=== PATIENT | male | born 1950 | race Caucasian/White ===

== ENCOUNTER → 2018-01-29 20:00 | Outpatient (CLI) | payer MEDICARE, SELFPAY ==
--- OUTSIDE RECORDS SUMMARY | 2018-03-18 03:27 | XMS RPT_ITS | Summary of Care ---
:1950 Author Organization [facility] Address [address] [place] [address] Care Team Providers Name Role Phone Adia Clint Ayon DO Primary Care Provider Clint Cheek DO Unavailable Clint Hinojosa MD Unavailable Encounter Details Date Type Department Care Team Description 12/04/2017 Hospital Encounter [facility] Samantha Stauffer, [address] [employer] [place], [place] [address] [address] [place] [address] [phone] Allergies Active Allergy Reactions Severity Noted Date Comments Morphine Other (See Comments) High 06/08/2016 States it slows his breathing down as of this encounter Medications Prescription Sig. Disp. Refills Start Date End Date Status gabapentin Take 400 mg by Active (NEURONTIN) 400 MG mouth 3 (three) capsule times a day . potassium chloride SA Take 20 mEq by Active (K-DUR,KLOR-CON) 20 mouth daily. MEQ tablet SYMBICORT (SAMPLE) 2 puffs by Oral Active 160-4.5 mcg/actuation Inhalation route HFAA 2 (two) times a day. tiotropium (SPIRIVA Place 18 mcg into Active WITH HANDIHALER) 18 inhaler and mcg inhalation inhale daily. capsule furosemide (LASIX) 20 Take 20 mg by 09/06/2017 Active MG tablet mouth daily. pramipexole (MIRAPEX) Take 1.5 mg by 09/06/2017 Active 0.5 MG tablet mouth nightly. docusate sodium Take 100 mg by Active (COLACE) 100 MG mouth 2 (two) capsule times a day hold for diarrhea. metoprolol succinate Take 25 mg by Active (TOPROL-XL) 25 MG 24 mouth daily. hr tablet HumuLIN N (SAMPLE) Inject 12 Units Active 100 unit/mL injection under the skin at bedtime . acetaminophen Take 650 mg by Active (TYLENOL) 325 MG mouth every 6 tablet (six) hours as needed for pain. fluticasone (FLONASE) Instill 2 sprays Active 50 mcg/actuation into each nostril nasal spray daily. insulin regular Inject 13 Units under the skin 3 (three) times a day before meals. In untis = 14 breakfast/8 lunch/ 13 dinner 09/14/2017 Active (HumuLIN R, NovoLIN low sliding scale R) 100 unit/mL 70-150 give o unit, 151-200 give 1 unit, 201-250 give 2 units, 251- 300 give 3 untis, 301-350 give 4 units, 350-400 give units, notify physician fo injection clopidogrel (PLAVIX) Take 1 (one) 90 tablet 4 09/20/2017 09/20/2018 Active 75 mg tablet tablet (75 mg total) by mouth daily. atorvastatin Take 40 mg by Active (LIPITOR) 40 MG mouth daily. tablet aspirin 325 MG tablet Take 325 mg by Active mouth daily. nitroGLYCERIN Place 0.4 mg Active (NITROSTAT) 0.4 MG SL under the tongue tablet every 5 (five) minutes as needed for chest pain. pantoprazole Take 40 mg by Active (PROTONIX) 40 MG mouth daily. tablet as of this encounter Active Problems Problem Noted Date CAD (coronary artery disease) 12/04/2017 Overview: 2017 coronary artery bypass grafting by Dr. Hinojosa. The GARCIA to the LAD with reverse saphenous vein graft [id number] to the ramus intermedius and end-to-side to the first obtuse marginal. Th ey were unable to address blockages on the right system because of poor targets. LV function is known to be normal Last Assessment & Plan: Attending rehab without provocation of symptoms. Encouraged the continuation of diet and exercise for risk factor reduction. Would recommend hemoglobin A1c at least 7. Would continue same medications . He will follow-up with Dr. Mcqueen in 3 months. Type 2 diabetes mellitus with stage 3 chronic kidney disease, without 10/23/2017 long-term current use of insulin (HCC) Hypertension 09/08/2017 Last Assessment & Plan: Blood pressure controlled in the office today. Continue to monitor and adjust as needed Hyperlipidemia 09/08/2017 Last Assessment & Plan: Currently on atorvastatin 40 mg daily. He does have some lower extremity cramps. Will check a magnesium and calcium and refer to primary care. Recommend ongoing diet and exercise with weight loss T2DM (type 2 diabetes mellitus) ([facility]) 09/08/2017 Last Assessment & Plan: We recommend a targeted hemoglobin A1c of 7.0. CKD (chronic kidney disease) stage 3, GFR 30-59 ml/min ([facility]) 09/08/2017 Last Assessment & Plan: Patient's last serum creatinine was 1.43. Patient will need IV hydration prior to percutaneous coronary intervention. Risk factor modification was reviewed. DEBORAH on CPAP 09/08/2017 Last Assessment & Plan: He is compliant with CPAP and his settings have been changed and he is now off oxygen. Recommend continuation of CPAP Social History Tobacco Use Types Packs/Day Years Used Date Never Smoker Smokeless Tobacco: Never Used Alcohol Use Drinks/Week oz/Week Comments No Sex Assigned at Date Recorded Not on file as of this encounter Plan of Treatment Upcoming Encounters Date Type Specialty Care Team Description 12/05/2017 Office Visit Endocrinology Jg Calvillo, [employer] [address] [place] [address] [phone] Health Maintenance Due Date Last Done Comments COLONOSCOPY 1950 HEPATITIS C SCREENING 1950 OPHTHALMOLOGY EXAM 1960 ZOSTER VACCINES (1 of 2) 2000 PNEUMOCOCCAL VACCINE AGE 65+ (1 of 2 - 09/02/2015 PCV13) SEQUENTIAL INFLUENZA VACCINE (#1) 2017 HEMOGLOBIN A1C 05/31/2018 11/30/2017, 08/30/2017 FOOT EXAM 10/04/2018 10/04/2017 URINE MICROALBUMIN 11/30/2018 11/30/2017 TETANUS EVERY 10 YR 01/14/2025 01/14/2015 as of this encounter Procedures Procedure Name Priority Date/Time Associated Diagnosis Comments MAGNESIUM LEVEL Routine 12/04/2017 9:11 AM Results for this EDT procedure are in the results section. CALCIUM Routine 12/04/2017 9:11 AM Results for this EDT procedure are in the results section. in this encounter Results Magnesium Level (12/04/2017 9:11 AM) Magnesium 1.9 1.6 - 2.4 mg/dL [facility] Specimen Blood Performing Organization Address City/[facility] Phone Number [facility] [address] [place] [address] Calcium Level (12/04/2017 9:11 AM) Calcium 8.8 8.4 - 10.2 mg/dL [facility] Specimen Blood Performing Organization Address City/[facility] Phone Number [facility] [address] [place] [address] in this encounter
--- OUTSIDE RECORDS SUMMARY | 2018-03-18 03:27 | XMS RPT_ITS | Summary of Care ---
:1950 Author Organization [facility] Address [address] [place] [address] Care Team Providers Name Role Phone Clint Cheek DO Primary Care Provider Clint Cheek DO Unavailable Clint Hinojosa MD Unavailable Encounter Details Date Type Department Care Team Description 11/03/2017 Hospital Encounter [facility] Charlotte Rojo, [address] [place], [place] [address] [address] [address] Allergies Active Allergy Reactions Severity Noted Date [...] this encounter Active Problems Problem Noted Date Type 2 diabetes mellitus with stage 3 chronic kidney disease, without 10/23/2017 long-term current use of insulin ([facility]) Hypertension 09/08/2017 Last Assessment & Plan: Appears well-controlled on his current medical regimen and we have made no changes. Hyperlipidemia 09/08/2017 Last Assessment & Plan: Patient's plaque stabilization therapy was discontinued yesterday by the surgical service due to development of a maculopapular rash and itching. T2DM (type 2 diabetes mellitus) (HCC) 09/08/2017 Last Assessment & Plan: We recommend a targeted hemoglobin A1c of 7.0. CKD (chronic kidney disease) stage 3, GFR 30-59 ml/min 09/08/2017 Last Assessment & Plan: Patient's last serum creatinine was 1.43. Patient will need IV hydration prior to percutaneous coronary intervention. Risk factor modification was reviewed. DEBORAH on CPAP 09/08/2017 Last Assessment & Plan: Patient has been compliant with CPAP therapy. Social History Tobacco Use Types Packs/Day Years Used Date Never Smoker Smokeless Tobacco: Never Used Alcohol Use Drinks/Week oz/Week Comments No Sex Assigned at Date Recorded Not on file as of this encounter Plan of Treatment Upcoming Encounters Date Type Specialty Care Team Description 11/08/2017 Office Visit Cardiology Samantha Stauffer, [employer] [address] [facility] [place] [address] [phone] 12/05/2017 Office Visit Endocrinology Jg Calvillo, [employer] SCI[employer]IST [address] [facility] Sara [address] [address] [phone] Health Maintenance Due Date Last Done Comments COLONOSCOPY 1950 HEPATITIS C SCREENING 1950 OPHTHALMOLOGY EXAM 1960 URINE MICROALBUMIN 1960 ZOSTER VACCINES (1 of 2) 2000 PNEUMOCOCCAL VACCINE AGE 65+ (1 of 2 - PCV13) 09/02/2015 SEQUENTIAL INFLUENZA VACCINE (#1) 2017 HEMOGLOBIN A1C 03/02/2018 08/30/2017 FOOT EXAM 10/04/2018 10/04/2017 TETANUS EVERY 10 YR 01/14/2025 01/14/2015 as of this encounter
--- OUTSIDE RECORDS SUMMARY | 2018-03-18 03:27 | XMS RPT_ITS | Summary of Care ---
:1950 Author Organization [facility] Address [address] [place] [address] Care Team Providers Name Role Phone Clint Cheek DO Primary Care Provider Clint Cheek DO Unavailable Clint Hinojosa MD Unavailable Reason for Visit Reason Comments Diabetes Mellitus Encounter Details Date Type Department Care Team Description 10/04/2017 Office Visit [facility] Blossom Meyer Type 2 diabetes mellitus with other circulatory complication, with long-term current use of insulin ([facility]) (Primary Dx); Endocrinology [place] Essential hypertension; Physicians [address] Hyperlipidemia, unspecified hyperlipidemia type; [address] Type 2 diabetes mellitus with stage 3 chronic kidney disease, without long-term current use of insulin ([facility]) Medical [place], [place] [address] [address] [place], [place] [phone] Allergies Active Allergy Reactions Severity Noted Date Comments Morphine Other (See Comments) High 06/08/2016 States it slows his breathing down as of this encounter Medications Prescription Sig. Disp. Refills Start Date End Date Status gabapentin Take 400 mg by Active (NEURONTIN) 400 MG mouth 3 (three) capsule times a day . potassium chloride Take 20 mEq by Active SA (K-DUR,KLOR-CON) mouth daily. 20 MEQ tablet SYMBICORT (SAMPLE) 2 puffs by Oral Active 160-4.5 Inhalation route mcg/actuation HFAA 2 (two) times a day. tiotropium (SPIRIVA Place 18 mcg Active WITH HANDIHALER) 18 into inhaler and mcg inhalation inhale daily. capsule furosemide (LASIX) Take 20 mg by 09/06/2017 Active 20 MG tablet mouth daily. pramipexole Take 1.5 mg by 09/06/2017 Active (MIRAPEX) 0.5 MG mouth nightly. tablet docusate sodium Take 100 mg by Active (COLACE) 100 MG mouth 2 (two) capsule times a day hold for diarrhea. metoprolol Take 25 mg by Active succinate mouth daily. (TOPROL-XL) 25 MG 24 hr tablet HumuLIN N (SAMPLE) Inject 12 Units Active 100 unit/mL under the skin injection at bedtime . acetaminophen Take 650 mg by Active (TYLENOL) 325 MG mouth every 6 tablet (six) hours as needed for pain. fluticasone Instill 2 sprays Active (FLONASE) 50 into each mcg/actuation nasal nostril daily. spray insulin regular Inject 13 Units under the skin 3 (three) times a day before meals. In untis = 14 breakfast/8 lunch/ 13 dinner 09/14/2017 Active (HumuLIN R, NovoLIN low sliding scale R) 100 unit/mL 70-150 give o unit, 151-200 give 1 unit, 201-250 give 2 units, 251- 300 give 3 untis, 301-350 give 4 units, 350-400 give units, notify physician fo injection clopidogrel Take 1 (one) 90 tablet 4 09/20/2017 Active (PLAVIX) 75 mg tablet (75 mg 9 tablet total) by mouth daily. aspirin (ASPIR-81) Take 81 mg by Discontinued 81 MG EC tablet mouth daily. 8 oxyCODONE-acetamino Take 1 tablet by Discontinued phen (PERCOCET) mouth every 4 8 5-325 mg per tablet (four) hours as needed for pain. esomeprazole Take 40 mg by Discontinued (NEXIUM) 40 MG mouth daily. 8 capsule as of this encounter Active Problems Problem Noted Date Type 2 diabetes mellitus with stage 3 chronic kidney disease, without 10/23/2017 long-term current use of insulin (HCC) Hypertension 09/08/2017 Last Assessment & Plan: Appears [...] Not on file as of this encounter Last Filed Vital Signs Vital Sign Reading Time Taken Blood Pressure 132/74 10/04/2017 8:40 AM EDT Pulse 84 10/04/2017 8:40 AM EDT Temperature - - Respiratory Rate - - Oxygen Saturation - - Inhaled Oxygen Concentration - - Weight 114.3 kg (252 lb) 10/04/2017 8:40 AM EDT Height - - Body Mass Index 39.47 10/04/2017 8:40 AM EDT in this encounter Instructions Patient Instructions - Blossom Meyer CNP - 10/04/2017 9:09 AM EDT Consider yearly eye exam Will consider metformin after next appointment. Continue Regular insulin 14 units at breakfast, 8 units at lunch, 12 units at dinner Continue NPH 12 units at bedtime Continue sliding scale Regular with meals and bedtime snack If Blood sugar 150-200: take 2 extra units 201-250 take 4 extra units 251-300 take 6 extra units 301-350 take 8 extra units 351-400 take 10 extra units 401- greater take 10 extra units and call Dr Rojo's office Consult the casing splitter Take 6 units of NPH at bedtime tonight 10/04/17 since not having breakfast and do not take Regular insulin tomorrow morning 10/05/17 since you are not eating breakfast. Call if BG consistently <70 or >250. [phone] this encounter Progress Notes Blossom Meyer CNP - 10/04/2017 8:58 AM EDTFormatting of this note may be different from the original. Patient ID: Deepa Fletcher is a 67 y.o. male 1950 Subjective: HPI: Deepa Fletcher presents for follow-up of Type 2 diabetes The initial diagnosis of diabetes was made 15-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 He had been taking metformin 1,000 mg BID, Actos 30 mg daily and Glimepiride 4 mg BID , although his metformin was recently decreased to 500 mg BID. His Hgb A1C was 10.4% on 08/31/17.Since his surgery, his disease course has been improving. Pertinent negatives for diabetes include: no chest pain no shortness of breath no polyuria, polydipsia, polyphagia no nausea or vomiting no blurred vision no weight loss no recent hypoglycemia Pertinent positives for diabetes include: none Hypoglycemia symptoms include hunger and sweats . There are no hypoglycemic complications, no nocturnal hypoglycemia. Diabetic complications include diabetic neuropathy, diabetic nephropathy and CAD Pertinent negatives for diabetic complications include no: diabetic retinopathy and autonomic neuropathy Current diabetic treatment includes insulin injections and oral agent/s Self Monitored blood glucose levels Patient has been checking BG QID AC/HS. Breakfast: 110-234 Lunch: 126-227 Supper: 80-243 Bedtime: 98-229 Patient's weight is stable Currently taking: No oral hypoglycemic medications Regular Insulin: 14 units at breakfast; 8 units at lunch; 12 units at dinner NPH insulin: 12 units at bedtime Patient's Medications New Prescriptions No medications on file Previous Medications ACETAMINOPHEN (TYLENOL) 325 MG TABLET Take 650 mg by mouth every 6 (six) hours as needed for pain. ASPIRIN 325 MG TABLET Take 325 mg by mouth daily. ATORVASTATIN (LIPITOR) 40 MG TABLET Take 40 mg by mouth daily. CLOPIDOGREL (PLAVIX) 75 MG TABLET Take 1 (one) tablet (75 mg total) by mouth daily. DOCUSATE SODIUM (COLACE) 100 MG CAPSULE Take 100 mg by mouth 2 (two) times a day hold for diarrhea. FLUTICASONE (FLONASE) 50 MCG/ACTUATION NASAL SPRAY Instill 2 sprays into each nostril daily. FUROSEMIDE (LASIX) 20 MG TABLET Take 20 mg by mouth daily. GABAPENTIN (NEURONTIN) 400 MG CAPSULE Take 400 mg by mouth 3 (three) times a day . HUMULIN N (SAMPLE) 100 UNIT/ML INJECTION Inject 12 Units under the skin at bedtime . INSULIN REGULAR (HUMULIN R, NOVOLIN R) 100 UNIT/ML INJECTION Inject 13 Units under the skin 3 (three) times a day before meals. In untis = 14 breakfast/8 lunch/ 13 dinner low sliding scale 70-150 give o unit, 151-200 give 1 unit, 201-250 give 2 units, 251-300 give 3 untis, 301-350 give 4 units, 350-400 give units, notify physician fo METOPROLOL SUCCINATE (TOPROL-XL) 25 MG 24 HR TABLET Take 25 mg by mouth daily. NITROGLYCERIN (NITROSTAT) 0.[address] 0.4 mg under the tongue every 5 (five) minutes as needed for chest pain. PANTOPRAZOLE (PROTONIX) 40 MG TABLET Take 40 mg by mouth daily. POTASSIUM CHLORIDE SA (K-DUR,KLOR-CON) 20 MEQ TABLET Take 20 mEq by mouth daily. PRAMIPEXOLE (MIRAPEX) 0.5 MG TABLET Take 1.5 mg by mouth nightly. SYMBICORT (SAMPLE) 160-4.5 MCG/ACTUATION HFAA 2 puffs by Oral Inhalation route 2 (two) times a day. TIOTROPIUM (SPIRIVA WITH HANDIHALER) [address] 18 mcg into inhaler and inhale daily. Modified Medications No medications on file Discontinued Medications ASPIRIN (ASPIR-81) 81 MG EC TABLET Take 81 mg by mouth daily. ESOMEPRAZOLE (NEXIUM) 40 MG CAPSULE Take 40 mg by mouth daily. OXYCODONE-ACETAMINOPHEN (PERCOCET) 5-325 MG PER TABLET Take 1 tablet by mouth every 4 (four) hours as needed for pain. Review of Systems: Review of Systems Constitutional: Negative for appetite change and fatigue. Eyes: Negative for visual disturbance. Respiratory: Negative for cough, chest tightness, shortness of breath and wheezing. Cardiovascular: Negative for chest pain, palpitations and leg swelling. Gastrointestinal: Positive for constipation (relieved with stool softener). Negative for abdominal pain, diarrhea, nausea and vomiting. Endocrine: Negative for polydipsia, polyphagia and polyuria. Genitourinary: Negative for dysuria and frequency. Musculoskeletal: Negative for arthralgias, gait problem and myalgias. Neurological: Negative for weakness, numbness and headaches. The following portions of the patient's history were reviewed and updated as appropriate: allergies,current medications, past family history, past medical history, past social history, past surgical history and problem list. Objective: BP 132/74 Pulse 84 Ht (P) 5' 7 Wt 114.3 kg (252 lb) BMI (P) 39.47 kg/m?? Wt Readings from Last 3 Encounters: 10/13/17 114.3 kg (252 lb) 10/04/17 114.3 kg (252 lb) 09/20/17 112.5 kg (248 lb) Physical Exam: General: alert, appears stated age and cooperative Eyes: conjunctivae/corneas clear. PERRL, EOM's intact. Neck: no adenopathy, supple, symmetrical, trachea midline. Thyroid: No thyromegaly appreciated Lung: clear to auscultation bilaterally Heart: regular rate and rhythm, S1, S2 normal, no murmur, click, rub or gallop Extremities: extremities normal, atraumatic, no cyanosis. Left vein lower extremity vein removed forCABG 2017, healed.Mild LLE edema Feet: Dry skin, Bilateral Feet: normal DP. Monofilament exam Normal , bilateral lower extremities. Neuro: normal without focal findings, mental status, speech normal, alert and oriented x3 and BELEN Lab Review Lab Results Component Value Date WBC 5.5 10/06/2017 HGB 12.7 (L) 10/06/2017 HCT 37.5 (L) 10/06/2017 PLT 196 10/06/2017 09/27/17 Creat: 1.51, EGFR 46, K 4.1 Lab Results Component Value Date HGBA1C 10.4 (H) 08/30/2017 Component Value Date/Time AST 17 08/30/2017 1258 ALT 27 08/30/2017 1258 Assessment: Dx: SNOMED CT(R) 1. Type 2 diabetes mellitus with other circulatory complication, with long-term current use of insulin (HCC) TYPE 2 DIABETES MELLITUS TSH T4, Free Comprehensive Metabolic Panel Hemoglobin A1c External Lab Microalbumin/Creatinine Lipid Panel 2. Essential hypertension ESSENTIAL HYPERTENSION TSH T4, Free Comprehensive Metabolic Panel Hemoglobin A1c External Lab Microalbumin/Creatinine Lipid Panel 3. Hyperlipidemia, unspecified hyperlipidemia type HYPERLIPIDEMIA TSH T4, Free Comprehensive Metabolic Panel Hemoglobin A1c External Lab Microalbumin/Creatinine Lipid Panel Type 2 diabetes, under improving control Deepa Fletcher presents for follow-up of Type 2 diabetes Patient is currently managed with: Humulin Regular before meals and HPN insulin at beditme. Most recent Hgb A1c was 10.4% on 08/31/17. Retinopathy: Negative Exam within last 12 months: unknown Date:. Follows with the [facility] for management of Routine eye care. Floaters became detached Retina. Recommend a yearly exam Nephropathy: Positive Creat: 1.51, eGFR 46 on 09/27/17; Mialb/creat ratio: To be checked prior to next appt, patient takes Patient on No PEDRO-I or ARB Peripheral Neuropathy: Negative Reports bilateral numbness and tingling in feet. Takes gabapentin Autonomic Neuropathy: Negative Patient aware of lows. Hyperlipidemia: Positive Currently taking: atorvastatin (Lipitor). LFT's WNL 09/27/17. Will be checking lipid panel prior to next appt Hypertension: Positive. Currently taking: furosemide (Lasix) and metoprolol (Lopressor, Toprol).Goal <130/80. stable BP: 132/74 Cardiac: Positive Denies Chest pain or SOB at this time. CABG x 3 on 09/01/17. Does have chest soreness. Having cardiac stent 10/05/17, then will follow up with Dr Hinojosa 10/13/17 prior to starting cardiac rehab Vascular: Positive edema. Has hx of right leg injury Then had vein removed from leg for CABG Feet: Negative sores or lesions at this time. Last foot exam: 10/04/17 Thyroid: Negative Check prior to next appt Other: CPAP ordered 10/03/17. Following with a [facility] it support manager Plan: Type 2 diabetes mellitus with other circulatory complication, with long-term current use of insulin (HCC) [E11.59, Z79.4] 1. Rx changes: Continue current regimen Regular Insulin: 14 units at breakfast; 8 units at lunch; 12 units at dinner NPH insulin: 12 units at bedtime No oral hypoglycemic medications Will consider metformin after next appointment since will be having a heart cath 10/05/17 Continue sliding scale Regular with meals and bedtime snack If Blood sugar 150-200: take 2 extra units 201-250 take 4 extra units 251-300 take 6 extra units 301-350 take 8 extra units 351-400 take 10 extra units 401- greater take 10 extra units and call Dr Rojo's office Consult the casing splitter 2. Education: Reviewed ???ABCs??? of diabetes management (respective goals in parentheses): A1C (7.0-8.0), blood pressure (<130/80), and cholesterol (LDL <100). 3. Compliance at present is estimated to be good. Efforts to improve compliance (if necessary) willbe directed at dietary modifications: Limit portion sizes and Limit starches, carbohydrates and concentrated sugar sources and increased exercise. (when ready for cardiac rehab per cardiology) 4. Follow up: 2 months 5. Record blood sugar readings as instructed. Call if BG consistently <70 or >250. [phone] Check blood sugar 3-4 times daily. 6. Bring blood sugar meter to follow up appointment. Orders Placed This Encounter Procedures ??? TSH ??? T4, Free ??? Comprehensive Metabolic Panel ??? Hemoglobin A1c ??? External Lab Microalbumin/Creatinine ??? Lipid Panel in this encounter Plan of Treatment Upcoming Encounters Date Type Specialty Care Team Description 10/24/2017 Hospital Encounter Clint Hinojosa MD [address] [place] [address] [phone] 11/08/2017 Office Visit Cardiology Samantha Stauffer CNP [address] [place] [address] [phone] 12/05/2017 Office Visit Endocrinology [place], [place] [address] [address] [phone] Scheduled Tests Name Priority Associated Diagnoses Order Schedule TSH Routine Type 2 diabetes mellitus 1 Occurrences starting with other circulatory 10/04/2017 until complication, with 10/04/2018 long-term current use of insulin (HCC) Essential hypertension Hyperlipidemia, unspecified hyperlipidemia type T4, Free Routine Type 2 diabetes mellitus 1 Occurrences starting with other circulatory 10/04/2017 until complication, with 10/04/2018 long-term current use of insulin (HCC) Essential hypertension Hyperlipidemia, unspecified hyperlipidemia type Comprehensive Metabolic Routine Type 2 diabetes mellitus 1 Occurrences starting Panel with other circulatory 10/04/2017 until complication, with 10/04/2018 long-term current use of insulin (HCC) Essential hypertension Hyperlipidemia, unspecified hyperlipidemia type Hemoglobin A1c Routine Type 2 diabetes mellitus 1 Occurrences starting with other circulatory 10/04/2017 until complication, with 10/04/2018 long-term current use of insulin (HCC) Essential hypertension Hyperlipidemia, unspecified hyperlipidemia type External Lab Routine Type 2 diabetes mellitus 1 Occurrences starting Microalbumin/Creatinine with other circulatory 10/04/2017 until complication, with 10/04/2018 long-term current use of insulin (HCC) Essential hypertension Hyperlipidemia, unspecified hyperlipidemia type Lipid Panel Routine Type 2 diabetes mellitus 1 Occurrences starting with other circulatory 10/04/2017 until complication, with 10/04/2018 long-term current use of insulin (HCC) Essential hypertension Hyperlipidemia, unspecified hyperlipidemia type Health Maintenance Due Date Last Done Comments COLONOSCOPY 1950 HEPATITIS C SCREENING 1950 FOOT EXAM 1960 OPHTHALMOLOGY EXAM 1960 URINE MICROALBUMIN 1960 ZOSTER VACCINES (1 of 2) 2000 PNEUMOCOCCAL VACCINE AGE 65+ (1 of 2 - PCV13) 09/02/2015 SEQUENTIAL INFLUENZA VACCINE (#1) 2017 HEMOGLOBIN A1C 03/02/2018 08/30/2017 TETANUS EVERY 10 YR 01/14/2025 01/14/2015 as of this encounter Visit Diagnoses Diagnosis Type 2 diabetes mellitus with other circulatory complication, with long-term current use of insulin (HCC) - Primary Essential hypertension Unspecified essential hypertension Hyperlipidemia, unspecified hyperlipidemia type
--- OUTSIDE RECORDS SUMMARY | 2018-03-18 03:27 | XMS RPT_ITS | Summary of Care ---
:1950 Author Organization [facility] Address [address] [place] [address] Care Team Providers Name Role Phone Clint Cheek DO Primary Care Provider Clint Cheek DO Unavailable Clint Hinojosa MD Unavailable Reason for Visit Reason Comments Follow-up s/p pci Encounter Details Date Type Department Care Team Description 12/04/2017 Office Visit [facility] Heart & [place], Samantha Cramps of left lower extremity (Primary Dx); Vascular Physicians [place] Narayanan Coronary artery disease without angina pectoris, unspecified vessel or lesion type, unspecified whether [place] or transplanted heart; [address] Essential hypertension; Medical Office [place], [place] Mixed hyperlipidemia; Building [facility] DEBORAH on CPAP [place], [place] [phone] Allergies Active Allergy Reactions Severity Noted Date [...] the LAD with reverse saphenous vein graft [id number] to the ramus intermedius and end-to-side to [...] without 10/23/2017 long-term current use of insulin ([facility]) Hypertension 09/08/2017 Last Assessment & Plan: Blood pressure controlled in the office today. Continue to monitor and adjust as needed Hyperlipidemia 09/08/2017 Last Assessment & Plan: Currently on atorvastatin 40 mg daily. He does have some lower extremity cramps. Will check a magnesium and calcium and refer to primary care. Recommend ongoing diet and exercise with weight loss T2DM (type 2 diabetes mellitus) ([facility]) 09/08/2017 Last Assessment & Plan: We recommend a targeted hemoglobin A1c of 7.0. CKD (chronic kidney disease) stage 3, GFR 30-59 ml/min ([facility]) 09/08/2017 Last Assessment & Plan: [...] Vital Sign Reading Time Taken Blood Pressure 101/62 12/04/2017 7:41 AM EDT Pulse 77 12/04/2017 7:41 AM EDT Temperature - - Respiratory Rate - - Oxygen Saturation 95% 12/04/2017 7:41 AM EDT Inhaled Oxygen Concentration - - Weight 117.3 kg (258 lb 8 oz) 12/04/2017 7:41 AM EDT Height 170.2 cm (5' 7) 12/04/2017 7:41 AM EDT Body Mass Index 40.49 12/04/2017 7:41 AM EDT in this encounter Instructions Patient Instructions - Samantha Stauffer CNP - 12/04/2017 8:00 AM EDTBlood workin this encounter Progress Notes Samantha Stauffer CNP - 12/04/2017 7:43 AM EDTFormatting of this note may be different from the original. Subjective: Clint Cheek, DO Deepa Fletcher is a 67 y.o. male seen in the office today for Follow-up (s/p pci) . HPI: He was seen at [facility] vascular physicians [place] office on December 04, 2017. He is a 67-year-old gentleman who presented to the hospital with atypical chest discomfort with some featuressuggestive of ischemic syndrome in August 2017. Cardiac markers were nondetectable and previous treadmill exercise study was nondiagnostic secondary to failure to achieve target heart rate in June 2016.He underwent heart catheterization which revealed triple-vessel coronary disease and he was seen by Dr. Hinojosa who recommended coronary artery bypass grafting which she had on 2017. At that time he had a GARCIA to the LAD with reverse saphenous vein graft [id number] to the ramus intermedius and end-to-side to the first obtuse marginal. They were unable to address blockages on the right system because of poor targets. He also has history diabetes mellitus, diverticulitis, deep vein thrombosis, status post crush injury to the right leg with open reduction and victoria placement, gastroesophageal reflux disease, chronic kidney disease, hyperlipidemia, hyperlipidemia, obstructive sleep apnea with CPAP, status post right shoulder replacement, osteoarthritis, and hypertension. He was discharged on oxygen but that has been weaned off after having his CPAP settings adjusted. In the office today he is currently going through cardiac rehab without issue. Leg wound chest withand are healing well. He offers no complaints of chest pain, shortness of breath, lightheadedness or palpitations. And vital signs are stable Histories: Past Medical History: Diagnosis Date ??? Adenomatous colon polyp 2001 ??? Cellulitis ??? Diabetes mellitus (HCC) ??? Diverticulosis ??? DVT (deep venous thrombosis) (HCC) ??? Esophagitis Grade 1 ??? Gastric polyp Fundal gland type ??? Gastritis ??? GERD (gastroesophageal reflux disease) ??? Hiatal hernia ??? Hyperlipidemia ??? Hypertension ??? Malaise and fatigue ??? Neutropenia (HCC) ??? Obesity ??? Renal failure Past Surgical History: Procedure Laterality Date ??? BONE MARROW BIOPSY W/ ASPIRATION 05/23/2006 Dr. Remy ??? COLONOSCOPY 07/20/2001 internal hemorrhoids, diverticula, polyp-Tubulovillous...Dr. Stanley ??? COLONOSCOPY 03/03/2017 mild diverticulosis, polyp-mild hyperplastic changes....Dr. Olguin ??? CORONARY ARTERY BYPASS GRAFT 2017 x 3 grafts ??? ESOPHAGOGASTRODUODENOSCOPY 08/06/1999 Grade 1 esophagitis, hiatal hernia, chronic gastritis....Dr. Mckeon ??? ESOPHAGOGASTRODUODENOSCOPY 05/28/1997 Gastroesophageal reflux disease, hiatal hernia...Dr. Mckeon ??? ESOPHAGOGASTRODUODENOSCOPY 03/03/2017 Fundal polyp-Fundic gland, Linear gastritis with non-bleeding early ulcers bx- Reactive gastropathy....Dr. Olguin ??? EXCHANGE INTERMEDULLARY NAILING Right 12/20/2000 Tibia...Dr. Castellano ??? EXCHANGE INTRAMEDULLARY NAILING Right 01/11/2002 Nonunion, right tibia...Dr. Castellano ??? Excision of lower lip lesion 2016 ??? FIBULECTOMY Right 04/09/2001 Screw removed, intermedullary victoria, tibia, partial....Dr. Castellano ??? NASAL SEPTUM SURGERY 03/13/2008 Turbinate hypertrophy...Dr. Boss ??? SHOULDER SURGERY Left 2013 replacement Family History Problem Relation Age of Onset ??? Heart disease Mother ??? Heart disease Father ??? Heart attack Father ??? Cancer Maternal Grandmother ??? Cancer Maternal Grandfather ??? Cancer Paternal Grandmother ??? Prostate cancer Other Social History Substance Use Topics ??? Smoking status: Never Smoker ??? Smokeless tobacco: Never Used ??? Alcohol use No Patient's Medications New Prescriptions No medications on [...] Medications No medications on file Discontinued Medications No medications on file Allergies Allergen Reactions ??? Morphine Other (See Comments) States it slows his breathing down Review of Systems Constitution: Negative for decreased appetite, weakness, malaise/fatigue and weight gain. HENT: Negative for hearing loss. Eyes: Negative for blurred vision and visual disturbance. Cardiovascular: Negative for chest pain, claudication, dyspnea on exertion, irregular heartbeat, legswelling, near-syncope, orthopnea, palpitations, paroxysmal nocturnal dyspnea and syncope. Respiratory: Negative for cough, shortness of breath, sleep disturbances due to breathing, snoring and wheezing. Endocrine: Negative for cold intolerance and heat intolerance. Hematologic/Lymphatic: Negative for bleeding problem. Does not bruise/bleed easily. Skin: Negative for flushing and rash. Musculoskeletal: Positive for back pain and joint pain. Negative for falls and myalgias. Knee issue Gastrointestinal: Negative for abdominal pain, change in bowel habit and heartburn. Genitourinary: Negative for frequency and hematuria. Neurological: Negative for disturbances in coordination, dizziness, headaches, light-headedness and paresthesias. Psychiatric/Behavioral: Negative for altered mental status and depression. Allergic/Immunologic: Negative for environmental allergies and persistent infections. Objective: Physical Exam Constitutional: He is oriented to person, place, and time. He appears well- developed and well-nourished. No distress. HENT: Head: Normocephalic and atraumatic. Eyes: Pupils are equal, round, and reactive to light. Conjunctivae are normal. Right eye exhibits nodischarge. Left eye exhibits no discharge. Neck: Normal range of motion. Neck supple. No hepatojugular reflux and no JVD present. Carotid bruitis not present. No thyromegaly present. Cardiovascular: Normal rate, regular rhythm, S1 normal, S2 normal, normal heart sounds, intact distal pulses and normal pulses. PMI is not displaced. Exam reveals no gallop. No murmur heard. Pulmonary/Chest: Effort normal and breath sounds normal. No respiratory distress. He has no wheezes.He has no rales. Abdominal: Soft. Bowel sounds are normal. Musculoskeletal: Normal range of motion. He exhibits no edema. Neurological: He is alert and oriented to person, place, and time. Skin: Skin is warm and dry. He is not diaphoretic. Psychiatric: He has a normal mood and affect. His behavior is normal. Vitals: Vitals: 12/04/17 0741 BP: 101/62 Pulse: 77 SpO2: 95% Weight: 117.3 kg (258 lb 8 oz) Height: 5' 7 Lab Review: Hospital Outpatient Visit on 11/30/2017 Component Date Value ??? Creatinine, Urine Random 11/30/2017 141.00 ??? Microalb, Urine Random 11/30/2017 <0.5 ??? Microalbumin/Creatinine * 11/30/2017 4 ??? T4, Free 11/30/2017 0.8 ??? TSH 11/30/2017 2.34 ??? Glucose 11/30/2017 148* ??? BUN 11/30/2017 15 ??? Creatinine 11/30/2017 1.35* ??? eGFR 11/30/2017 53* ??? eGFR 11/30/2017 >=60 ??? Calcium 11/30/2017 8.8 ??? Sodium 11/30/2017 138 ??? Potassium 11/30/2017 4.0 ??? Chloride 11/30/2017 105 ??? CO2 11/30/2017 24 ??? AST 11/30/2017 13 ??? ALT 11/30/2017 22 ??? Alkaline Phosphatase 11/30/2017 109 ??? Bilirubin, Total 11/30/2017 0.7 ??? Total Protein 11/30/2017 7.2 ??? Albumin 11/30/2017 3.3 ??? Cholesterol 11/30/2017 104 ??? Triglycerides 11/30/2017 75 ??? HDL 11/30/2017 34* ??? LDL 11/30/2017 55 ??? VLDL 11/30/2017 15 ??? CHOL/HDL Ratio 11/30/2017 3.1* ??? Hemoglobin A1C 11/30/2017 7.4* Hospital Outpatient Visit on 10/13/2017 Component Date Value ??? Protime (PT) 10/13/2017 13.2 ??? INR 10/13/2017 1.03 ??? Glucose 10/13/2017 217* ??? BUN 10/13/2017 15 ??? Creatinine 10/13/2017 1.41* ??? eGFR 10/13/2017 50* ??? eGFR 10/13/2017 >=60 ??? Calcium 10/13/2017 8.4 ??? Sodium 10/13/2017 140 ??? Potassium 10/13/2017 3.8 ??? Chloride 10/13/2017 106 ??? CO2 10/13/2017 26 Admission on 10/05/2017, Discharged on 10/06/2017 Component Date Value ??? Glucose, POC strip 10/05/2017 247* ??? Glucose, POC strip 10/05/2017 126* ??? Glucose, POC strip 10/05/2017 128* ??? Glucose, POC strip 10/05/2017 207* ??? WBC 10/06/2017 5.5 ??? RBC 10/06/2017 4.30 ??? Hemoglobin 10/06/2017 12.7* ??? Hematocrit 10/06/2017 37.5* ??? MCV 10/06/2017 87.2 ??? MCH 10/06/2017 29.6 ??? MCHC 10/06/2017 34.0 ??? RDW 10/06/2017 15.0* ??? Platelets 10/06/2017 196 ??? MPV 10/06/2017 8.7 ??? Absolute Neutrophils 10/06/2017 3.3 ??? Absolute Lymphocytes 10/06/2017 1.0 ??? Absolute Monocytes 10/06/2017 0.4 ??? Absolute Eosinophils 10/06/2017 0.7* ??? Absolute Basophils 10/06/2017 0.0 ??? Segmented Neut 10/06/2017 59.8 ??? Lymphocytes 10/06/2017 18.6 ??? Monocytes 10/06/2017 7.6 ??? Eosinophils 10/06/2017 13.5 ??? Basophils 10/06/2017 0.5 ??? RBC Morphology 10/06/2017 Normal ??? Glucose 10/06/2017 110* ??? BUN 10/06/2017 14 ??? Creatinine 10/06/2017 1.21 ??? eGFR 10/06/2017 >=60 ??? eGFR 10/06/2017 >=60 ??? Calcium 10/06/2017 9.2 ??? Sodium 10/06/2017 140 ??? Potassium 10/06/2017 3.6 ??? Chloride 10/06/2017 108 ??? CO2 10/06/2017 24 ??? Glucose, POC strip 10/06/2017 149* ??? Blood Smear Review 10/06/2017 See Pathology Report. ??? Glucose, POC strip 10/06/2017 301* Hospital Outpatient Visit on 09/27/2017 Component Date Value ??? Partial Thromboplastin T* 09/27/2017 31 ??? Protime (PT) 09/27/2017 12.6 ??? INR 09/27/2017 0.97 ??? WBC 09/27/2017 6.2 ??? RBC 09/27/2017 4.62 ??? Hemoglobin 09/27/2017 13.5 ??? Hematocrit 09/27/2017 40.3 ??? MCV 09/27/2017 87.1 ??? MCH 09/27/2017 29.2 ??? MCHC 09/27/2017 33.5 ??? RDW 09/27/2017 15.1* ??? Platelets 09/27/2017 227 ??? MPV 09/27/2017 8.4 ??? ED Cardiac Troponin-I 09/27/2017 < 15 ??? Glucose 09/27/2017 163* ??? BUN 09/27/2017 17 ??? Creatinine 09/27/2017 1.51* ??? eGFR 09/27/2017 46* ??? eGFR 09/27/2017 56* ??? Calcium 09/27/2017 9.2 ??? Sodium 09/27/2017 139 ??? Potassium 09/27/2017 4.1 ??? Chloride 09/27/2017 105 ??? CO2 09/27/2017 26 ??? NT-Pro BNP, Serum 09/27/2017 584* Hospital Outpatient Visit on 09/19/2017 Component Date Value ??? Protime (PT) 09/19/2017 25.2* ??? INR 09/19/2017 2.32 Hospital Outpatient Visit on 09/15/2017 Component Date Value ??? Glucose 09/15/2017 309* ??? BUN 09/15/2017 20 ??? Creatinine 09/15/2017 1.43* ??? eGFR 09/15/2017 49* ??? eGFR 09/15/2017 >=60 ??? Calcium 09/15/2017 8.9 ??? Sodium 09/15/2017 135 ??? Potassium 09/15/2017 4.3 ??? Chloride 09/15/2017 102 ??? CO2 09/15/2017 24 ??? Protime (PT) 09/15/2017 24.4* ??? INR 09/15/2017 2.23 Hospital Outpatient Visit on 09/11/2017 Component Date Value ??? Glucose 09/11/2017 295* ??? BUN 09/11/2017 18 ??? Creatinine 09/11/2017 1.59* ??? eGFR 09/11/2017 44* ??? eGFR 09/11/2017 53* ??? Calcium 09/11/2017 9.0 ??? Sodium 09/11/2017 135 ??? Potassium 09/11/2017 4.1 ??? Chloride 09/11/2017 102 ??? CO2 09/11/2017 24 ??? Protime (PT) 09/11/2017 23.7* ??? INR 09/11/2017 2.15 Hospital Outpatient Visit on 09/09/2017 Component Date Value ??? Protime (PT) 09/09/2017 21.6* ??? INR 09/09/2017 1.92 Hospital Outpatient Visit on 09/08/2017 Component Date Value ??? Glucose 09/08/2017 321* ??? BUN 09/08/2017 20 ??? Creatinine 09/08/2017 1.56* ??? eGFR 09/08/2017 45* ??? eGFR 09/08/2017 54* ??? Calcium 09/08/2017 8.6 ??? Sodium 09/08/2017 135 ??? Potassium 09/08/2017 4.4 ??? Chloride 09/08/2017 102 ??? CO2 09/08/2017 24 ??? Protime (PT) 09/08/2017 22.4* ??? INR 09/08/2017 2.00 Hospital Outpatient Visit on 09/07/2017 Component Date Value ??? Protime (PT) 09/07/2017 19.9* ??? INR 09/07/2017 1.73 There may be more visits with results that are not included. Assessment & Plan: CAD (coronary artery disease) Attending rehab without provocation of symptoms. Encouraged the continuation of diet and exercise for risk factor reduction. Would recommend hemoglobin A1c at least 7. Would continue same medications. He will follow-up with Dr. Mcqueen in 3 months. Hypertension Blood pressure controlled in the office today. Continue to monitor and adjust as needed Hyperlipidemia Currently on atorvastatin 40 mg daily. He does have some lower extremity cramps. Will check a magnesium and calcium and refer to primary care. Recommend ongoing diet and exercise with weight loss DEBORAH on CPAP He is compliant with CPAP and his settings have been changed and he is now off oxygen. Recommend continuation of CPAP Orders Placed This Encounter ??? Calcium Standing Status: Future Standing Expiration Date: 12/04/2018 ??? Magnesium Level Standing Status: Future Standing Expiration Date: 12/04/2018 Other Tests Ordered: No orders of the defined types were placed in this encounter. Follow Up Ordered: Return in about 3 months (around 03/06/2018) for Richar. Referring No ref. provider found Samantha Stauffer CNPin this encounter Miscellaneous Notes Assessment & Plan [place] - Samantha Stauffer CNP - 12/04/2017 8:08 AM EDT Associated Problem(s): DEBORAH on CPAPHe is compliant with CPAP and his settings have been changed and he is now off oxygen. Recommend continuation of CPAP Assessment & Plan Note - Samantha Stauffer CNP - 12/04/2017 8:07 AM EDT Associated Problem(s): HyperlipidemiaCurrently on atorvastatin 40 mg daily. He does have some lower extremity cramps. Will check a magnesium and calcium and refer to primary care. Recommend ongoing diet and exercise with weight loss Assessment & Plan Note - Samantha Stauffer CNP - 12/04/2017 8:06 AM EDT Associated Problem(s): HypertensionBlood pressure controlled in the office today. Continue to monitor and adjust as neededAssessment & Plan Note - Samantha Stauffer CNP - 12/04/2017 8:06 AM EDTAssociated Problem(s): CAD (coronary artery disease)Attending rehab without provocation of symptoms. Encouraged the continuation of diet and exercise for risk factor reduction. Would recommend hemoglobin A1c at least 7. Would continue same medications. He will follow-up with Dr. Mcqueen in 3 months.in this encounter Plan of Treatment Upcoming Encounters Date Type Specialty Care Team Description 12/05/2017 Office Visit Endocrinology [facility] [place], [place] [address]iz [address] [address] [phone] Scheduled Tests Name Priority Associated Diagnoses Order Schedule Calcium Routine Cramps of left lower extremity 1 Occurrences starting 12/04/2017 until 12/04/2018 Magnesium Level Routine Cramps of left lower extremity 1 Occurrences starting 12/04/2017 until 12/04/2018 Health Maintenance Due Date Last Done Comments COLONOSCOPY 1950 HEPATITIS C SCREENING 1950 OPHTHALMOLOGY EXAM 1960 ZOSTER VACCINES (1 of 2) 2000 PNEUMOCOCCAL VACCINE AGE 65+ (1 of 2 - 09/02/2015 PCV13) SEQUENTIAL INFLUENZA VACCINE (#1) 2017 HEMOGLOBIN A1C 05/31/2018 11/30/2017, 08/30/2017 FOOT EXAM 10/04/2018 10/04/2017 URINE MICROALBUMIN 11/30/2018 11/30/2017 TETANUS EVERY 10 YR 01/14/2025 01/14/2015 as of this encounter Visit Diagnoses Diagnosis Cramps of left lower extremity - Primary Coronary artery disease without angina pectoris, unspecified vessel or lesion type, unspecified whether [place] or transplanted heart Essential hypertension Unspecified essential hypertension Mixed hyperlipidemia DEBORAH on CPAP
--- OUTSIDE RECORDS SUMMARY | 2018-03-18 03:28 | XMS RPT_ITS | Summary of Care ---
:1950 Author Organization [facility] Address [address] [place] [address] Care Team Providers Name Role Phone Clint Cheek DO Primary Care Provider Clint Cheek DO Unavailable Clint Hinojosa MD Unavailable Reason for Visit Auth/Cert Status Reason Specialty Diagnoses / Procedures Referred By Contact Referred To Contact Encounter Details Date Type Department Care Team Description 09/11/2017 Home Care Visit [facility] Letty Roman, TELEPHONE ENCOUNTER [address] [place] [address] Allergies Active Allergy Reactions Severity Noted Date [...] Active (MIRAPEX) 0.5 MG mouth nightly. tablet aspirin (ASPIR-81) Take 81 mg by Active 81 MG EC tablet mouth daily. docusate sodium Take 100 mg by Active (COLACE) 100 MG mouth once daily. capsule hold for diarrhea oxyCODONE-acetaminop Take 1 tablet by Active hen (PERCOCET) 5-325 mouth every 4 mg per tablet (four) hours as needed for pain. atorvastatin Take 10 mg by Active (LIPITOR) 10 MG mouth nightly. tablet esomeprazole Take 40 mg by Active (NEXIUM) 40 MG mouth daily. capsule metoprolol succinate Take 25 mg by Active (TOPROL-XL) 25 MG 24 mouth daily. hr tablet insulin regular Inject 13 Units under the skin 3 (three) times a day before meals In untis = 14 breakfast/8 lunch/ 12 dinner Active (HumuLIN R Regular low sliding scale U-100 Insuln) 100 70-150 give o unit, 151-200 give 1 unit, 201-250 give 2 units, 251-300 give 3 untis, 301-350 give 4 units, 350-400 give units, notify physician fo. unit/mL injection HumuLIN N (SAMPLE) Inject 12 Units Active 100 unit/mL under the skin at injection bedtime . acetaminophen Take 650 mg by Active (TYLENOL) 325 MG mouth every 6 tablet (six) hours as needed for pain. fluticasone Instill 2 sprays Active (FLONASE) 50 into each nostril mcg/actuation nasal daily. spray warfarin (COUMADIN) Take 6-7 mg by 09/09/2017 Active 2 MG tablet mouth at bedtime. 09/11/17 Continue to alternate 7mg with 6mg every other evening. INR will be drawn on 09/15/17 @ patient's appointment with Dr. Hinojosa. warfarin (COUMADIN) Take 5 mg by mouth daily. Patient to take Coumadin 5 mg today with further orders to follow after PT/INR on 09/08/[address] Hniojosa's office. 09/07/2017 09/11/2017 Discontinued 2 MG tablet Order received from Danna Servin MA at 1:05 p.m. warfarin (COUMADIN) Take 2 mg by 09/09/2017 09/11/2017 Discontinued 2 MG tablet mouth daily. VO obtained from HERMINIO Scales with [facility] to have pt take Coumadin 6 mg po tonight (09/08/17). SN to obtain PT/INR on Monday (09/09/17). Order read back and verified. Pt notified per HERMINIO Solis. Bushra Cannon RN-case reviewer updated via Epic/Email. rjv as of this encounter Active Problems Problem Noted Date Hypertension 09/08/2017 Hyperlipidemia 09/08/2017 T2DM (type 2 diabetes mellitus) (HCC) 09/08/2017 CKD (chronic kidney disease) stage 3, GFR 30-59 ml/min 09/08/2017 DEBORAH on CPAP 09/08/2017 Social History Tobacco Use Types Packs/Day Years Used Date Never Smoker Smokeless Tobacco: Never Used Alcohol Use Drinks/Week oz/Week Comments No Sex Assigned at Date Recorded Not on file as of this encounter Plan of Treatment Upcoming Encounters Date Type Specialty Care Team Description 09/12/2017 Office Visit Home Health Services Jese Cannon RN 09/13/2017 Office Visit Home Health Services Jese Cannon RN 09/14/2017 Office Visit Home Health Services Jese Cannon RN 09/15/2017 Follow-Up Cardiology 09/19/2017 Office Visit Home Health Services Jese Cannon RN 09/20/2017 Office Visit Cardiology Alireza Quiñones MD [address] [place] [address] [phone] 09/21/2017 Office Visit Home Health Services Jese Cannon RN 09/26/2017 Office Visit Home Health Services Jese Cannon RN 09/28/2017 Office Visit Home Health Services Jese Cannon RN 10/03/2017 Office Visit Home Health Services Jese Cannon, RONY 10/04/2017 [facility] [address] [facility] [address] [address] [phone] 10/05/2017 Office Visit Home Health Services Jese Cannon RN 10/10/2017 Office Visit Home Health Services Jese Cannon RN 10/12/2017 Office Visit Home Health Services Jese Cannon RN 10/13/2017 Follow-Up Cardiology 10/17/2017 Office Visit Home Health Services Jese Cannon RN 10/24/2017 Hospital Encounter Clint Hinojosa MD [address] [place] [address] [phone] Health Maintenance Due Date Last Done Comments COLONOSCOPY 1950 HEPATITIS C SCREENING 1950 FOOT EXAM 1960 OPHTHALMOLOGY EXAM 1960 URINE MICROALBUMIN 1960 ZOSTER VACCINE 2010 PNEUMOCOCCAL VACCINE AGE 65+ (1 of 2 - PCV13) 09/02/2015 SEQUENTIAL INFLUENZA VACCINE (#1) 2017 HEMOGLOBIN A1C 03/02/2018 08/30/2017 TETANUS EVERY 10 YR 01/14/2025 01/14/2015 as of this encounter
--- OUTSIDE RECORDS SUMMARY | 2018-03-18 03:28 | XMS RPT_ITS | Summary of Care ---
:1950 Author Organization [facility] Address [address] [place] [address] Care Team Providers Name Role Phone Clint Cheek DO Primary Care Provider Clint Cheek DO Unavailable Clint Hinojosa MD Unavailable Encounter Details Date Type Department Care Team Description 09/09/[address] [facility] Clint Hinojosa, [address] Leanna Ruiz MD [place], [place] [address] Leanna Ruiz [id number] [place], [place] [id number] Allergies Active Allergy Reactions Severity Noted Date Comments Morphine Other (See Comments) High 06/08/2016 States it slows his breathing down as of this encounter Medications Prescription Sig. Disp. Refills Start Date End Date Status gabapentin (NEURONTIN) Take 400 mg by mouth Active 400 MG capsule 2 (two) times a day. potassium chloride SA Take 20 mEq by mouth Active (K-DUR,KLOR-CON) 20 MEQ daily. tablet SYMBICORT (SAMPLE) 2 puffs by Oral Active 160-4.5 mcg/actuation Inhalation route 2 HFAA (two) times a day. tiotropium (SPIRIVA WITH Place 18 mcg into Active HANDIHALER) 18 mcg inhaler and inhale inhalation capsule daily. furosemide (LASIX) 20 MG Take 20 mg by mouth 09/06/2017 Active tablet daily. pramipexole (MIRAPEX) Take 1.5 mg by mouth 09/06/2017 Active 0.5 MG tablet nightly. aspirin (ASPIR-81) 81 MG Take 81 mg by mouth Active EC tablet daily. docusate sodium (COLACE) Take 100 mg by mouth Active 100 MG capsule once daily. hold for diarrhea oxyCODONE-acetaminophen Take 1 tablet by Active (PERCOCET) 5-325 mg per mouth every 4 (four) tablet hours as needed for pain. atorvastatin (LIPITOR) Take 10 mg by mouth Active 10 MG tablet nightly. esomeprazole (NEXIUM) 40 Take 40 mg by mouth Active MG capsule daily. metoprolol succinate Take 25 mg by mouth Active (TOPROL-XL) 25 MG 24 hr daily. tablet insulin regular (HumuLIN Inject 13 Units under the skin 3 (three) times a day before meals In untis = 14 breakfast/8 lunch/ 12 dinner Active R Regular U-100 Insuln) low sliding scale 100 unit/mL injection 70-150 give o unit, 151-200 give 1 unit, 201-250 give 2 units, 251-300 give 3 untis, 301-350 give 4 units, 350-400 give units, notify physician fo. HumuLIN N (SAMPLE) 100 Inject 12 Units Active unit/mL injection under the skin at bedtime . acetaminophen (TYLENOL) Take 650 mg by mouth Active 325 MG tablet every 6 (six) hours as needed for pain. fluticasone (FLONASE) 50 Instill 2 sprays Active mcg/actuation nasal into each nostril spray daily. warfarin (COUMADIN) 2 MG Take 2 mg by mouth 09/09/2017 Active tablet daily. VO obtained from HERMINIO Scales with [facility] to have pt take Coumadin 6 mg po tonight (09/08/17). SN to obtain PT/INR on Monday (09/09/17). Order read back and verified. Pt notified per HERMINIO Solis. Bushra Cannon RN-renal case manager updated via GLSS/Email. rjv as of this encounter Active Problems [...] Encounters Date Type Specialty Care Team Description 09/11/2017 Follow-Up Cardiology 09/12/2017 Office Visit Home Health Services Jese Cannon, RN 09/13/2017 Office Visit Home Health Services Jese Cannon, RN 09/14/2017 Office Visit Home Health Services Jese Cannon, RN 09/15/2017 Follow-Up Cardiology 09/19/2017 Office Visit Home Health Services Jese Cannon, RN 09/20/2017 Office Visit Cardiology Alireza Quiñones MD 335 [facility] [place] [address] [phone] 09/21/2017 Office Visit Home Health Services Jese Cannon, RN 09/26/2017 Office Visit Home Health Services Jese Cannon, RN 09/28/2017 Office Visit Home Health Services Jese Cannon, RN 10/03/2017 Office Visit Home Health Services Jese Cannon, RN 10/04/2017 Office Visit Endocrinology [facility], Blossom Santiago, SCRAP BALER [address] [address] [phone] 10/05/2017 Office Visit Home Health Services Jese Cannon RN 10/10/2017 Office Visit Home Health Services Jese Cannon, RN 10/12/2017 Office Visit Home Health Services Jese Cannon, RN 10/13/2017 Follow-Up Cardiology 10/17/2017 Office Visit Home Health Services Jese Cannon, RN 10/24/2017 Hospital Encounter Clint Hinojosa MD [address] [place] [address] [phone] Health Maintenance Due Date Last Done Comments COLONOSCOPY 1950 HEPATITIS C SCREENING 1950 FOOT EXAM 1960 OPHTHALMOLOGY EXAM 1960 URINE MICROALBUMIN 1960 ZOSTER VACCINE 2010 PNEUMOCOCCAL VACCINE AGE 65+ (1 of 2 - PCV13) 09/02/2015 SEQUENTIAL INFLUENZA VACCINE (#1) 2017 HEMOGLOBIN A1C 03/02/2018 08/30/2017 TETANUS EVERY 10 YR 01/14/2025 01/14/2015 as of this encounter Results PT/INR (09/09/2017 11:57 AM) Component Value Ref Range Protime (PT) 21.6 (H) 11.8 - 14.3 Seconds INR 1.92 Comment: The [employer] recommended therapeutic range for Warfarin (Coumadin) therapy goals: PROPHYLAXIS/TREATMENT of: INR Venous Thrombosis, Pulmonary Embolism 2.0-3.0 Prevention of VTE (Orthopedic Surgery) 2.0-3.0 Atrial Fibrillation 2.0-3.0 Myocardial Infarction 2.0-3.0 Mechanical Prosthetic Heart Valves (Aortic position) 2.0-3.0 Mechanical Prosthetic Heart Valves (Mitral Position) 2.5-3.5 [employer] evidence-based clinical practice guidelines.?CHEST. 2012 (9th ed) Specimen Performing Laboratory Blood [address] [address] in this encounter
--- OUTSIDE RECORDS SUMMARY | 2018-03-18 03:28 | XMS RPT_ITS | Summary of Care ---
:1950 Author Organization [facility] Address [address] [place] [address] Phone Care Team Providers Name Role Phone Clint Cheek DO Primary Care Provider Clint Cheek DO Unavailable Reason for Referral MRI/CAT/PET Scan (Routine) Status Reason Specialty Diagnoses / Referred By Referred To Procedures Contact Contact Pending Review Radiology Diagnoses Abdominal pain, lower Singh Olguin, Procedures CT Abdomen Pelvis [place] [address] Consultation (Routine) Status Reason Specialty Diagnoses / Referred By Referred To Procedures Contact Contact Pending Specialty General Surgery Diagnoses Abdominal pain, lower Clint Cheek Piyush Review Services DO Annie Ayon MD Required/Patien [address] [facility] [place], [place] [address] [address] [place], [place] Phone: [phone] Phone: Reason for Visit Reason Comments Consult c/p chat Consultation (Routine) Status Reason Specialty Diagnoses / Referred By Referred To Procedures Contact Contact Pending Specialty General Surgery Diagnoses Abdominal pain, lower Clint Cheek Piyush Review Services DO Annie Ayon MD Required/Patien [address] Leanna [address] [place] [address] [address] [place], [place] Phone: [phone] Phone: Encounter Details Date Type Department Care Team Description 01/26/2017 Office Visit [facility] Surgical Clint Cheek, DO [address] [place] [address] [phone] Abdominal pain, lower Specialists Singh Olguin MD [address] [place] [address] [phone] (Primary Dx) [address] [facility] Medical Office Building, 5th [place] [address] Allergies Active Allergy Reactions Severity Noted Date Comments Morphine Unknown 06/08/2016 as of this encounter Medications Prescription Sig. Disp. Refills Start Date End Date Status gabapentin (NEURONTIN) 400 Take 400 mg by Active MG capsule mouth 2 (two) times a day. pramipexole (MIRAPEX) 0.5 Take 0.5 mg by Active MG tablet mouth nightly. metFORMIN (GLUCOPHAGE) Take 1,000 mg by Active 1000 MG tablet mouth 2 (two) times a day with meals. glimepiride (AMARYL) 4 MG Take 4 mg by mouth Active tablet 2 (two) times a day. pioglitazone (ACTOS) 15 MG Take 30 mg by Active tablet mouth daily . omeprazole (PRILOSEC) 20 Take 20 mg by Active MG capsule mouth daily. CINNAMON BARK (CINNAMON Take 1,000 mg by Active ORAL) mouth 2 (two) times a day. b complex vitamins tablet Take 1 tablet by Active mouth daily. cyanocobalamin (vitamin Take 1,000 mcg by Active B-12) 1000 MCG tablet mouth daily. vitamin E 400 UNIT capsule Take 400 Units by Active mouth daily. cholecalciferol, vitamin Take 1,000 Units Active D3, 1,000 unit tablet by mouth daily. CALCIUM CARBONATE (CALCIUM Take 1,000 mg by Active 500 ORAL) mouth. magnesium gluconate Take 500 mg by Active (MAGONATE) 27.5 mg (500 mouth 2 (two) mg) tablet times a day. ascorbic acid, vitamin C, Take 1,000 mg by Active (vitamin C) 1000 MG tablet mouth daily. lisinopril Take 40 mg by Active (PRINIVIL,ZESTRIL) 10 MG mouth daily . tablet lisinopril 08/29/2016 Active (PRINIVIL,ZESTRIL) 40 MG tablet furosemide (LASIX) 20 MG 09/14/2016 Active tablet naproxen (NAPROSYN) 500 MG 10/06/2016 Active tablet gabapentin (NEURONTIN) 400 Take by mouth. 11/01/2016 Active MG capsule cephALEXin (KEFLEX) 500 MG 11/25/2016 Active capsule pioglitazone (ACTOS) 30 MG 11/01/2016 Active tablet sulfamethoxazole-trimethop 11/24/2016 Active rim (BACTRIM DS,SEPTRA DS) 800-160 mg per tablet zinc 50 mg Tab Take 25 mg by Active mouth. as of this encounter Social History Tobacco Use Types Packs/Day Years Used Date Never Smoker Smokeless Tobacco: Never Used Alcohol Use Drinks/Week oz/Week Comments Yes rarely once a year Sex Assigned at Date Recorded Not on file as of this encounter Last Filed Vital Signs Vital Sign Reading Time Taken Blood Pressure 117/67 01/26/2017 9:08 AM EST Pulse 69 01/26/2017 9:08 AM EST Temperature 36.8 ??C (98.2 ??F) 01/26/2017 9:08 AM EST Respiratory Rate 16 01/26/2017 9:08 AM EST Oxygen Saturation - - Inhaled Oxygen Concentration - - Weight 117.5 kg (259 lb) 01/26/2017 9:08 AM EST Height 168.9 cm (5' 6.5) 01/26/2017 9:08 AM EST Body Mass Index 41.18 01/26/2017 9:08 AM EST in this encounter Progress Notes Singh Olguin MD - 01/26/2017 5:44 PM ESTFormatting of this note may be different from the original. DEMOGRAPHICS PATIENT: Deepa Tong : 1950 AGE: 66 y.o. SEX: male RACE: [1] PCP: Clint Cheek DO REFERRAL: Clint Cheek DO REVIEWED y Chart (ie. [facility], ER documents, Referring documents, etc.) y Colonoscopy Questionaire Y ROS Questionnaire Reviewed HISTORIAN Patient QUALITY Good ACCOMPANIED BY CC I have some abdominal pain and my bowels are messed up HPI COLONOSCOPY INDICATIONS ANALYSIS: Last C-scope (findings if known) 2001 - tubulovillous adenoma, diverticulosis, hemorrhoidal disease Personal history of polyps / CA Yes Previous colon surgery No Family history of polyps / CA No Signs and Sx's (for diagnostic C-scope) Patient states he has lower abdominal pain for the past 2 weeks associated with a change in his bowel habits, diarrhea, and decreased caliber of his BM's. His abdominal pain does not radiate, is graded a 5 / 10 at times, intermittent, R > L, stabbing type, wo rse with movement, some associated nausea. ROS Questionaire Reviewed Yes Systems Reviewed Constitutional, Eyes, ENT/Mouth, CV, Resp, GI, , MS, Skin, Neuro, Psych, Endo, Heme/Lymph, Breasts Symptoms Reviewed Fevers, chills, fatigue, recent weight loss, double vision, cataracts, difficulty swallowing, bloody noses, high blood pressure, chest pain or angina, heart rhythm problems, difficulty breathing with exertion, blood clots, leg swelling, shortness of breath, asthma, cough, sleep apnea, nausea, vomiting, constipation, diarrhea, blood in stools, abdominal pain, appetite changes, blood in urine, painful urination, frequent urination, urine infections, incontinence, arthritis, gout, rashes, skin cancer, seizures, syncope, stroke, weakness, depression, anxiety, high or low blood sugar, thyroid problems, anemia, lymph node enlargement, bleeding problems, breast pain, nipple discharge, breast mass ROS Questionaire Pertinent Positives SHEPHERD, Leg swelling, SOB, Sleep apnea, Diarrhea, abdominal pain, arthritis, high blood sugar ROS Questionaire Pertinent Negatives PMH/PSH Past Medical History: Diagnosis Date ??? Adenomatous colon polyp 2001 ??? Cellulitis ??? Diabetes mellitus (HCC) ??? DVT (deep venous thrombosis) (HCC) ??? Esophagitis Grade 1 ??? Gastritis ??? GERD (gastroesophageal reflux disease) ??? Hiatal hernia ??? Hyperlipidemia ??? Hypertension ??? Malaise and fatigue ??? Neutropenia (HCC) ??? Obesity ??? Renal failure Past Surgical History: Procedure Laterality Date ??? BONE MARROW BIOPSY W/ ASPIRATION 05/23/2006 Dr. Remy ??? COLONOSCOPY 07/20/2001 internal hemorrhoids, diverticula, polyp-Tubulovillous...Dr. Stanley ??? ESOPHAGOGASTRODUODENOSCOPY 08/06/1999 Grade 1 esophagitis, hiatal hernia, chronic gastritis....Dr. Mckeon ??? ESOPHAGOGASTRODUODENOSCOPY 05/28/1997 Gastroesophageal reflux disease, hiatal hernia...Dr. Mckeon ??? EXCHANGE INTERMEDULLARY NAILING Right 12/20/2000 Tibia...Dr. Castellano ??? EXCHANGE INTRAMEDULLARY NAILING Right 01/11/2002 Nonunion, right tibia...Dr. Castellano ??? Excision of lower lip lesion 2016 ??? FIBULECTOMY Right 04/09/2001 Screw removed, intermedullary victoria, tibia, partial....Dr. Castellano ??? NASAL SEPTUM SURGERY 03/13/2008 Turbinate hypertrophy...Dr. Boss ??? SHOULDER SURGERY Left 2013 replacement FH - Unknown (ie, due to adoption), non-contributory due to patient age, etc. Family History Problem Relation Age of Onset ??? Heart disease Mother ??? Heart disease Father ??? Heart attack Father ??? Cancer Maternal Grandmother ??? Cancer Maternal Grandfather ??? Cancer Paternal Grandmother ??? Prostate cancer Other SH Social History Social History ??? Marital status: Spouse name: N/A ??? Number of children: N/A ??? 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 Smoking status: Never Smoker ??? Smokeless tobacco: Never Used ??? Alcohol use Yes Comment: rarely once a year ??? Drug use: No ??? Sexual activity: Not Asked Other Topics Concern ??? None Social History [facility] has a current medication list which includes the following prescription(s): ascorbic acid (vitamin c), b complex vitamins, calcium carbonate, cephalexin, cinnamon bark, cyanocobalamin, furosemide,gabapentin, glimepiride, lisinopril, magnesium gluconate, metformin, omeprazole, pioglitazone, pramipexole, sulfamethoxazole-trimethoprim, zinc, cholecalciferol (vitamin d3), gabapentin, lisinopril, naproxen, pioglitazone, and vitamin e. ALLERGIES Allergies Allergen Reactions ??? Morphine Unknown EXAM BP 117/67 Pulse 69 Temp 98.2 ??F (36.8 ??C) Resp 16 Ht 5' 6.5 Wt 117.5 kg (259 lb) BMI 41.18 kg/m2 Examined y Obese Const Y A+OX3, cooperative, pleasant, NAD HEENT Y AT/NC, PERRL, OC/OP no gross lesions Neck Y No thyromegaly, no masses, no bruits Cor Y RRR, no murmurs Lungs Y Clear to auscultation, no wheezes, no rales GI / Abd Y Soft, very minimal lower abdominal discomfort, non-distended, no masses, no hepatosplenomegaly, no peritoneal signs Hernia Y No abdominal wall hernias Musc / Back Y No CVA tenderness Ext Y No edema bilateral LE's, no deformities any extremities, normal pulses all extremities Neuro Y no gross deficits Gait Y Normal Psych Y Normal affect Lymph Y No neck LA Chest / Breast - Rectal - - Skin / Other y No obvious rashes LABS / XRAYS Other Reviewed - X-ray images personally ASSESSMENT / PLAN Lower abdominal pain and altered bowel habits for 2 weeks duration. H/o diverticulosis. Recommend CTAP to determine if he has diverticulitis vs. Colitis, etc. Will need colonoscopy eventually. DDx As above. Chronic conditions DM, HTN - both clinically stable per the patient. Co-morbidities y PMH / PSH - SH y Age - Anticoagulation Other: Discussed - TOB Cessation - EtOH Cessation - Rec Drugs Cessation Risks Explained - Risks, Rationale, Benefits, and Alternatives discussed - Informed consent obtained. Patient / POA / Guardian concur and wish to proceed y Questions answered - [facility] Anticip Anesthesia Morbidity Risk (see comorbidities above) ORDERS / F/U Cbc, CMP, CTAP. F/u after that. Thank you for the privilege of allowing me to participate in the care of this patient. ICD Abdominal pain, lower [R10.30] in this encounter Plan of Treatment Scheduled Tests Name Priority Associated Diagnoses Order Schedule CBC and Differential Routine Abdominal pain, lower 1 Occurrences starting 01/26/2017 until 01/26/2018 CT Abdomen Pelvis With Routine Abdominal pain, lower 1 Occurrences starting Contrast 01/26/2017 until 01/26/2018 Comprehensive Metabolic Routine Abdominal pain, lower 1 Occurrences starting Panel 01/26/2017 until 01/26/2018 Health Maintenance Due Date Last Done Comments COLONOSCOPY 1950 HEPATITIS C SCREENING 1950 TETANUS EVERY 10 YR 1950 ZOSTER VACCINE 2010 PNEUMOCOCCAL VACCINE AGE 65+ (1 of 2 - PCV13) 09/02/2015 SEQUENTIAL INFLUENZA VACCINE (#1) 2016 as of this encounter Visit Diagnoses Diagnosis Abdominal pain, lower - Primary Abdominal pain, other specified site in this encounter Insurance Payer Benefit Plan / Group Subscriber ID Type Phone Address A[employer] MANAGED MEDICARE AETNA MEDICARE PLAN (PPO) [id number] Home: [address] [facility] [phone] [place], [place] [phone] as of this encounter
--- OUTSIDE RECORDS SUMMARY | 2018-03-18 03:28 | XMS RPT_ITS | Summary of Care ---
:1950 Author Organization [facility] Address [address] [place] [address] Phone Care Team Providers Name Role Phone Unavailable Primary Care Provider Unavailable Encounter Details Date Type Department Care Team Description 04/13/2015 Hospital Encounter [facility] Hussain Rivas, 335 Yolisshadi Mongee DO [place], [place] [facility] [address] [place] [address] [phone] Medications No known medicationsas of this encounter Social History Tobacco Use Types Packs/Day Years Used Date Never Assessed Sex Assigned at Date Recorded Not on file as of this encounter Plan of Treatment Health Maintenance Due Date Last Done Comments COLONOSCOPY 1950 HEPATITIS C SCREENING 1950 TETANUS EVERY 10 YR 1950 ZOSTER VACCINE 2010 PNEUMOCOCCAL VACCINE AGE 65+ (1 of 2 - PCV13) 09/02/2015 SEQUENTIAL INFLUENZA VACCINE (#1) 2016 as of this encounter Insurance Payer Benefit Plan / Group Subscriber ID Type Phone Address [employer] MANAGED MEDICARE AETNA MEDICARE PLAN (PPO) [id number] as of this encounter
--- OUTSIDE RECORDS SUMMARY | 2018-03-18 03:28 | XMS RPT_ITS | Summary of Care ---
:1950 Author Organization [facility] Address [address] [place] [address] Care Team Providers Name Role Phone Clint Cheek DO Primary Care Provider Clint Cheek DO Unavailable Encounter Details Date Type Department Care Team Description 2017 Documentation [facility] Allergies Active Allergy Reactions Severity Noted Date Comments Morphine Unknown 06/08/2016 Patient is not sure of the reaction it causes as of this encounter Medications Prescription Sig. [...] Encounters Date Type Specialty Care Team Description 09/15/2017 Follow-Up Cardiology 10/04/2017 Office Visit Endocrinology Blossom Meyer CNP [address] [address] [phone] 10/13/2017 Follow-Up Cardiology 10/18/2017 Office Visit Cardiology Zeke Mcqueen MD [address] [address] [phone] 10/24/2017 Hospital Encounter Clint Hinojosa MD [address] [place] [address] [phone] Health Maintenance Due Date Last Done Comments COLONOSCOPY 1950 HEPATITIS C SCREENING 1950 TETANUS EVERY 10 YR 1950 FOOT EXAM 1960 OPHTHALMOLOGY EXAM 1960 URINE MICROALBUMIN 1960 ZOSTER VACCINE 2010 PNEUMOCOCCAL VACCINE AGE 65+ (1 of 2 - PCV13) 09/02/2015 SEQUENTIAL INFLUENZA VACCINE (#1) 2017 HEMOGLOBIN A1C 03/02/2018 08/30/2017 as of this encounter
--- OUTSIDE RECORDS SUMMARY | 2018-03-18 03:28 | XMS RPT_ITS | Summary of Care ---
:1950 Author Organization [facility] Address [address] [place] [address] Care Team Providers Name Role Phone Clint Cheek DO Primary Care Provider Clint Cheek DO Unavailable Clint Hinojosa MD Unavailable Reason for Visit Reason Comments Report form [facility] of newly developed rash on hands Patient seen in CVICU Encounter Details Date Type Department Care Team Description 09/19/2017 Documentation [facility] & Jordin Reynosoelope Report form [facility] of Vascular Physicians CHANO Wiggins newly developed rash [address] on hands (Patient Medical Office [place], [place] seen in CVICU) [address] [phone] [place] [address] [phone] Allergies Active Allergy Reactions Severity Noted Date [...] capsule times a day hold for diarrhea. oxyCODONE-acetaminop Take 1 tablet by Active hen (PERCOCET) 5-325 mouth every 4 mg per tablet (four) hours as needed for pain. esomeprazole Take 40 mg by Active (NEXIUM) [...] into each nostril mcg/actuation nasal daily. spray insulin regular Inject 13 Units [...] 350-400 give units, notify physician fo injection atorvastatin Take 10 mg by 09/19/2017 Discontinued (LIPITOR) 10 MG mouth nightly. tablet warfarin (COUMADIN) Take 6-7 mg by 09/09/2017 09/19/2017 Discontinued 2 MG tablet mouth at bedtime. 09/19/17 Continue to alternate 7mg with 6mg every other evening. SN to draw PT/INR on Mon., 09/25/17. as of this encounter Active Problems Problem [...] Not on file as of this encounter Progress Notes Yvonne Reynoso, CHANO - 09/19/2017 2:28 PM [facility] health care nurse called reporting new onset of itching with rash of both hands on the dorsum between thumb and index finger. Patient was asked to come to the CVICU for evaluation. Upon arrival patient's blood pressure was 121/74 with a heart rate of 62 regular pulse oximetry of 94% on room airin current weight of 114.45 kg patient reports that rash started within the last couple of days at the base of thumb and index finger bilateral hands which itches along with rash within klein region below jawline. There is no visual rash on back or chest region. Patient is concerned that it might be a side effect of the Atorvastatin. Above information was reviewed with Dr. Clint Hinojosa at which time it was determined to stop the Atorvastatin and Coumadin which Mr. Fletcher is on prophylactically due to DVT risk. Of note Mr. Fletcher is scheduled to see Dr. Quiñones tomorrow for evaluation of possible PCI. After reviewing with Dr. Hinojosa Mr. Fletcher was absent from exam room. He will be contacted via telephone at home of the above medication changes. He will also be advised to contact us if rash/itching persists or spreads. . in this encounter Plan of Treatment Upcoming Encounters Date Type Specialty Care Team Description 09/20/2017 Office Visit Cardiology Alireza Quiñones MD [address] [place] [address] [phone] 09/21/2017 Office Visit Home Health Services Jese Schroeder RN 09/25/2017 Office Visit Home Health Services Jese Schroeder RN 09/28/2017 Office Visit Home Health Services Jese Schroeder RN 10/03/2017 Office Visit Home Health Services Jese Schroeder, RN 10/04/2017 Office Visit Endocrinology Blossom Meyer CNP [address] [address] [phone] 10/05/2017 Office Visit Home Health Services Jese Schroeder RN 10/10/2017 Office Visit Home Health Services Jese Schroeder RN 10/12/2017 Office Visit Home Health Services Jese Schroeder RN 10/13/2017 Follow-Up Cardiology 10/17/2017 Office Visit Home Health Services Jese Schroeder RN 10/24/2017 Hospital Encounter Clint Hinojosa MD [address] [place] [address] [phone] Health Maintenance Due Date Last Done Comments COLONOSCOPY 1950 HEPATITIS C SCREENING 1950 FOOT EXAM 1960 OPHTHALMOLOGY EXAM 1960 URINE MICROALBUMIN 1960 ZOSTER VACCINE 2010 PNEUMOCOCCAL VACCINE AGE 65+ (1 of 2 - PCV13) 09/02/2015 SEQUENTIAL INFLUENZA VACCINE (#1) 2017 HEMOGLOBIN A1C 03/02/2018 08/30/2017 TETANUS EVERY 10 YR 01/14/2025 01/14/2015 as of this encounter
--- OUTSIDE RECORDS SUMMARY | 2018-03-18 03:28 | XMS RPT_ITS | Summary of Care ---
:1950 Author Organization [facility] Address [address] [place] [address] Care Team Providers Name Role Phone Clint Cheek DO Primary Care Provider Clint Cheek DO Unavailable Clint Hinojosa MD Unavailable Reason for Visit Reason Comments Follow-up Dr. Hinojosa, CABG x2 on 09-01-17, has been wearing 2L O2 since the surgery, overall has been feeling okay, has not been sleeping well, CPAP needs re-evaluated Encounter Details Date Type Department Care Team Description 09/11/2017 Follow-Up [facility] Heart & Yvonne Reynoso S/P CABG x 3 (Primary Vascular Physicians Rosalie, CAHNO Dx) [address] [facility] [address] [phone] [place] [address] Allergies Active Allergy Reactions Severity [...] follow after PT/INR on 09/08/[address] Hinojosa's office. 09/07/2017 09/11/2017 Discontinued 2 MG tablet Order received from Danna Servin MA at 1:05 p.m. as of this encounter Active Problems Problem [...] Vital Sign Reading Time Taken Blood Pressure 113/76 09/11/2017 10:21 AM EDT Pulse 65 09/11/2017 10:21 AM EDT Temperature 36.7 ??C (98.1 ??F) 09/11/2017 10:21 AM EDT Respiratory Rate 18 09/11/2017 10:21 AM EDT Oxygen Saturation 96% 09/11/2017 10:21 AM EDT Inhaled Oxygen Concentration - - Weight 115.2 kg (254 lb) 09/11/2017 10:21 AM EDT Height 170.2 cm (5' 7) 09/11/2017 10:21 AM EDT Body Mass Index 39.78 09/11/2017 10:21 AM EDT in this encounter Instructions Patient Instructions - Yvonne Reynoso CNS - 09/11/2017 11:26 AM EDT Continue current care: Leg elevation, Incentive spirometry,activity progression, and use of heart hugger. Incision care shower daily with soap and water. Report any drainage especially if from sternum. Return for scheduled appointment. Call for any questions or concerns. in this encounter Progress Notes Yvonne Reynoso CNS - 09/11/2017 10:37 AM EDTFormatting of this note may be different from the original. CHANO Gonzalez 09/11/17 Deepa Simmons Chance 66-year-old male status post coronary artery bypass grafting ??3 with left lower extremity venectomy on [address] Clint Hinojosa. Patient is being seen today for his second post discharge follow-up appointment with anticipation of removal of sternal dillon. Patient has obtained chest x- ray and lab work. Patient presents wearing 2 L nasal cannula. Patient also reports having a sore bottom. Patient also reports difficulty with CPAP machine he has been in contact withhis provider regarding this issue. Allergies Allergen Reactions ??? Morphine Other (See Comments) States it slows his breathing down BP 113/76 (BP Location: Left arm, Patient Position: Sitting, BP Cuff Size: X- large Adult) Pulse 65 Temp 98.1 ??F (36.7 ??C) (Oral) Resp 18 Ht 5' 7 Wt 115.2 kg (254 lb) SpO2 96% Comment: 2L oxygen BMI 39.78 kg/m?? Chief Complaint Patient presents with ??? Follow-up Dr. Hinojosa, CABG x2 on 09-01-17, has been wearing 2L O2 since the surgery, overall has been feeling okay, has not been sleeping well, CPAP needs re-evaluated Physical Exam Constitutional: He is oriented to person, place, and time. He appears well- developed and well-nourished. Neck: Normal range of motion. Cardiovascular: Normal rate, regular rhythm and normal heart sounds. Pulmonary/Chest: Effort normal and breath sounds normal. Patient reports using INS and flutter valve frequency reaching volumes of 2000 mL on IS. Pulse oximetry after 5 minutes of room air at rest drifted to 88%. Abdominal: Soft. Bowel sounds are normal. Neurological: He is alert and oriented to person, place, and time. Skin: Skin is warm. Capillary refill takes 2 to 3 seconds. Psychiatric: He has a normal mood and affect. Nursing note and vitals reviewed. Sternal incision clean with dillon. No drainage Chest tube sites bruised with scant blood tinged drainage. Moist wound bed on left most trocar site Left leg incision clean with dillon mild minimal erythema along incision edge. 2+ edema of both lower legsResolving bruising Upon examination there is no visible injury, redness or bruising to buttocks or anal area. Patient denies issues with constipation or diarrhea. However patient did receive a Fleet and a milk of molasses enema prior to discharge from hospital. CXR: Sternal Wires intact. Small pleural effusions persists. Labs: Na+ K+ Cl- HCo3- BUN Cr Glu INR 135 4.1 102 24 18 1.59 29 2.15 Procedures: Sternal and chest tube sites cleansed with soap and water. Sternal dillon removed with application of benzoin and steri strips Upon examination there was no areas of irritation or injury to buttocks or anal region. Time: I spent 20 minutes containers minutes with the patient, over half of which was directed at the review ofxray and lab results and reinforcing post- operative recovery activities including incisional care, left leg elevation, respiratory exercises (incentive spirometry/flutter valve), activity rest rictions/progression and medications. Plan: Review results of exam, x-ray & lab with Dr. Hinojosa. Patient will be notified of any changes. in this encounter Plan of Treatment Upcoming Encounters Date Type Specialty Care Team Description 09/12/2017 Office Visit Home Health Services Jese Schroeder RN 09/13/2017 Office Visit Home Health Services Jese Schroeder RN 09/14/2017 Office Visit Home Health Services Jese Schroeder RN 09/15/2017 Follow-Up Cardiology 09/19/2017 Office Visit Home Health Services Jese Schroeder, RN 09/20/2017 Office Visit Cardiology Alireza Quiñones MD [address] [place] [address] [phone] 09/21/2017 Office Visit Home Health Services Jese Schroeder RN 09/26/2017 Office Visit Home Health Services Jese Schroeder RN 09/28/2017 Office Visit Home Health Services Jese Schroeder, RONY 10/03/2017 Office Visit Home Health Services Jese Schroeder, RN 10/04/2017 Office Visit Endocrinology Blossom Meyer, ANCHORMAN [address] [address] [phone] 10/05/2017 Office Visit Home Health Services Jese Schroeder RN 10/10/2017 Office Visit Home Health Services Jese Schroeder, RN 10/12/2017 Office Visit Home Health Services Jese Schroeder, RN 10/13/2017 Follow-Up Cardiology 10/17/2017 Office Visit Home Health Services Jese Schroeder, RN 10/24/2017 Hospital Encounter Clint Hinojosa MD [address] [place] [address] [phone] Health Maintenance Due Date Last Done Comments COLONOSCOPY 1950 HEPATITIS C SCREENING 1950 FOOT EXAM 1960 OPHTHALMOLOGY EXAM 1960 URINE MICROALBUMIN 1960 ZOSTER VACCINE 2010 PNEUMOCOCCAL VACCINE AGE 65+ (1 of 2 - PCV13) 09/02/2015 SEQUENTIAL INFLUENZA VACCINE (#1) 2017 HEMOGLOBIN A1C 03/02/2018 08/30/2017 TETANUS EVERY 10 YR 01/14/2025 01/14/2015 as of this encounter Visit Diagnoses Diagnosis S/P CABG x 3 - Primary Postsurgical aortocoronary bypass status
--- OUTSIDE RECORDS SUMMARY | 2018-03-18 03:28 | XMS RPT_ITS | Summary of Care ---
:1950 Author Organization [facility] Address [address] [phone] Phone Care Team Providers Name Role Phone Clint Cheek DO Primary Care Provider Clint Cheek DO Unavailable Encounter Details Date Type Department Care Team Description 01/26/2017 Hospital Encounter [facility] Singh Olguin MD 335 [facility] Sara [address] [facility] [place] [phone] Allergies Active Allergy Reactions Severity Noted [...] VACCINE (#1) 2016 as of this encounter Results Comprehensive Metabolic Panel (01/26/2017 2:10 PM) Component Value Ref Range Glucose 133 (H) 70 - 99 mg/dL Comment: This test result might be falsely depressed or falsely elevated on samples drawn from patients taking Sulfasalazine and Sulfapyridine. Venipuncture should occur prior to taking either of these drugs. BUN 21 8 - 25 mg/dL Creatinine 1.81 (H) 0.80 - 1.30 mg/dL eGFR 38 (L) >60 ml/min/1.73sq.m Comment: Non- GFR Calc eGFR is an estimated Glomerular Filtration Rate based on the value of the patient's serum creatinine. In outpatients, eGFR should be used as a helpful tool in screening for CKD. In inpatients or patients with acute renal failure, eGFR represents the GFR at the moment of the draw and should be used with caution. eGFR 46 (L)Comment: GFR Calc >60 ml/min/1.73sq.m Calcium 9.7 8.4 - 10.2 mg/dL Sodium 139 135 - 145 mmol/L Potassium 4.8 3.5 - 5.1 mmol/L Chloride 107 98 - 108 mmol/L CO2 26 21 - 32 mmol/L AST 19 0 - 45 U/L Comment: This test result might be falsely depressed or falsely elevated on samples drawn from patients taking Sulfasalazine and Sulfapyridine. Venipuncture should occur prior to taking either of these drugs. ALT 30 14 - 65 U/L Comment: This test result might be falsely depressed or falsely elevated on samples drawn from patients taking Sulfasalazine and Sulfapyridine. Venipuncture should occur prior to taking either of these drugs. Alkaline Phosphatase 75 40 - 150 U/L Bilirubin, Total 0.4 0.3 - 1.2 mg/dL Total Protein 7.6 6.0 - 8.0 g/dL Albumin 4.1 3.2 - 5.2 g/dL Specimen [place]forming [place] [address] CBC and Differential (01/26/2017 2:10 PM) Component Value Ref Range WBC 5.4 3.6 - 10.4 K/mcL RBC 4.30 4.0 - 5.5 M/mcL Hemoglobin 13.3 12.9 - 16.9 g/dL Hematocrit 39.4 37.9 - 49.2 % MCV 91.5 82.8 - 99.3 FL MCH 31.0 27.7 - 34.6 pg MCHC 33.9 32.9 - 35.5 g/dL RDW 14.2 10 - 14.3 % Platelets 201 139 - 354 K/mcL MPV 9.4 6.6 - 10.8 FL Absolute Neutrophils 3.8 1.4 - 6.8 K/mcL Absolute Lymphocytes 1.1 0.9 - 3.6 K/mcL Absolute Monocytes 0.4 0.2 - 0.6 K/mcL Absolute Eosinophils 0.1 0 - 0.5 K/mcL Absolute Basophils 0.0 0 - 0.2 K/mcL Segmented Neut 70.1 % Lymphocytes 21.0 % Monocytes 6.6 % Eosinophils 1.8 % Basophils 0.5 % Specimen Performing Laboratory Blood [address] [address] in this encounter Insurance Payer Benefit Plan / Group Subscriber ID Type Phone Address [employer] MANAGED MEDICARE AETNA MEDICARE PLAN (PPO) [id number] as of this encounter
--- OUTSIDE RECORDS SUMMARY | 2018-03-18 03:28 | XMS RPT_ITS | Summary of Care ---
:1950 Author Organization [facility] Address [address] [place] [address] Phone Care Team Providers Name Role Phone Clint Cheek DO Primary Care Provider Clint Cheek DO Unavailable Reason for Visit Reason Comments Follow-up egd and colonoscopy Encounter Details Date Type Department Care Team Description 03/29/2017 Office Visit [facility] Surgical Singh Olguin, Gastropathy (Primary Specialists Dx) 335 [facility] 335 [facility] [place] [address] Building, 5th Floor [phone] [place] [address] Allergies Active Allergy Reactions Severity [...] Vital Sign Reading Time Taken Blood Pressure 124/67 03/29/2017 11:15 AM EST Pulse 56 03/29/2017 11:15 AM EST Temperature 36.5 ??C (97.7 ??F) 03/29/2017 11:15 AM EST Respiratory Rate - - Oxygen Saturation 95% 03/29/2017 11:15 AM EST Inhaled Oxygen Concentration - - Weight 118.7 kg (261 lb 11.2 oz) 03/29/2017 11:15 AM EST Height - - Body Mass Index 41.61 03/29/2017 11:15 AM EST in this encounter Progress Notes Singh Olguin MD - 03/29/2017 11:23 AM ESTFormatting of this note may be different from the original. PROGRESS NOTE DEMOGRAPHICS PATIENT: Deepa Fletcher : 1950 AGE: 66 y.o. SEX: male RACE: [1] PCP: Clint Cheek DO REFERRAL: No ref. provider found Reason for Visit F/u after colonoscopy and EGD Subjective No complaints. The following PMH, PSH, MEDS, and ALLERGIES were reviewed and updated as needed during today???s encounter. PMH / PSH Past Medical History: Diagnosis Date ??? Adenomatous [...] mild diverticulosis, polyp-mild hyperplastic changes....Dr. Olguin ??? ESOPHAGOGASTRODUODENOSCOPY 08/06/1999 Grade 1 esophagitis, hiatal [...] Boss ??? SHOULDER SURGERY Left 2013 replacement [facility] has a current medication list which includes the following prescription(s): ascorbic acid (vitamin c), b complex vitamins, calcium carbonate, cephalexin, cholecalciferol (vitamin d3), cinnamon bark, cyanocobalamin, furosemide, gabapentin, gabapentin, glimepiride, lisinopril, lisinopril, magnesiumgluconate, metformin, naproxen, omeprazole, pioglitazone, pioglitazone, pramipexole, sulfamethoxazole-trimethoprim, vitamin e, and zinc. ALLERGIES Allergies Allergen Reactions ??? Morphine Unknown Patient is not sure of the reaction it causes Vitals BP 124/67 Pulse (!) 56 Temp 97.7 ??F (36.5 ??C) (Oral) Wt 118.7 kg (261 lb 11.2 oz) SpO2 95% BMI 41.61 kg/m?? Exam Alert, NAD, cooperative, gait normal Diagnostic tests (if any) Assessment Discussed pathology: 1) Reactive gastropathy - continue Omeprazole 2) Diverticulosis - Metamucil, avoid seeds / nuts 3) hyperplastic polyp - next colonoscopy in 10 years. Plan Follow-up 10 years PRIMARY ICD: Gastropathy [K31.9] Thank you for allowing me to participate in the care of Deepa Iris Fletcher. Singh Olguin MD, FACS, CGSC Layout Copyright ??? all rights reserved. in this encounter Plan of Treatment Health Maintenance Due Date Last Done Comments COLONOSCOPY 1950 HEPATITIS C SCREENING 1950 TETANUS EVERY 10 YR 1950 ZOSTER VACCINE 2010 PNEUMOCOCCAL VACCINE AGE 65+ (1 of 2 - PCV13) 09/02/2015 SEQUENTIAL INFLUENZA VACCINE (#1) 2016 as of this encounter Visit Diagnoses Diagnosis Gastropathy - Primary Unspecified disorder of stomach and duodenum Insurance Payer Benefit Plan / Group Subscriber ID Type Phone Address A[employer] MANAGED MEDICARE AETNA MEDICARE PLAN (PPO) [id number] [phone] [place], [place] [phone] as of this encounter
--- OUTSIDE RECORDS SUMMARY | 2018-03-18 03:28 | XMS RPT_ITS | Summary of Care ---
:1950 Author Organization [facility] Address [address] [place] [address] Phone Care Team Providers Name Role Phone CheekClint ardon DO Primary Care Provider Clint Cheek DO Unavailable Reason for Visit Reason Comments Follow-up CT scan Encounter Details Date Type Department Care Team Description 02/02/2017 Office Visit [facility] Surgical Singh Olguin, Altered bowel habits Specialists (Primary Dx) [facility] [place] [address] Building, 5th Floor [phone] [place] [address] Allergies Active Allergy Reactions Severity [...] Vital Sign Reading Time Taken Blood Pressure 119/67 02/02/2017 1:38 PM EST Pulse 62 02/02/2017 1:38 PM EST Temperature 37.1 ??C (98.8 ??F) 02/02/2017 1:38 PM EST Respiratory Rate 16 02/02/2017 1:38 PM EST Oxygen Saturation - - Inhaled Oxygen Concentration - - Weight 115.2 kg (254 lb) 02/02/2017 1:38 PM EST Height - - Body Mass Index 40.38 02/02/2017 1:38 PM EST in this encounter Progress Notes Singh Olguin MD - 02/02/2017 1:53 PM ESTFormatting of this note may be different from the original. DEMOGRAPHICS PATIENT: Deepa Tong : 1950 AGE: 66 y.o. SEX: male RACE: [1] PCP: Clint Cheek DO REFERRAL: No ref. provider found REVIEWED y Chart (ie. [facility], ER documents, Referring documents, etc.) y Colonoscopy Questionaire Y ROS Questionnaire Reviewed HISTORIAN Patient QUALITY Good ACCOMPANIED BY No one CC I'm here to talk about my test results. HPI COLONOSCOPY INDICATIONS ANALYSIS: Last C-scope (findings if known) 2001 - tubulovillous adenoma, diverticulosis, hemorrhoidal disease Personal history of polyps / CA Yes Previous colon surgery No Family history of polyps / CA No Signs and Sx's (for diagnostic C-scope) Patient was seen on 01/26/2017 initially: Patient states hehas lower abdominal pain for the past 2 weeks associated with a change in his bowel habits, diarrhea, and decreased caliber of his BM's. His abdominal pain does not radiate, is graded a 5 / 10 at times, intermittent, R > L, stabbing type, worse with movement, some associated nausea. TODAY: He denies any changes to the above history. He states his pain is still present and unchanged from the above. ROS Questionaire Reviewed Yes Systems Reviewed Constitutional, [...] discharge, breast mass ROS Questionaire Pertinent Positives High blood pressure, leg swelling, sleep apnea, abdominal pain,arthritis, high blood sugar ROS Questionaire Pertinent Negatives [...] education: N/A Occupational History ??? [employer] Social History Main Topics ??? Smoking status: Never Smoker ??? Smokeless tobacco: Never Used ??? Alcohol use Yes Comment: rarely once a year ??? Drug use: No ??? Sexual activity: Not Asked Other Topics Concern ??? None Social History Narrative ??? None MEDS has a current medication list which includes the following prescription(s): ascorbic acid (vitamin c), b complex vitamins, calcium carbonate, cephalexin, cholecalciferol (vitamin d3), cinnamon bark, cyanocobalamin, furosemide, gabapentin, gabapentin, glimepiride, lisinopril, lisinopril, magnesiumgluconate, metformin, naproxen, omeprazole, pioglitazone, pioglitazone, pramipexole, sulfamethoxazole-trimethoprim, vitamin e, and zinc. ALLERGIES Allergies Allergen Reactions ??? Morphine Unknown EXAM BP 119/67 Pulse 62 Temp 98.8 ??F (37.1 ??C) Resp 16 Wt 115.2 kg (254 lb) BMI 40.38 kg/m?? Examined y Obese Const Y A+OX3, cooperative, [...] y No obvious rashes LABS / XRAYS CTAP: No acute findings, fat containing umbilical hernia Other Reviewed - X-ray images personally ASSESSMENT / PLAN Lower abdominal pain and altered bowel habits. H/o GERD and esophagitis. H/o diverticulosis. Recommend EGD and diagnostic colonoscopy. DDx Polyps, malignancy, diverticulosis, colitis, hemorrhoidal disease, AVM's, IBS, IBD, PUD, gastritis, esophagitis, etc. Chronic conditions DM, HTN - both clinically stable per the patient. Co-morbidities y PMH / PSH - SH y Age - Anticoagulation Other: Discussed - TOB Cessation - EtOH Cessation - Rec Drugs Cessation Risks Explained y Risks, Rationale, Benefits, and Alternatives discussed y Informed consent obtained. Patient / POA / Guardian concur and wish to proceed y Questions answered y [facility] Anticip Anesthesia MAC Morbidity Risk (see comorbidities above) Moderate ORDERS / F/U EGD and diagnostic colonoscopy. Bowel prep. Thank you for the privilege of allowing me to participate in the care of this patient. ICD Altered bowel habits [R19.4] in this encounter Plan of Treatment Upcoming Encounters Date Type Specialty Care Team Description 03/03/2017 Scanned Document General Surgery Singh Olguin MD [address] [place] [address] [phone] Health Maintenance Due Date Last Done Comments COLONOSCOPY 1950 HEPATITIS C SCREENING 1950 TETANUS EVERY 10 YR 1950 ZOSTER VACCINE 2010 PNEUMOCOCCAL VACCINE AGE 65+ (1 of 2 - PCV13) 09/02/2015 SEQUENTIAL INFLUENZA VACCINE (#1) 2016 as of this encounter Visit Diagnoses Diagnosis Altered bowel habits - Primary Insurance Payer Benefit Plan / Group Subscriber ID Type Phone Address AETNA MANAGED MEDICARE AETNA MEDICARE PLAN (PPO) [id number] Home: [address] [phone] [place], [place] [phone] as of this encounter
--- OUTSIDE RECORDS SUMMARY | 2018-03-18 03:28 | XMS RPT_ITS | Summary of Care ---
:1950 Author Organization [facility] Address [address] [phone] Phone Care Team Providers Name Role Phone Clint Cheek DO Primary Care Provider Clint Cheek DO Unavailable Encounter Details Date Type Department Care Team Description 02/01/2017 Hospital Encounter [facility] Singh Olguin MD 335 [facility] [address] [facility] [place] [phone] Allergies Active Allergy Reactions Severity Noted [...] Encounters Date Type Specialty Care Team Description 02/02/2017 Office Visit General Surgery Singh Olguin MD [address] [place] [address] [phone] Health Maintenance Due Date Last Done Comments COLONOSCOPY 1950 HEPATITIS C SCREENING 1950 TETANUS EVERY 10 YR 1950 ZOSTER VACCINE 2010 PNEUMOCOCCAL VACCINE AGE 65+ (1 of 2 - PCV13) 09/02/2015 SEQUENTIAL INFLUENZA VACCINE (#1) 2016 as of this encounter Insurance Payer Benefit Plan / Group Subscriber ID Type Phone Address AETNA MANAGED MEDICARE AETNA MEDICARE PLAN (PPO) [id number] as of this encounter
--- OUTSIDE RECORDS SUMMARY | 2018-03-18 03:28 | XMS RPT_ITS | Summary of Care ---
:1950 Author Organization [facility] Address [address] [place] [address] Care Team Providers Name Role Phone Adia Clint Gabo Primary Care Provider Clint Cheek DO Unavailable Clint Hinojosa MD Unavailable Encounter Details Date Type Department Care Team Description 09/28/2017 Documentation [facility] Heart & [place], Sarah Bailey, Vascular Physicians PAMichael [address] [place] [address] [place] [address] Allergies Active Allergy Reactions Severity Noted Date Comments Morphine Other (See Comments) High 06/08/2016 States it slows his breathing down as of this encounter Medications Prescription Sig. Disp. Refills Start Date End Date Status gabapentin Take 400 mg by Active (NEURONTIN) 400 MG mouth 2 (two) capsule times a day . potassium chloride [...] capsule times a day hold for diarrhea. oxyCODONE-acetaminoph Take 1 tablet by Active en (PERCOCET) 5-325 mouth every 4 mg per tablet (four) hours as needed for pain. esomeprazole (NEXIUM) Take 40 mg by Active 40 MG capsule mouth daily. metoprolol succinate Take 25 mg by Active [...] tablet (75 mg total) by mouth daily. as of this encounter Active Problems Problem Noted Date Hypertension 09/08/2017 Last Assessment & Plan: Appears [...] file as of this encounter Progress Notes Sarah Londono PA-C - 09/28/2017 10:27 AM EDTFollow-up phone call placed to patient this morning to ascertain the status after complaints of chest discomfort in the evening of 09/27/2017. Patient was evaluated in emergency department and it was felt he was appropriate for discharge to home by Dr. Del Rio?? Zhou as well as emergency room attendingphysician, Dr. Garcia. Patient states he is doing well this morning and he has no complaints. Patient advised to not hesitate to contact the office of cardiothoracic surgery should she have any questions or concerns regarding his ongoing recovery from heart surgery. in this encounter Plan of Treatment Upcoming Encounters Date Type Specialty Care Team Description 10/13/2017 Follow-Up Cardiology 10/17/2017 Office Visit Home Health Services Jese Schroeder RN 10/24/2017 Hospital Encounter Clint Hinojosa MD [address] [place] [address] [phone] 11/08/2017 Office Visit Cardiology Samantha Stauffer CNP [address] [place] [address] [phone] 12/05/2017 Office Visit Endocrinology Jg [place], [place] 335 [facility] [address] [address] [phone] Health Maintenance Due Date Last Done Comments [...]
--- OUTSIDE RECORDS SUMMARY | 2018-03-18 03:29 | XMS RPT_ITS | Summary of Care ---
:1950 Author Organization [facility] Address [address] [place] [address] Phone Care Team Providers Name Role Phone Unavailable Primary Care Provider Unavailable Reason for Visit Reason Comments Follow-up lower lip lesion path review Encounter Details Date Type Department Care Team Description 10/21/2016 Office Visit [facility] Ear, Nose Prykhodko, Haile Lip lesion, benign and Throat Physicians MD Nena (Primary Dx) 335 Leanna Ruiz 335 [facility] [address] [address] [place], [place] [phone] [address] [phone] Allergies Active Allergy Reactions Severity Noted Date [...] naproxen (NAPROSYN) 500 MG 10/06/2016 Active tablet as of this encounter Social History Tobacco Use Types Packs/Day Years Used Date Never Smoker Smokeless Tobacco: Never Used Alcohol Use Drinks/Week oz/Week Comments No Sex Assigned at Date Recorded Not on file as of this encounter Last Filed Vital Signs Vital Sign Reading Time Taken Blood Pressure 110/69 10/21/2016 7:57 AM EDT Pulse 60 10/21/2016 7:57 AM EDT Temperature - - Respiratory Rate - - Oxygen Saturation 95% 10/21/2016 7:57 AM EDT Inhaled Oxygen Concentration - - Weight 121.1 kg (267 lb) 10/21/2016 7:57 AM EDT Height - - Body Mass Index 40.47 10/21/2016 7:57 AM EDT in this encounter Progress Notes Haile Wilkins MD - 10/21/2016 10:14 AM EDTPatient follows after vermilion border of the lower lip midline lesion excisional biopsy. Healing well, stitches dissolved some fresh granulations still present. Final pathology report described actinic keratosis and no malignancy in the removed specimen. Copy of the report, wound care instructionsto continue bacitracin ointment twice a day until complete healing provided. Follow-up in 4 weeks.in this encounter Plan of Treatment Upcoming Encounters Date Type Specialty Care Team Description 11/21/2016 Office Visit Otolaryngology Haile Wilkins MD [address] [place], [place] [id number] [phone] Health Maintenance Due Date Last Done Comments COLONOSCOPY 1950 HEPATITIS C SCREENING 1950 TETANUS EVERY 10 YR 1950 ZOSTER VACCINE 2010 PNEUMOCOCCAL VACCINE AGE 65+ (1 of 2 - PCV13) 09/02/2015 SEQUENTIAL INFLUENZA VACCINE (#1) 2016 as of this encounter Visit Diagnoses Diagnosis Lip lesion, benign - Primary Diseases of lips in this encounter Insurance Payer Benefit Plan / Group Subscriber ID Type Phone Address A[employer] MANAGED MEDICARE AETNA MEDICARE PLAN (PPO) [id number] Home: [id number] [phone] [place], [place] [address] as of this encounter
--- OUTSIDE RECORDS SUMMARY | 2018-03-18 03:29 | XMS RPT_ITS | Summary of Care ---
:1950 Author Organization [facility] Address [address] [place] [address] Care Team Providers Name Role Phone Adia Clint Ayon DO Primary Care Provider Clint Cheek DO Unavailable Clint Hinojosa MD Unavailable Encounter Details Date Type Department Care Team Description 11/02/2017 Documentation [facility] Heart & Reynoso, Yvonne Hamiltone, Vascular Physicians GEAR SHAPER SET UP OPERATOR 335 [facility] 335 [facility] [place] [address] [place] [phone] Allergies Active Allergy Reactions Severity Noted Date [...] 10/23/2017 long-term current use of insulin ([facility]) Hypertension 09/08/2017 Last Assessment & Plan: Appears [...] as of this encounter Progress Notes Yvonne Reynoso Rosalie, CHANO - 11/02/2017 9:39 AM EDTReceived call from cardiac rehab to report delayed wound healing of left lower leg venectomy incision. Patient came to CVICU for evaluation after cardiac rehab. Patient presents with 1-2+ pitting edema lower extremities with shallow wound measuring 2 cm in length by 1/2 cm in width. Patient reports scab recently fell off. Mild erythema is noted around wound. Patient advised to continue cleaning with soap and water with aggressive leg elevation when not walking. Patient also advised to follow-up with us after his next cardiac rehab appointment on 11/06/2017 if needed.in this encounter Plan of Treatment Upcoming Encounters Date Type Specialty Care Team Description 11/07/2017 Hospital Encounter Charlotte Rojo MD 335 [facility] Sara [address] [address] [phone] 11/08/2017 Office Visit Cardiology Samantha Stauffer CNP 335 [place] [address] [phone] 12/05/2017 Office Visit Endocrinology Jg Calvillo CNP 335 [facility] Sara [address] [address] [phone] Health Maintenance Due Date Last Done Comments [...]
--- OUTSIDE RECORDS SUMMARY | 2018-03-18 03:29 | XMS RPT_ITS | Summary of Care ---
:1950 Author Organization [facility] Address [address] [place] [address] Care Team Providers Name Role Phone Adia Clint Ayon DO Primary Care Provider Clint Cheek DO Unavailable Clint Hinojosa MD Unavailable Encounter Details Date Type Department Care Team Description 10/19/2017 Documentation [facility] Heart & Reynoso, Yvonne Hamiltone, Vascular Physicians RIM FIRE CHARGER OPERATOR 335 [facility] 335 [facility] [place] [address] [place] [address] Allergies Active Allergy Reactions Severity [...] of this encounter Progress Notes Yvonne Reynoso CNS - 10/19/2017 1:21 PM EDTSee Previous note of this date regarding oxygen therapy discontinuation.in this encounter Plan of Treatment Upcoming Encounters Date Type Specialty Care Team Description 10/24/2017 Hospital Encounter Clint Hinojosa MD 335 [place] [address] [phone] 11/08/2017 Office Visit Cardiology Samantha Stauffer CNP 335 [place] [address] [phone] 12/05/2017 Office Visit Endocrinology Jg Calvillo CNP [address] [address] [phone] Health Maintenance Due Date Last Done Comments [...]
--- OUTSIDE RECORDS SUMMARY | 2018-03-18 03:29 | XMS RPT_ITS | Summary of Care ---
:1950 Author Organization [facility] Address [address] [place] [address] Care Team Providers Name Role Phone Clint Cheek DO Primary Care Provider Clint Cheek DO Unavailable Clint Hinojosa MD Unavailable Encounter Details Date Type Department Care Team Description 11/01/[address] En[address] [facility] Clint Hinojosa MD 335 [place] [address] 335 [facility] Alireza Quiñones MD 335 [place] [address] [place] [address] Allergies Active Allergy Reactions Severity Noted Date [...] Encounters Date Type Specialty Care Team Description 11/03/2017 Hospital Encounter Charlotte Rojo MD 335 [facility] Sara [address] [address] [phone] 11/08/2017 Office Visit Cardiology Samantha Stauffer CNP 335 [place] [address] [phone] 12/05/2017 Office Visit Endocrinology Jg Calvillo CNP 335 [facility] Sara [address] [address] [phone] Health Maintenance Due Date Last Done Comments [...]
--- OUTSIDE RECORDS SUMMARY | 2018-03-18 03:29 | XMS RPT_ITS | Summary of Care ---
:1950 Author Organization [facility] Address [address] [place] [address] Care Team Providers Name Role Phone Clint Cheek DO Primary Care Provider Clint Cheek DO Unavailable Clint Hinojosa MD Unavailable Encounter Details Date Type Department Care Team Description 10/13/2017 Hospital Encounter [facility] Clint Hinojosa, 335 Leanna Ruiz MD [place], [place] [address] [address] [place], [place] [id number] Allergies Active Allergy Reactions Severity Noted Date [...] Encounters Date Type Specialty Care Team Description 10/17/2017 Office Visit Home Health Services Jese Schroeder RN 10/24/2017 Hospital Encounter Clint Hinojosa MD 335 [place] [address] [phone] 11/08/2017 Office Visit Cardiology Samantha Stauffer, [place] 335 [place] [address] [phone] 12/05/2017 Office Visit Endocrinology Jg Calvillo, [place] [address] [address] [phone] Health Maintenance Due Date Last Done Comments [...] Procedure Name Priority Date/Time Associated Diagnosis Comments PT/INR STAT 10/13/2017 10:24 AM Results for this EDT procedure are in the results section. BASIC METABOLIC STAT 10/13/2017 10:24 AM Results for this PANEL EDT procedure are in the results section. in this encounter Results Basic Metabolic Panel (10/13/2017 10:24 AM) Glucose 217 (H) 70 - 99 mg/dL [facility] Comment: HOSPITAL This test result might be falsely depressed or falsely elevated on samples drawn from patients taking Sulfasalazine and Sulfapyridine. Venipuncture should occur prior to taking either of these drugs. BUN 15 8 - 25 mg/dL [facility] Creatinine 1.41 (H) 0.80 - 1.30 mg/dL [facility] eGFR 50 (L) >60 [facility] Comment: ml/min/1.73sq.m [facility] Non- GFR Calc eGFR is an estimated Glomerular Filtration Rate based on the value of the patient's serum creatinine. In outpatients, eGFR should be used as a helpful tool in screening for CKD. In inpatients or patients with acute renal failure, eGFR represents the GFR at the moment of the draw and should be used with caution. eGFR >=60Comment: ml/min/1.73sq.m [facility] [place] GFR Calc [facility] Calcium 8.4 8.4 - 10.2 mg/dL [facility] Sodium 140 135 - 145 mmol/L [facility] Potassium 3.8 3.5 - 5.1 mmol/L [facility] Chloride 106 98 - 108 mmol/L [facility] CO2 26 21 - 32 mmol/L [facility] Specimen Blood Performing Organization Address City/[facility] Phone Number [facility] [address] [place] [address] PT/INR (10/13/2017 10:24 AM) Protime (PT) 13.2 11.8 - 14.3 Seconds [facility] INR 1.03 [facility] Comment: [facility] The [place] [employer] recommended therapeutic range for Warfarin (Coumadin) therapy goals: PROPHYLAXIS/TREATMENT of: INR Venous Thrombosis, Pulmonary Embolism 2.0-3.0 Prevention of VTE (Orthopedic Surgery) 2.0-3.0 Atrial Fibrillation 2.0-3.0 Myocardial Infarction 2.0-3.0 Mechanical Prosthetic Heart Valves (Aortic position) 2.0-3.0 Mechanical Prosthetic Heart Valves (Mitral Position) 2.5-3.5 [place] [employer] evidence-based clinical practice guidelines.?CHEST. 2012 (9th ed) Specimen Blood Performing Organization Address City/[facility] Centercode Phone Number [facility] [address] [place] [address] in this encounter
--- OUTSIDE RECORDS SUMMARY | 2018-03-18 03:29 | XMS RPT_ITS | Summary of Care ---
:1950 Author Organization [facility] Address [address] [place] [address] Care Team Providers Name Role Phone Adia Clint Ayon DO Primary Care Provider Clint Cheek DO Unavailable Clint Hinojosa MD Unavailable Encounter Details Date Type Department Care Team Description 11/30/2017 Hospital Encounter [facility], Blossom Pamela, [address] [place], [place] [address] [facility] [address] [address] [address] [phone] Allergies Active Allergy Reactions Severity Noted Date [...] without 10/23/2017 long-term current use of insulin ([facility]) Hypertension 09/08/2017 Last Assessment & Plan: Appears well-controlled on his current medical regimen and we have made no changes. Hyperlipidemia 09/08/2017 Last Assessment & Plan: Patient's plaque stabilization therapy was discontinued yesterday by the surgical service due to development of a maculopapular rash and itching. T2DM (type 2 diabetes mellitus) ([facility]) 09/08/2017 Last Assessment & Plan: We recommend a targeted hemoglobin A1c of 7.0. CKD (chronic kidney disease) stage 3, GFR 30-59 ml/min ([facility]) 09/08/2017 Last Assessment & Plan: Patient's last [...] Encounters Date Type Specialty Care Team Description 12/04/2017 Office Visit Cardiology Samantha Stauffer, BUNCH TRIMMER MOLD 335 [place] [address] [phone] 12/05/2017 Office Visit Endocrinology Jg Calvillo, BUNCH TRIMMER MOLD 335 [facility] [address] [address] [phone] Health Maintenance Due Date Last Done Comments [...] encounter Procedures Procedure Name Priority Date/Time Associated Comments Diagnosis TSH Routine 11/30/2017 9:22 Results for this AM EDT procedure are in the results section. T4, FREE Routine 11/30/2017 9:22 Results for this AM EDT procedure are in the results section. HEMOGLOBIN A1C Routine 11/30/2017 9:22 Results for this AM EDT procedure are in the results section. LIPID PANEL Routine 11/30/2017 9:22 Results for this AM EDT procedure are in the results section. COMPREHENSIVE Routine 11/30/2017 9:22 Results for this METABOLIC PANEL AM EDT procedure are in the results section. MICROALBUMIN, URINE, Routine 11/30/2017 9:16 Results for this RANDOM AM EDT procedure are in the results section. in this encounter Results Hemoglobin A1c (11/30/2017 9:22 AM) Hemoglobin A1C 7.4 (H) 4.1 - 6.5 % [facility] Specimen Blood Performing Organization Address City/[facility]/Zipcode Phone Number [facility] [address] [place] [address] Lipid Panel (11/30/2017 9:22 AM) Cholesterol 104 100 - 199 mg/dL [facility] Triglycerides 75 25 - 120 mg/dL [facility] HDL 34 (L) 40 - 59 mg/dL [facility] LDL 55 10 - 150 mg/dL [facility] VLDL 15 5 - 40 mg/dL [facility] CHOL/HDL Ratio 3.1 (L) 3.2 - 5.0 [facility] Comment: [facility] Male Coronary Heart Disease Risk Factor (CHDRF): Average risk= 5.0 1/2 Average risk= 3.4 2 times Average risk= 9.6 Specimen Blood Performing Organization Address [facility]ode Phone Number [facility] [address] [place] [address] Comprehensive Metabolic Panel (11/30/2017 9:22 AM) Glucose 148 (H) 70 - 99 mg/dL [facility] Comment: [facility] This test result might be falsely depressed or falsely elevated on samples drawn from patients taking Sulfasalazine and Sulfapyridine. Venipuncture should occur prior to taking either of these drugs. BUN 15 8 - 25 mg/dL [facility] Creatinine 1.35 (H) 0.80 - 1.30 mg/dL [facility] eGFR 53 (L) >60 [facility] Comment: ml/min/1.73sq.m [facility] Non- GFR Calc eGFR is an estimated Glomerular Filtration Rate based on the value of the patient's serum creatinine. In outpatients, eGFR should be used as a helpful tool in screening for CKD. In inpatients or patients with acute renal failure, eGFR represents the GFR at the moment of the draw and should be used with caution. eGFR >=60Comment: ml/min/1.73sq.m [facility] Lao GFR Calc HOSPITAL Calcium 8.8 8.4 - 10.2 mg/dL [facility] Sodium 138 135 - 145 mmol/L [facility] Potassium 4.0 3.5 - 5.1 mmol/L [facility] Chloride 105 98 - 108 mmol/L [facility] CO2 24 21 - 32 mmol/L [facility] AST 13 0 - 45 U/L [facility] Comment: [facility] This test result might be falsely depressed or falsely elevated on samples drawn from patients taking Sulfasalazine and Sulfapyridine. Venipuncture should occur prior to taking either of these drugs. ALT 22 14 - 65 U/L [facility] Comment: [facility] This test result might be falsely depressed or falsely elevated on samples drawn from patients taking Sulfasalazine and Sulfapyridine. Venipuncture should occur prior to taking either of these drugs. Alkaline Phosphatase 109 40 - 150 U/L [facility] Bilirubin, Total 0.7 0.3 - 1.2 mg/dL [facility] Total Protein 7.2 6.0 - 8.0 g/dL [facility] Albumin 3.3 3.2 - 5.2 g/dL [facility] Specimen Blood Performing Organization Address [facility] [place] [address] TSH (11/30/2017 9:22 AM) TSH 2.34 0.320 - 5.000 uIU/mL [facility] Comment: HOSPITAL Samples from patients routinely receiving high dose biotin therapy (100-300 mg/day) may show falsely decreased results. Please correlate clinically. Specimen Blood Performing Organization Address [facility] [place] [address] T4, Free (11/30/2017 9:22 AM) T4, Free 0.8 0.7 - 1.7 ng/dL [facility] Comment: Samples from patients routinely receiving high dose biotin therapy (100-300 mg/day) may show falsely increased results. Please correlate clinically. Specimen Blood Performing Organization Address [facility] [place] [address] Microalbumin, Urine, Random (11/30/2017 9:16 AM) Creatinine, Urine 141.00Comment: No mg/dL [facility] Random established reference HOSPITAL range. Microalb, Urine Random <0.5 0.0 - 1.8 mg/dL [facility] Microalbumin/Creatinin 4 0.0 - 25.0 [facility] e Ratio HOSPITAL Specimen Urine Performing Organization Address City/State/Zipcode Phone Number [address] [address] in this encounter
--- OUTSIDE RECORDS SUMMARY | 2018-03-18 03:29 | XMS RPT_ITS | Summary of Care ---
:[address] [facility] Address [address] [place] [address] Care Team Providers Name Role Phone Clint Cheek DO Primary Care Provider Clint Cheek DO Unavailable Clint Hinojosa MD Unavailable Reason for Visit Auth/Cert Status Reason Specialty Diagnoses / Procedures Referred By Contact Referred To Contact Encounter Details Date Type Department Care Team Description 09/05/2017 Home Health Admission [facility] [address] [place] [address] Allergies Active Allergy Reactions Severity Noted Date Comments Morphine Other (See Comments) High 06/08/2016 States it slows his breathing down as of this encounter Medications Prescription Sig. Disp. Refills Start Date End Date Status gabapentin (NEURONTIN) 400 Take 400 mg by Active MG capsule mouth 3 (three) times a day . as of this encounter Active Problems Problem [...] 10/24/2017 Hospital Encounter Clint Hinojosa MD 335 [place] [address] [phone] 11/08/2017 Office Visit Cardiology Samantha Stauffer, [place] 335 [place] [address] [phone] 12/05/2017 Office Visit Endocrinology Jg Calvillo CNP [address] [address] [phone] Health Maintenance Due Date Last Done Comments [...] Procedure Name Priority Date/Time Associated Diagnosis Comments SCAN OTHER ORDERS 09/11/2017 1:01 PM Results for this EDT procedure are in the results section. in this encounter Results SCAN OTHER ORDERS (09/11/2017 1:01 PM) Narrative Performed At Ordered by an unspecified provider. in this encounter
--- OUTSIDE RECORDS SUMMARY | 2018-03-18 03:29 | XMS RPT_ITS | Summary of Care ---
:1950 Author Organization [facility] Address [address] [place] [address] Care Team Providers Name Role Phone Clint Cheek DO Primary Care Provider Clint Cheek DO Unavailable Clint Hinojosa MD Unavailable Reason for Visit Auth/Cert Status Reason Specialty Diagnoses / Procedures Referred By Contact Referred To Contact Encounter Details Date Type Department Care Team Description 10/17/2017 Home Care Visit [facility] Home Jese Schroeder [facility], RN [address] [place] [address] Allergies Active Allergy Reactions Severity Noted [...] Vital Sign Reading Time Taken Blood Pressure 118/78 10/17/2017 2:41 PM EDT Pulse 70 10/17/2017 2:41 PM EDT Temperature 36.3 ??C (97.3 ??F) 10/17/2017 2:41 PM EDT Respiratory Rate 16 10/17/2017 2:41 PM EDT Oxygen Saturation 96% 10/17/2017 2:41 PM EDT Inhaled Oxygen Concentration - - Weight - - Height - - Body Mass Index - - in this encounter Plan of Treatment Upcoming Encounters Date Type Specialty Care Team Description 10/24/2017 Hospital Encounter Clint Hinojosa MD [address] [place] [address] [phone] 11/08/2017 Office Visit Cardiology Samantha Stauffer, PIPE CHANGER [address] [place] [address] [phone] 12/05/2017 Office Visit Endocrinology Jg Calvillo, [place] [address] [address] [phone] Health Maintenance Due Date Last Done Comments [...]
--- OUTSIDE RECORDS SUMMARY | 2018-03-18 03:29 | XMS RPT_ITS | Summary of Care ---
:1950 Author Organization [facility] Address [address] [place] [address] Phone Care Team Providers Name Role Phone Unavailable Primary Care Provider Unavailable Encounter Details Date Type Department Care Team Description 10/14/2016 Hospital Encounter [facility] Haile Wilkins 335 Leanna Barrett MD [place], [place] [address] [address] [facility] [address] [place] [address] Allergies Active Allergy Reactions Severity [...] Encounters Date Type Specialty Care Team Description 10/21/2016 Office Visit Otolaryngology Haile Wilkins MD [facility] Leanna Ruiz [address] [address] [phone] Health Maintenance Due Date Last Done Comments COLONOSCOPY 1950 HEPATITIS C SCREENING 1950 TETANUS EVERY 10 YR 1950 ZOSTER VACCINE 2010 PNEUMOCOCCAL VACCINE AGE 65+ (1 of 2 - PCV13) 09/02/2015 SEQUENTIAL INFLUENZA VACCINE (#1) 2016 as of this encounter Insurance Payer Benefit Plan / Group Subscriber ID Type Phone Address AETNA MANAGED MEDICARE AETNA MEDICARE PLAN (PPO) [id number] as of this encounter
--- OUTSIDE RECORDS SUMMARY | 2018-03-18 03:29 | XMS RPT_ITS | Summary of Care ---
:1950 Author Organization [facility] Address [address] [place] [address] Care Team Providers Name Role Phone Clint Cheek DO Primary Care Provider Clint Cheek DO Unavailable Clint Hinojosa MD Unavailable Reason for Visit Reason Comments Oxygen discontinuation Encounter Details Date Type Department Care Team Description 10/19/2017 Documentation [facility] Heart & Reynoso, Yvonne Oxygen discontinuation Vascular Physicians CHANO Wiggins 335 [facility] 335 [facility] Medical Office [address] [phone] [address] Allergies Active Allergy Reactions Severity Noted [...] encounter Progress Notes Yvonne Reynoso, CHANO - 10/19/2017 1:17 PM EDTReceived phone call today from Deepa Fletcher requesting discontinuing of his oxygen therapy as he is no longer needing it. On October 19, 2017 Mr. Fletcher [facility] he presented with no respiratory distress. Pulse oximetry of 96% was on room air. This was reviewed with Dr. Clint Hinojosa and order for discontinuation of oxygen therapy and equipmentwas obtained and [facility].in this encounter Plan of Treatment Upcoming Encounters Date Type Specialty Care Team Description 10/24/2017 Hospital Encounter Clint Hinojosa MD 335 [place] [address] [phone] 11/08/2017 Office Visit Cardiology Samantha Stauffer CNP 335 [place] [address] [phone] 12/05/2017 Office Visit Endocrinology Jg Calvillo, [place] 335 [facility] [address] [address] [phone] Health Maintenance Due Date Last Done Comments [...]
--- OUTSIDE RECORDS SUMMARY | 2018-03-18 03:29 | XMS RPT_ITS | Summary of Care ---
:1950 Author Organization [facility] Address [address] [place] [address] Phone Care Team Providers Name Role Phone Unavailable Primary Care Provider Unavailable Reason for Visit Reason Comments Follow-up open wound on lip Encounter Details Date Type Department Care Team Description 10/14/2016 Office Visit [facility] Ear, Nose Prykhodko, Haile Lesion of lip and Throat Physicians MD Nena (Primary Dx) [address] Le[address] Ruiz [address] [facility] Office [address] [address] [place], [place] [phone] [address] [phone] Allergies Active Allergy Reactions Severity Noted Date [...] file as of this encounter Progress Notes Haile Wilkins MD - 10/14/2016 5:16 PM EDT 10/14/2016 Deepa Tong 1950 male MD Clint Montanez DO [id number] Procedure:Excision of skin lesion Pre op Dx: Midline vermilion border of the lower lip 0.7 cm skin lesion with ulceration. Post op Dx: Same Findings: Same Procedure: After obtaining consent and patient in sitting position the effected area was prepped anddraped in the usual manner. Xylocaine 1% with epinephrine 1:100,000 dilution injected to affected area for anesthesia and vasoconstriction. Fusiform incision performed around the lesion with the knife. The lesion was then dissected bluntly and sharply with the scissors until it was completely excised.The incision was then closed with 5-0 with interrupted stitches. Patient tolerated procedure well. EBL:Minimal Haile Wilkins MD in this encounter Plan of Treatment Upcoming Encounters Date Type Specialty Care Team Description 10/21/2016 Office Visit Otolaryngology Haile Wilkins MD [address] [place] [address] [place] [address] [phone] Health Maintenance Due Date Last Done Comments COLONOSCOPY 1950 HEPATITIS C SCREENING 1950 TETANUS EVERY 10 YR 1950 ZOSTER VACCINE 2010 PNEUMOCOCCAL VACCINE AGE 65+ (1 of 2 - PCV13) 09/02/2015 SEQUENTIAL INFLUENZA VACCINE (#1) 2016 as of this encounter Visit Diagnoses Diagnosis Lesion of lip - Primary in this encounter Insurance Payer Benefit Plan / Group Subscriber ID Type Phone Address A[employer] MANAGED MEDICARE AETNA MEDICARE PLAN (PPO) [id number] Home: [id number] [phone] [place], [place] [phone] as of this encounter
--- OUTSIDE RECORDS SUMMARY | 2018-03-18 03:29 | XMS RPT_ITS | Summary of Care ---
:1950 Author Organization [facility] Address [address] [place] [address] Phone Care Team Providers Name Role Phone Clint Cheek DO Primary Care Provider Reason for Visit Reason Comments Follow-up fu lower lip lesion Encounter Details Date Type Department Care Team Description 11/30/2016 Office Visit [facility] Ear, Nose Prykhodko, Haile Lip lesion, benign and Throat Physicians MD Nena (Primary Dx) [facility] [address] [address] [place], [place] [phone] [address] [phone] Allergies Active Allergy Reactions Severity Noted Date [...] (BACTRIM DS,SEPTRA DS) 800-160 mg per tablet as of this encounter Social History Tobacco Use Types Packs/Day Years Used Date Never Smoker Smokeless Tobacco: Never Used Alcohol Use Drinks/Week oz/Week Comments No Sex Assigned at Date Recorded Not on file as of this encounter Last Filed Vital Signs Vital Sign Reading Time Taken Blood Pressure 98/62 11/30/2016 1:03 PM EDT Pulse 61 11/30/2016 1:03 PM EDT Temperature - - Respiratory Rate - - Oxygen Saturation 95% 11/30/2016 1:03 PM EDT Inhaled Oxygen Concentration - - Weight 121.1 kg (267 lb) 11/30/2016 1:03 PM EDT Height - - Body Mass Index 40.47 11/30/2016 1:03 PM EDT in this encounter Progress Notes Haile Wilkins MD - 11/30/2016 4:59 PM EDTPatient follows 6 weeks after lower lip actinic keratosis skin lesion removal. He reports complete resolution of his problem with surgery and no other suspicious lesions, discomfort or problem. Site of excision had completely healed with fine not visible scar. Patient was advised to follow-up as needed. Annual dermatology evaluation recommended.in this encounter Plan of Treatment Health Maintenance [...] A[employer] MANAGED MEDICARE AETNA MEDICARE PLAN (PPO) [id number] Home: [phone] [phone] [place], [place] [phone] as of this encounter
--- OUTSIDE RECORDS SUMMARY | 2018-03-18 03:30 | XMS RPT_ITS | Summary of Care ---
:1950 Author Organization [facility] Address [address] [place] [address] Care Team Providers Name Role Phone Clint Cheek DO Primary Care Provider Clint Cheek DO Unavailable Clint Hinojosa MD Unavailable Reason for Visit Auth/Cert Status Reason Specialty Diagnoses / Procedures Referred By Contact Referred To Contact Encounter Details Date Type Department Care Team Description 10/10/2017 Home Care Visit [facility] Jese Schroeder ROUTINE VISIT Health E, RN [address] [place] [address] Allergies Active Allergy Reactions Severity [...] capsule times a day hold for diarrhea. oxyCODONE-acetamino Take 1 tablet by Active phen (PERCOCET) mouth every 4 5-325 mg per tablet (four) hours as needed for pain. esomeprazole Take 40 mg by Active (NEXIUM) 40 MG mouth daily. capsule metoprolol Take 25 mg by Active succinate [...] mg 9 tablet total) by mouth daily. atorvastatin Take 40 mg by Active (LIPITOR) 40 MG mouth daily. tablet aspirin 325 MG Take 325 mg by Active tablet mouth daily. nitroGLYCERIN Place 0.4 mg Active (NITROSTAT) 0.4 MG under the tongue SL tablet every 5 (five) minutes as needed for chest pain. aspirin (ASPIR-81) Take 81 mg by Discontinued 81 MG EC tablet mouth daily. 8 as of this encounter Active Problems Problem [...] Vital Sign Reading Time Taken Blood Pressure 106/80 10/10/2017 1:41 PM EDT Pulse 72 10/10/2017 1:41 PM EDT Temperature 36.4 ??C (97.6 ??F) 10/10/2017 1:41 PM EDT Respiratory Rate 16 10/10/2017 1:41 PM EDT Oxygen Saturation 97% 10/10/2017 1:41 PM EDT Inhaled Oxygen Concentration - - Weight - - Height - - Body Mass Index - - in this encounter Plan of Treatment Upcoming Encounters Date Type Specialty Care Team Description 10/12/2017 Office Visit Home Health Services Jese Schroeder, RONY 10/13/2017 Follow-Up Cardiology 10/17/2017 Office Visit Home Health Services Jese Schroeder RN 10/24/2017 Hospital Encounter Clint Hinojosa MD [address] [place] [address] [phone] 11/08/2017 Office Visit Cardiology Samantha Stauffer CNP [address] [place] [address] [phone] 12/05/2017 Office Visit Endocrinology Jg Calvillo, [place] [address] [address] [phone] Health Maintenance Due Date Last Done Comments [...]
--- OUTSIDE RECORDS SUMMARY | 2018-03-18 03:30 | XMS RPT_ITS | Summary of Care ---
:1950 Author Organization [facility] Address [address] [place] [address] Care Team Providers Name Role Phone Clint Cheek DO Primary Care Provider Clint Cheek DO Unavailable Clint Hinojosa MD Unavailable Reason for Visit Auth/Cert Status Reason Specialty Diagnoses / Procedures Referred By Contact Referred To Contact Encounter Details Date Type Department Care Team Description 10/12/2017 Home Care Visit [facility] Jese Schroeder ROUTINE VISIT Health E, RN [address] [place] [address] Allergies Active Allergy Reactions Severity [...] (five) minutes as needed for chest pain. as of this encounter Active Problems Problem [...] Vital Sign Reading Time Taken Blood Pressure 122/76 10/12/2017 2:12 PM EDT Pulse 91 10/12/2017 2:12 PM EDT Temperature 36.4 ??C (97.6 ??F) 10/12/2017 2:12 PM EDT Respiratory Rate 16 10/12/2017 2:12 PM EDT Oxygen Saturation 97% 10/12/2017 2:12 PM EDT Inhaled Oxygen Concentration - - Weight - - Height - - Body Mass Index - - in this encounter Plan of Treatment Upcoming Encounters Date Type Specialty Care Team Description 10/13/2017 Follow-Up Cardiology 10/17/2017 Office Visit Home Health Services Jese Schroeder RN 10/24/2017 Hospital Encounter Clint Hinojosa MD [address] [place] [address] [phone] 11/08/2017 Office Visit Cardiology Samantha Stauffer CNP [address] [place] [address] [phone] 12/05/2017 Office Visit Endocrinology Jg Calvillo CNP [address] [address] [phone] Health Maintenance Due Date Last Done Comments [...]
--- OUTSIDE RECORDS SUMMARY | 2018-03-18 03:30 | XMS RPT_ITS | Summary of Care ---
:[address] [facility] Address [address] [place] [address] Care Team Providers Name Role Phone Adia Clint Ayon DO Primary Care Provider Clint Cheek DO Unavailable Clint Hinojosa MD Unavailable Encounter Details Date Type Department Care Team Description 09/27/[address] [facility] Heart & [place], Sarah Bailey, Vascular Physicians DHAVAL 335 [facility] 335 [facility] [place] [address] [place] [address] Allergies Active Allergy Reactions Severity [...] 09/06/2017 Active 0.5 MG tablet mouth nightly. aspirin (ASPIR-81) 81 Take 81 mg by Active MG EC tablet mouth daily. docusate sodium [...] encounter Progress Notes Sarah Londono PA-C - 09/27/2017 9:10 PM EDTMrJose Enrique Fletcher is a very pleasant 66-year-old male who underwent three-vessel coronary artery bypass grafting by Dr. Clint Hinojosa on 2017. He has been followed closely by cardiothoracic surgery during his postoperative course. Patient presented to cardiovascular intensive care unit on 09/27/2017 at approximately 8:45 PM stating he was unable to contact cardiothoracic surgery service through answering service methods. He reports he began experiencing numbness and substernal chest discomfort that increased with deep respiration. His symptoms were concerning to him so he presents to CVICU for evaluation. Vital signs: T: 97.2 P. 74 BP. 110/73 SaO2. 95% room air Dr. Nicole Epperson was updated on the patient's concerns, presentation, vital signs and current medications. Given that the patient was unable to be revascularized on the right coronary artery system,he is scheduled to undergo stent placement by Dr. Alireza Quiñones on October 05, 2017. Dr. Epperson felt it was in the patient's best interest that he be sent to the emergency department for further evaluation. His disposition will then be determined at that point in time based upon further diagnostic studies. in this encounter Plan of Treatment Upcoming Encounters Date Type Specialty Care Team Description 09/28/2017 Office Visit Home Health Services Jese Schroeder RN 10/03/2017 Office Visit Home Health Services Jese Schroeder RN 10/04/2017 Office Visit Endocrinology [facility], Blossom Santiago, ORDER TO DELIVERY SUPERVISOR [facility] [address] [address] [phone] 10/05/2017 Hospital Encounter Alireza Quiñones MD [address] [place] [address] [phone] 10/05/2017 Scanned Document 10/06/2017 Office Visit Home Health Services Jese Schroeder RN 10/10/2017 Office Visit Home Health Services Jese Schroeder RN 10/12/2017 Office Visit Home Health Services Jese Schroeder RN 10/13/2017 Follow-Up Cardiology 10/17/2017 Office Visit Home Health Services Jese Schroeder, RONY 10/24/2017 Hospital Encounter Clint Hinojosa MD [address] [facility] [place] [address] [phone] Health Maintenance Due Date Last Done Comments COLONOSCOPY 1950 HEPATITIS C SCREENING 1950 FOOT EXAM 1960 OPHTHALMOLOGY EXAM 1960 URINE MICROALBUMIN 1960 ZOSTER VACCINE 2010 PNEUMOCOCCAL VACCINE AGE 65+ (1 of 2 - PCV13) 09/02/2015 SEQUENTIAL INFLUENZA VACCINE (#1) 2017 HEMOGLOBIN A1C 03/02/2018 08/30/2017 TETANUS EVERY 10 YR 01/14/2025 01/14/2015 as of this encounter
--- OUTSIDE RECORDS SUMMARY | 2018-03-18 03:30 | XMS RPT_ITS | Summary of Care ---
:1950 Author Organization [facility] Address [address] [place] [address] Care Team Providers Name Role Phone Clint Cheek DO Primary Care Provider Clint Cheek DO Unavailable Clint Hinojosa MD Unavailable Reason for Visit Auth/Cert Status Reason Specialty Diagnoses / Procedures Referred By Contact Referred To Contact Encounter Details Date Type Department Care Team Description 10/06/2017 Home Care Visit [facility] Jese Schroeder SN MISSED VISIT [address] [place] [place] [address] Allergies Active Allergy Reactions Severity Noted Date [...] Encounters Date Type Specialty Care Team Description 10/10/2017 Office Visit Home Health Services Jese Schroeder RN 10/12/2017 Office Visit Home Health Services Jese Schroeder RN 10/13/2017 Follow-Up Cardiology 10/17/2017 Office Visit Home Health Services Jese Schroeder RN 10/24/2017 Hospital Encounter Clint Hinojosa MD [address] [facility] [place] [address] [phone] 11/08/2017 Office Visit Cardiology Samantha Stauffer CNP [address] [place] [address] [phone] 12/05/2017 Office Visit Endocrinology Jg Calvillo CNP [address] [address] [phone] Health Maintenance Due Date Last Done Comments [...]
--- OUTSIDE RECORDS SUMMARY | 2018-03-18 03:30 | XMS RPT_ITS | Summary of Care ---
:1950 Author Organization [facility] Address [address] [place] [address] Care Team Providers Name Role Phone Clint Cheek DO Primary Care Provider Clint Cheek DO Unavailable Clint Hinojosa MD Unavailable Reason for Visit Auth/Cert Status Reason Specialty Diagnoses / Procedures Referred By Contact Referred To Contact Encounter Details Date Type Department Care Team Description 09/25/2017 Home Care Visit [facility] Jese Schroeder ROUTINE VISIT Health E, RN [address] [place] [address] Allergies Active Allergy Reactions Severity [...] Vital Sign Reading Time Taken Blood Pressure 112/68 09/25/2017 2:17 PM EDT Pulse 71 09/25/2017 2:17 PM EDT Temperature 36.5 ??C (97.7 ??F) 09/25/2017 2:17 PM EDT Respiratory Rate 16 09/25/2017 2:17 PM EDT Oxygen Saturation 96% 09/25/2017 2:17 PM EDT Inhaled Oxygen Concentration - - Weight - - Height - - Body Mass Index - - in this encounter Plan of Treatment Upcoming Encounters Date Type Specialty Care Team Description 09/28/2017 Office Visit Home Health Services Jese Schroeder RN 10/03/2017 Office Visit Home Health Services Jese Schroeder, RONY 10/04/2017 Office Visit Endocrinology Blossom Meyer, PROFILING MACHINE SET UP OPERATOR [facility] [address] [address] [phone] 10/05/2017 Hospital Encounter Alireza Quiñones MD [address] [place] [address] [phone] 10/05/2017 Scanned Document 10/06/2017 Office Visit Home Health Services Jese Schroeder RN 10/10/2017 Office Visit Home Health Services Jese Schroeder RN 10/12/2017 Office Visit Home Health Services Jese Schroeder RN 10/13/2017 Follow-Up Cardiology 10/17/2017 Office Visit Home Health Services Jese Schroeder, RONY 10/24/2017 Hospital Encounter Clint Hinojosa MD [address] [place] [address] [phone] Health Maintenance Due Date Last Done Comments COLONOSCOPY 1950 HEPATITIS C SCREENING 1950 FOOT EXAM 1960 OPHTHALMOLOGY EXAM 1960 URINE MICROALBUMIN 1960 ZOSTER VACCINE 2010 PNEUMOCOCCAL VACCINE AGE 65+ (1 of 2 - PCV13) 09/02/2015 SEQUENTIAL INFLUENZA VACCINE (#1) 2017 HEMOGLOBIN A1C 03/02/2018 08/30/2017 TETANUS EVERY 10 YR 01/14/2025 01/14/2015 as of this encounter
--- OUTSIDE RECORDS SUMMARY | 2018-03-18 03:30 | XMS RPT_ITS | Summary of Care ---
:1950 Author Organization [facility] Address [address] [place] [address] Care Team Providers Name Role Phone Clint Cheek DO Primary Care Provider Clint Cheek DO Unavailable Clint Hinojosa MD Unavailable Reason for Visit Auth/Cert Status Reason Specialty Diagnoses / Procedures Referred By Contact Referred To Contact Encounter Details Date Type Department Care Team Description 10/03/2017 Home Care Visit [facility] Jese Schroeder ROUTINE VISIT Health E, RN [address] [place] [address] Allergies Active Allergy Reactions Severity [...] Vital Sign Reading Time Taken Blood Pressure 112/80 10/03/2017 12:30 PM EDT Pulse 81 10/03/2017 12:30 PM EDT Temperature 36.6 ??C (97.9 ??F) 10/03/2017 12:30 PM EDT Respiratory Rate 16 10/03/2017 12:30 PM EDT Oxygen Saturation 97% 10/03/2017 12:30 PM EDT Inhaled Oxygen Concentration - - Weight - - Height - - Body Mass Index - - in this encounter Plan of Treatment Upcoming Encounters Date Type Specialty Care Team Description 10/04/2017 Office Visit Endocrinology [facility]ossom Meyer CNP [facility] [address] [address] [phone] 10/05/2017 Hospital Encounter Alireza Quiñones MD [address] [place] [address] [phone] 10/05/2017 Scanned Document 10/06/2017 Office Visit Home Health Services Jese Schroeder, RONY 10/10/2017 Office Visit Home Health Services Jese Schroeder, RN 10/12/2017 Office Visit Home Health Services Jese Schroeder, RONY 10/13/2017 Follow-Up Cardiology 10/17/2017 Office Visit Home Health Services Jese Schroeder, RN 10/24/2017 Hospital Encounter Clint Hinojosa MD [address] [place] [address] [phone] Health Maintenance Due Date Last Done Comments COLONOSCOPY 1950 HEPATITIS C SCREENING 1950 FOOT EXAM 1960 OPHTHALMOLOGY EXAM 1960 URINE MICROALBUMIN 1960 ZOSTER VACCINE 2010 PNEUMOCOCCAL VACCINE AGE 65+ (1 of 2 - PCV13) 09/02/2015 SEQUENTIAL INFLUENZA VACCINE (#1) 2017 HEMOGLOBIN A1C 03/02/2018 08/30/2017 TETANUS EVERY 10 YR 01/14/2025 01/14/2015 as of this encounter
--- OUTSIDE RECORDS SUMMARY | 2018-03-18 03:30 | XMS RPT_ITS | Summary of Care ---
:1950 Author Organization [facility] Address [address] [place] [address] Care Team Providers Name Role Phone Clint Cheek DO Primary Care Provider Clint Cheek DO Unavailable Clint Hinojosa MD Unavailable Encounter Details Date Type Department Care Team Description 09/20/2017 Office Visit [facility] Alireza Quiñones Essential hypertension (Primary Dx); Vascular Physicians MD Jese Hyperlipidemia, unspecified hyperlipidemia type; [address] Type 2 diabetes mellitus without complication, with long-term current use of insulin ([facility]); Medical Office [place], [place] CKD (chronic kidney disease) stage 3, GFR 30- 59 ml/min; [place] [address] DEBORAH on CPAP [place], [place] [phone] [address] [phone] Allergies Active Allergy Reactions Severity Noted Date [...] Vital Sign Reading Time Taken Blood Pressure 125/76 09/20/2017 7:56 AM EDT Pulse 68 09/20/2017 7:56 AM EDT Temperature - - Respiratory Rate - - Oxygen Saturation 96% 09/20/2017 7:56 AM EDT Inhaled Oxygen Concentration - - Weight 112.5 kg (248 lb) 09/20/2017 7:56 AM EDT Height 170.2 cm (5' 7) 09/20/2017 7:56 AM EDT Body Mass Index 38.84 09/20/2017 7:56 AM EDT in this encounter Progress Notes Alireza Quiñones MD - 09/20/2017 8:32 AM EDTFormatting of this note may be different from the original. CARDIOLOGY PROGRESS NOTE [facility] [address] (11) [facility] [address] [facility] [id number] Physicians: Clint Cheek DO (Family); No ref. provider found (Referring) Subjective: Deepa Fletcher is a 67 y.o. male seen in the office today for No chief complaint on file. . HPI: Patient presents in the office to discuss consideration for hybrid revascularization following surgical coronary bypass grafting. He is accompanied by his sister in the office this morning. Patient underwent left heart catheterization August 30, 2017 in the setting of high risk clinical features for ischemic heart disease and progressive exercise intolerance in association with somewhat atypical chest symptoms. Angiographic assessment demonstrated high-grade complex disease in the anterior circulation with high- grade disease in the distal right conduit in the AV segment. Patient underwent three-vessel bypass grafting using a left internal mammary artery to the left anterior descending, and a saphenous vein sequential graft to the ramus intermedius and obtuse marginal branch of the circumflex. The disease in the distal right conduit was not amenable to surgical coronary revascularization. In the office today Mr. Fletcher appears to be recovering reasonably well. He still notes dyspnea on a daily walk that while improved has been persistent. He has not describing anginal sounding chestsymptoms. He developed an itchy maculopapular rash over his hands and chest and yesterday had he isLipitor and Coumadin discontinued. The Coumadin was added prophylactically due to high risk concernfor DVT. He is not describing anginal sounding chest symptoms. He has had no congestive manifestations. He states he has been compliant with his medical regiment. Assessment & Plan: Hypertension Appears well-controlled on his current medical regimen and we have made no changes. Hyperlipidemia Patient's plaque stabilization therapy was discontinued yesterday by the surgical service due to development of a maculopapular rash and itching. T2DM (type 2 diabetes mellitus) (HCC) We recommend a targeted hemoglobin A1c of 7.0. CKD (chronic kidney disease) stage 3, GFR 30-59 ml/min Patient's last serum creatinine was 1.43. Patient will need IV hydration prior to percutaneous coronary intervention. Risk factor modification was reviewed. DEBORAH on CPAP Patient has been compliant with CPAP therapy. EKG Interpretation: Follow Up Ordered: Return in about 3 months (around 12/21/2017). Patient's Medications New Prescriptions CLOPIDOGREL (PLAVIX) 75 MG TABLET Take 1 (one) tablet (75 mg total) by mouth daily. Previous Medications ACETAMINOPHEN (TYLENOL) 325 MG TABLET Take 650 mg by mouth every 6 (six) hours as needed for pain. ASPIRIN (ASPIR-81) 81 MG EC TABLET Take 81 mg by mouth daily. DOCUSATE SODIUM (COLACE) 100 MG CAPSULE Take 100 mg by mouth 2 (two) times a day hold for diarrhea. ESOMEPRAZOLE (NEXIUM) 40 MG CAPSULE Take 40 mg by mouth daily. FLUTICASONE (FLONASE) 50 MCG/ACTUATION NASAL SPRAY Instill 2 sprays into each nostril daily. FUROSEMIDE (LASIX) 20 MG TABLET Take 20 mg by mouth daily. GABAPENTIN (NEURONTIN) 400 MG CAPSULE Take 400 mg by mouth 2 (two) times a day . HUMULIN N (SAMPLE) [...] TABLET Take 25 mg by mouth daily. OXYCODONE-ACETAMINOPHEN (PERCOCET) 5-325 MG PER TABLET Take 1 tablet by mouth every 4 (four) hours as needed for pain. POTASSIUM CHLORIDE SA (K-DUR,KLOR-CON) 20 MEQ TABLET [...] file Discontinued Medications No medications on file Histories: The past history, social and family history, and allergies were reviewed and updated as needed. ROS Objective: Physical Exam Constitutional: He is oriented to person, place, and time. He appears well- developed and well-nourished. HENT: Head: Normocephalic and atraumatic. Right Ear: External ear normal. Left Ear: External ear normal. Nose: Nose normal. Mouth/Throat: Oropharynx is clear and moist. Eyes: Pupils are equal, round, and reactive to light. Neck: Normal range of motion. Neck supple. No hepatojugular reflux and no JVD present. No muscular tenderness present. Carotid bruit is not present. No edema present. No thyroid mass present. Cardiovascular: Normal rate, regular rhythm, normal heart sounds and intact distal pulses. Physiologic S1 and S2. Soft S4 gallop. No obvious murmur. Jugular venous pressure does not appearelevated. Pulmonary/Chest: Effort normal and breath sounds normal. Reproducible sternal tenderness to deep palpation. Lungs are clear to auscultation bilaterally. Abdominal: Soft. Normal appearance and bowel sounds are normal. There is no tenderness. Musculoskeletal: Normal range of motion. Left lower extremity saphenous vein harvest site appears without erythema or drainage. Neurological: He is alert and oriented to person, place, and time. He has normal strength and normalreflexes. No cranial nerve deficit. Skin: Skin is warm and dry. No cyanosis. Nails show no clubbing. Psychiatric: He has a normal mood and affect. His speech is normal and behavior is normal. I personally reviewed and verified the review of systems obtained by the medical librarian. Vitals: Vitals: 09/20/17 0756 BP: 125/76 Pulse: 68 SpO2: 96% Weight: 112.5 kg (248 lb) Height: 5' [address](R) 1. Essential hypertension ESSENTIAL HYPERTENSION 2. Hyperlipidemia, unspecified hyperlipidemia type HYPERLIPIDEMIA 3. Type 2 diabetes mellitus without complication, with long-term current use of insulin (HCC) TYPE 2 DIABETES MELLITUS WITHOUT COMPLICATION 4. CKD (chronic kidney disease) stage 3, GFR 30-59 ml/min CHRONIC KIDNEY DISEASE STAGE 3 5. DEBORAH on CPAP OBSTRUCTIVE SLEEP APNEA SYNDROME Alireza Quiñones MDin this encounter Miscellaneous Notes Assessment & Plan Note - Alireza Quiñones MD - 09/20/2017 8:31 AM EDTAssociated Problem(s): DEBORAH on CPAPPatient has been compliant with CPAP therapy.Assessment & Plan Note - Alireza Quiñones MD - 09/20/2017 8:31 AM EDTAssociated Problem(s): CKD (chronic kidney disease) stage 3, GFR 30- 59 ml/minPatient's last serum creatinine was 1.43. Patient will need IV hydration prior to percutaneous coronary intervention. Risk factor modification was reviewed.Assessment & Plan Note - Alireza Quiñones MD - 09/20/2017 8:31 AM EDTAssociated Problem(s): T2DM (type 2 diabetes mellitus) ([facility])We recommend a targeted hemoglobin A1c of 7.0.Assessment & Plan Note - Alireza Quiñones MD - 09/20/2017 8:30 AM EDTAssociated Problem(s): HyperlipidemiaPatient's plaque stabilization therapy was discontinued yesterday by the surgical service due to development of a maculopapular rash and itching. Assessment & Plan Note - Alireza Quiñones MD - 09/20/2017 8:27 AM EDTAssociated Problem(s): HypertensionAppears well-controlled on his current medical regimen and we have made no changes.in this encounter Plan of Treatment Upcoming Encounters Date Type Specialty Care Team Description 09/21/2017 Office Visit Home Health Services Jese Schroeder RN 09/25/2017 Office Visit Home Health Services Jese Schroeder, RN 09/28/2017 Office Visit Home Health Services Jese Schroeder, RONY 10/03/2017 Office Visit Home Health Services Jese Schroeder, RONY 10/04/2017 Office Visit Endocrinology Blossom Meyer PIPE STEM ALIGNER [address] [address] [phone] 10/05/2017 Hospital Encounter Alireza Quiñones MD [address] [facility] [place] [address] [phone] 10/05/2017 Office Visit Home Health Services Jese Schroeder RN 10/05/2017 Scanned Document 10/10/2017 Office Visit Home Health Services Jese Schroeder RN 10/12/2017 Office Visit Home Health Services Jese Schroeder, RN 10/13/2017 Follow-Up Cardiology 10/17/2017 Office Visit Home Health Services Jese Schroeder, RN 10/24/2017 Hospital Encounter Clint Hinojosa MD [address] [place] [address] [phone] Health Maintenance Due Date Last Done Comments COLONOSCOPY 1950 HEPATITIS C SCREENING 1950 FOOT EXAM 1960 OPHTHALMOLOGY EXAM 1960 URINE MICROALBUMIN 1960 ZOSTER VACCINE 2010 PNEUMOCOCCAL VACCINE AGE 65+ (1 of 2 - PCV13) 09/02/2015 SEQUENTIAL INFLUENZA VACCINE (#1) 2017 HEMOGLOBIN A1C 03/02/2018 08/30/2017 TETANUS EVERY 10 YR 01/14/2025 01/14/2015 as of this encounter Visit Diagnoses Diagnosis Essential hypertension - Primary Unspecified essential hypertension Hyperlipidemia, unspecified hyperlipidemia type Type 2 diabetes mellitus without complication, with long-term current use of insulin (HCC) CKD (chronic kidney disease) stage 3, GFR 30-59 ml/min Chronic kidney disease, Stage III (moderate) DEBORAH on CPAP
--- OUTSIDE RECORDS SUMMARY | 2018-03-18 03:30 | XMS RPT_ITS | Summary of Care ---
:1950 Author Organization [facility] Address [address] [place] [address] Care Team Providers Name Role Phone Clint Cheek DO Primary Care Provider Clint Cheek DO Unavailable Clint Hinojosa MD Unavailable Reason for Visit Cardio (Routine) Status Reason Specialty Diagnoses / Procedures Referred By Contact Referred To Contact Closed Diagnoses PCI CAD W/HYDRATION ROSA ([facility]) Alireza Quiñones [facility] Hvp Outside Procedures NONCARECONNECT CARDIO VISIT MD Jese Location [address] [place] [address] Encounter Details Date Type Department Care Team Description 10/05/2017 Documentation [facility] Arrived Allergies Active Allergy Reactions Severity Noted Date [...] 10/24/2017 Hospital Encounter Clint Hinojosa MD [address] [place] [address] [phone] 11/08/2017 Office Visit Cardiology Samantha Stauffer CNP [address] [place] [address] [phone] 12/05/2017 Office Visit Endocrinology Jg Calvillo, INTEGRATED CIRCUITS INSPECTOR [address] [address] [phone] Health Maintenance Due Date Last Done Comments COLONOSCOPY 1950 HEPATITIS C SCREENING 1950 FOOT EXAM 1960 OPHTHALMOLOGY EXAM 1960 URINE MICROALBUMIN 1960 ZOSTER VACCINE 2010 PNEUMOCOCCAL VACCINE AGE 65+ (1 of 2 - PCV13) 09/02/2015 SEQUENTIAL INFLUENZA VACCINE (#1) 2017 HEMOGLOBIN A1C 03/02/2018 08/30/2017 TETANUS EVERY 10 YR 01/14/2025 01/14/2015 as of this encounter
--- OUTSIDE RECORDS SUMMARY | 2018-03-18 03:30 | XMS RPT_ITS | Summary of Care ---
:1950 Author Organization [facility] Address [address] [place] [address] Care Team Providers Name Role Phone Clint Cheek DO Primary Care Provider Clint Cheek DO Unavailable Clint Hinojosa MD Unavailable Reason for Visit Auth/Cert Status Reason Specialty Diagnoses / Procedures Referred By Contact Referred To Contact Encounter Details Date Type Department Care Team Description 09/21/2017 Home Care Visit [facility] Jese Schroeder ROUTINE VISIT Health E, RN [address] [place] [address] Allergies Active Allergy Reactions Severity [...] Vital Sign Reading Time Taken Blood Pressure 116/68 09/21/2017 1:31 PM EDT Pulse 71 09/21/2017 1:31 PM EDT Temperature 36.7 ??C (98.1 ??F) 09/21/2017 1:31 PM EDT Respiratory Rate 16 09/21/2017 1:31 PM EDT Oxygen Saturation 98% 09/21/2017 1:31 PM EDT Inhaled Oxygen Concentration - - Weight - - Height - - Body Mass Index - - in this encounter Plan of Treatment Upcoming Encounters Date Type Specialty Care Team Description 09/25/2017 Office Visit Home Health Services Jese Schroeder RN 09/28/2017 Office Visit Home Health Services Jese Schroeder, RONY 10/03/2017 Office Visit Home Health Services Jese Schroeder, RONY 10/04/2017 [facility] [address] [address] [phone] 10/05/2017 Hospital Encounter Alireza Quiñones MD [address] [place] [address] [phone] 10/05/2017 Office Visit Home Health Services Jese Schroeder RN 10/05/2017 Scanned Document 10/10/2017 Office Visit Home Health Services Jese Schroeder RN 10/12/2017 Office Visit Home Health Services Jese Schroeder, RONY 10/13/2017 Follow-Up Cardiology 10/17/2017 Office Visit Home Health Services Jese Schroeder, RN 10/24/2017 Hospital Encounter Clint Hinojosa MD [address] [place] [address] [phone] Health Maintenance Due Date Last Done Comments COLONOSCOPY 1950 HEPATITIS C SCREENING 1950 FOOT EXAM 1960 OPHTHALMOLOGY EXAM 1960 URINE MICROALBUMIN 1960 ZOSTER VACCINE 2010 PNEUMOCOCCAL VACCINE AGE 65+ (1 of 2 - PCV13) 09/02/2015 SEQUENTIAL INFLUENZA VACCINE (#1) 2017 HEMOGLOBIN A1C 03/02/2018 08/30/2017 TETANUS EVERY 10 YR 01/14/2025 01/14/2015 as of this encounter
--- OUTSIDE RECORDS SUMMARY | 2018-03-18 03:30 | XMS RPT_ITS | Summary of Care ---
:1950 Author Organization [facility] Address [address] [place] [address] Care Team Providers Name Role Phone Clint Cheek DO Primary Care Provider Clint Cheek DO Unavailable Clint Hinojosa MD Unavailable Reason for Visit Auth/Cert Status Reason Specialty Diagnoses / Procedures Referred By Contact Referred To Contact Encounter Details Date Type Department Care Team Description 09/19/2017 Home Care Visit [facility] Pop, TELEPHONE ENCOUNTER [address] [place] [address] Allergies Active Allergy Reactions Severity Noted Date [...] Hyperlipidemia 09/08/2017 T2DM (type 2 diabetes mellitus) ([facility]) 09/08/2017 CKD (chronic kidney disease) stage 3, [...] 09/20/2017 Office Visit Cardiology Alireza Quiñones MD [address] [place] [address] [phone] 09/21/2017 Office Visit Home Health Services Jese Schroeder RN 09/25/2017 Office Visit Home Health Services Jese Schroeder, RONY 09/28/2017 Office Visit Home Health Services Jese Schroeder, RONY 10/03/2017 Office Visit Home Health Services Jese Schroeder, RONY 10/04/2017 Office Visit Endocrinology [facility], Blossom Santiago, CHIEF TECHNICIAN [address] [address] [phone] 10/05/2017 Office Visit Home Health Services Jese Schroeder RN 10/10/2017 Office Visit Home Health Services Jese Schroeder RN 10/12/2017 Office Visit Home Health Services Jese Schroeder RN 10/13/2017 Follow-Up Cardiology 10/17/2017 Office Visit Home Health Services Jese Schroeder, RONY 10/24/2017 Hospital Encounter Clint Hinojosa MD [address] [place] [address] [phone] Health Maintenance Due Date Last Done Comments COLONOSCOPY 1950 HEPATITIS C SCREENING 1950 FOOT EXAM 1960 OPHTHALMOLOGY EXAM 1960 URINE MICROALBUMIN 1960 ZOSTER VACCINE 2010 PNEUMOCOCCAL VACCINE AGE 65+ (1 of 2 - PCV13) 09/02/2015 SEQUENTIAL INFLUENZA VACCINE (#1) 2017 HEMOGLOBIN A1C 03/02/2018 08/30/2017 TETANUS EVERY 10 YR 01/14/2025 01/14/2015 as of this encounter
--- OUTSIDE RECORDS SUMMARY | 2018-03-18 03:30 | XMS RPT_ITS | Summary of Care ---
:1950 Author Organization [facility] Address [address] [place] [address] Care Team Providers Name Role Phone Clint Cheek DO Primary Care Provider Clint Cheek DO Unavailable Clint Hinojosa MD Unavailable Reason for Visit Auth/Cert Status Reason Specialty Diagnoses / Procedures Referred By Contact Referred To Contact Encounter Details Date Type Department Care Team Description 09/28/2017 Home Care Visit [facility] Jese Schroeder ROUTINE VISIT Health E, RN [address] [place] [address] Allergies Active Allergy Reactions Severity [...] Vital Sign Reading Time Taken Blood Pressure 112/78 09/28/2017 12:33 PM EDT Pulse 71 09/28/2017 12:33 PM EDT Temperature 36.8 ??C (98.2 ??F) 09/28/2017 12:33 PM EDT Respiratory Rate 16 09/28/2017 12:33 PM EDT Oxygen Saturation 98% 09/28/2017 12:33 PM EDT Inhaled Oxygen Concentration - - Weight - - Height - - Body Mass Index - - in this encounter Plan of Treatment Upcoming Encounters Date Type Specialty Care Team Description 10/03/2017 Office Visit Home Health Services Jese Schroeder RN 10/04/2017 Office Visit Endocrinology Blossom Meyer CNP [address] [facility] [address] [address] [phone] 10/05/2017 Hospital Encounter Alireza Quiñones MD [address] [facility] [place] [place] [address] [phone] 10/05/2017 Scanned Document 10/06/2017 Office Visit Home Health Services Jese Schroeder RN 10/10/2017 Office Visit Home Health Services Jese Schroeder RN 10/12/2017 Office Visit Home Health Services Jese Schroeder RN 10/13/2017 Follow-Up Cardiology 10/17/2017 Office Visit Home Health Services Jese Schroeder, RONY 10/24/2017 Hospital Encounter Clint Hinojosa MD [address] [place] [address] [phone] Health Maintenance Due Date Last Done Comments COLONOSCOPY 1950 HEPATITIS C SCREENING 1950 FOOT EXAM 1960 OPHTHALMOLOGY EXAM 1960 URINE MICROALBUMIN 1960 ZOSTER VACCINE 2010 PNEUMOCOCCAL VACCINE AGE 65+ (1 of 2 - PCV13) 09/02/2015 SEQUENTIAL INFLUENZA VACCINE (#1) 2017 HEMOGLOBIN A1C 03/02/2018 08/30/2017 TETANUS EVERY 10 YR 01/14/2025 01/14/2015 as of this encounter
--- OUTSIDE RECORDS SUMMARY | 2018-03-18 03:30 | XMS RPT_ITS | Summary of Care ---
:1950 Author Organization [facility] Address [address] [place] [address] Care Team Providers Name Role Phone Clint Cheek DO Primary Care Provider Clint Cheek DO Unavailable Clint Hinojosa MD Unavailable Reason for Visit Reason Comments Follow-up 6 week appt Encounter Details Date Type Department Care Team Description 10/13/2017 Follow-Up [facility] Heart & Sarah Servin, S/P CABG (coronary Vascular Physicians PA-C artery bypass graft) [address] (Primary Dx) Medical Office [address] [phone] [place] [address] Allergies Active Allergy Reactions Severity [...] Active (PROTONIX) 40 MG mouth daily. tablet oxyCODONE-acetamino Take 1 tablet by Discontinued phen [...] Vital Sign Reading Time Taken Blood Pressure 106/67 10/13/2017 10:54 AM EDT Pulse 60 10/13/2017 10:54 AM EDT Temperature 36.5 ??C (97.7 ??F) 10/13/2017 10:54 AM EDT Respiratory Rate - - Oxygen Saturation 96% 10/13/2017 10:54 AM EDT Inhaled Oxygen Concentration - - Weight 114.3 kg (252 lb) 10/13/2017 10:54 AM EDT Height - - Body Mass Index 39.47 10/13/2017 10:54 AM EDT in this encounter Instructions Patient Instructions - Sarah Servin PA-C - 10/13/2017 11:04 AM EDT-May stop using your heart hugger. -May resume driving. -May not resume work for another 6 weeks due to heavy lifting. -May now increase weight restriction to up to 25 pounds for the next 6 weeks, then no restrictions thereafter. You may also move your arms without restrictions. -Please follow-up with cardiology, cardiac rehab (10/24/17 @ 8 AM), and your family physician. Dr. Clint Hinojosa will no longer need to follow up with you from a cardiac surgery standpoint. We thank you for letting us be apart of your care. We wish you the best of luck in the future! in this encounter Progress Notes Sarah Servin PA-C - 10/13/2017 11:04 AM EDTFormatting of this note may be different from the original. [facility] [address] ([address]) [facility] [address] [facility] [id number] 10/13/17 Deepa Fletcher S/P CABG x 3 with left lower extremity harvest by Dr. Clint Hinojosa on 09/01/17 Patient presents today for routine 6 week follow up and is accompanied by his sister. states everything is well at home and he is feeling better daily. On 10/05/17, patient had a drug-eluting stent placed to the right coronary artery by Dr. Alireza Quiñones. Patient states it went very welland he has had not issues since. He denies any shortness of breath, chest pain or further discomforts. His only complaint is having a dry cough the last week. He denies any fever, chills, phlegm production, or wheezing. His sister thinks it could be related to the weather changes and seasonal allergies. Patient denies any further rash or pruritus to his bilateral hands since Coumadin was discontinued. He admits to ongoing bilateral lower extremity edema. As you may already be aware, Deepa underwent two-vessel coronary artery bypass grafting with left lower extremity open vein harvest by Dr. Clint Hinojosa on 2017. Postoperatively, the patient had a 4 day stay in CVICU that was remarkable for the following. Dr. Rojo was consulted for evaluation and treatment of his type 2 diabetes mellitus. His positive fluid balance with weight gain was managed with diuretic therapy and potassium replacement. The patient was started on Coumadin anticoagulation therapy due to morbid obesity and increased risk of DVT. Postoperatively, he did require supplemental oxygen per nasal cannula to maintain an O2 saturation greater than 90% due to acute pulmonary insufficiency. This ultimately was not able to be weaned and he was discharged home with continuousoxygen at 2 L per nasal cannula. The patient has known obstructive sleep apnea and is compliant withCPAP which was continued throughout his hospitalization. In the meantime, Dr. Hinojosa and his team con tinued to follow the patient very closely in the outpatient setting. Eventually he was able to be weaned from supplemental oxygen in the outpatient setting. On 09/19/17, the patient reported having new onset pruritus and rash to bilateral hands. Dr. Hinojosa evaluated the patient in the CVICU and Coumadin and Atorvastatin was discontinued. It should be noted cardiology resumed statin therapy after recent PCI. Then on 09/27/17, patient reported having chest discomfort and was sent to the emergency department for further evaluation. Ultimately, workup was negative and thought to be secondary to ongoing healing of his medial sternotomy. Patient denies any recurrent symptoms. Current vital signs at this appointment are as follows: BP 106/67 (BP Location: Left arm, Patient Position: Sitting, BP Cuff Size: X- large Adult) Pulse 60 Temp 97.7 ??F (36.5 ??C) Wt 114.3 kg (252 lb) SpO2 96% BMI (P) 39.47 kg/m?? Physical Exam Constitutional: He is oriented to person, place, and time. He appears well- developed and well-nourished. No distress. Cardiovascular: Normal rate, regular rhythm and normal heart sounds. Exam reveals no gallop and no friction rub. No murmur heard. Pulmonary/Chest: Effort normal and breath sounds normal. No respiratory distress. He has no wheezes.He has no rales. He exhibits no tenderness. Abdominal: Soft. Bowel sounds are normal. He exhibits no distension. There is no tenderness. There is no rebound. Musculoskeletal: He exhibits edema. 1+ pitting edema to bilateral lower extremities, left > right. Neurological: He is alert and oriented to person, place, and time. Skin: Skin is warm and dry. No rash noted. He is not diaphoretic. No erythema. No pallor. Sternal incision is healed. No erythema, edema, nor drainage present. Chest tube trocar sites are healed without erythema, edema, nor drainage present. Left lower extremity open vein harvest is healing well. Proximally, there is an area of eschar present. No surrounding erythema nor drainage present. Nontender to palpation and without induration. 1+ pitting edema to bilateral lower extremities, L > R. Sternum is stable with palpation, no clicks or clunks were noted. EKG demonstrates: Sinus rhythm, 71 BPM Chest x-ray reveals: Sternal wires align and intact. Small left pleural effusion present. Chem 8: Na+ K+ Cl- HCo3- BUN Cr Glu INR 140 3.8 106 26 15 1.41 217 NA Current medications are as follows: Current Outpatient Prescriptions on File Prior to Visit Medication Sig Dispense Refill ??? acetaminophen (TYLENOL) 325 MG tablet Take 650 mg by mouth every 6 (six) hours as needed for pain. ??? aspirin 325 MG tablet Take 325 mg by mouth daily. ??? atorvastatin (LIPITOR) 40 MG tablet Take 40 mg by mouth daily. ??? clopidogrel (PLAVIX) 75 mg tablet Take 1 (one) tablet (75 mg total) by mouth daily. 90 tablet 4 ??? docusate sodium (COLACE) 100 MG capsule Take 100 mg by mouth 2 (two) times a day hold for diarrhea. ??? fluticasone (FLONASE) 50 mcg/actuation nasal spray Instill 2 sprays into each nostril daily. ??? furosemide (LASIX) 20 MG tablet Take 20 mg by mouth daily. ??? gabapentin (NEURONTIN) 400 MG capsule Take 400 mg by mouth 2 (two) times a day . ??? HumuLIN N (SAMPLE) 100 unit/mL injection Inject 12 Units under the skin at bedtime . ??? insulin regular (HumuLIN R, NovoLIN R) 100 unit/mL injection Inject 13 Units under the skin 3 (three) times a day before meals. In untis = 14 breakfast/8 lunch/ 13 dinner low sliding scale 70-150 give o unit, 151-200 give 1 unit, 201-250 give 2 units, 251-300 give 3 untis, 301-350 give 4 units, 350-400 give units, notify physician fo ??? metoprolol succinate (TOPROL-XL) 25 MG 24 hr tablet Take 25 mg by mouth daily. ??? nitroGLYCERIN (NITROSTAT) 0.[address] 0.4 mg under the tongue every 5 (five) minutes as needed for chest pain. ??? oxyCODONE-acetaminophen (PERCOCET) 5-325 mg per tablet Take 1 tablet by mouth every 4 (four) hours as needed for pain. ??? potassium chloride SA (K-DUR,KLOR-CON) 20 MEQ tablet Take 20 mEq by mouth daily. ??? pramipexole (MIRAPEX) 0.5 MG tablet Take 1.5 mg by mouth nightly. ??? SYMBICORT (SAMPLE) 160-4.5 mcg/actuation HFAA 2 puffs by Oral Inhalation route 2 (two) times a day. ??? tiotropium (SPIRIVA WITH HANDIHALER) [address] 18 mcg into inhaler and inhale daily. ??? [DISCONTINUED] esomeprazole (NEXIUM) 40 MG capsule Take 40 mg by mouth daily. No current facility-administered medications on file prior to visit. I advised that lifting restrictions are now increased to 25 pounds over the course of the next 6 weeks, there are no restrictions on range of motion and the patient may resume driving privileges. 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 He will need to follow up with cardiology, cardiac rehab and related appointments as previously scheduled. Patient to continue with bilateral lower extremity elevation and maintaining optimal blood sugars for better wound healing. Should he begin to show signs of cellulitisor new drainage from his left lower extremity incision, he should contact our service for further evaluation. Patient was questioning whether to continue Symbicort and Spiriva as he didn't take this prior to surgery and isn't a smoker. I recommended he continue to use these as directed until he getsfurther recommendation from his primary care physician. Dr. Clint Hinojosa will no longer need to follow up with the patient. The patient is more than welcometo contact our office if he has any questions. We thank for allowing us to care for himduring the time of need for heart surgery and we wish Mr. Fletcher the very best of luck in the future. Sincerely yours, HERMINIO Ricks-Melinda this encounter Plan of Treatment Upcoming Encounters Date Type Specialty Care Team Description 10/17/2017 Office Visit Home Health Services Jese Schroeder RN 10/24/2017 Hospital Encounter Clint Hinojosa MD [address] [place] [address] [phone] 11/08/2017 Office Visit Cardiology Samantha Stauffer CNP [address] [facility] [address] [phone] 12/05/2017 Office Visit Endocrinology Jg Calvillo CNP [address] [facility] Sara [address] [address] [phone] Health Maintenance Due Date Last Done Comments [...] Procedure Name Priority Date/Time Associated Diagnosis Comments ECG 12-LEAD STAT 10/13/2017 10:57 AM S/P CABG (coronary Results for this EDT artery bypass graft) procedure are in the results section. in this encounter Results ECG 12 Lead (10/13/2017 10:57 AM) Atrial Rate Ventricular Rate P-R Interval QRS Duration Q-T Interval Q-T Interval (corrected) QTC Calculation (Bezet) P [place] R [place] T [place] Narrative Performed At in this encounter Visit Diagnoses Diagnosis S/P CABG (coronary artery bypass graft) - Primary Postsurgical aortocoronary bypass status
--- OUTSIDE RECORDS SUMMARY | 2018-03-18 03:31 | XMS RPT_ITS | Summary of Care ---
:1950 Author Organization [facility] Address [address] [place] [address] Care Team Providers Name Role Phone Clint Cheek DO Primary Care Provider Clint Cheek DO Unavailable Clint Hinojosa MD Unavailable Reason for Visit Reason Comments Follow-up 1st FU s/p CABG x3 09/01/17 Encounter Details Date Type Department Care Team Description 09/08/2017 Follow-Up [facility] Heart & Sarah Servin, S/P CABG x 3 (Primary Vascular Physicians PA-C Dx) [address] [facility] Sara 335 [facility] Medical Office [address] [phone] [place] [address] Allergies Active Allergy Reactions Severity Noted Date Comments Morphine Other (See Comments) High 06/08/2016 States it slows his breathing down as of this encounter Medications Prescription Sig. Disp. Refills Start Date End Date Status gabapentin Take 400 mg by Active (NEURONTIN) 400 MG mouth 2 (two) capsule times a day. potassium chloride Take 20 mEq by Active [...] under the skin at injection bedtime . warfarin (COUMADIN) Take 5 mg by mouth daily. Patient to take Coumadin 5 mg today with further orders to follow after PT/INR on 09/08/[address] Hinojosa's office. 09/07/2017 Active 2 MG tablet Order received from Danna Servin MA at 1:05 p.m. acetaminophen Take 650 mg by Active (TYLENOL) 325 MG mouth every 6 tablet (six) hours as needed for pain. fluticasone Instill 2 sprays Active (FLONASE) 50 into each nostril mcg/actuation nasal daily. spray lisinopril Take 40 mg by 09/08/2017 Discontinued (PRINIVIL,ZESTRIL) mouth daily . 10 MG tablet warfarin (COUMADIN) Take 2 mg by 09/08/2017 Discontinued 2 MG tablet mouth daily. 10mg - INR check 09/06/17 cetirizine (ZYRTEC) Take 10 mg by 09/08/2017 Discontinued 10 MG tablet mouth daily. as of this encounter Active [...] Vital Sign Reading Time Taken Blood Pressure 113/71 09/08/2017 10:39 AM EDT Pulse 71 09/08/2017 10:39 AM EDT Temperature 36.7 ??C (98.1 ??F) 09/08/2017 10:39 AM EDT Respiratory Rate 18 09/08/2017 10:39 AM EDT Oxygen Saturation 94% 09/08/2017 10:39 AM EDT Inhaled Oxygen Concentration - - Weight 117.1 kg (258 lb 3.2 oz) 09/08/2017 10:39 AM EDT Height 168.9 cm (5' 6.5) 09/08/2017 10:39 AM EDT Body Mass Index 41.05 09/08/2017 10:39 AM EDT in this encounter Instructions Patient Instructions - Sarah Servin PA-C - 09/08/2017 10:44 AM EDTSTRICT LEG ELEVATION (for higher and longer)!! Continue to wash surgical incisions with soap and water daily. Do not put any antimicrobial ointments/lotions on the incisions. Avoid direct blasts of water to your chest incision. Report any drainage from incisions, especially from sternum. INR: 2.00 --> Take 6 mg (3 tablets) of Coumadin. [facility] to draw blood tomorrow and we will call with next dosing. Will call you later today with any abnormal lab results and any medication changes after speaking toDr. Hinojosa. Please call us with any questions or concerns.in this encounter Progress Notes Sarah Servin PA-C - 09/08/2017 10:37 AM EDTFormatting of this note may be different from the original. [facility] [address] ([address]) [facility] [address] [facility] [address] 09/08/17 Deepa Fletcher S/P CABG x 3 with left lower extremity open vein harvest by Dr. Clint Hinojosa on 09/01/17 Subjective: Patient presents today for first follow up and is accompanied by his sister. states he thinks everything is going well. He admits using his supplemental oxygen continuously. He states heis using the incentive spirometer daily and getting up to 2000 mL. He denies any shortness of breath, chest pain or further discomforts. His only real complaint is bilateral restless leg syndrome hasbeen giving him a lot more issues since we dramatically decreased his gabapentin dosing. Patient states his sleep doctor, Dr. Rangel at the [facility] is the one who prescribed these dosages because he got it real bad. Objective: Current vital signs at this appointment are as follows: BP 113/71 (BP Location: Left arm, Patient Position: Sitting, BP Cuff Size: Adult) Pulse 71 Temp 98.1 ??F (36.7 ??C) (Oral) Resp 18 Ht 5' 6.5 Wt 117.1 kg (258 lb 3.2 oz) SpO2 94% Comment: O2 @ 2L/nc BMI 41.05 kg/m?? Physical Exam Constitutional: He is oriented to person, place, and time. He appears well- developed and well-nourished. No distress. Patient has extremely flat affect. Cardiovascular: Normal rate, regular rhythm and normal heart sounds. Exam reveals no gallop and no friction rub. No murmur heard. Pulmonary/Chest: Effort normal and breath sounds normal. No respiratory distress. He has no wheezes.He has no rales. He exhibits no tenderness. Abdominal: Soft. Bowel sounds are normal. He exhibits no distension. There is no tenderness. Musculoskeletal: He exhibits edema. Neurological: He is alert and oriented to person, place, and time. Skin: Skin is warm and dry. No rash noted. He is not diaphoretic. No erythema. No pallor. Sternal incision is healing with dillon intact. No erythema, edema, nor drainage noted. At the mid-incision the skin is dry and peeling. Chest tube trocar sites are healing with scant serosanguineous drainage present. No erythema, edema, nor drainage present. Left lower extremity incision is healing with dillon intact. A few dillon appear to be moved and look like they want to come out. No surrounding erythema nor drainage present. 1-2+ pitting edema inthe left lower extremity present with elevation. 1+ pitting edema to the right lower extremity present. Chest x-ray reveals: Sternal wires align and intact. Bibasilar atelectasis present. Trace effusions bilaterally. Chem 8: Na+ K+ Cl- HCo3- BUN Cr Glu INR 135 4.4 102 24 20 1.56 321 2.00 Current medications are as follows: Current Outpatient Prescriptions on File Prior to Visit Medication Sig Dispense Refill ??? aspirin (ASPIR-81) 81 MG EC tablet Take 81 mg by mouth daily. ??? atorvastatin (LIPITOR) 10 MG tablet Take 10 mg by mouth nightly. ??? cetirizine (ZYRTEC) 10 MG tablet Take 10 mg by mouth daily. ??? docusate sodium (COLACE) 100 MG capsule Take 100 mg by mouth once daily. hold for diarrhea ??? esomeprazole (NEXIUM) 40 MG capsule Take 40 mg by mouth daily. ??? furosemide (LASIX) 20 MG tablet Take 20 mg by mouth daily. ??? gabapentin (NEURONTIN) 400 MG capsule Take 400 mg by mouth 2 (two) times a day. ??? HumuLIN N (SAMPLE) 100 unit/mL injection Inject 11 Units under the skin at bedtime. ??? insulin regular (HumuLIN R Regular U-100 Insuln) 100 unit/mL injection Inject 13 Units under theskin 3 (three) times a day before meals. In untis = 13 breakfast/8 lunch/ 12 dinner low sliding scale 70-150 give o unit, 151-200 give 1 unit, 201-250 give 2 units, 251-300 give 3 untis, 301-350 give 4 units, 350-400 give units, notify physician for blood glucose > 400. ??? metoprolol succinate (TOPROL-XL) 25 MG 24 hr tablet Take 25 mg by mouth daily. ??? oxyCODONE-acetaminophen (PERCOCET) 5-325 mg per tablet [...] mcg into inhaler and inhale daily. ??? warfarin (COUMADIN) 2 MG tablet Take 2 mg by mouth daily. 10mg - INR check 09/06/17 ??? warfarin (COUMADIN) 2 MG tablet Take 5 mg by mouth daily. Patient to take Coumadin 5 mg today with further orders to follow after PT/INR on 09/08/[address] Hinojosa's office. Order received from Danna Servin MA at 1:05 p.m. ??? [DISCONTINUED] lisinopril (PRINIVIL,ZESTRIL) 10 MG tablet Take 40 mg by mouth daily . No current facility-administered medications on file prior to visit. Assessment: S/P CABG x 3 with left lower extremity open vein harvest by Dr. Clint Hinojosa on 09/01/17. Patient is recovering well. Chest and left lower extremity incisions are healing well with dillon intact. 1-2+ pitting edema to the left lower extremity. Plan: Patient's VS, labs, and medications to be reviewed with Dr. Hinojosa. Any changes will be documented and the patient will be notified. Patient needs to be focused on bilateral leg elevation for higher and longer. Additionally, continue to follow all discharge instructions including sternal precautionsand breathing exercises. Return on 09/11/17 at 10:30 AM for your next appointment with cardiothoracic surgery. Please call for any questions or concerns. Sincerely, HERMINIO Ricks-Melinda this encounter Plan of Treatment Upcoming Encounters Date Type Specialty Care Team Description 09/11/2017 Follow-Up Cardiology 09/12/2017 Office Visit Home Health Services Jese Schroeder RN 09/13/2017 Office Visit Home Health Services Jese Schroeder RN 09/14/2017 Office Visit Home Health Services Jese Schroeder RN 09/15/2017 Follow-Up Cardiology 09/19/2017 Office Visit Home Health Services Jese Schroeder RN 09/20/2017 Office Visit Cardiology Alireza Quiñones MD [address] [place], [place] [id number] [phone] 09/21/2017 Office Visit Home Health Services Jese Schroeder, RN 09/26/2017 Office Visit Home Health Services Jese Schroeder, RONY 09/28/2017 Office Visit Home Health Services Jese Schroeder RN 10/03/2017 Office Visit Home Health Services Jese Schroeder, RONY 10/04/2017 Office Visit Endocrinology [facility], Blossom Santiago, PATIENT SUPPORT PARTNER [address] [address] [phone] 10/05/2017 Office Visit Home Health Services Jese Schroeder RN 10/10/2017 Office Visit Home Health Services Jese Schroeder RN 10/12/2017 Office Visit Home Health Services Jese Schroeder RN 10/13/2017 Follow-Up Cardiology 10/17/2017 Office Visit Home Health Services Jese Schroeder, RONY 10/24/2017 Hospital Encounter Clint Hinojosa MD [address] [place] [address] [phone] Health Maintenance Due Date Last Done Comments COLONOSCOPY 1950 HEPATITIS C SCREENING 1950 TETANUS EVERY 10 YR 1950 FOOT EXAM 1960 OPHTHALMOLOGY EXAM 1960 URINE MICROALBUMIN 1960 ZOSTER VACCINE 2010 PNEUMOCOCCAL VACCINE AGE 65+ (1 of 2 - PCV13) 09/02/2015 SEQUENTIAL INFLUENZA VACCINE (#1) 2017 HEMOGLOBIN A1C 03/02/2018 08/30/2017 as of this encounter Visit Diagnoses Diagnosis S/P CABG x 3 - Primary Postsurgical aortocoronary bypass status
--- OUTSIDE RECORDS SUMMARY | 2018-03-18 03:31 | XMS RPT_ITS | Summary of Care ---
:1950 Author Organization [facility] Address [address] [place] [address] Care Team Providers Name Role Phone Clint Cheek DO Primary Care Provider Clint Cheek DO Unavailable Clint Hinojosa MD Unavailable Reason for Visit Auth/Cert Status Reason Specialty Diagnoses / Procedures Referred By Contact Referred To Contact Encounter Details Date Type Department Care Team Description 09/15/2017 Home Care Visit [facility] Letty Roman, TELEPHONE ENCOUNTER [address] [place] [place] [address] Allergies Active Allergy Reactions Severity Noted Date Comments Morphine Other (See Comments) High 06/08/2016 States it slows his breathing down as of this encounter Medications Prescription Sig. Disp. Refills Start Date End Date Status gabapentin (NEURONTIN) Take 400 mg by mouth Active 400 MG capsule 3 (three) times a day . potassium chloride SA [...] mg by mouth Active 100 MG capsule 2 (two) times a day hold for diarrhea. oxyCODONE-acetaminophen Take 1 tablet by Active (PERCOCET) 5-325 mg per mouth every 4 (four) tablet hours as needed for pain. atorvastatin (LIPITOR) Take 10 mg by mouth Active 10 MG tablet nightly. esomeprazole (NEXIUM) 40 Take 40 mg by mouth Active MG capsule daily. metoprolol succinate Take 25 mg by mouth Active (TOPROL-XL) 25 MG 24 hr daily. tablet HumuLIN N (SAMPLE) 100 Inject 12 Units Active unit/mL injection under the skin at bedtime . acetaminophen (TYLENOL) Take 650 mg by mouth Active 325 MG tablet every 6 (six) hours as needed for pain. fluticasone (FLONASE) 50 Instill 2 sprays Active mcg/actuation nasal into each nostril spray daily. warfarin (COUMADIN) 2 MG Take 6-7 mg by mouth 09/09/2017 Active tablet at bedtime. 09/15/17 Continue to alternate 7mg with 6mg every other evening. SN to draw PT/INR on ., 09/19/17. insulin regular (HumuLIN Inject 13 Units under the skin 3 (three) times a day before meals. In untis = 14 breakfast/8 lunch/ 13 dinner 09/14/2017 Active R, NovoLIN R) 100 low sliding scale unit/mL injection 70-150 give o unit, 151-200 give 1 unit, 201-250 give 2 units, 251-300 give 3 untis, 301-350 give 4 units, 350-400 give units, notify physician fo as of this encounter Active Problems Problem Noted Date Hypertension 09/08/2017 Hyperlipidemia 09/08/2017 T2DM (type 2 diabetes mellitus) ([facility]) 09/08/2017 CKD (chronic kidney disease) stage 3, GFR 30-59 ml/min 09/08/2017 DEBORAH on CPAP 09/08/2017 Social History Tobacco Use Types Packs/Day Years Used Date Never Smoker Smokeless Tobacco: Never Used Alcohol Use Drinks/Week oz/Week Comments No Sex Assigned at Date Recorded Not on file as of this encounter Plan of Treatment Upcoming Encounters Date Type Specialty Care Team Description 09/19/2017 Office Visit Home Health Services Jese Schroeder RN 09/20/2017 Office Visit Cardiology Alireza Quiñones MD [address] [place] [address] [phone] 09/21/2017 Office Visit Home Health Services Jese Schroeder RN 09/26/2017 Office Visit Home Health Services Jese Schroeder, RONY 09/28/2017 Office Visit Home Health Services Jese Schroeder RN 10/03/2017 Office Visit Home Health Services Jese Schroeder, RONY 10/04/2017 Office Visit Endocrinology [facility], Blossom Santiago, SPECIAL DIET COOK [address] [address] [phone] 10/05/2017 Office Visit Home Health Services Jese Schroeder RN 10/10/2017 Office Visit Home Health Services Jese Schroeder RN 10/12/2017 Office Visit Home Health Services Jese Schroeder RN 10/13/2017 Follow-Up Cardiology 10/17/2017 Office Visit Home Health Services Jese Schroeder, RONY 10/24/2017 Hospital Encounter Clint [facility]inojosa MD [address] [facility] [place] [address] [phone] Health Maintenance Due Date Last Done Comments COLONOSCOPY 1950 HEPATITIS C SCREENING 1950 FOOT EXAM 1960 OPHTHALMOLOGY EXAM 1960 URINE MICROALBUMIN 1960 ZOSTER VACCINE 2010 PNEUMOCOCCAL VACCINE AGE 65+ (1 of 2 - PCV13) 09/02/2015 SEQUENTIAL INFLUENZA VACCINE (#1) 2017 HEMOGLOBIN A1C 03/02/2018 08/30/2017 TETANUS EVERY 10 YR 01/14/2025 01/14/2015 as of this encounter
--- OUTSIDE RECORDS SUMMARY | 2018-03-18 03:31 | XMS RPT_ITS | Summary of Care ---
:1950 Author Organization [facility] Address [address] [place] [address] Care Team Providers Name Role Phone Clint Cheek DO Primary Care Provider Clint Cheek DO Unavailable Clint Hinojosa MD Unavailable Encounter Details Date Type Department Care Team Description 09/15/2017 Hospital Encounter [facility] Clint Hinojosa, [address] MD [place], [place] [address] [id number] [place], [place] [id number] Allergies Active Allergy Reactions Severity Noted Date [...] Office Visit Cardiology Alireza Quiñones MD [address] [place] [address] [phone] 09/21/2017 Office Visit Home Health Services Jese Schroeder RN 09/26/2017 Office Visit Home Health Services Jese Schroeder RN 09/28/2017 Office Visit Home Health Services Jese Schroeder RN 10/03/2017 Office Visit Home Health Services Jese Schroeder RN 10/04/2017 Office Visit Endocrinology [facility], Blossom Santiago, HARBOR BOAT PILOT [address] [address] [phone] 10/05/2017 Office Visit Home Health Services Jese Schroeder RN 10/10/2017 Office Visit Home Health Services Jese Schroeder RN 10/12/2017 Office Visit Home Health Services Jese Schroeder RN 10/13/2017 Follow-Up Cardiology 10/17/2017 Office Visit Home Health Services Jese Schroeder, RONY 10/24/2017 Hospital Encounter Clint [facility]inojosa MD [address] [facility] [place] [address] [phone] Health Maintenance Due Date Last Done Comments COLONOSCOPY 1950 HEPATITIS C SCREENING 1950 FOOT EXAM 1960 OPHTHALMOLOGY EXAM 1960 URINE MICROALBUMIN 1960 ZOSTER VACCINE 2010 PNEUMOCOCCAL VACCINE AGE 65+ (1 of 2 - PCV13) 09/02/2015 SEQUENTIAL INFLUENZA VACCINE (#1) 2017 HEMOGLOBIN A1C 03/02/2018 08/30/2017 TETANUS EVERY 10 YR 01/14/2025 01/14/2015 as of this encounter Results PT/INR (09/15/2017 9:38 AM) Component Value Ref Range Protime (PT) 24.4 (H) 11.8 - 14.3 Seconds INR 2.23 Comment: [employer] [place] [employer] recommended therapeutic range for Warfarin (Coumadin) therapy goals: PROPHYLAXIS/TREATMENT of: INR Venous Thrombosis, Pulmonary Embolism 2.0-3.0 Prevention of VTE (Orthopedic Surgery) 2.0-3.0 Atrial Fibrillation 2.0-3.0 Myocardial Infarction 2.0-3.0 Mechanical Prosthetic Heart Valves (Aortic position) 2.0-3.0 Mechanical Prosthetic Heart Valves (Mitral Position) 2.5-3.5 [employer] [place] [employer] evidence-based clinical practice guidelines.?CHEST. 2011 (9th ed) Specimen Performing Laboratory Blood [address] [address] Basic Metabolic Panel (09/15/2017 9:38 AM) Component Value Ref Range Glucose 309 (H) 70 - 99 mg/dL Comment: This test result might be falsely depressed or falsely elevated on samples drawn from patients taking Sulfasalazine and Sulfapyridine. Venipuncture should occur prior to taking either of these drugs. BUN 20 8 - 25 mg/dL Creatinine 1.43 (H) 0.80 - 1.30 mg/dL eGFR 49 (L) >60 ml/min/1.73sq.m Comment: Non- GFR Calc eGFR is an estimated Glomerular Filtration Rate based on the value of the patient's serum creatinine. In outpatients, eGFR should be used as a helpful tool in screening for CKD. In inpatients or patients with acute renal failure, eGFR represents the GFR at the moment of the draw and should be used with caution. eGFR >=60Comment: GFR Calc ml/min/1.73sq.m Calcium 8.9 8.4 - 10.2 mg/dL Sodium 135 135 - 145 mmol/L Potassium 4.3 3.5 - 5.1 mmol/L Chloride 102 98 - 108 mmol/L CO2 24 21 - 32 mmol/L Specimen Performing Laboratory Blood [address] [address] in this encounter
--- OUTSIDE RECORDS SUMMARY | 2018-03-18 03:31 | XMS RPT_ITS | Summary of Care ---
:1950 Author Organization [facility] Address [address] [place] [address] Care Team Providers Name Role Phone Adia Clint Ayon DO Primary Care Provider Clint Cheek DO Unavailable Clint Hinojosa MD Unavailable Reason for Visit Auth/Cert Status Reason Specialty Diagnoses / Procedures Referred By Contact Referred To Contact Encounter Details Date Type Department Care Team Description 09/09/2017 Home Care Visit [facility] Aleta Saucedo, ROUTINE VISIT [address] [place] [address] Allergies Active Allergy Reactions Severity Noted Date [...] mcg/actuation nasal daily. spray warfarin (COUMADIN) Take 2 mg by 09/09/2017 Active 2 MG tablet mouth daily. VO obtained from HERMINIO Scales with [facility] to have pt take Coumadin 6 mg po tonight (09/08/17). SN to obtain PT/INR on Monday (09/09/17). Order read back and verified. Pt notified per HERMINIO Solis. Bushra Cannon, RONY-case management coordinator updated via Epic/Email. rjv warfarin (COUMADIN) Take 2 mg by 09/08/2017 09/09/2017 Discontinued 2 MG tablet mouth daily. VO obtained from CHANO Martin with [facility] to have pt take Coumadin 2 mg po tonight (09/08/17), tomorrow (09/09/17), 1 mg po on Monday (09/10/17), 2 mg po on Monday (09/11/17). SN to obtain PT/INR on Monday (09/12/17). Order read back and verified. Pt notified per CNS. Bushra Martin RN-case management coordinator updated via Epic/Email. rjv as of this [...] Vital Sign Reading Time Taken Blood Pressure 120/70 09/09/2017 11:16 AM EDT Pulse 74 09/09/2017 11:16 AM EDT Temperature 36.3 ??C (97.4 ??F) 09/09/2017 11:16 AM EDT Respiratory Rate 18 09/09/2017 11:16 AM EDT Oxygen Saturation 97% 09/09/2017 11:16 AM EDT Inhaled Oxygen Concentration - - Weight 115.2 kg (254 lb) 09/09/2017 11:16 AM EDT Height - - Body Mass Index 40.38 09/09/2017 11:16 AM EDT in this encounter Plan of Treatment Upcoming Encounters Date Type Specialty Care Team Description 09/11/2017 Follow-Up Cardiology 09/12/2017 Office Visit Home Health Services Jese Cannon RN 09/13/2017 Office Visit Home Health Services Jese Cannon RN 09/14/2017 Office Visit Home Health Services Jese Cannon RN 09/15/2017 Follow-Up Cardiology 09/19/2017 Office Visit Home Health Services Jese Cannon, RN 09/20/2017 Office Visit Cardiology Alireza Quiñones MD [address] [place], [place] [address] [phone] 09/21/2017 Office Visit Home Health Services Jese Cannon, RONY 09/26/2017 Office Visit Home Health Services Jese Cannon, RONY 09/28/2017 Office Visit Home Health Services Jese Cannon, RN 10/03/2017 Office Visit Home Health Services Jese Cannon, RN 10/04/2017 Office Visit [facility], Blossom Santiago, STONE OPERATOR [address] [address] [phone] 10/05/2017 Office Visit Home Health Jese Michael, RN 10/10/2017 Office Visit Home Health Services Jese Cannon RN 10/12/2017 Office Visit Home Health Services Jese Cannon RN 10/13/2017 Follow-Up Cardiology 10/17/2017 Office Visit Home Health Services Jese Cannon, RN 10/24/2017 Hospital Encounter Clint Hinojosa MD [address] [place] [address] [phone] Health Maintenance Due Date Last Done Comments COLONOSCOPY 1950 HEPATITIS C SCREENING 1950 FOOT EXAM 1960 OPHTHALMOLOGY EXAM 1960 URINE MICROALBUMIN 1960 ZOSTER VACCINE 2010 PNEUMOCOCCAL VACCINE AGE 65+ (1 of 2 - PCV13) 09/02/2015 SEQUENTIAL INFLUENZA VACCINE (#1) 2017 HEMOGLOBIN A1C 03/02/2018 08/30/2017 TETANUS EVERY 10 YR 01/14/2025 01/14/2015 as of this encounter
--- OUTSIDE RECORDS SUMMARY | 2018-03-18 03:31 | XMS RPT_ITS | Summary of Care ---
:1950 Author Organization [facility] Address [address] [place] [address] Care Team Providers Name Role Phone Clint Cheek DO Primary Care Provider Clint Cheek DO Unavailable Clint Hinojosa MD Unavailable Reason for Visit Auth/Cert Status Reason Specialty Diagnoses / Procedures Referred By Contact Referred To Contact Encounter Details Date Type Department Care Team Description 09/14/2017 Home Care Visit [facility] Jese Schroeder ROUTINE VISIT Health E, RN [address] [place] [address] Allergies Active Allergy Reactions Severity [...] 09/15/17 @ patient's appointment with Dr. Hinojosa. insulin regular Inject 13 Units under the skin 3 (three) times a day before meals. In untis = 14 breakfast/8 lunch/ 13 dinner 09/14/2017 Active (HumuLIN R, NovoLIN low sliding scale R) 100 unit/mL 70-150 give o unit, 151-200 give 1 unit, 201-250 give 2 units, 251- 300 give 3 untis, 301-350 give 4 units, 350-400 give units, notify physician fo injection insulin regular Inject 13 Units under the skin 3 (three) times a day before meals In untis = 14 breakfast/8 lunch/ 12 dinner 09/14/2017 Discontinued (HumuLIN R Regular low sliding scale U-100 Insuln) 100 70-150 give o unit, 151-200 give 1 unit, 201-250 give 2 units, 251-300 give 3 untis, 301-350 give 4 units, 350-400 give units, notify physician fo. unit/mL injection as of this encounter Active Problems Problem [...] Vital Sign Reading Time Taken Blood Pressure 112/76 09/14/2017 12:08 PM EDT Pulse 64 09/14/2017 12:08 PM EDT Temperature 36.8 ??C (98.2 ??F) 09/14/2017 12:08 PM EDT Respiratory Rate 16 09/14/2017 12:08 PM EDT Oxygen Saturation 97% 09/14/2017 12:08 PM EDT Inhaled Oxygen Concentration - - Weight - - Height - - Body Mass Index - - in this encounter Plan of Treatment Upcoming Encounters Date Type Specialty Care Team Description 09/15/2017 Follow-Up Cardiology 09/19/2017 Office Visit Home Health Services Jese Schroeder RN 09/20/2017 Office Visit Cardiology Alireza Quiñones MD [address] [place] [address] [phone] 09/21/2017 Office Visit Home Health Services Jese Schroeder RN 09/26/2017 Office Visit Home Health Services Jese Schroeder RN 09/28/2017 Office Visit Home Health Services Jese Schroeder, RN 10/03/2017 Office Visit Home Health Services Jese Schroeder, RN 10/04/2017 Office Visit Endocrinology [facility] Blossom Pamela, SOFTWARE IMPLEMENTATION PROJECT MANAGER [address] [address] [phone] 10/05/2017 Office Visit Home Health Services Jese Schroeder RN 10/10/2017 Office Visit Home Health Services Jese Schroeder, RN 10/12/2017 Office Visit Home Health Services Jese Schroeder, RN 10/13/2017 Follow-Up Cardiology 10/17/2017 Office Visit Home Health Services Jese Schroeder, RN 10/24/2017 Hospital Encounter Clint Hinojosa MD [address] [place] [address] [phone] Health Maintenance Due Date Last Done Comments COLONOSCOPY 1950 HEPATITIS C SCREENING 1950 FOOT EXAM 1960 OPHTHALMOLOGY EXAM 1960 URINE MICROALBUMIN 1960 ZOSTER VACCINE 2010 PNEUMOCOCCAL VACCINE AGE 65+ (1 of 2 - PCV13) 09/02/2015 SEQUENTIAL INFLUENZA VACCINE (#1) 2017 HEMOGLOBIN A1C 03/02/2018 08/30/2017 TETANUS EVERY 10 YR 01/14/2025 01/14/2015 as of this encounter
--- OUTSIDE RECORDS SUMMARY | 2018-03-18 03:31 | XMS RPT_ITS | Summary of Care ---
:1950 Author Organization [facility] Address [address] [place] [address] Care Team Providers Name Role Phone Clint Cheek DO Primary Care Provider Clint Cheek DO Unavailable Clint Hinojosa MD Unavailable Encounter Details Date Type Department Care Team Description 09/08/2017 Hospital Encounter [facility] Clint Hinojosa, [address] [place], [place] [address] [address] [place], [place] [id number] Allergies Active Allergy Reactions Severity Noted Date [...] injection under the skin at bedtime . warfarin (COUMADIN) 2 MG Take 5 mg by mouth daily. Patient to take Coumadin 5 mg today with further orders to follow after PT/INR on 09/08/[address] Hinojosa's office. 09/07/2017 Active tablet Order received from Danna Servin MA at 1:05 p.m. acetaminophen (TYLENOL) Take 650 mg by mouth Active 325 MG tablet every 6 (six) hours as needed for pain. fluticasone (FLONASE) 50 Instill 2 sprays Active mcg/actuation nasal into each nostril spray daily. warfarin (COUMADIN) 2 MG Take 2 mg by mouth 09/08/2017 Active tablet daily. VO obtained from CHANO Martin with [facility] to have pt take Coumadin 2 mg po tonight (09/08/17), tomorrow (09/09/17), 1 mg po on Monday (09/10/17), 2 mg po on Monday (09/11/17). SN to obtain PT/INR on Monday (09/12/17). Order read back and verified. Pt notified per CHANO Martin. Bushra Cannon RN-therapeutic case manager updated via Epic/Email. dotty as of this encounter Active Problems Problem [...] Office Visit Cardiology Alireza Quiñones MD [address] [place] [address] [phone] 09/21/2017 Office Visit Home Health Services Jese Cannon RN 09/26/2017 Office Visit Home Health Services Jese Cannon, RN 09/28/2017 Office Visit Home Health Services Jese Cannon, RN 10/03/2017 Office Visit Home Health Services Jese Cannon, RN 10/04/2017 [facility] LANGUAGE INSTRU[facility] [address] [address] [phone] 10/05/2017 Office Visit Home Health Services Jese Cannon RN 10/10/2017 Office Visit Home Health Services Jese Cannon RN 10/12/2017 Office Visit Home Health Services Jese Cannon, RN 10/13/2017 Follow-Up Cardiology 10/17/2017 Office Visit Home Health Services Jese Cannon, RN 10/24/2017 Hospital Encounter Clint Hinojosa MD [address] [place] [address] [phone] Health Maintenance Due Date Last Done Comments COLONOSCOPY 1950 HEPATITIS C SCREENING 1950 FOOT EXAM 1960 OPHTHALMOLOGY EXAM 1960 URINE MICROALBUMIN 1960 ZOSTER VACCINE 2010 PNEUMOCOCCAL VACCINE AGE 65+ (1 of 2 - PCV13) 09/02/2015 SEQUENTIAL INFLUENZA VACCINE (#1) 2017 HEMOGLOBIN A1C 03/02/2018 08/30/2017 TETANUS EVERY 10 YR 01/14/2025 01/14/2015 as of this encounter Results PT/INR (09/08/2017 9:26 AM) Component Value Ref Range Protime (PT) 22.4 (H) 11.8 - 14.3 Seconds INR 2.00 Comment: The [place] [employer] recommended therapeutic range for Warfarin (Coumadin) therapy goals: PROPHYLAXIS/TREATMENT of: INR Venous Thrombosis, Pulmonary Embolism 2.0-3.0 Prevention of VTE (Orthopedic Surgery) 2.0-3.0 Atrial Fibrillation 2.0-3.0 Myocardial Infarction 2.0-3.0 Mechanical Prosthetic Heart Valves (Aortic position) 2.0-3.0 Mechanical Prosthetic Heart Valves (Mitral Position) 2.5-3.5 [place] [employer] evidence-based clinical practice guidelines.?CHEST. 2012 (9th ed) Specimen [place] [address] Basic Metabolic Panel (09/08/2017 9:26 AM) Component Value Ref Range Glucose 321 (H) 70 - 99 mg/dL Comment: This test result might be falsely depressed or falsely elevated on samples drawn from patients taking Sulfasalazine and Sulfapyridine. Venipuncture should occur prior to taking either of these drugs. BUN 20 8 - 25 mg/dL Creatinine 1.56 (H) 0.80 - 1.30 mg/dL eGFR 45 (L) >60 ml/min/1.73sq.m Comment: Non- GFR Calc eGFR is an estimated Glomerular Filtration Rate based on the value of the patient's serum creatinine. In outpatients, eGFR should be used as a helpful tool in screening for CKD. In inpatients or patients with acute renal failure, eGFR represents the GFR at the moment of the draw and should be used with caution. eGFR 54 (L)Comment: GFR Calc >60 ml/min/1.73sq.m Calcium 8.6 8.4 - 10.2 mg/dL Sodium 135 135 - 145 mmol/L Potassium 4.4 3.5 - 5.1 mmol/L Chloride 102 98 - 108 mmol/L CO2 24 21 - 32 mmol/L Specimen Performing Laboratory Blood [address] [address] in this encounter
--- OUTSIDE RECORDS SUMMARY | 2018-03-18 03:31 | XMS RPT_ITS | Summary of Care ---
:1950 Author Organization [facility] Address [address] [place] [address] Care Team Providers Name Role Phone Clint Cheek DO Primary Care Provider Clint Cheek DO Unavailable Clint Hinojosa MD Unavailable Reason for Visit Auth/Cert Status Reason Specialty Diagnoses / Procedures Referred By Contact Referred To Contact Encounter Details Date Type Department Care Team Description 09/13/2017 Home Care Visit [facility] Jese Schroeder ROUTINE VISIT Health E, RN [address] [place] [address] Allergies Active Allergy Reactions Severity [...] HFAA (two) times a day. tiotropium (SPIRIVA Place 18 mcg into Active WITH HANDIHALER) 18 mcg inhaler and inhale inhalation capsule daily. furosemide (LASIX) 20 Take 20 mg by mouth 09/06/2017 Active MG tablet daily. pramipexole (MIRAPEX) Take 1.5 mg by mouth 09/06/2017 Active 0.5 MG tablet nightly. aspirin (ASPIR-81) 81 Take 81 mg by mouth Active MG EC tablet daily. docusate sodium Take 100 mg by mouth Active (COLACE) 100 MG capsule once daily. hold for diarrhea oxyCODONE-acetaminophen Take 1 tablet by Active (PERCOCET) 5-325 mg per mouth every 4 (four) tablet hours as needed for pain. atorvastatin (LIPITOR) Take 10 mg by mouth Active 10 MG tablet nightly. esomeprazole (NEXIUM) Take 40 mg by mouth Active 40 MG capsule daily. metoprolol succinate Take 25 mg by mouth Active (TOPROL-XL) 25 MG 24 hr daily. tablet insulin regular Inject 13 Units under [...] physician fo. unit/mL injection HumuLIN N (SAMPLE) 100 Inject 12 Units under Active unit/mL injection the skin at bedtime . acetaminophen (TYLENOL) Take 650 mg by mouth Active 325 MG tablet every 6 (six) hours as needed for pain. fluticasone (FLONASE) Instill 2 sprays into Active 50 mcg/actuation nasal each nostril daily. spray warfarin (COUMADIN) 2 Take 6-7 mg by mouth 09/09/2017 Active MG tablet at bedtime. 09/11/17 Continue to alternate 7mg with 6mg every other evening. INR will be drawn on 09/15/17 @ patient's appointment with Dr. Hinojosa. as of this encounter Active Problems Problem [...] Vital Sign Reading Time Taken Blood Pressure 112/72 09/13/2017 12:42 AM EDT Pulse 71 09/13/2017 12:42 AM EDT Temperature 37 ??C (98.6 ??F) 09/13/2017 12:42 AM EDT Respiratory Rate 16 09/13/2017 12:42 AM EDT Oxygen Saturation 94% 09/13/2017 12:42 AM EDT Inhaled Oxygen Concentration - - Weight - - Height - - Body Mass Index - - in this encounter Plan of Treatment Upcoming Encounters Date Type Specialty Care Team Description 09/14/2017 Office Visit Home Health Services Jese Schroeder RN 09/15/2017 Follow-Up Cardiology 09/19/2017 Office Visit Home Health Services Jese Schroeder, RN 09/20/2017 Office Visit Cardiology Alireza Quiñones MD [address] [facility] [place] [address] [phone] 09/21/2017 Office Visit Home Health Services Jese Schroeder, RN 09/26/2017 Office Visit Home Health Services Jese Schroeder, RONY 09/28/2017 Office Visit Home Health Services Jese Schroeder RN 10/03/2017 Office Visit Home Health Services Jese Schroeder, RONY 10/04/2017 [facility] [address] [facility] [address] [address] [phone] 10/05/2017 Office Visit Home Health Services Jese Schroeder, RN 10/10/2017 Office Visit Home Health Services Jese Schroeder, RN 10/12/2017 Office Visit Home Health Services Jese Schroeder, RN 10/13/2017 Follow-Up Cardiology 10/17/2017 Office Visit Home Health Services Jese Schroeder, RN 10/24/2017 Hospital Encounter Clint Hinojosa MD [address] [place] [address] [phone] Health Maintenance Due Date Last Done Comments COLONOSCOPY 1950 HEPATITIS C SCREENING 1950 FOOT EXAM 1960 OPHTHALMOLOGY EXAM 1960 URINE MICROALBUMIN 1960 ZOSTER VACCINE 2010 PNEUMOCOCCAL VACCINE AGE 65+ (1 of 2 - PCV13) 09/02/2015 SEQUENTIAL INFLUENZA VACCINE (#1) 2017 HEMOGLOBIN A1C 03/02/2018 08/30/2017 TETANUS EVERY 10 YR 01/14/2025 01/14/2015 as of this encounter
--- OUTSIDE RECORDS SUMMARY | 2018-03-18 03:31 | XMS RPT_ITS | Summary of Care ---
:1950 Author Organization [facility] Address [address] [place] [address] Care Team Providers Name Role Phone Clint Cheek DO Primary Care Provider Clint Cheek DO Unavailable Clint Hinojosa MD Unavailable Reason for Visit Auth/Cert Status Reason Specialty Diagnoses / Procedures Referred By Contact Referred To Contact Encounter Details Date Type Department Care Team Description 09/19/2017 Home Care Visit [facility] Letty Roman, TELEPHONE ENCOUNTER [address] [place], [place] [id number] Allergies Active Allergy Reactions Severity Noted Date [...] 09/20/2017 Office Visit Cardiology Alireza Quiñones MD [address] [place] [address] [phone] 09/21/2017 Office Visit Home Health Services Jese Schroeder, RN 09/25/2017 Office Visit Home Health Services Jese Schroeder, RONY 09/28/2017 Office Visit Home Health Services Jese Schroeder, RONY 10/03/2017 Office Visit Home Health Services Jese Schroeder, RN 10/04/2017 Office Visit Endocrinology [facility], Blossom Santiago, FENCE SUPERVISOR [address] [address] [phone] 10/05/2017 Office Visit Home Health Services Jese Schroeder RN 10/10/2017 Office Visit Home Health Services Jese Schroeder RN 10/12/2017 Office Visit Home Health Services Jese Schroeder RN 10/13/2017 Follow-Up Cardiology 10/17/2017 Office Visit Home Health Services Jese Schroeder, RN 10/24/2017 Hospital Encounter Clint Hinojosa MD [address] [place] [address] [phone] Health Maintenance Due Date Last Done Comments COLONOSCOPY 1950 HEPATITIS C SCREENING 1950 FOOT EXAM 1960 OPHTHALMOLOGY EXAM 1960 URINE MICROALBUMIN 1960 ZOSTER VACCINE 2010 PNEUMOCOCCAL VACCINE AGE 65+ (1 of 2 - PCV13) 09/02/2015 SEQUENTIAL INFLUENZA VACCINE (#1) 2017 HEMOGLOBIN A1C 03/02/2018 08/30/2017 TETANUS EVERY 10 YR 01/14/2025 01/14/2015 as of this encounter
--- OUTSIDE RECORDS SUMMARY | 2018-03-18 03:31 | XMS RPT_ITS | Summary of Care ---
:1950 Author Organization [facility] Address [address] [place] [address] Care Team Providers Name Role Phone Clint Cheek DO Primary Care Provider Clint Cheek DO Unavailable Clint Hinojosa MD Unavailable Encounter Details Date Type Department Care Team Description 09/11/2017 Hospital Encounter [facility] Clint Hinojosa, [address] MD [place], [place] [address] [address] [place], [place] [id number] Allergies Active Allergy Reactions Severity Noted Date [...] Cardiology Alireza Quiñones MD [address] [place] [address] [phone] 09/21/2017 Office Visit Home Health Services Jese Schroeder, RN 09/26/2017 Office Visit Home Health Services Jese Schroeder, RN 09/28/2017 Office Visit Home Health Services Jese Schroeder, RONY 10/03/2017 Office Visit Home Health Services Jese Schroeder, RN 10/04/2017 Office Visit Endocrinology Blossom Meyer, ATTENDING AMBULATORY CARE [address] [facility] [address] [address] [phone] 10/05/2017 Office Visit Home Health Services Jese Schroeder, RONY 10/10/2017 Office Visit Home Health Services Jese Schroeder, RN 10/12/2017 Office Visit Home Health Services Jese Schroeder, RN 10/13/2017 Follow-Up Cardiology 10/17/2017 Office Visit Home Health Services Jese Schroeder, RN 10/24/2017 Hospital Encounter Clint Hinojosa MD [address] [facility] [place] [address] [phone] Health Maintenance Due Date Last Done Comments COLONOSCOPY 1950 HEPATITIS C SCREENING 1950 FOOT EXAM 1960 OPHTHALMOLOGY EXAM 1960 URINE MICROALBUMIN 1960 ZOSTER VACCINE 2010 PNEUMOCOCCAL VACCINE AGE 65+ (1 of 2 - PCV13) 09/02/2015 SEQUENTIAL INFLUENZA VACCINE (#1) 2017 HEMOGLOBIN A1C 03/02/2018 08/30/2017 TETANUS EVERY 10 YR 01/14/2025 01/14/2015 as of this encounter Results PT/INR (09/11/2017 9:26 AM) Component Value Ref Range Protime (PT) 23.7 (H) 11.8 - 14.3 Seconds INR 2.15 Comment: The [employer] recommended therapeutic range for Warfarin (Coumadin) therapy goals: PROPHYLAXIS/TREATMENT of: INR Venous Thrombosis, Pulmonary Embolism 2.0-3.0 Prevention of VTE (Orthopedic Surgery) 2.0-3.0 Atrial Fibrillation 2.0-3.0 Myocardial Infarction 2.0-3.0 Mechanical Prosthetic Heart Valves (Aortic position) 2.0-3.0 Mechanical Prosthetic Heart Valves (Mitral Position) 2.5-3.5 [employer] evidence-based clinical practice guidelines.?CHEST. 2012 (9th ed) Specimen Performing Laboratory Blood [address] [address] Basic Metabolic Panel (09/11/2017 9:26 AM) Component Value Ref Range Glucose 295 (H) 70 - 99 mg/dL Comment: This test result might be falsely depressed or falsely elevated on samples drawn from patients taking Sulfasalazine and Sulfapyridine. Venipuncture should occur prior to taking either of these drugs. BUN 18 8 - 25 mg/dL Creatinine 1.59 (H) 0.80 - 1.30 mg/dL eGFR 44 (L) >60 ml/min/1.73sq.m Comment: Non- GFR Calc eGFR is an estimated Glomerular Filtration Rate based on the value of the patient's serum creatinine. In outpatients, eGFR should be used as a helpful tool in screening for CKD. In inpatients or patients with acute renal failure, eGFR represents the GFR at the moment of the draw and should be used with caution. eGFR 53 (L)Comment: GFR Calc >60 ml/min/1.73sq.m Calcium 9.0 8.4 - 10.2 mg/dL Sodium 135 135 - 145 mmol/L Potassium 4.1 3.5 - 5.1 mmol/L Chloride 102 98 - 108 mmol/L CO2 24 21 - 32 mmol/L Specimen Performing Laboratory Blood [address] [address] in this encounter
--- OUTSIDE RECORDS SUMMARY | 2018-03-18 03:31 | XMS RPT_ITS | Summary of Care ---
:1950 Author Organization [facility] Address [address] [place] [address] Care Team Providers Name Role Phone Clint Cheek DO Primary Care Provider Clint Cheek DO Unavailable Clint Hinojosa MD Unavailable Reason for Visit Reason Comments Follow-up CABG X 2 2 WEEK Encounter Details Date Type Department Care Team Description 09/15/2017 Follow-Up [facility] Heart & Yvonne Reynoso S/P CABG x 3 (Primary Vascular Physicians Rosalie, CHIEF RADIOLOGIC TECHNOLOGIST Dx) [facility] [address] [phone] [place] [address] Allergies Active Allergy Reactions Severity [...] by mouth Active (COLACE) 100 MG capsule 2 (two) times a [...] 13 dinner 09/14/2017 Active (HumuLIN R, NovoLIN R) low sliding scale 100 unit/mL injection 70-150 [...] Vital Sign Reading Time Taken Blood Pressure 117/69 09/15/2017 10:04 AM EDT Pulse 59 09/15/2017 10:04 AM EDT Temperature 36.7 ??C (98 ??F) 09/15/2017 10:04 AM EDT Respiratory Rate 20 09/15/2017 10:04 AM EDT Oxygen Saturation 98% 09/15/2017 10:04 AM EDT Inhaled Oxygen Concentration - - Weight 114 kg (251 lb 4.8 oz) 09/15/2017 10:04 AM EDT Height 170.2 cm (5' 7) 09/15/2017 10:04 AM EDT Body Mass Index 39.36 09/15/2017 10:04 AM EDT in this encounter Instructions Patient Instructions - Yvonne Reynoso CNS - 09/15/2017 10:51 AM EDT Continue current care: Leg elevation, Incentive spirometry,activity progression, and use of heart hugger. Incision care shower daily with soap and water. Report any drainage especially if from sternum. Return for scheduled 6 week appointment. Follow-up with Dr. Quiñones Call for any questions or concerns. in this encounter Progress Notes Yvonne Reynoso CNS - 09/15/2017 9:07 AM EDTFormatting of this note may be different from the original. CHANO Gonzalez 09/15/17 Deepa Fletcher. is a 66-year-old male status post coronary artery bypass grafting ??3 with left lower extremity venectomy by Dr. Clint Hinojosa on 2017. Mr. Fletcher presents today for his third post-discharge appointment wearing his heart hugger after having obtained chest x-ray and lab work. He is being seen for consideration of removal of left leg dillon. Patient is accompanied by his and continues to wear nasal oxygen. Allergies Allergen Reactions ??? Morphine Other (See Comments) States it slows his breathing down Physical Exam Constitutional: He is oriented to person, place, and time. He appears well- developed and well-nourished. Neck: Normal range of motion. Cardiovascular: Normal rate, regular rhythm and normal heart sounds. Pulmonary/Chest: Breath sounds are clear but diminished posteriorly at bases. Patient reports shortness of breath with activity. Patient continues to wear nasal oxygen. Pulse oximetry SaO2 was evaluated on room air at rest with readings of 94-96%. Patient was also ambulated a short distance in the hallway and continue to have pulse oximetries of 95-98%. Patient was advised to continue to use oxygen during more aggressive activity and at night as prescribed patient continues to have difficulty with provider in securing CPAP machine Abdominal: Soft. Bowel sounds are normal. Neurological: He is alert and oriented to person, place, and time. Skin: Skin is warm and dry. Psychiatric: He has a normal mood and affect. Vitals reviewed. Sternal incision clean with loose Steri-Strips on distal incision. Lower Steri- Strips were removed and the sternum was washed with soap and water for light eschar.No drainage Chest tube sites are healing. The sites were also washed with soap and water due to presence of moisture at sites but no active drainage .e Left leg incision clean with dillon mild minimal erythema along upper incision edge. Lower incision healing without erythema. There is 1+ pitting edema CXR: Sternal Wires intact. Bilateral trace pleural effusions with atelectasis per chest x-ray Labs: Na+ K+ Cl- HCo3- BUN Cr Glu INR 135 4.3 102 24 20 1.43 309 2.23 Procedures: Left lower extremity dillon were removed. Patient was instructed to continue with leg elevation. Time: I spent 20minutes with the patient, over half of which was directed at the review of xray andlab results and reinforcing post-operative recovery activities including incisional care, left leg elevation, respiratory exercises (incentive spirometry/flutter valve), activity restrictions/progression and medications. Plan: Review results of exam, x-ray & lab with Dr. Garg in Dr. Hinojosa's absence. Patient will be notified of any changes. Patient has scheduled follow-up appointment on September [address] Quiñones to discuss possibility of PCIintervention for additional coronary revascularization. 11:[address] Epperson. No Changes.in this encounter Plan of Treatment Upcoming Encounters Date Type Specialty Care Team Description 09/19/2017 Office Visit Home Health Services Jese Schroeder RN 09/20/2017 Office Visit Cardiology Alireza Quiñones MD [address] [place], [place] [id number] [phone] 09/21/2017 Office Visit Home Health Services Jese Schroeder RN 09/26/2017 Office Visit Home Health Services Jese Schroeder RN 09/28/2017 Office Visit Home Health Services Jese Schroeder, RN 10/03/2017 Office Visit Home Health Services Jese Schroeder, RONY 10/04/2017 [facility], Blossom Santiago, OPERATOR ASSISTANT I CEMENTING [address] [address] [phone] 10/05/2017 Office Visit Home Health Services Jese Schroeder RN 10/10/2017 Office Visit Home Health Services Jese Schroeder RN 10/12/2017 Office Visit Home Health Services Jese Schroeder RN 10/13/2017 Follow-Up Cardiology 10/17/2017 Office Visit Home Health Services Jese Schroeder, RONY 10/24/2017 Hospital Encounter Clint Hinojosa MD [address] [place] [address] [phone] Health Maintenance Due Date Last Done Comments [...]
--- OUTSIDE RECORDS SUMMARY | 2018-03-18 03:31 | XMS RPT_ITS | Summary of Care ---
:1950 Author Organization [facility] Address [address] [place] [address] Care Team Providers Name Role Phone Clint Cheek DO Primary Care Provider Clint Cheek DO Unavailable Clint Hinojosa MD Unavailable Reason for Visit Auth/Cert Status Reason Specialty Diagnoses / Procedures Referred By Contact Referred To Contact Encounter Details Date Type Department Care Team Description 09/19/2017 Home Care Visit [facility] Jese Schroeder ROUTINE VISIT Health E, RN [address] [place] [address] Allergies Active Allergy Reactions Severity [...] Vital Sign Reading Time Taken Blood Pressure 124/78 09/19/2017 8:04 AM EDT Pulse 67 09/19/2017 8:04 AM EDT Temperature 36.5 ??C (97.7 ??F) 09/19/2017 8:04 AM EDT Respiratory Rate 16 09/19/2017 8:04 AM EDT Oxygen Saturation 97% 09/19/2017 8:04 AM EDT Inhaled Oxygen Concentration - - Weight - - Height - - Body Mass Index - - in this encounter Plan of Treatment Upcoming Encounters Date Type Specialty Care Team Description 09/20/2017 Office Visit Cardiology Alireza Quiñones MD [address] [facility] [place] [address] [phone] 09/21/2017 Office Visit Home Health Services Jese Schroeder, RN 09/25/2017 Office Visit Home Health Services Jese Schroeder, RN 09/28/2017 Office Visit Home Health Services Jese Schroeder, RN 10/03/2017 Office Visit Home Health Services Jese Schroeder, RN 10/04/2017 Office Visit Endocrinology [facility], Blossom Santiago, PENSION CONSULTANT [address] [facility] [address] [address] [phone] 10/05/2017 Office Visit Home Health Services Jese Schroeder, RN 10/10/2017 Office Visit Home Health Services Jese Schroeder, RN 10/12/2017 Office Visit Home Health Services Jese Schroeder, RN 10/13/2017 Follow-Up Cardiology 10/17/2017 Office Visit Home Health Services Jese Schroeder, RN 10/24/2017 Hospital Encounter Clint Hinojosa MD [address] [place] [address] [phone] Health Maintenance Due Date Last Done Comments COLONOSCOPY 1950 HEPATITIS C SCREENING 1950 FOOT EXAM 1960 OPHTHALMOLOGY EXAM 1960 URINE MICROALBUMIN 1960 ZOSTER VACCINE 2010 PNEUMOCOCCAL VACCINE AGE 65+ (1 of 2 - PCV13) 09/02/2015 SEQUENTIAL INFLUENZA VACCINE (#1) 2017 HEMOGLOBIN A1C 03/02/2018 08/30/2017 TETANUS EVERY 10 YR 01/14/2025 01/14/2015 as of this encounter
--- OUTSIDE RECORDS SUMMARY | 2018-03-18 03:31 | XMS RPT_ITS | Summary of Care ---
:1950 Author Organization [facility] Address [address] [place] [address] Care Team Providers Name Role Phone Clint Cheek DO Primary Care Provider Clint Cheek DO Unavailable Clint Hinojosa MD Unavailable Reason for Visit Auth/Cert Status Reason Specialty Diagnoses / Procedures Referred By Contact Referred To Contact Encounter Details Date Type Department Care Team Description 09/12/2017 Home Care Visit [facility] Jese Schroeder ROUTINE VISIT Health E, RN [address] [place] [address] Allergies Active Allergy Reactions Severity [...] Vital Sign Reading Time Taken Blood Pressure 114/60 09/12/2017 2:11 PM EDT Pulse 66 09/12/2017 2:11 PM EDT Temperature 36.8 ??C (98.2 ??F) 09/12/2017 2:11 PM EDT Respiratory Rate 16 09/12/2017 2:11 PM EDT Oxygen Saturation 99% 09/12/2017 2:11 PM EDT Inhaled Oxygen Concentration - - Weight - - Height - - Body Mass Index - - in this encounter Plan of Treatment Upcoming Encounters Date Type Specialty Care Team Description 09/13/2017 Office Visit Home Health Services Jese Schroeder, RONY 09/14/2017 Office Visit Home Health Services Jese Schroeder, RONY 09/15/2017 Follow-Up Cardiology 09/19/2017 Office Visit Home Health Services Jese Schroeder, RN 09/20/2017 Office Visit Cardiology Alireza Quiñones MD [address] [facility] [place] [address] [phone] 09/21/2017 Office Visit Home Health Services Jese Schroeder, RONY 09/26/2017 Office Visit Home Health Jese Michael, RN 09/28/2017 Office Visit Home Health Services Jese Schroeder, RONY 10/03/2017 Office Visit Home Health Services Jese Schroeder, RN 10/04/[address] [facility], Blossom Santiago, LEADITE WORKER [address] [address] [phone] 10/05/2017 Office Visit Home Health Jese Michael, RN 10/10/2017 Office Visit Home Health Services Jese Schroeder, RN 10/12/2017 Office Visit Home Health Services Jese Schroeder, RN 10/13/2017 Follow-Up Cardiology 10/17/2017 Office Visit Home Health Services Jese Schroeder, RN 10/24/2017 Hospital Encounter Clint Hinojosa MD [address] [facility] [place] [address] [phone] Health Maintenance Due Date Last Done Comments COLONOSCOPY 1950 HEPATITIS C SCREENING 1950 FOOT EXAM 1960 OPHTHALMOLOGY EXAM 1960 URINE MICROALBUMIN 1960 ZOSTER VACCINE 2010 PNEUMOCOCCAL VACCINE AGE 65+ (1 of 2 - PCV13) 09/02/2015 SEQUENTIAL INFLUENZA VACCINE (#1) 2017 HEMOGLOBIN A1C 03/02/2018 08/30/2017 TETANUS EVERY 10 YR 01/14/2025 01/14/2015 as of this encounter
--- OUTSIDE RECORDS SUMMARY | 2018-03-18 03:32 | XMS RPT_ITS | Summary of Care ---
:1950 Author Organization [facility] Address [address] [place] [address] Care Team Providers Name Role Phone Clint Cheek DO Primary Care Provider Clint Cheek DO Unavailable Clint Hinojosa MD Unavailable Encounter Details Date Type Department Care Team Description 09/06/2017 Hospital Encounter [facility] Clint Hinojosa, [address] MD [place], [place] [address] [address] [place], [place] [id number] Allergies Active Allergy Reactions Severity Noted Date Comments Morphine Unknown 06/08/2016 Patient is not sure of the reaction it causes as of this encounter Medications Prescription Sig. Disp. Refills Start Date End Date Status gabapentin (NEURONTIN) Take 400 mg by mouth Active 400 MG capsule 2 (two) times a day. lisinopril Take 40 mg by mouth Active (PRINIVIL,ZESTRIL) 10 daily . MG tablet potassium chloride SA Take 20 mEq by mouth Active (K-DUR,KLOR-CON) 20 MEQ daily. tablet warfarin (COUMADIN) 2 Take 2 mg by mouth Active MG tablet daily. 10mg - INR check 09/06/17 SYMBICORT (SAMPLE) 2 puffs by Oral Active 160-4.5 mcg/actuation Inhalation route 2 HFAA (two) times a day. tiotropium (SPIRIVA Place 18 mcg into Active WITH HANDIHALER) 18 mcg inhaler and inhale inhalation capsule daily. cetirizine (ZYRTEC) 10 Take 10 mg by mouth Active MG tablet daily. furosemide (LASIX) 20 Take 20 mg [...] untis = 13 breakfast/8 lunch/ 12 dinner Active (HumuLIN R Regular low sliding scale U-100 Insuln) 100 70-150 give o unit, 151-200 give 1 unit, 201-250 give 2 units, 251-300 give 3 untis, 301-350 give 4 units, 350-400 give units, notify physician for blood glucose > 400. unit/mL injection HumuLIN N (SAMPLE) 100 Inject 11 Units under Active unit/mL injection the skin at bedtime. as of this encounter Social History Tobacco Use Types Packs/Day Years Used Date Never Smoker Smokeless Tobacco: Never Used Alcohol Use Drinks/Week oz/Week Comments Yes rarely once a year Sex Assigned at Date Recorded Not on file as of this encounter Plan of Treatment Upcoming Encounters Date Type Specialty Care Team Description 09/07/2017 Office Visit Home Health Services Jese Schroeder RN 09/08/2017 Follow-Up Cardiology 09/11/2017 Follow-Up Cardiology 09/12/2017 Office Visit Home Health Services Jese Schroeder RN 09/13/2017 Office Visit Home Health Services Jese Schroeder RN 09/14/2017 Office Visit Home Health Services Jese Schroeder RN 09/15/2017 Follow-Up Cardiology 09/19/2017 Office Visit Home Health Jese Michael RN 09/21/2017 Office Visit Home Health Services Jese Schroeder RN 09/26/2017 Office Visit Home Health Services Jese Schroeder RN 09/28/2017 Office Visit Home Health Services Jese Schroeder RN 10/03/2017 Office Visit Home Health Services Jese Schroeder RN 10/04/2017 Office Visit Endocrinology Blossom Meyer CNP [address] [address] [phone] 10/05/2017 Office Visit Home Health Services Jese Schroeder RN 10/10/2017 Office Visit Home Health Services Jese Schroeder RN 10/12/2017 Office Visit Home Health Services Jese Schroeder RN 10/13/2017 Follow-Up Cardiology 10/17/2017 Office Visit Home Health Services Jese Schroeder RN 10/18/2017 Office Visit Cardiology Zeke Mcqueen MD [address] [address] [phone] 10/24/2017 Hospital Encounter Clint Hinojosa MD [address] [place] [address] [phone] Health Maintenance Due Date Last Done Comments COLONOSCOPY 1950 HEPATITIS C SCREENING 1950 TETANUS EVERY 10 YR 1950 FOOT EXAM 1960 OPHTHALMOLOGY EXAM 1960 URINE MICROALBUMIN 1960 ZOSTER VACCINE 2010 PNEUMOCOCCAL VACCINE AGE 65+ (1 of 2 - PCV13) 09/02/2015 SEQUENTIAL INFLUENZA VACCINE (#1) 2017 HEMOGLOBIN A1C 03/02/2018 08/30/2017 as of this encounter Results PT/INR (09/06/2017 11:15 AM) Component Value Ref Range Protime (PT) 15.7 (H) 11.8 - 14.3 Seconds INR 1.29 Comment: The [place] recommended therapeutic range for Warfarin (Coumadin) therapy goals: PROPHYLAXIS/TREATMENT of: INR Venous Thrombosis, Pulmonary Embolism 2.0-3.0 Prevention of VTE (Orthopedic Surgery) 2.0-3.0 Atrial Fibrillation 2.0-3.0 Myocardial Infarction 2.0-3.0 Mechanical Prosthetic Heart Valves (Aortic position) 2.0-3.0 Mechanical Prosthetic Heart Valves (Mitral Position) 2.5-3.5 [place] evidence-based clinical practice guidelines.?CHEST. 2012 (9th ed) Specimen Performing Laboratory Blood [address] [address] in this encounter
--- OUTSIDE RECORDS SUMMARY | 2018-03-18 03:32 | XMS RPT_ITS | Summary of Care ---
:1950 Author Organization [facility] Address [address] [place] [address] Care Team Providers Name Role Phone Clint Cheek DO Primary Care Provider Clint Cheek DO Unavailable Clint Hinojosa MD Unavailable Encounter Details Date Type Department Care Team Description 09/06/2017 Home Care Visit [facility] Pop, TELEPHONE ENCOUNTER [address] RN [place], [place] [id number] Allergies Active Allergy Reactions Severity Noted Date Comments Morphine Unknown 06/08/2016 Patient is not sure of the reaction it causes as of this encounter Medications Prescription Sig. Disp. Refills Start Date End Date Status gabapentin Take 400 mg by Active (NEURONTIN) 400 MG mouth 2 (two) capsule times a day. lisinopril Take 40 mg by Active (PRINIVIL,ZESTRIL) 10 mouth daily . MG tablet potassium chloride SA Take 20 mEq by Active (K-DUR,KLOR-CON) 20 mouth daily. MEQ tablet warfarin (COUMADIN) 2 Take 2 mg by Active MG tablet mouth daily. 10mg - INR check 09/06/17 SYMBICORT (SAMPLE) 2 puffs by Oral Active 160-4.5 mcg/actuation Inhalation route HFAA 2 (two) times a day. tiotropium (SPIRIVA Place 18 mcg Active WITH HANDIHALER) 18 into inhaler and mcg inhalation inhale daily. capsule cetirizine (ZYRTEC) Take 10 mg by Active 10 MG tablet mouth daily. furosemide (LASIX) 20 Take 20 mg by 09/06/2017 Active MG tablet mouth daily. pramipexole (MIRAPEX) Take 1.5 mg by 09/06/2017 Active 0.5 MG tablet mouth nightly. aspirin (ASPIR-81) 81 Take 81 mg by Active MG EC tablet mouth daily. docusate sodium Take 100 mg by Active (COLACE) 100 MG mouth once capsule daily. hold for diarrhea oxyCODONE-acetaminoph Take 1 tablet by Active en (PERCOCET) 5-325 mouth every 4 mg per tablet (four) hours as needed for pain. atorvastatin Take 10 mg by Active (LIPITOR) 10 MG mouth nightly. tablet esomeprazole (NEXIUM) Take 40 mg by Active [...] > 400. unit/mL injection HumuLIN N (SAMPLE) Inject 11 Units Active 100 unit/mL injection under the skin at bedtime. pramipexole (MIRAPEX) Take 0.5 mg by 09/06/2017 Discontinued 0.5 MG tablet mouth nightly. metFORMIN Take 1,000 mg by 09/06/2017 Discontinued (GLUCOPHAGE) 1000 MG mouth 2 (two) tablet times a day with meals. glimepiride (AMARYL) Take 4 mg by 09/06/2017 Discontinued 4 MG tablet mouth 2 (two) times a day. pioglitazone (ACTOS) Take 30 mg by 09/06/2017 Discontinued 15 MG tablet mouth daily . omeprazole (PRILOSEC) Take 20 mg by 09/06/2017 Discontinued 20 MG capsule mouth daily. CINNAMON BARK Take 1,000 mg by 09/06/2017 Discontinued (CINNAMON ORAL) mouth 2 (two) times a day. b complex vitamins Take 1 tablet by 09/06/2017 Discontinued tablet mouth daily. cyanocobalamin Take 1,000 mcg 09/06/2017 Discontinued (vitamin B-12) 1000 by mouth daily. MCG tablet vitamin E 400 UNIT Take 400 Units 09/06/2017 Discontinued capsule by mouth daily. cholecalciferol, Take 1,000 Units 09/06/2017 Discontinued vitamin D3, 1,000 by mouth daily. unit tablet CALCIUM CARBONATE Take 1,000 mg by 09/06/2017 Discontinued (CALCIUM 500 ORAL) mouth. magnesium gluconate Take 500 mg by 09/06/2017 Discontinued (MAGONATE) 27.5 mg mouth 2 (two) (500 mg) tablet times a day. ascorbic acid, Take 1,000 mg by 09/06/2017 Discontinued vitamin C, (vitamin mouth daily. C) 1000 MG tablet lisinopril 08/29/2016 09/06/2017 Discontinued (PRINIVIL,ZESTRIL) 40 MG tablet furosemide (LASIX) 20 09/14/2016 09/06/2017 Discontinued MG tablet naproxen (NAPROSYN) 10/06/2016 09/06/2017 Discontinued 500 MG tablet gabapentin Take by mouth. 11/01/2016 09/06/2017 Discontinued (NEURONTIN) 400 MG capsule cephALEXin (KEFLEX) 11/25/2016 09/06/2017 Discontinued 500 MG capsule pioglitazone (ACTOS) 11/01/2016 09/06/2017 Discontinued 30 MG tablet sulfamethoxazole-trim 11/24/2016 09/06/2017 Discontinued ethoprim (BACTRIM DS,SEPTRA DS) 800-160 mg per tablet zinc 50 mg Tab Take 25 mg by 09/06/2017 Discontinued mouth. acetaminophen Take 325 mg by 09/06/2017 Discontinued (TYLENOL) 325 MG mouth every 6 tablet (six) hours as needed for pain. 1-2 tabs for pain PRN gabapentin Take 400 mg by 09/06/2017 09/06/2017 Discontinued (NEURONTIN) 400 MG mouth 2 (two) capsule times a day. as of this encounter Social History Tobacco [...] Visit Home Health Services Jese Schroeder, RN 09/21/2017 Office Visit Home Health Services Jsee Schroeder, RN 09/26/2017 Office Visit Home Health Services Jese Schroeder RN 09/28/2017 Office Visit Home Health Services Jese Schroeder RN 10/03/2017 Office Visit Home Health Services Jese Schroeder, RONY 10/04/2017 Office Visit Endocrinology Mitch, Blossom Santiago, ORAL HEALTH THERAPIST [address] [address] [phone] 10/05/2017 Office Visit Home Health Services Jese Schroeder RN 10/10/2017 Office Visit Home Health Services Jese Schroeder, RONY 10/12/2017 Office Visit Home Health Services Jese Schroeder, RONY 10/13/2017 Follow-Up Cardiology 10/17/2017 Office Visit Home Health Services Jese Schroeder, RONY 10/18/2017 Office Visit Cardiology Zeke Mcqueen MD [address] [address] [phone] 10/24/2017 Hospital Encounter Clint Hinojosa MD [address] [place] [address] [phone] Health Maintenance Due Date Last Done Comments COLONOSCOPY 1950 HEPATITIS C SCREENING 1950 TETANUS EVERY 10 YR 1950 FOOT EXAM 1960 OPHTHALMOLOGY EXAM 1960 URINE MICROALBUMIN 1960 ZOSTER VACCINE 2010 PNEUMOCOCCAL VACCINE AGE 65+ (1 of 2 - PCV13) 09/02/2015 SEQUENTIAL INFLUENZA VACCINE (#1) 2017 HEMOGLOBIN A1C 03/02/2018 08/30/2017 as of this encounter
--- OUTSIDE RECORDS SUMMARY | 2018-03-18 03:32 | XMS RPT_ITS | Summary of Care ---
:1950 Author Organization [facility] Address [address] [place] [address] Care Team Providers Name Role Phone Clint Cheek DO Primary Care Provider Clint Cheek DO Unavailable Clint Hinojosa MD Unavailable Encounter Details Date Type Department Care Team Description 09/07/2017 Hospital Encounter [facility] Clint Hinojosa, [address] MD [place], [place] [address] [id number] [place], [place] [id number] Allergies Active Allergy Reactions Severity Noted Date [...] Active unit/mL injection the skin at bedtime. warfarin (COUMADIN) 2 Take 5 mg by mouth daily. Patient to take Coumadin 5 mg today with further orders to follow after PT/INR on 09/08/[address] Hinojosa's office. 09/07/2017 Active MG tablet Order received from Danna Servin MA at 1:05 p.m. as of this encounter Social History Tobacco Use Types Packs/Day Years Used Date Never Smoker Smokeless Tobacco: Never Used Alcohol Use Drinks/Week oz/Week Comments Yes rarely once a year Sex Assigned at Date Recorded Not on file as of this encounter Plan of Treatment Upcoming Encounters Date Type Specialty Care Team Description 09/08/2017 Follow-Up Cardiology 09/11/2017 Follow-Up Cardiology 09/12/2017 Office Visit Home Health Services Jese Schroeder RN 09/13/2017 Office Visit Home Health Services Jese Schroeder RN 09/14/2017 Office Visit Home Health Services Jese Schroeder RN 09/15/2017 Follow-Up Cardiology 09/19/2017 Office Visit Home Health Services Jese Schroeder RN 09/21/2017 Office Visit Home Health Services Jese Schroeder RN 09/26/2017 Office Visit Home Health Services Jese Schroeder RN 09/28/2017 Office Visit Home Health Services Jese Schroeder RN 10/03/2017 Office Visit Home Health Services Jese Schroeder RN 10/04/2017 Office Visit Endocrinology Blossom Meyer, RIVETING MACHINE OPERATOR [employer]OM[employer]IC [address] [address] [phone] 10/05/2017 Office Visit Home Health Services Jese Schroeder RN 10/10/2017 Office Visit Home Health Services Jese Schroeder RN 10/12/2017 Office Visit Home Health Services Jese Schroeder RN 10/13/2017 Follow-Up Cardiology 10/17/2017 Office Visit Home Health Services Jese Schroeder, RONY 10/18/2017 Office Visit Cardiology Zeke Mcqueen MD [address] [address] [phone] 10/24/2017 Hospital Encounter Clint Hinojosa MD [address] [place] [address] [phone] Health Maintenance Due Date Last Done Comments COLONOSCOPY 1950 HEPATITIS C SCREENING 1950 TETANUS EVERY 10 YR 1950 FOOT EXAM 1960 OPHTHALMOLOGY EXAM 1960 URINE MICROALBUMIN 1960 ZOSTER VACCINE 2010 PNEUMOCOCCAL VACCINE AGE 65+ (1 of 2 - PCV13) 09/02/2015 SEQUENTIAL INFLUENZA VACCINE (#1) 2017 HEMOGLOBIN A1C 03/02/2018 08/30/2017 as of this encounter Results PT/INR (09/07/2017 10:05 AM) Component Value Ref Range Protime (PT) 19.9 (H) 11.8 - 14.3 Seconds INR 1.73 Comment: The [employer] recommended therapeutic range for Warfarin (Coumadin) therapy goals: PROPHYLAXIS/TREATMENT of: INR Venous Thrombosis, Pulmonary Embolism 2.0-3.0 Prevention of VTE (Orthopedic Surgery) 2.0-3.0 Atrial Fibrillation 2.0-3.0 Myocardial Infarction 2.0-3.0 Mechanical Prosthetic Heart Valves (Aortic position) 2.0-3.0 Mechanical Prosthetic Heart Valves (Mitral Position) 2.5-3.5 [employer] evidence-based clinical practice guidelines.?CHEST. 2012 (9th ed) Specimen Performing Laboratory Blood [address] [address] in this encounter
--- OUTSIDE RECORDS SUMMARY | 2018-03-18 03:32 | XMS RPT_ITS | Summary of Care ---
:1950 Author Organization [facility] Address [address] [place] [address] Care Team Providers Name Role Phone Clint Cheek DO Primary Care Provider Clint Cheek DO Unavailable Clint Hinojosa MD Unavailable Encounter Details Date Type Department Care Team Description 09/06/2017 Home Care Visit [facility] Home Jese Schroeder [facility], RN [place] [id number] Allergies Active Allergy Reactions Severity Noted Date [...] Vital Sign Reading Time Taken Blood Pressure 126/74 09/06/2017 10:26 AM EDT Pulse 71 09/06/2017 10:26 AM EDT Temperature 36.9 ??C (98.4 ??F) 09/06/2017 10:26 AM EDT Respiratory Rate 16 09/06/2017 10:26 AM EDT Oxygen Saturation 99% 09/06/2017 10:26 AM EDT Inhaled Oxygen Concentration - - Weight - - Height - - Body Mass Index - - in this encounter Plan of Treatment Upcoming Encounters Date Type Specialty Care Team Description 09/07/2017 Office Visit Home Health Services Jese Schroeder, RONY 09/08/2017 Follow-Up Cardiology 09/11/2017 Follow-Up Cardiology 09/12/2017 Office Visit Home Health Services Jese Schroeder, RONY 09/13/2017 Office Visit Home Health Services Jese Schroeder, RN 09/14/2017 Office Visit Home Health Services Jese Schroeder, RN 09/15/2017 Follow-Up Cardiology 09/19/2017 Office Visit Home Health Services Jese Schroeder, RN 09/21/2017 Office Visit Home Health Services Jese Schroeder, RN 09/26/2017 Office Visit Home Health Services Jese Schroeder, RN 09/28/2017 Office Visit Home Health Services Jese Schroeder, RONY 10/03/2017 Office Visit Home Health Services Jese Schroeder, RONY 10/04/2017 Office Visit Endocrinology Blossom Meyer, TRACK WALKER [address] [address] [phone] 10/05/2017 Office Visit Home Health Jese Michael, RN 10/10/2017 Office Visit Home Health Services Jese Schroeder, RN 10/12/2017 Office Visit Home Health Services Jese Schroeder, RN 10/13/2017 Follow-Up Cardiology 10/17/2017 Office Visit Home Health Services Jese Schroeder, RN 10/18/2017 Office Visit Cardiology Zeke Mcqueen MD [address] [address] [phone] 10/24/2017 Hospital Encounter Clint Hinojosa MD [address] [place] [address] [phone] Health Maintenance Due Date Last Done Comments COLONOSCOPY 1950 HEPATITIS C SCREENING 1950 TETANUS EVERY 10 YR 1950 FOOT EXAM 1960 OPHTHALMOLOGY EXAM 1960 URINE MICROALBUMIN 1960 ZOSTER VACCINE 2010 PNEUMOCOCCAL VACCINE AGE 65+ (1 of 2 - PCV13) 09/02/2015 SEQUENTIAL INFLUENZA VACCINE (#1) 2017 HEMOGLOBIN A1C 03/02/2018 08/30/2017 as of this encounter
--- OUTSIDE RECORDS SUMMARY | 2018-03-18 03:32 | XMS RPT_ITS | Summary of Care ---
:1950 Author Organization [facility] Address [address] [place] [address] Care Team Providers Name Role Phone Clint Cheek DO Primary Care Provider Clint Cheek DO Unavailable Clint Hinojosa MD Unavailable Reason for Visit Auth/Cert Status Reason Specialty Diagnoses / Procedures Referred By Contact Referred To Contact Encounter Details Date Type Department Care Team Description 09/07/2017 Home Care Visit [facility] Rosy Gutierrez RN TELEPHONE ENCOUNTER [address] [place] [address] Allergies Active Allergy Reactions Severity Noted Date Comments Morphine Unknown 06/08/2016 Patient is not sure of the reaction it causes as of this encounter Medications Prescription Sig. Disp. Refills Start Date End Date Status gabapentin Take 400 mg by Active (NEURONTIN) 400 MG mouth 2 (two) capsule times a day. lisinopril Take 40 mg by Active (PRINIVIL,ZESTRIL) mouth daily . 10 MG tablet potassium chloride Take 20 mEq by Active SA (K-DUR,KLOR-CON) mouth daily. 20 MEQ tablet warfarin (COUMADIN) Take 2 mg by Active 2 MG tablet mouth daily. 10mg - INR check 09/06/17 SYMBICORT (SAMPLE) 2 puffs by Oral Active 160-4.5 Inhalation route mcg/actuation HFAA 2 (two) times a day. tiotropium (SPIRIVA Place 18 mcg into Active WITH HANDIHALER) 18 inhaler and mcg inhalation inhale daily. capsule cetirizine (ZYRTEC) Take 10 mg by Active 10 MG tablet mouth daily. furosemide (LASIX) Take 20 mg by 09/06/2017 [...] (SAMPLE) Inject 11 Units Active 100 unit/mL under the skin at injection bedtime. warfarin (COUMADIN) Take 5 mg by mouth daily. Patient to take Coumadin 5 mg today with further orders to follow after PT/INR on 09/08/[address] Hinojosa's office. 09/07/2017 Active 2 MG tablet Order received from Danna Servin MA at 1:05 p.m. acetaminophen Take 325 mg by 09/06/2017 Discontinued [...] Follow-Up Cardiology 09/12/2017 Office Visit Home Health Jese Michael, RONY 09/13/2017 Office Visit Home Health Services Jese Schroeder, RN 09/14/2017 Office Visit Home Health Services Jese Schroeder, RONY 09/15/2017 Follow-Up Cardiology 09/19/2017 Office Visit Home Health Jese Michael, RN 09/21/2017 Office Visit Home Health Services Jese Schroeder, RN 09/26/2017 Office Visit Home Health Services Jese Schroeder, RN 09/28/2017 Office Visit Home Health Services Jese Schroeder, RN 10/03/2017 Office Visit Home Health Services Jese Schroeder, RN 10/04/2017 Office Visit Endocrinology Mitch, Blossom Santiago, [place] [address] [address] [phone] 10/05/2017 Office Visit Home Health Jese Michael, RONY 10/10/2017 Office Visit Home Health Services Jese Schroeder, RONY 10/12/2017 Office Visit Home Health Services Jese Schroeder, RONY 10/13/2017 Follow-Up Cardiology 10/17/2017 Office Visit Home Health Services Jese Schroeder, RN 10/18/2017 Office Visit Cardiology Zeke Mcqueen MD [address] [address] [phone] 10/24/2017 Hospital Encounter Clint Hinojosa MD [address] [place] [address] [phone] Health Maintenance Due Date Last Done Comments COLONOSCOPY 1950 HEPATITIS C SCREENING 1950 TETANUS EVERY 10 YR 1950 FOOT EXAM 1960 OPHTHALMOLOGY EXAM 1960 URINE MICROALBUMIN 1960 ZOSTER VACCINE 2010 PNEUMOCOCCAL VACCINE AGE 65+ (1 of 2 - PCV13) 09/02/2015 SEQUENTIAL INFLUENZA VACCINE (#1) 2017 HEMOGLOBIN A1C 03/02/2018 08/30/2017 as of this encounter
--- OUTSIDE RECORDS SUMMARY | 2018-03-18 03:32 | XMS RPT_ITS | Summary of Care ---
:1950 Author Organization [facility] Address [address] [place] [address] Care Team Providers Name Role Phone Clint Cheek DO Primary Care Provider Clint Cheek DO Unavailable Clint Hinojosa MD Unavailable Reason for Visit Auth/Cert Status Reason Specialty Diagnoses / Procedures Referred By Contact Referred To Contact Encounter Details Date Type Department Care Team Description 09/07/2017 Home Care Visit [facility] Jese Schroeder ROUTINE VISIT Health E, RN [address] [place] [address] Allergies Active Allergy Reactions Severity [...] Vital Sign Reading Time Taken Blood Pressure 116/82 09/07/2017 9:57 AM EDT Pulse 81 09/07/2017 9:57 AM EDT Temperature 37 ??C (98.6 ??F) 09/07/2017 9:57 AM EDT Respiratory Rate 16 09/07/2017 9:57 AM EDT Oxygen Saturation 97% 09/07/2017 9:57 AM EDT Inhaled Oxygen Concentration - - [...] 09/19/2017 Office Visit Home Health Jese Michael, RONY 09/21/2017 Office Visit Home Health Services Jese Schroeder, RN 09/26/2017 Office Visit Home Health Jese Michael, RN 09/28/2017 Office Visit Home Health Services Jese Schroeder, RONY 10/03/2017 Office Visit Home Health Services Jese Schroeder, RN 10/04/2017 Office Visit Endocrinology Blossom Meyer, [place] [address] [address] [phone] 10/05/2017 Office Visit Home Health Jese Michael, RN 10/10/2017 Office Visit Home Health Services Jese Schroeder, RN 10/12/2017 Office Visit Home Health Services Jese Schroeder, RN 10/13/2017 Follow-Up Cardiology 10/17/2017 Office Visit Home Health Services Jese Schroeder, RN 10/18/2017 Office Visit Cardiology Zeke Mcqueen MD [address] [address] [phone] 10/24/2017 Hospital Encounter Clint Hinojosa MD [address] [place] [address] [phone] Health Maintenance Due Date Last Done Comments COLONOSCOPY 1950 HEPATITIS C SCREENING 1950 TETANUS EVERY 10 YR 1950 FOOT EXAM 1960 OPHTHALMOLOGY EXAM 1960 URINE MICROALBUMIN 1960 ZOSTER VACCINE 2010 PNEUMOCOCCAL VACCINE AGE 65+ (1 of 2 - PCV13) 09/02/2015 SEQUENTIAL INFLUENZA VACCINE (#1) 2017 HEMOGLOBIN A1C 03/02/2018 08/30/2017 as of this encounter
--- OUTSIDE RECORDS SUMMARY | 2018-03-18 03:32 | XMS RPT_ITS | Summary of Care ---
:1950 Author Organization [facility] Address [address] [place] [address] Care Team Providers Name Role Phone Clint Cheek DO Primary Care Provider Clint Cheek DO Unavailable Clint Hinojosa MD Unavailable Reason for Visit Auth/Cert Status Reason Specialty Diagnoses / Procedures Referred By Contact Referred To Contact Encounter Details Date Type Department Care Team Description 09/08/2017 Home Care Visit [facility] Pop, TELEPHONE ENCOUNTER [address] [place] [address] Allergies Active Allergy Reactions Severity Noted Date [...] spray warfarin (COUMADIN) Take 2 mg by 09/08/2017 Active 2 MG tablet mouth daily. VO obtained from CHANO Martin with [facility] to have pt take Coumadin 2 mg po tonight (09/08/17), tomorrow (09/09/17), 1 mg po on Monday (09/10/17), 2 mg po on Monday (09/11/17). SN to obtain PT/INR on Monday (09/12/17). Order read back and verified. Pt notified per CHANO Martin. Bushra Cannon RN-rn case mgr updated via Epic/Email. rjv lisinopril Take 40 mg by 09/08/2017 Discontinued [...] Office Visit Cardiology Alireza Quiñones MD [address] [place] [address] [phone] 09/21/2017 Office Visit Home Health Services Jese Cannon RN 09/26/2017 Office Visit Home Health Services Jese Cannon RN 09/28/2017 Office Visit Home Health Services Jese Cannon RN 10/03/2017 Office Visit Home Health Services Jese Cannon RN 10/04/2017 Office Visit Endocrinology Blossom Meyer, [place] [address] [address] [phone] 10/05/2017 Office Visit Home Health Services Jese Cannon RN 10/10/2017 Office Visit Home Health Services Jese Cannon RN 10/12/2017 Office Visit Home Health Services Jese Cannon RN 10/13/2017 Follow-Up Cardiology 10/17/2017 Office Visit Home Health Services Jese Cannon RN 10/24/2017 Hospital Encounter Clint Hinojosa MD [address] [place] [address] Health Maintenance Due Date Last Done Comments COLONOSCOPY 1950 HEPATITIS C SCREENING 1950 TETANUS EVERY 10 YR 1950 FOOT EXAM 1960 OPHTHALMOLOGY EXAM 1960 URINE MICROALBUMIN 1960 ZOSTER VACCINE 2010 PNEUMOCOCCAL VACCINE AGE 65+ (1 of 2 - PCV13) 09/02/2015 SEQUENTIAL INFLUENZA VACCINE (#1) 2017 HEMOGLOBIN A1C 03/02/2018 08/30/2017 as of this encounter
--- OUTSIDE RECORDS SUMMARY | 2018-03-18 03:33 | XMS RPT_ITS ---
:1950 Author Organization OHIP Support Name Relationship Address Phone SAMANTHA MCLEOD Unavailable Unavailable + LIFER, DANNI Unavailable Unavailable + LIFER, NEGRO Unavailable [address] + [place] [id number] R Unavailable Unavailable Unavailable SAMANTHA MCLEOD Unavailable [address] + [place] [address] SAMANTHA MCLEOD Unavailable [address] + [place] [id number] LIFER, DANNI Unavailable [address] + [place] [id number] SAMANTHA MCLEOD Unavailable [address] + [place] [address] SAMANTHA MCLEOD Unavailable [address] + [place] [address] LIFER, DANNI Unavailable [address] + [place] [id number] SAMANTHA MCLEOD Unavailable Unavailable + LIFER, DANNI Unavailable Unavailable + SAMANTHA MCLEOD Unavailable Unavailable + LIFER, DANNI Unavailable Unavailable + SAMANTHA MCLEOD Unavailable [address] + [place] [address] SAMANTHA MCLEOD Unavailable [address] + [place] [id number] LIFER, DANNI Unavailable [address] + [place] [id number] SAMANTHA MCLEOD Unavailable Unavailable + LIFER, DANNI Unavailable Unavailable + SAMANTHA MCLEOD Unavailable [address] + [place] [address] SHANI, SAMANTHA Unavailable [address] + [place] [address] LIFER, DANNI Unavailable [address] + [place] [address] SHANI, SAMANTHA Unavailable [address] + [place] [address] SHANI, SAMANTHA Unavailable [address] + [place] [address] LIFER, DANNI Unavailable [address] + [place] [address] SAMANTHA MCLEOD Unavailable Unavailable + LIFER, DANNI Unavailable Unavailable + SHANISAMANTHA ROBERTSON Unavailable Unavailable + LIFER, DANNI Unavailable Unavailable + SAMANTHA MCLEOD Unavailable Unavailable + LIFER, DANNI Unavailable Unavailable + SAMANTHA MCLEOD Unavailable Unavailable + LIFER, DANNI Unavailable Unavailable + SAMANTHA MCLEOD Unavailable Unavailable + LIFER, DANNI Unavailable Unavailable + SAMANTHA MCLEOD Unavailable [address] + [place] [address] SAMANTHA MCLEOD Unavailable [address] + [place] [address] LIFER, DANNI Unavailable [address] + [place] [address] SAMANTHA MCLEOD Unavailable Unavailable Unavailable LIFER, DANNI Unavailable Unavailable Unavailable SAMANTHA MCLEOD Unavailable [address] + [place] [address] SHANI, SAMANTHA Unavailable [address] + [place] [address] LIFER, DANNI Unavailable [address] + [place] [address] SAMANTHA MCLEOD Unavailable Unavailable Unavailable LIFER, DANNI Unavailable Unavailable Unavailable SAMANTHA MCLEOD Unavailable Unavailable + LIFER, DANNI Unavailable Unavailable + SAMANTHA MCLEOD Unavailable [address] + [place] [address] SAMANTHA MCLEOD Unavailable [address] + [place] [address] LIFER, DANIN Unavailable [address] + [place] [address] SAMANTHA MCLEOD Unavailable Unavailable Unavailable LIFER, DANNI Unavailable Unavailable Unavailable SAMANTHA MCLEOD Unavailable [address] + [place] [address] SAMANTHA MCLEOD Unavailable [address] + [place] [address] LIFER, DANNI Unavailable [address] + [place] [address] SAMANTHA MCLEOD Unavailable Unavailable Unavailable LIFER, DANNI Unavailable Unavailable Unavailable SAMANTHA MCLEOD Unavailable Unavailable Unavailable LIFER, DANNI Unavailable Unavailable Unavailable SAMANTHA MCLEOD Unavailable Unavailable Unavailable LIFER, DANNI Unavailable Unavailable Unavailable SAMANTHA MCLEOD Unavailable [address] + [place] [address] SAMANTHA MCLEOD Unavailable [address] + [place] [address] LIFER, DANNI Unavailable [address] + [place] [address] SAMANTHA MCLEOD Unavailable Unavailable Unavailable LIFER, DANNI Unavailable Unavailable Unavailable SAMANTHA MCLEOD Unavailable Unavailable Unavailable LIFER, DANNI Unavailable Unavailable Unavailable SAMANTHA MCLEOD Unavailable [address] + [place] [address] SAMANTHA MCLEOD Unavailable [address] + [place] [address] LIFER, DANNI Unavailable [address] + [place] [address] SHANISAMANTHA ROBERTSON Unavailable Unavailable Unavailable LIFER, DANNI Unavailable Unavailable Unavailable SAMANTHA MCLEOD Unavailable [address] + [place] [address] SAMANTHA MCLEOD Unavailable [address] + [place] [address] LIFER, DANNI Unavailable [address] + [place] [address] SAMANTHA MCLEOD Unavailable Unavailable Unavailable LIFER, DANNI Unavailable Unavailable Unavailable SAMANTHA MCLEOD Unavailable [address] + [place] [address] SAMANTHA MCLEOD Unavailable [address] + [place] [address] LIFER, DANNI Unavailable [address] + [place] [address] SAMANTHA MCLEOD Unavailable Unavailable Unavailable LIFER, DANNI Unavailable Unavailable Unavailable SAMANTHA MCLEOD Unavailable Unavailable Unavailable LIFER, DANNI Unavailable Unavailable Unavailable SAMANTHA MCLEOD Unavailable [address] + [place] [address] SAMANTHA MCLEOD Unavailable [address] + [place] [address] LIFER, DANNI Unavailable [address] + [place] [phone] SAMANTHA MCLEOD Unavailable Unavailable Unavailable LIFER, DANNI Unavailable Unavailable Unavailable SAMANTHA MCLEOD Unavailable [address] + [place] [address] SAMANTHA MCLEOD Unavailable [address] + [place] [address] LIFER, DANNI Unavailable [address] + [place] [address] SAMANTHA MCLEOD Unavailable Unavailable Unavailable LIFER, DANNI Unavailable Unavailable Unavailable SAMANTHA MCLEOD Unavailable Unavailable Unavailable LIFER, DANNI Unavailable Unavailable Unavailable SAMANTHA MCLEOD Unavailable Unavailable + LIFER, DANNI Unavailable Unavailable + SAMANTHA MCLEOD Unavailable Unavailable Unavailable LIFER, DANNI Unavailable Unavailable Unavailable SAMANTHA MCLEOD Unavailable [address] + [place] [address] SAMANTHA MCLEOD Unavailable [address] + [place] [address] LIFER, DANNI Unavailable [address] + [place] [address] SAMANTHA MCLEOD Unavailable Unavailable + Care Team Providers Name Role Phone MAYLIN CAMPBELL Attending Unavailable MAYLIN CAMPBELL Attending Unavailable MEHRDAD CHEEK Referring Unavailable LEONID VALDEZ ([facility]) Attending Unavailable Ahsan, Dr. Magallon Admitting Unavailable Brown, Dr. Mehrdad Simmons Attending Unavailable Eaton, Dr. Paty Cheung Admitting Unavailable Eaton, Dr. Paty Cheung Attending Unavailable Brown, Dr. Mehrdad Simmons Admitting Unavailable Brown, Dr. Mehrdad Simmons Attending Unavailable Brown, Dr. Mehrdad Simmons Admitting Unavailable Brown, Dr. Mehrdad Simmons Attending Unavailable Brown, Dr. Mehrdad Simmons Admitting Unavailable Brown, Dr. Mehrdad Simmons Attending Unavailable Brown, Dr. Mehrdad Simmons Admitting Unavailable Brown, Dr. Mehrdad Simmons Attending Unavailable Brown, Dr. Mehrdad Simmons Admitting Unavailable Brown, Dr. Mehrdad Simmons Attending Unavailable Brown, Dr. Mehrdad Simmons Admitting Unavailable Brown, Dr. Mehrdad Simmons Attending Unavailable Brown, Dr. Mehrdad Simmons Admitting Unavailable Brown, Dr. Mehrdad Simmons Attending Unavailable Eatben, Dr. Paty Cheung Admitting Unavailable Eatben, Dr. Paty Cheung Attending Unavailable Darrel, Dr. Evy Simmons Admitting Unavailable Darrel, Dr. Evy Simmons Attending Unavailable Mitch, Dr. Donavon Tomlinson Admitting Unavailable Mitch, Dr. Donavon Tomlinson Attending Unavailable Xiomy, Vijay Shaikh Admitting Unavailable Gortommy, Vijay Shaikh Attending Unavailable Alma, Dr. Brionna Velez Admitting Unavailable Alma, Dr. Brionna Velez Attending Unavailable Jose, Dr. Guy Roque Admitting Unavailable Jose, Dr. Guy Roque Attending Unavailable Ashish, Dr. Mehrdad Simmons Admitting Unavailable Ashish, Dr. Mehrdad Simmons Attending Unavailable DANNIELLE ABDI Attending Unavailable MEHRDAD CHEEK Primary Care Unavailable CHRISTINA, MEHRDAD MCCARTHY Primary Care Unavailable MEHRDAD PARKS Referring Unavailable MEHRDAD CHEEK Primary Care Unavailable CAMILO REEVES Attending Unavailable CHRISTINA, MEHRDAD MCCARTHY Primary Care Unavailable CRISTEL MINA Attending Unavailable CHRISTINA, MEHRDAD MCCARTHY Primary Care Unavailable NOA MCHUGH Attending Unavailable CHRISTINA, MEHRDAD MCCARTHY Primary Care Unavailable CHRISTINA, MEHRDAD MCCARTHY Primary Care Unavailable SULAIMAN VENCES Attending Unavailable CAMILO REEVES Attending Unavailable CHRISTINA, MEHRDAD MCCARTHY Primary Care Unavailable CADENHERNANDEZ MARIA Attending Unavailable CHRISTINA, MEHRDAD MCCARTHY Primary Care Unavailable CADENHERNANEDZ Attending Unavailable CHRISTINA, MEHRDAD MCCARTHY Primary Care Unavailable CADEN, HERNANDEZ J Attending Unavailable CHEEK, MEHRDAD MCCARTHY Primary Care Unavailable CAMILO REEVES Attending Unavailable CHEEK, MEHRDAD MCCARTHY Primary Care Unavailable REUBEN TORRES Attending Unavailable CHEEK, MEHRDAD MCCARTHY Primary Care Unavailable CHEEK, MEHRDAD MCCARTHY Primary Care Unavailable SULAIMAN VENCES Attending Unavailable EVY ROJO Attending Unavailable MEHRDAD CHEEK Primary Care Unavailable PATY QUIÑONES Attending Unavailable CHRISTINA, MEHRDAD MCCARTHY Primary Care Unavailable DONAVON NORTON Attending Unavailable CHEEK, MEHRDAD MCCARTHY Primary Care Unavailable PATY QUIÑONES Referring Unavailable CHEEK, MEHRDAD MCCARTHY Primary Care Unavailable CHEEK, MEHRDAD MCCARTHY Primary Care Unavailable YOHAN ANDERSON Attending Unavailable DARREL, EVY DELGADILLO Attending Unavailable CHEEK, MEHRDAD FABIO Primary Care Unavailable CHEEK, MEHRDAD FABIO Primary Care Unavailable YOHAN ANDERSON Attending Unavailable MEHRDAD PARKS Attending Unavailable CHRISTINA, MEHRDAD MCCARTHY Primary Care Unavailable PATY QUIÑONES Attending Unavailable CHRISTINA, MEHRDAD MCCARTHY Primary Care Unavailable DARREL, EVY DELGADILLO Attending Unavailable CHEEK, MEHRDAD MCCARTHY Primary Care Unavailable VIJAY SCHAFER Attending Unavailable CHEEK, MEHRDAD MCCARTHY Primary Care Unavailable MAGDA VASQUEZ Attending Unavailable CHEEK, MEHRDAD MCCARTHY Primary Care Unavailable PATY QUIÑONES Attending Unavailable CHRISTINA, MEHRDAD MCCARTHY Primary Care Unavailable PATY QUIÑONES Attending Unavailable CHEEK, MEHRDAD MCCARTHY Primary Care Unavailable MAYLIN CAMPBELL Attending Unavailable PROBLEMS PROBLEMS DATE TYPE CONDITION / CODE ATTENDING STATUS SOURCE 10/30/2013 Active Obstructive sleep MAYLIN CAMPBELL Active [place] apnea (adult) [facility] [place] G47.33(ICD-10) Repository 09/04/2013 Active Polyneuropathy, MAYLIN CAMPBELL Active [place] unspecified / [facility] G62.9(ICD-10) [place] Repository 09/04/2013 Active Other obesity due to MAYLIN CAMPBELL Active [place] excess calories / [facility] E66.09(ICD-10) [place] Repository 05/15/2013 Active Hypersomnia, MAYLIN CAMPBELL Active [place] unspecified / [facility] G47.10(ICD-10) [place] Repository 05/15/2013 Active Restless legs MAYLIN CAMPBELL Active [place] syndrome / [facility] G25.81(ICD-10) [place] Repository 12/04/2017 Admitting Atherosclerotic GORENFLO, 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 Repository 12/04/2017 Admitting Cramp and spasm / GORENFLO, [facility] diagnosis R25.2(ICD-10) [facility] Repository 10/23/2017 Admitting Chronic kidney [facility] diagnosis disease, stage 3 [facility] (moderate) / Repository N18.3(ICD-10) 10/23/2017 Admitting Type 2 diabetes [facility] diagnosis mellitus with [facility] diabetic chronic Repository kidney disease / E11.22(ICD-10) 09/08/2017 Admitting Type 2 diabetes [facility] diagnosis mellitus with other [facility] circulatory Repository complications / E11.59(ICD-10) 09/08/2017 Admitting Obstructive sleep EATBEN [facility] diagnosis apnea (adult) [facility] (pediatric) / Repository G47.33(ICD-10) 09/08/2017 [facility] and devices / Repository Z99.89(ICD-10) 09/08/2017 Ad[facility] Type 2 [facility] without [facility] complications / Repository E11.9(ICD-10) 09/08/2017 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 Three Repository PROCEDURES PROCEDURES No Procedure Records FoundRESULTS RESULTS PROGRESS Observed: 02/22/2018 Status: COMPLETED Source: [place] 10:40 AM [facility] REPOSITORY HNO ID: [id number] Author: Leonid Infante) Courtney Service: (none) Author Type: Nurse Practitioner Type: Progress Notes Filed: 02/22/2018 12:53 PM Note Text: [facility] Follow-up/Established patient visit Date of last visit: 01/03/18 ? Sleep Disorder Dx Impression: Obstructive sleep apnea - severe, complaint and benefitting, but his sleepiness still remains a problem. Here I would want to be sure that his bipap settings are optimized before venturing to use modafinil next. Restless Legs Syndrome Hypersojmnia ? Other Conditioning Diagnoses: Neuropathy, Obesity, Diabetes ? Case Formulation / [place] (may include pt's hopes, fears, expectations, concerns): Pt is compliant. His concern is about sleepiness. First to look for a technical solution, but if not then would need to consider using modafinil or armodafinil, if safe. ? Actions taken: Motivational Interviewing aspects taken Explaining the therapy rationale, and is agreed. PDMP Aspect: PDMP website checked and validated. All prescriptions have been APPROPRIATELY filled. No suspicious activity was identified. 01/01/2018 by Maylin Campbell MD Starting up at 01/10 for GPN next. ? Titration study ? Plan: Change to new setting. ? Follow up after using new setting for a few weeks. Consider using modafinil if new setting not that helpful. ? Maylin Campbell MD Time in: 1050 Time out: 1110 For this visit, a total xucu-vv-vcvl time with the patient comprised 20 minutes, with at least 50% of that time devoted to brbp-nk-mgqs counseling and coordination of care, with especial emphasis placed on answering the patient?s and/or family?s ?questions in a form that they can understand and appreciate. HPI: 67 yo male who follow up for sleep apnea and RLS to review titration study. SLEEP APNEA Sleep apnea type : DEBORAH, Most Recent Apnea-Hypopnea Index (AHI): 96 Treatment : PAP therapy DME: [facility] PAP History: Uses Bilevel PAP for 7 hours per night, 7 nights per week. Current PAP settin/14 cm H2O. Difficulties with Bilevel PAP: None Reviewed objective PAP compliance data: 01/08/18 to 02/21/18 Compliance download: 98% >=4 hours Average use: 6 hours 51 minutes Leaks 33.9, residual AHI 4.7 Mask type: full face mask Mask issues: air leak Uses chin strap: No Uses humidity: Yes There is a perceived benefit by the patient Observers report abolition of snoring with Bilevel PAP use. SLEEP-WAKE SCHEDULE Bedtime: 1030-11 PM Latency: fast Nocturnal wakings: none unless RLS acts up Wake time: 630 AM, with/ without an alarm. On weekends, he tends to sleeps until 730-8 AM. Average total sleep time (in a 24 hour period): 6.5-7 hours. He does not take naps. SLEEP FUNCTIONAL OUTCOME MEASURES: reviewed and uploaded. See end of note for questionnaire answers. PAST MEDICAL HISTORY Diagnosis Date - Diabetes (HCC) 09/04/2013 - Obstructive sleep apnea ELIDA Borrero ph [phone] fx [phone] PSH, SH: Reviewed SLEEP RELATED ROS GENERAL: See HPI HEENT: Negative for nasal congestion RESPIRATORY: Negative for wheezing and dyspnea on exertion CARDIOVASCULAR: Negative for chest pain : Negative for nocturia SKIN: Negative for mask irritation ENDOCRINE: Negative for thyroid problems NEURO: Negative for morning headaches and memory problems All other systems reviewed and are negative. ALLERGIES Allergen Reactions - Morphine Unknown CURRENT MEDICATIONS: [START ON 03/11/2018] gabapentin (NEURONTIN) 400 mg capsule Take 4 capsules by mouth as directed for 120 days. Take 4 capsules at night, spread out in time, for Restless legs syndrome pramipexole (MIRAPEX) 0.5 mg tablet Take 3 tablets by mouth daily at bedtime. Take less if less is effective for RLS BIPAP Change Settings to 20/16 cm H2O, suitable mask per pt preference, chin strap, head gear, humidity, tubing, lifetime supplies. G47.33 Obstructive Sleep Apnea atorvastatin (LIPITOR) 40 mg tablet Take 40 mg by mouth once daily. pantoprazole sodium (PANTOPRAZOLE ORAL) Take 40 mg by mouth once daily. FUROSEMIDE ORAL Take 20 mg by mouth once daily. metoprolol succinate ER (TOPROL XL) 25 mg 24 hr tablet Take 25 mg by mouth once daily. aspirin, enteric coated (ASPIRIN, ENTERIC COATED) 81 mg EC tablet Take 81 mg by mouth once daily. insulin lispro protamin/lispro (HUMALOG MIX 50-50 SUBCUTANEOUS) Inject subcutaneously. 25 units in the morning and 30 units in the evening. clopidogrel (PLAVIX) 75 mg tablet Take 75 mg by mouth once daily. potassium chloride ER (K-DUR, KLOR-CON) 20 mEq tablet Take 20 mEq by mouth once daily. CPAP Bipap to 18/14 Cm H2O suitable mask, opt chin strap filters, tubing / heated tubing, heated humidity and lifetime supplies. Dx. DEBORAH G47.33 327.23 Omeprazole 40 mg capsule Take 40 mg by mouth once daily. lisinopril 20 mg tablet Take 20 mg by mouth once daily. glimepiride 4 mg tablet Take 4 mg by mouth daily with breakfast. metFORMIN 1,000 mg tablet Take 1,000 mg by mouth twice daily with meals. GLUCOSAMINE HCL/S-ADENOSYLMET (TRIPLE FLEX MOOD AND JOINT DAVIDE-E ORAL) Take by mouth. Vital signs: BP 123/73 (BP Site: Right Arm, BP Position: Sitting, BP Cuff Size: Large Adult) Pulse 72 Resp 16 Wt 120.7 kg (266 lb) BMI 39.28 kg/m? PHYSICAL EXAM: General appearance: NAD, appropriate attire for season Mental status: Alert and oriented, good eye contact Speech: Logical and goal directed Constitutional: WNL Skin: Warm, dry, and intact Musculoskeletal/ Extremities: No edema, cyanosis or clubbing, normal ROM Neuro: Gait stable, no tremors, hearing intact to conversation Impression: G25.81 RLS (restless legs syndrome) (primary encounter diagnosis) G47.33 DEBORAH (obstructive sleep apnea) R53.82 Chronic fatigue syndrome E61.1 Iron deficiency E55.9 Vitamin D deficiency PDMP website checked and validated. All prescriptions have been APPROPRIATELY filled. No suspicious activity was identified. 02/22/2018 by Leonid Valdez APRN.DISH STACKER Plan: DEBORAH: - Reviewed titration study and provided copy for pt records - Continue Bilevel PAP and change pressures to 20/16 cmH2O for better control of AHI - REMZZZ mask liner for air leak - Remember to clean your mask and equipment regularly, as directed. - You should be eligible for new supplies approximately every 3-6 months, depending on your insurance coverage. Contact your [employer] (DME) company for new supplies as needed. - Residual hypersomnia, Dr. Campbell discussed considering modafinil in the future - Will first make pressure setting changes and obtain lab work RLS: - Check iron studies today (ferritin, total iron, TIBC). Low iron stores -indicated by a ferritin level below 50 may be making your RLS symptoms worse. It may help to take iron supplements. - Check vitamin D levels - Nonmedical therapy for restless legs syndrome includes : cold/warm compresses, warm/hot baths or showers, gentle massage, mild leg stretching at nighttime, or magnesium supplements ( 250- 1000 mg at nighttime daily). Mentally alerting activities help too. Note the caffeine, alcohol, nicotine, antidepressants, anti-nausea meds and antihistamines can cause or worsen symptoms. - Continue GBP and mirapex for treatment of RLS - Refills sent - Spacing out throughout the day, GBP may be causing daytime sleepiness Follow up in 3 month(s). Leonid Valdez APRN.LA CNOV Observed: 02/22/2018 Status: COMPLETED Source: [place] 10:40 AM [facility] REPOSITORY Office Visit (NEMOWS) DEEPA TONG ([id number]) 1950 M Date Time Provider Department 02/22/18 10:40 AM LEONID VALDEZ ([place]) AAMIR During your visit today, we recorded the following information about you: Pulse Respiration Blood pressure Weight 72/minute 16/minute 123/73 120.7 kg Leonid Valdez APRN.DISH STACKER 02/22/2018 12:53 PM Signed [facility] Follow-up/Established patient visit Date of last visit: 01/03/18 ? Sleep Disorder Dx Impression: Obstructive sleep apnea - severe, complaint and benefitting, but his sleepiness still remains a problem. Here I would want to be sure that his bipap settings are optimized before venturing to use modafinil next. Restless Legs Syndrome Hypersojmnia ? Other Conditioning Diagnoses: Neuropathy, Obesity, Diabetes ? Case Formulation / [place] (may include pt's hopes, fears, expectations, concerns): Pt is compliant. His concern is about sleepiness. First to look for a technical solution, but if not then would need to consider using modafinil or armodafinil, if safe. ? Actions taken: Motivational Interviewing aspects taken Explaining the therapy rationale, and is agreed. PDMP Aspect: PDMP website checked and validated. All prescriptions have been APPROPRIATELY filled. No suspicious activity was identified. 01/01/2018 by Maylin Campbell MD Starting up at 01/10 for GPN next. ? Titration study ? Plan: Change to new setting. ? Follow up after using new setting for a few weeks. Consider using modafinil if new setting not that helpful. ? Maylin Campbell MD Time in: 1050 Time out: 1110 For this visit, a total dzxi-fr-vlxo time with the patient comprised 20 minutes, with at least 50% of that time devoted to pseg-sx-xkst counseling and coordination of care, with especial emphasis placed on answering the patient?s and/or family?s ?questions in a form that they can understand and appreciate. HPI: 67 yo male who follow up for sleep apnea and RLS to review titration study. SLEEP APNEA Sleep apnea type : DEBORAH, Most Recent Apnea-Hypopnea Index (AHI): 96 Treatment : PAP therapy DME: [facility] PAP History: Uses Bilevel PAP for 7 hours per night, 7 nights per week. Current PAP settin/14 cm H2O. Difficulties with Bilevel PAP: None Reviewed objective PAP compliance data: 01/08/18 to 02/21/18 Compliance download: 98% >=4 hours Average use: 6 hours 51 minutes Leaks 33.9, residual AHI 4.7 Mask type: full face mask Mask issues: air leak Uses chin strap: No Uses humidity: Yes There is a perceived benefit by the patient Observers report abolition of snoring with Bilevel PAP use. SLEEP-WAKE SCHEDULE Bedtime: 1030-11 PM Latency: fast Nocturnal wakings: none unless RLS acts up Wake time: 630 AM, with/ without an alarm. On weekends, he tends to sleeps until 730-8 AM. Average total sleep time (in a 24 hour period): 6.5-7 hours. He does not take naps. SLEEP FUNCTIONAL OUTCOME MEASURES: reviewed and uploaded. See end of note for questionnaire answers. PAST MEDICAL HISTORY Diagnosis Date - Diabetes (HCC) 09/04/2013 - Obstructive sleep apnea [facility] ph [phone] fx [phone] PSH, SH: Reviewed SLEEP RELATED ROS GENERAL: See HPI HEENT: Negative for nasal congestion RESPIRATORY: Negative for wheezing and dyspnea on exertion CARDIOVASCULAR: Negative for chest pain : Negative for nocturia SKIN: Negative for mask irritation ENDOCRINE: Negative for thyroid problems NEURO: Negative for morning headaches and memory problems All other systems reviewed and are negative. ALLERGIES Allergen Reactions - Morphine Unknown CURRENT MEDICATIONS: [START ON 03/11/2018] gabapentin (NEURONTIN) 400 mg capsule Take 4 capsules by mouth as directed for 120 days. Take 4 capsules at night, spread out in time, for Restless legs syndrome pramipexole (MIRAPEX) 0.5 mg tablet Take 3 tablets by mouth daily at bedtime. Take less if less is effective for RLS BIPAP Change Settings to 20/16 cm H2O, suitable mask per pt preference, chin strap, head gear, humidity, tubing, lifetime supplies. G47.33 Obstructive Sleep Apnea atorvastatin (LIPITOR) 40 mg tablet Take 40 mg by mouth once daily. pantoprazole sodium (PANTOPRAZOLE ORAL) Take 40 mg by mouth once daily. FUROSEMIDE ORAL Take 20 mg by mouth once daily. metoprolol succinate ER (TOPROL XL) 25 mg 24 hr tablet Take 25 mg by mouth once daily. aspirin, enteric coated (ASPIRIN, ENTERIC COATED) 81 mg EC tablet Take 81 mg by mouth once daily. insulin lispro protamin/lispro (HUMALOG MIX 50-50 SUBCUTANEOUS) Inject subcutaneously. 25 units in the morning and 30 units in the evening. clopidogrel (PLAVIX) 75 mg tablet Take 75 mg by mouth once daily. potassium chloride ER (K-DUR, KLOR-CON) 20 mEq tablet Take 20 mEq by mouth once daily. CPAP Bipap to 18/14 Cm H2O suitable mask, opt chin strap filters, tubing / heated tubing, heated humidity and lifetime supplies. Dx. DEBORAH G47.33 327.23 Omeprazole 40 mg capsule Take 40 mg by mouth once daily. lisinopril 20 mg tablet Take 20 mg by mouth once daily. glimepiride 4 mg tablet Take 4 mg by mouth daily with breakfast. metFORMIN 1,000 mg tablet Take 1,000 mg by mouth twice daily with meals. GLUCOSAMINE HCL/S-ADENOSYLMET (TRIPLE FLEX MOOD AND JOINT DAVIDE-E ORAL) Take by mouth. Vital signs: BP 123/73 (BP Site: Right Arm, BP Position: Sitting, BP Cuff Size: Large Adult) Pulse 72 Resp 16 Wt 120.7 kg (266 lb) BMI 39.28 kg/m? PHYSICAL EXAM: General appearance: NAD, appropriate attire for season Mental status: Alert and oriented, good eye contact Speech: Logical and goal directed Constitutional: WNL Skin: Warm, dry, and intact Musculoskeletal/ Extremities: No edema, cyanosis or clubbing, normal ROM Neuro: Gait stable, no tremors, hearing intact to conversation Impression: G25.81 RLS (restless legs syndrome) (primary encounter diagnosis) G47.33 DEBORAH (obstructive sleep apnea) R53.82 Chronic fatigue syndrome E61.1 Iron deficiency E55.9 Vitamin D deficiency PDMP website checked and validated. All prescriptions have been APPROPRIATELY filled. No suspicious activity was identified. 02/22/2018 by Leonid Valdez APRN.DISH STACKER Plan: DEBORAH: - Reviewed titration study and provided copy for pt records - Continue Bilevel PAP and change pressures to 20/16 cmH2O for better control of AHI - REMZZZ mask liner for air leak - Remember to clean your mask and equipment regularly, as directed. - You should be eligible for new supplies approximately every 3-6 months, depending on your insurance coverage. Contact your Durable Medical Equipment (DME) company for new supplies as needed. - Residual hypersomnia, Dr. Campbell discussed considering modafinil in the future - Will first make pressure setting changes and obtain lab work RLS: - Check iron studies today (ferritin, total iron, TIBC). Low iron stores -indicated by a ferritin level below 50 may be making your RLS symptoms worse. It may help to take iron supplements. - Check vitamin D levels - Nonmedical therapy for restless legs syndrome includes : cold/warm compresses, warm/hot baths or showers, gentle massage, mild leg stretching at nighttime, or magnesium supplements ( 250- 1000 mg at nighttime daily). Mentally alerting activities help too. Note the caffeine, alcohol, nicotine, antidepressants, anti-nausea meds and antihistamines can cause or worsen symptoms. - Continue GBP and mirapex for treatment of RLS - Refills sent - Spacing out throughout the day, GBP may be causing daytime sleepiness Follow up in 3 month(s). Leonid Valdez APRN.LA Valdez APRN.DISH STACKER 02/22/2018 11:10 AM Signed - Check iron studies today (ferritin, total iron, TIBC). Low iron stores -indicated by a ferritin level below 50 may be making your RLS symptoms worse. It may help to take iron supplements. - Check vitamin D levels - Nonmedical therapy for restless legs syndrome includes : cold/warm compresses, warm/hot baths or showers, gentle massage, mild leg stretching at nighttime, or magnesium supplements ( 250- 1000 mg at nighttime daily). Mentally alerting activities help too. Note the caffeine, alcohol, nicotine, antidepressants, anti-nausea meds and antihistamines can cause or worsen symptoms. - Restiffic and Relaxis pad are treatment options as well. These are not covered by insurance. Referring Provider: SELF [[id number]] Allergies As of Date: 02/22/2018 Noted Allergy Reaction MORPHINE 12/03/2012 16 - Unknown Date Reviewed: 09/30/2015 Reviewed by: Shara Yousif LPN - Fully Assessed Reason for Visit: Established Patient [175] Primary Visit Diagnosis:RLS (restless legs syndrome) [G25.81] Other Visit Diagnoses:DEBORAH (obstructive sleep apnea) [G47.33] Chronic fatigue syndrome [R53.82] Iron deficiency [E61.1] Vitamin D deficiency [E55.9] Order(s):[START ON 03/11/2018] gabapentin (NEURONTIN) 400 mg capsuleTake 4 capsules by mouth as directed for 120 days. Take 4 capsules at night, spread out in time, for Restless legs syndromeDisp: 120 capsuleRfl: 3 pramipexole (MIRAPEX) 0.5 mg tabletTake 3 tablets by mouth daily at bedtime. Take less if less is effective for RLSDisp: 270 tabletRfl: 3 VITAMIN D 25 HYDROXY [SQVITD] Order #: [id number] FUTURE IRON + TIBC [SQIRON] Order #: [id number] FUTURE FERRITIN BLD [SQFERR] Order #: [id number] FUTURE BIPAPChange Settings to 20/16 cm H2O, suitable mask per pt preference, chin strap, head gear, humidity, tubing, lifetime supplies. G47.33 Obstructive Sleep ApneaDisp: 1 DeviceRfl: 0 Prescriptions as of 02/22/2018 Sig: GABAPENTIN 400 MG CAPSULE Take 4 capsules by mouth as d* PRAMIPEXOLE 0.5 MG TABLET Take 3 tablets by mouth daily* BIPAP Change Settings to 20/16 cm H* ATORVASTATIN 40 MG TABLET Take 40 mg by mouth once bryce* PANTOPRAZOLE ORAL Take 40 mg by mouth once bryce* FUROSEMIDE ORAL Take 20 mg by mouth once bryce* METOPROLOL SUCCINATE ER 25 MG* Take 25 mg by mouth once bryce* ASPIRIN 81 MG TABLET,DELAYED * Take 81 mg by mouth once bryce* HUMALOG MIX 50-50 SUBCUTANEOUS Inject subcutaneously. 25 uni* CLOPIDOGREL 75 MG TABLET Take 75 mg by mouth once bryce* POTASSIUM CHLORIDE ER 20 MEQ * Take 20 mEq by mouth once romana* CPAP Bipap to 18/14 Cm H2O suitabl* OMEPRAZOLE 40 MG CAPSULE,SEEMA* Take 40 mg by mouth once bryce* LISINOPRIL 20 MG TABLET Take 20 mg by mouth once bryce* GLIMEPIRIDE 4 MG TABLET Take 4 mg by mouth daily with* METFORMIN 1,000 MG TABLET Take 1,000 mg by mouth twice * TRIPLE FLEX MOOD AND JOINT DAVIDE-* Take by mouth. Problem List As Of Date 02/22/2018 Noted Resolved RLS (restless legs syndrome) [G25.81] INVALID FOR* Hypersomnia [G47.10] INVALID FOR* DEBORAH (obstructive sleep apnea) [G47.33] INVALID FOR* More... Obesity [E66.9] INVALID FOR* Diabetes (HCC) [E11.9] INVALID FOR* Neuropathy [G62.9] INVALID FOR* Other instructions from your clinician: - Check iron studies today (ferritin, total iron, TIBC). Low iron stores -indicated by a ferritin level below 50 may be making your RLS symptoms worse. It may help to take iron supplements. - Check vitamin D levels - Nonmedical therapy for restless legs syndrome includes : cold/warm compresses, warm/hot baths or showers, gentle massage, mild leg stretching at nighttime, or magnesium supplements ( 250- 1000 mg at nighttime daily). Mentally alerting activities help too. Note the caffeine, alcohol, nicotine, antidepressants, anti-nausea meds and antihistamines can cause or worsen symptoms. - Restiffic and Relaxis pad are treatment options as well. These are not covered by insurance. Prescriptions ordered this encounter Disp Refills Start End GABAPENTIN 400 MG CAPSULE 120 * 3 03/11/2018 07/09/2018 Route: ORAL Sig: Take 4 capsules by mouth as directed for 120 days. Take 4 capsules at night, spread out in time, for Restless legs syndrome PRAMIPEXOLE 0.5 MG TABLET 270 * 3 02/22/2018 Route: ORAL Sig: Take 3 tablets by mouth daily at bedtime. Take less if less is effective for RLS BIPAP 1 De* 0 02/22/2018 Class: Print RX Sig: Change Settings to 20/16 cm H2O, suitable mask per pt preference, chin strap, head gear, humidity, tubing, lifetime supplies. G47.33 Obstructive Sleep Apnea Medications Discontinued During This Encounter gabapentin (NEURONTIN) 400 mg capsule 120 * 3 12/11/2017 02/22/2018 Route: ORAL Sig: Take 4 capsules by mouth as directed for 120 days. Take 4 capsules at night, spread out in time, for Restless legs syndrome Disc: Reason for discontinue is not on file. pramipexole (MIRAPEX) 0.5 mg tablet 270 * 3 10/25/2017 02/22/2018 Route: ORAL Sig: Take 3 tablets by mouth daily at bedtime. Take less if less is effective for RLS Disc: Reason for discontinue is not on file. Disposition: Return in about 3 months (around 05/23/2018). Follow-up and Disposition History Recorded Encounter Status:Closed by LEONID VALDEZ on 02/22/18 FOOT GREAT TOE Observed: 01/06/2018 Status: F Source: [facility] 2:39 AM [facility] REPOSITORY Final Report Accession No: [id number] Performed: Jan 06 2018 2:39AM Examination: RIGHT FOOT GREAT TOE IMAGES REVIEWED: FOOT GREAT TOE RIGHT COMPARISON: None available. CLINICAL INDICATION: Right great toe pain after trauma. FINDINGS: There is a possible nondisplaced fracture at the lateral aspect of the right great toe distal phalangeal base. There are mild scattered degenerative changes. There is no significant right ankle joint effusion. Atherosclerotic calcifications are noted. IMPRESSION: Possible nondisplaced fracture at the lateral aspect of the right great toe distal phalangeal base. Please correlate with point tenderness. Interpreting Physician: DEE ENNIS M.D. Trans: soloel : cc: PROGRESS Observed: 01/03/2018 Status: COMPLETED Source: [place] 10:47 AM [facility] REPOSITORY HNO ID: [id number] Author: Shara Yousif LPN Service: (none) Author Type: (none) Type: Progress Notes Filed: 01/03/2018 12:30 PM Note Text: titration order faxed to [facility] today. CNOV Observed: 01/03/2018 Status: COMPLETED Source: [place] 8:00 AM [facility] REPOSITORY Office Visit (AAMIR) DEEPA TONG ([id number]) 1950 M Date Time Provider Department 01/03/18 8:00 AM MAYLIN CAMPBELL During your visit today, we recorded the following information about you: Pulse Respiration Blood pressure Weight 62/minute 16/minute 114/64 119.7 kg Maylin Campbell MD 01/03/2018 12:30 PM Signed [facility] Follow-up/Established patient visit Reason for Visit on 01/03/18 at javi : follow up on bipap. Time Out: 8:50 Time In: 8:40 For this visit, a total qrse-wv-igjo time with the patient comprised about 15 minutes, with at least 50% of that time devoted to qwlx-tx-kdio counseling and coordination of care, with especial emphasis placed on answering the patient?s and/or family?s questions in a form that they can understand and appreciate. Relevant Medications, allergies, hx Reviewed: yes Date of last visit: 10/25/17 Insurance: [employer] Home Location: [place]. From Last Visit: Sleep Disorder Dx Impression: Obstructive sleep apnea - severe, compliant and beneiftitng. Restless legs Syndrome, complicated by Diabetic retinopathy. -- surgery had decreased it, but should probably go back to former regimen that was addressing RLS symptoms. ? Other Conditioning Diagnoses: DM2 Obesity ? Case Formulation / [place] (may include pt's hopes, fears, expectations, concerns): May do better after cardiac rehab. See how med restart goes. Some ambivalence about cardiac repah ? Actions taken: Motivational Interviewing aspects taken Exploring recent symptom control PDMP Aspect: na ? ? Renewed the mirapex for 3 0.5 mg pills hs Approved returned to former GPN regime. ? ? Plan: RTC in a few weeks for insurance compliance reasons. 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 But overall still feeling tired and sleepy a lot. Medical and Neurological Developments: No new Insomnia: no RLS: not reviewed Other: na SLEEP-WAKE SCHEDULE Bedtime: around 10. SLEEP LATENCY: fast most nigh. Wake after Sleep Onset thorugh, and using mask. Wake time: usu around 6:30, without an alarm. On weekends, he maintains the same sleep schedule. Sleep Quality: still tired in the monring. He may fall asleep in the chair sometimes. Average total sleep time (in a 24 hour period): about 7 hours. Obstructive Sleep Apnea Issues: Most Recent Apnea-Hypopnea Index: 98 PAP Pressure Setting(s) 06/02 DME Company: [employer] Mask Type: Pillow Mask Issues: Has been pretty decent. Download Report: The titration report today indicates very full compliance, generally tolerable leaks, but he still has an ahi about 10 often. This is much better than baseline, but still not below 5 Self-Reported Compliance: All night Benefit: Definite benefit, but still some daytime sleeiness. SLEEP FUNCTIONAL OUTCOME MEASURES [place] Sleepiness Scale 17 PHQ-9 Depression Scale 2 Insomnia Severity Scale 10 Fatigue Scale 45 Restless Legs Scale 32 ALLERGIES Allergen Reactions - Morphine Unknown CURRENT MEDICATIONS: gabapentin (NEURONTIN) 400 mg capsule Take 4 capsules by mouth as directed for 120 days. Take 4 capsules at night, spread out in time, for Restless legs syndrome pramipexole (MIRAPEX) 0.5 mg tablet Take 3 tablets by mouth daily at bedtime. Take less if less is effective for RLS CPAP Bipap to 18/14 Cm H2O suitable mask, opt chin strap filters, tubing / heated tubing, heated humidity and lifetime supplies. Dx. DEBORAH G47.33 327.23 Omeprazole 40 mg capsule Take 40 mg by mouth once daily. lisinopril 20 mg tablet Take 20 mg by mouth once daily. glimepiride 4 mg tablet Take 4 mg by mouth daily with breakfast. metFORMIN 1,000 mg tablet Take 1,000 mg by mouth twice daily with meals. GLUCOSAMINE HCL/S-ADENOSYLMET (TRIPLE FLEX MOOD AND JOINT DAVIDE-E ORAL) Take by mouth. Vital signs: BP 114/64 (BP Site: Right Arm, BP Position: Sitting, BP Cuff Size: Large Adult) Pulse 62 Resp 16 Wt 119.7 kg (263 lb 12.8 oz) BMI 38.96 kg/m? MENTAL STATUS General appearance: obese, with well mannered klein Grooming good, dressed in overalls, but very clean Orientation: Ox3 Memory: Grossly intact Kinetics: Slower per age. Eye Contact: good Demeanor friendly Speech: Articulate, normal rate Thought Stream logical Thought Content about still being sleepy and tired Mood: fine, just dtue. Affect: Tired, but euthymic Suicidal Ideation: no Homocidal Ideation: No Psychosis no Insight good Judgment good ENT : na Abdomen: Very obese. Neuro: Gait and station naomrl, Strength grossly normal in all extremities. Coordination grossly intact. No tremors noted. Sleep Disorder Dx Impression: Obstructive sleep apnea - severe, complaint and benefitting, but his sleepiness still remains a problem. Here I would want to be sure that his bipap settings are optimized before venturing to use modafinil next. Restless Legs Syndrome Hypersojmnia Other Conditioning Diagnoses: Neuropathy, Obesity, Diabetes Case Formulation / [place] (may include pt's hopes, fears, expectations, concerns): Pt is compliant. His concern is about sleepiness. First to look for a technical solution, but if not then would need to consider using modafinil or armodafinil, if safe. Actions taken: Motivational Interviewing aspects taken Explaining the therapy rationale, and is agreed. PDMP Aspect: PDMP website checked and validated. All prescriptions have been APPROPRIATELY filled. No suspicious activity was identified. 01/01/2018 by Maylin Campbell MD Starting up at 01/10 for GPN next. Titration study Plan: Change to new setting. Follow up after using new setting for a few weeks. Consider using modafinil if new setting not that helpful. MD Shara Ferris LPN 01/03/2018 12:30 PM Signed titration order faxed to [facility] today. Referring Provider: MEHRDAD CHEEK [[id number]] Allergies As of Date: 01/03/2018 Noted Allergy Reaction MORPHINE 12/03/2012 16 - Unknown Date Reviewed: 09/30/2015 Reviewed by: Shara Yousif LPN - Fully Assessed Reason for Visit: Established Patient [175] Cmt: review compliance report Primary Visit Diagnosis:DEBORAH (obstructive sleep apnea) [G47.33] Other Visit Diagnoses:RLS (restless legs syndrome) [G25.81] Hypersomnia [G47.10] Neuropathy (HCC) [G62.9] Obesity due to excess calories with serious comorbidity, unspecified classification [E66.09] Order(s):PAP TITRATION PSG (CPAP, BIPAP, ASV) [1040265] Order #: [id number] FUTURE Prescriptions as of 01/03/2018 Sig: ATORVASTATIN 40 MG TABLET Take 40 mg by mouth once bryce* PANTOPRAZOLE ORAL Take 40 mg by mouth once bryce* FUROSEMIDE ORAL Take 20 mg by mouth once bryce* METOPROLOL SUCCINATE ER 25 MG* Take 25 mg by mouth once bryce* ASPIRIN 81 MG TABLET,DELAYED * Take 81 mg by mouth once bryce* HUMALOG MIX 50-50 SUBCUTANEOUS Inject subcutaneously. 25 uni* CLOPIDOGREL 75 MG TABLET Take 75 mg by mouth once bryce* POTASSIUM CHLORIDE ER 20 MEQ * Take 20 mEq by mouth once romana* GABAPENTIN 400 MG CAPSULE Take 4 capsules by mouth as d* PRAMIPEXOLE 0.5 MG TABLET Take 3 tablets by mouth daily* CPAP Bipap to 18/14 Cm H2O suitabl* GLIMEPIRIDE 4 MG TABLET Take 4 mg by mouth daily with* OMEPRAZOLE 40 MG CAPSULE,SEEMA* Take 40 mg by mouth once bryce* LISINOPRIL 20 MG TABLET Take 20 mg by mouth once bryce* METFORMIN 1,000 MG TABLET Take 1,000 mg by mouth twice * TRIPLE FLEX MOOD AND JOINT DAVIDE-* Take by mouth. Problem List As Of Date 01/03/2018 Noted Resolved RLS (restless legs syndrome) [G25.81] INVALID FOR* Hypersomnia [G47.10] INVALID FOR* DEBORAH (obstructive sleep apnea) [G47.33] INVALID FOR* More... Obesity [E66.9] INVALID FOR* Diabetes (HCC) [E11.9] INVALID FOR* Neuropathy [G62.9] INVALID FOR* Follow-up and Disposition History Recorded Encounter Status:Closed by MD MAYLIN CAMPBELL on 01/03/18 PROGRESS Observed: 01/01/2018 Status: COMPLETED Source: [place] 11:06 AM [facility] REPOSITORY O ID: [id number] Author: Maylin Campbell Service: (none) Author Type: Physician Type: Progress Notes Filed: 01/03/2018 12:30 PM Note Text: [facility] Follow-up/Established patient visit Reason for Visit on 01/03/18 at javi : follow up on bipap. Time Out: 8:50 Time In: 8:40 For this visit, a total ljls-ls-wrbt time with the patient comprised about 15 minutes, with at least 50% of that time devoted to oena-kv-ibnr counseling and coordination of care, with especial emphasis placed on answering the patient?s and/or family?s questions in a form that they can understand and appreciate. Relevant Medications, allergies, hx Reviewed: yes Date of last visit: 10/25/17 Insurance: [facility] Medicare Home Location: [facility] From Last Visit: Sleep Disorder Dx Impression: Obstructive sleep apnea - severe, compliant and beneiftitng. Restless legs Syndrome, complicated by Diabetic retinopathy. -- surgery had decreased it, but should probably go back to former regimen that was addressing RLS symptoms. ? Other Conditioning Diagnoses: DM2 Obesity ? Case Formulation / [place] (may include pt's hopes, fears, expectations, concerns): May do better after cardiac rehab. See how med restart goes. Some ambivalence about cardiac repah ? Actions taken: Motivational Interviewing aspects taken Exploring recent symptom control PDMP Aspect: na ? ? Renewed the mirapex for 3 0.5 mg pills hs Approved returned to former GPN regime. ? ? Plan: RTC in a few weeks for insurance compliance reasons. 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 But overall still feeling tired and sleepy a lot. Medical and Neurological Developments: No new Insomnia: no RLS: not reviewed Other: na SLEEP-WAKE SCHEDULE Bedtime: around 10. SLEEP LATENCY: fast most nigh. Wake after Sleep Onset thorugh, and using mask. Wake time: usu around 6:30, without an alarm. On weekends, he maintains the same sleep schedule. Sleep Quality: still tired in the monring. He may fall asleep in the chair sometimes. Average total sleep time (in a 24 hour period): about 7 hours. Obstructive Sleep Apnea Issues: Most Recent Apnea-Hypopnea Index: 98 PAP Pressure Setting(s) 06/02 DME Company: [employer] Mask Type: Pillow Mask Issues: Has been pretty decent. Download Report: The titration report today indicates very full compliance, generally tolerable leaks, but he still has an ahi about 10 often. This is much better than baseline, but still not below 5 Self-Reported Compliance: All night Benefit: Definite benefit, but still some daytime sleeiness. SLEEP FUNCTIONAL OUTCOME MEASURES [place] Sleepiness Scale 17 PHQ-9 Depression Scale 2 Insomnia Severity Scale 10 Fatigue Scale 45 Restless Legs Scale 32 ALLERGIES Allergen Reactions - Morphine Unknown CURRENT MEDICATIONS: gabapentin (NEURONTIN) 400 mg capsule Take 4 capsules by mouth as directed for 120 days. Take 4 capsules at night, spread out in time, for Restless legs syndrome pramipexole (MIRAPEX) 0.5 mg tablet Take 3 tablets by mouth daily at bedtime. Take less if less is effective for RLS CPAP Bipap to 18/14 Cm H2O suitable mask, opt chin strap filters, tubing / heated tubing, heated humidity and lifetime supplies. Dx. DEBORAH G47.33 327.23 Omeprazole 40 mg capsule Take 40 mg by mouth once daily. lisinopril 20 mg tablet Take 20 mg by mouth once daily. glimepiride 4 mg tablet Take 4 mg by mouth daily with breakfast. metFORMIN 1,000 mg tablet Take 1,000 mg by mouth twice daily with meals. GLUCOSAMINE HCL/S-ADENOSYLMET (TRIPLE FLEX MOOD AND JOINT DAVIDE-E ORAL) Take by mouth. Vital signs: BP 114/64 (BP Site: Right Arm, BP Position: Sitting, BP Cuff Size: Large Adult) Pulse 62 Resp 16 Wt 119.7 kg (263 lb 12.8 oz) BMI 38.96 kg/m? MENTAL STATUS General appearance: obese, with well mannered klein Grooming good, dressed in overalls, but very clean Orientation: Ox3 Memory: Grossly intact Kinetics: Slower per age. Eye Contact: good Demeanor friendly Speech: Articulate, normal rate Thought Stream logical Thought Content about still being sleepy and tired Mood: fine, just dtue. Affect: Tired, but euthymic Suicidal Ideation: no Homocidal Ideation: No Psychosis no Insight good Judgment good ENT : na Abdomen: Very obese. Neuro: Gait and station naomrl, Strength grossly normal in all extremities. Coordination grossly intact. No tremors noted. Sleep Disorder Dx Impression: Obstructive sleep apnea - severe, complaint and benefitting, but his sleepiness still remains a problem. Here I would want to be sure that his bipap settings are optimized before venturing to use modafinil next. Restless Legs Syndrome Hypersojmnia Other Conditioning Diagnoses: Neuropathy, Obesity, Diabetes Case Formulation / [place] (may include pt's hopes, fears, expectations, concerns): Pt is compliant. His concern is about sleepiness. First to look for a technical solution, but if not then would need to consider using modafinil or armodafinil, if safe. Actions taken: Motivational Interviewing aspects taken Explaining the therapy rationale, and is agreed. PDMP Aspect: PDMP website checked and validated. All prescriptions have been APPROPRIATELY filled. No suspicious activity was identified. 01/01/2018 by Maylin Campbell MD Starting up at 01/10 for GPN next. Titration study Plan: Change to new setting. Follow up after using new setting for a few weeks. Consider using modafinil if new setting not that helpful. Maylin Campbell MD CALCIUM Collected: 12/04/2017 Status: F Source: [facility] 9:11 [facility] REPOSITORY TYPE CODE TESTS RESULT OUT OF RANGE REFERENCE UNITS LAB CALCM 8.4-10.2 mg/dL Normal Calcium 8.8 Performed By: #### MG, CALCM #### Unless otherwise noted, all testing performed by [place] [id number] CLIA: [id number] Web Content Writer: Robb Dominguez M.D. MAGNESIUM Collected: 12/04/2017 Status: F Source: [facility] [facility] 9:11 [facility] REPOSITORY TYPE CODE TESTS RESULT OUT OF RANGE REFERENCE UNITS LAB MG 1.6-2.4 mg/dL Normal Magnesium 1.9 Performed By: #### MG, CALCM #### Unless otherwise noted, all testing performed by [place] [address] CLIA: [id number] Web Content Writer: Robb Dominguez M.D. T4, FREE Collected: 11/30/2017 Status: F Source: [facility] 9:22 [facility] TYPE CODE TESTS RESULT OUT OF RANGE REFERENCE UNITS LAB FT4 0.7-1.7 ng/dL Normal T4, Free 0.8 Result Comment: Samples from patients routinely receiving high dose biotin therapy (100-300 mg/day) may show falsely increased results. Please correlate clinically. Performed By: #### LIPID, CMET, FT4, HBA1C, TSH #### Unless otherwise noted, all testing performed by [place] [address] CLIA: [id number] Web Content Writer: Robb Dominguez M.D. TSH Collected: 11/30/2017 Status: F Source: [facility] 9:22 [facility] REPOSITORY TYPE CODE TESTS RESULT OUT OF RANGE REFERENCE UNITS LAB TSH 0.320-5.000 uIU/mL Normal TSH 2.34 Result Comment: Samples from patients routinely receiving high dose biotin therapy (100-300 mg/day) may show falsely decreased results. Please correlate clinically. Performed By: #### LIPID, CMET, FT4, HBA1C, TSH #### Unless otherwise noted, all testing performed by [facility] [address] [place], [place] [address] CLIA: [id number] Web Content Writer: Robb Dominguez M.D. COMPREHENSIVE METABOLIC Collected: 11/30/2017 Status: F Source: [facility] PANEL 9:22 AM [facility] REPOSITORY TYPE CODE TESTS RESULT OUT OF REFERENCE UNITS RANGE LAB GLU 70-99 mg/dL High Glucose 148 Result Comment: This test result might be falsely depressed or falsely elevated on samples drawn from patients taking Sulfasalazine and Sulfapyridine. Venipuncture should occur prior to taking either of these drugs. LAB BUN 8-25 mg/dL BUN 15 LAB CREA 0.80-1.30 mg/dL Creatinine High 1.35 LAB eGFR >60 ml/min/1.73s Low q.m eGFR,NonAfrican-Am erican 53 Result Comment: Non- GFR Calc eGFR is an estimated Glomerular Filtration Rate based on the value of the patient's serum creatinine. In outpatients, eGFR should be used as a helpful tool in screening for CKD. In inpatients or patients with acute renal failure, eGFR represents the GFR at the moment of the draw and should be used with caution. LAB eGFRB ml/min/1.73sq.m eGFR, -[place]ese >=60 Result Comment: GFR Calc LAB CALCM 8.4-10.2 mg/dL Calcium 8.8 LAB NA 135-145 mmol/L Sodium 138 LAB K 3.5-5.1 mmol/L Potassium 4.0 LAB CL 98-108 mmol/L Chloride 105 LAB CO2 21-32 mmol/L CO2 24 LAB AST 0-45 U/L AST (SGOT) 13 Result Comment: This test result might be falsely depressed or falsely elevated on samples drawn from patients taking Sulfasalazine and Sulfapyridine. Venipuncture should occur prior to taking either of these drugs. LAB ALT 14-65 U/L ALT (SGPT) 22 Result Comment: This test result might be falsely depressed or falsely elevated on samples drawn from patients taking Sulfasalazine and Sulfapyridine. Venipuncture should occur prior to taking either of these drugs. LAB ALKP 40-150 U/L Alkaline Phosphatase 109 LAB BILIT 0.3-1.2 mg/dL Bilirubin,Total 0.7 LAB PROT 6.0-8.0 g/dL Protein, Total 7.2 LAB ALB 3.2-5.2 g/dL Albumin 3.3 Performed By: #### LIPID, CMET, FT4, HBA1C, TSH #### Unless otherwise noted, all testing performed by [address] [address] CLIA: [id number] Web Content Writer: Robb Dominguez M.D. LIPID PANEL Collected: 11/30/2017 Status: F Source: [facility] 9:22 [facility] REPOSITORY TYPE CODE TESTS RESULT OUT OF REFERENCE UNITS RANGE LAB CHOL 100-199 mg/dL Cholesterol Normal 104 LAB TRIG 25-120 mg/dL Triglycerides Normal 75 LAB HDL 40-59 mg/dL Low HDL 34 LAB LDL 10-150 mg/dL LDL Normal 55 LAB VLDL 5-40 mg/dL VLDL Normal 15 LAB CHOL/HDL 3.2-5.0 Low CHOL/HDL Ratio 3.1 Result Comment: Male Coronary Heart Disease Risk Factor (CHDRF): Average risk= 5.0 1/2 Average risk= 3.4 2 times Average risk= 9.6 Performed By: #### LIPID, CMET, FT4, HBA1C, TSH #### Unless otherwise noted, all testing performed by [address] [address] CLIA: [id number] Web Content Writer: Robb Dominguez M.D. HEMOGLOBIN A1C Collected: 11/30/2017 Status: F Source: [facility] 9:22 [facility] REPOSITORY TYPE CODE TESTS RESULT OUT OF REFERENCE UNITS RANGE LAB HBA1C 4.1-6.5 % High Hemoglobin A1C 7.4 Performed By: #### LIPID, CMET, FT4, HBA1C, TSH #### Unless otherwise noted, all testing performed by [address] [place] [address] CLIA: [id number] Web Content Writer: Robb Dominguez M.D. MICROALBUMIN, UR RANDOM Collected: 11/30/2017 Status: F Source: [facility] PANEL 9:16 AM [facility] REPOSITORY TYPE CODE TESTS RESULT OUT OF RANGE REFERENCE UNITS LAB CREAURR mg/dL Normal 141.00 Creatinine, Urine Random Result Comment: No established reference range. LAB MIALB 0.0-1.8 mg/dL Microalbumin, Normal Urine Random < 0.5 LAB MALB:CRU 0.0-25.0 MIALB/Creatinine Normal Ratio 4 Performed By: #### MIALBURR #### Unless otherwise noted, all testing performed by [address] [place] [address] CLIA: [id number] Web Content Writer: Robb Dominguez M.D. PROGRESS Observed: 10/25/2017 Status: COMPLETED Source: [place] 1:35 PM [facility] REPOSITORY HNO ID: [id number] Author: Shara Yousif LPN Service: (none) Author Type: (none) Type: Progress Notes Filed: 10/25/2017 2:06 PM Note Text: pressures decreased from 22/18 to 18/14 status post CABG / stent placement plavix and 325 mg aspirin , then on 11/08 will go to 81 mg aspirin and continue plavix no diabetic meds, only on insulin for now . checks sugars 4 times daily. has follow up with endocrinology on 11/05 taking potassium, cholesterol and water pill. Starts cardiac rehab next Monday. gabapentin was decreased from 7 per day to 4 per day. mirapex was decreased from 3 per day to 2 per day. CNOV Observed: 10/25/2017 Status: COMPLETED Source: [place] 1:20 PM [facility] REPOSITORY Office Visit (NEMOWS) DEEPA TONG ([id number]) 1950 M Date Time Provider Department 10/25/17 1:20 PM MAYLIN CAMPBELL During your visit today, we recorded the following information about you: Pulse Respiration Blood pressure Weight 80/minute 16/minute 115/69 117.5 kg Maylin Campbell MD 10/25/2017 2:06 PM Signed [facility] Follow-up/Established patient visit Reason for Visit at [place] : post CABG review of sleep issues Time Out: 2:06 Time In: 1:40 For this visit, a total rvlr-hp-rpro time with the patient comprised about 26 minutes, with at least 50% of that time devoted to edio-ha-glyl counseling and coordination of care, with especial emphasis placed on answering the patient?s and/or family?s questions in a form that they can understand and appreciate. Relevant Medications, allergies, hx Reviewed: yes Date of last visit: 01/25/17 Insurance: [employer] Medicare Home Location: [place] Psychological/Psychiatric Developments: No new big problems other than coping with cardiac surgery. Medical and Neurological Developments: Had CABG and stents. Insomnia: some later. RLS: very much a problem he had when in hospitial and the surgeons cut back his meds, as he understood it because the surgeons felt it was excessive. But he still had symptoms, so they relented parttially. Now pt planning to return to former regimen that was reasonably effective. Other: na SLEEP-WAKE SCHEDULE Bedtime: tries about 10 to 10:30 SLEEP LATENCY: usu quite a long time, due to rls symptoms Wake after Sleep Onset last night only one time; Brb; Not too big of a problem but sometimes every houR Wake time: tries about 6:30, without an alarm. On weekends, he maintains the same sleep schedule. Sleep Quality: poor He does not take naps. But will doze Average total sleep time (in a 24 hour period): 7 hours. Obstructive Sleep Apnea Issues: Most Recent Apnea-Hypopnea Index: 98 PAP Pressure Setting(s) 06/02 DME Company: `` Hurse Mask Type: Pillow Mask Issues: occ leaks Download Report: AHI of 6.1 !!! Median leaks at 8.7, but does get some highy leaks. 100% compliance for the 14 day period reviewed. Self-Reported Compliance: Using all night Benefit: some ALLERGIES Allergen Reactions - Morphine Unknown CURRENT MEDICATIONS: CPAP Bipap to 18/14 Cm H2O suitable mask, opt chin strap filters, tubing / heated tubing, heated humidity and lifetime supplies. Dx. DEBORAH G47.33 327.23 gabapentin (NEURONTIN) 400 mg capsule Take 7 capsules by mouth as directed. Take 2 in the morning and 5 at night, for Restless legs syndrome pramipexole (MIRAPEX) 0.5 mg tablet Take 3 tablets by mouth daily at bedtime. Take less if less is effective for RLS Omeprazole 40 mg capsule Take 40 mg by mouth once daily. lisinopril 20 mg tablet Take 20 mg by mouth once daily. glimepiride 4 mg tablet Take 4 mg by mouth daily with breakfast. metFORMIN 1,000 mg tablet Take 1,000 mg by mouth twice daily with meals. GLUCOSAMINE HCL/S-ADENOSYLMET (TRIPLE FLEX MOOD AND JOINT DAVIDE-E ORAL) Take by mouth. Vital signs: BP 115/69 (BP Site: Left Arm, BP Position: Sitting, BP Cuff Size: Large Adult) Pulse 80 Resp 16 Wt 117.5 kg (259 lb) BMI 38.25 kg/m? 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 Thought Content about recent medical event Mood: neutral to ok Affect: euth Suicidal Ideation: no Homocidal Ideation: No Psychosis no Insight good Judgment godo ENT : na Abdomen: obese Neuro: Gait and station normal, Strength grossly normal in all extremities. Coordination grossly intact. No tremors noted. Sleep Disorder Dx Impression: Obstructive sleep apnea - severe, compliant and beneiftitng. Restless legs Syndrome, complicated by Diabetic retinopathy. -- surgery had decreased it, but should probably go back to former regimen that was addressing RLS symptoms. Other Conditioning Diagnoses: DM2 Obesity Case Formulation / [place] (may include pt's hopes, fears, expectations, concerns): May do better after cardiac rehab. See how med restart goes. Some ambivalence about cardiac repah Actions taken: Motivational Interviewing aspects taken Exploring recent symptom control PDMP Aspect: na Renewed the mirapex for 3 0.5 mg pills hs Approved returned to former GPN regime. Plan: RTC in a few weeks for insurance compliance reasons. . MD Shara Ferris LPN 10/25/2017 2:06 PM Signed pressures decreased from 22/18 to 18/14 status post CABG / stent placement plavix and 325 mg aspirin , then on 11/08 will go to 81 mg aspirin and continue plavix no diabetic meds, only on insulin for now . checks sugars 4 times daily. has follow up with endocrinology on 11/05 taking potassium, cholesterol and water pill. Starts cardiac rehab next Monday. gabapentin was decreased from 7 per day to 4 per day. mirapex was decreased from 3 per day to 2 per day. Referring Provider: SELF [200] Allergies As of Date: 10/25/2017 Noted Allergy Reaction MORPHINE 12/03/2012 16 - Unknown Date Reviewed: 09/30/2015 Reviewed by: Shara Yousif LPN - Fully Assessed Reason for Visit: Established Patient [175] Cmt: follow up RLS and DEBORAH Discussion [813] Cmt: medications Primary Visit Diagnosis:DEBORAH (obstructive sleep apnea) [G47.33] Other Visit Diagnoses:RLS (restless legs syndrome) [G25.81] Obesity due to excess calories with serious comorbidity, unspecified classification [E66.09] Order(s):pramipexole (MIRAPEX) 0.5 mg tabletTake 3 tablets by mouth daily at bedtime. Take less if less is effective for RLSDisp: 270 tabletRfl: 3 Prescriptions as of 10/25/2017 Sig: PRAMIPEXOLE 0.5 MG TABLET Take 3 tablets by mouth daily* CPAP Bipap to 18/14 Cm H2O suitabl* GABAPENTIN 400 MG CAPSULE Take 7 capsules by mouth as d* OMEPRAZOLE 40 MG CAPSULE,SEEMA* Take 40 mg by mouth once bryce* LISINOPRIL 20 MG TABLET Take 20 mg by mouth once bryce* GLIMEPIRIDE 4 MG TABLET Take 4 mg by mouth daily with* METFORMIN 1,000 MG TABLET Take 1,000 mg by mouth twice * TRIPLE FLEX MOOD AND JOINT DAVIDE-* Take by mouth. Problem List As Of Date 10/25/2017 Noted Resolved RLS (restless legs syndrome) [G25.81] INVALID FOR* Hypersomnia [G47.10] INVALID FOR* DEBORAH (obstructive sleep apnea) [G47.33] INVALID FOR* More... Obesity [E66.9] INVALID FOR* Diabetes (HCC) [E11.9] INVALID FOR* Neuropathy [G62.9] INVALID FOR* Prescriptions ordered this encounter Disp Refills Start End PRAMIPEXOLE 0.5 MG TABLET 270 * 3 10/25/2017 Route: ORAL Sig: Take 3 tablets by mouth daily at bedtime. Take less if less is effective for RLS Medications Discontinued During This Encounter pramipexole (MIRAPEX) 0.5 mg tablet 270 * 3 08/03/2016 10/25/2017 Route: ORAL Sig: Take 3 tablets by mouth daily at bedtime. Take less if less is effective for RLS Disc: Reason for discontinue is not on file. Encounter Status:Closed by MD MAYLIN CAMPBELL on 10/25/17 PROGRESS Observed: 10/25/2017 Status: COMPLETED Source: [place] 10:13 AM [facility] REPOSITORY O ID: [id number] Author: Maylin Campbell Service: (none) Author Type: Physician Type: Progress Notes Filed: 10/25/2017 2:06 PM Note Text: [facility] Follow-up/Established patient visit Reason for Visit at [place] : post CABG review of sleep issues Time Out: 2:06 Time In: 1:40 For this visit, a total dpez-pk-zduh time with the patient comprised about 26 minutes, with at least 50% of that time devoted to yoed-xb-clqq counseling and coordination of care, with especial emphasis placed on answering the patient?s and/or family?s questions in a form that they can understand and appreciate. Relevant Medications, allergies, hx Reviewed: yes Date of last visit: 01/25/17 Insurance: A[employer]na Medicare Home Location: [place] Psychological/Psychiatric Developments: No new big problems other than coping with cardiac surgery. Medical and Neurological Developments: Had CABG and stents. Insomnia: some later. RLS: very much a problem he had when in hospitial and the surgeons cut back his meds, as he understood it because the surgeons felt it was excessive. But he still had symptoms, so they relented parttially. Now pt planning to return to former regimen that was reasonably effective. Other: na SLEEP-WAKE SCHEDULE Bedtime: tries about 10 to 10:30 SLEEP LATENCY: usu quite a long time, due to rls symptoms Wake after Sleep Onset last night only one time; Brb; Not too big of a problem but sometimes every houR Wake time: tries about 6:30, without an alarm. On weekends, he maintains the same sleep schedule. Sleep Quality: poor He does not take naps. But will doze Average total sleep time (in a 24 hour period): 7 hours. Obstructive Sleep Apnea Issues: Most Recent Apnea-Hypopnea Index: 98 PAP Pressure Setting(s) 06/02 DME Company: `` Hurse Mask Type: Pillow Mask Issues: occ leaks Download Report: AHI of 6.1 !!! Median leaks at 8.7, but does get some highy leaks. 100% compliance for the 14 day period reviewed. Self-Reported Compliance: Using all night Benefit: some ALLERGIES Allergen Reactions - Morphine Unknown CURRENT MEDICATIONS: CPAP Bipap to 18/14 Cm H2O suitable mask, opt chin strap filters, tubing / heated tubing, heated humidity and lifetime supplies. Dx. DEBORAH G47.33 327.23 gabapentin (NEURONTIN) 400 mg capsule Take 7 capsules by mouth as directed. Take 2 in the morning and 5 at night, for Restless legs syndrome pramipexole (MIRAPEX) 0.5 mg tablet Take 3 tablets by mouth daily at bedtime. Take less if less is effective for RLS Omeprazole 40 mg capsule Take 40 mg by mouth once daily. lisinopril 20 mg tablet Take 20 mg by mouth once daily. glimepiride 4 mg tablet Take 4 mg by mouth daily with breakfast. metFORMIN 1,000 mg tablet Take 1,000 mg by mouth twice daily with meals. GLUCOSAMINE HCL/S-ADENOSYLMET (TRIPLE FLEX MOOD AND JOINT DAVIDE-E ORAL) Take by mouth. Vital signs: BP 115/69 (BP Site: Left Arm, BP Position: Sitting, BP Cuff Size: Large Adult) Pulse 80 Resp 16 Wt 117.5 kg (259 lb) BMI 38.25 kg/m? 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 Thought Content about recent medical event Mood: neutral to ok Affect: euth Suicidal Ideation: no Homocidal Ideation: No Psychosis no Insight good Judgment godo ENT : na Abdomen: obese Neuro: Gait and station normal, Strength grossly normal in all extremities. Coordination grossly intact. No tremors noted. Sleep Disorder Dx Impression: Obstructive sleep apnea - severe, compliant and beneiftitng. Restless legs Syndrome, complicated by Diabetic retinopathy. -- surgery had decreased it, but should probably go back to former regimen that was addressing RLS symptoms. Other Conditioning Diagnoses: DM2 Obesity Case Formulation / [place] (may include pt's hopes, fears, expectations, concerns): May do better after cardiac rehab. See how med restart goes. Some ambivalence about cardiac repah Actions taken: Motivational Interviewing aspects taken Exploring recent symptom control PDMP Aspect: na Renewed the mirapex for 3 0.5 mg pills hs Approved returned to former GPN regime. Plan: RTC in a few weeks for insurance compliance reasons. . Maylin Campbell MD CHEST PA AND LATERAL Observed: 10/13/2017 Status: F Source: [facility] 10:38 AM [facility] REPOSITORY Final Report Accession No: [id number] Performed: Oct 13 2017 10:38AM Examination: CHEST PA AND LATERAL CHEST, TWO VIEWS DATE: 10/13/2017. INDICATION: Status post coronary artery bypass grafting. FINDINGS: PA and lateral views are performed and compared to 09/27/2017. Sternal wires are intact. There is mild bibasal atelectasis. No pneumothorax is identified. There is a trace left-sided pleural effusion. Cardiac silhouette size remains stable. The osseous structures are grossly intact. IMPRESSION: 1. Mild bibasilar atelectasis with trace left-sided pleural effusion. 2. No pneumothorax. Interpreting Physician: TOSIN SAVAGE M.D. Trans: mh : cc: PROTIME Collected: 10/13/2017 Status: F Source: [facility] 10:24 AM [facility] REPOSITORY TYPE CODE TESTS RESULT OUT OF RANGE REFERENCE UNITS LAB PT. 11.8-14.3 Seconds Normal Protime 13.2 LAB INR Normal INR 1.03 Result Comment: The [place] [employer] recommended therapeutic range for Warfarin (Coumadin) therapy goals: PROPHYLAXIS/TREATMENT of: INR Venous Thrombosis, Pulmonary Embolism 2.0-3.0 Prevention of VTE (Orthopedic Surgery) 2.0-3.0 Atrial Fibrillation 2.0-3.0 Myocardial Infarction 2.0-3.0 Mechanical Prosthetic Heart Valves (Aortic position) 2.0-3.0 Mechanical Prosthetic Heart Valves (Mitral Position) 2.5-3.5 [place] [employer] evidence-based clinical practice guidelines. CHEST. 2012 (9th ed) Performed By: #### CHEM8, PT #### Unless otherwise noted, all testing performed by [facility] [address] [place], [place] [address] CLIA: [id number] Web Content Writer: Robb Dominguez M.D. BASIC METABOLIC PANEL Collected: 10/13/2017 Status: F Source: [facility] 10:24 AM [facility] REPOSITORY TYPE CODE TESTS RESULT OUT OF REFERENCE UNITS RANGE LAB GLU 70-99 mg/dL High Glucose 217 Result Comment: This test result might be falsely depressed or falsely elevated on samples drawn from patients taking Sulfasalazine and Sulfapyridine. Venipuncture should occur prior to taking either of these drugs. LAB BUN 8-25 mg/dL BUN 15 LAB CREA 0.80-1.30 mg/dL Creatinine High 1.41 LAB eGFR >60 ml/min/1.73s Low q.m eGFR,NonAfrican-Am erican 50 Result Comment: Non- GFR Calc eGFR is an estimated Glomerular Filtration Rate based on the value of the patient's serum creatinine. In outpatients, eGFR should be used as a helpful tool in screening for CKD. In inpatients or patients with acute renal failure, eGFR represents the GFR at the moment of the draw and should be used with caution. LAB eGFRB ml/min/1.73sq.m eGFR, -[place] >=60 Result Comment: GFR Calc LAB CALCM 8.4-10.2 mg/dL Calcium 8.4 LAB NA 135-145 mmol/L Sodium 140 LAB K 3.5-5.1 mmol/L Potassium 3.8 LAB CL 98-108 mmol/L Chloride 106 LAB CO2 21-32 mmol/L CO2 26 Performed By: #### CHEM8, PT #### Unless otherwise noted, all testing performed by [facility] [address] [place] [id number] CLIA: [id number] Web Content Writer: Marisabel Alexandra Observed: 10/09/2017 Status: COMPLETED Source: [place] 12:00 AM [facility] REPOSITORY Telephone (FAMPWS) DEEPA TONG ([id number]) 1950 M Date Time Provider Department 10/09/17 [facility] During your visit today, we recorded the following information about you: Toshia Flynn LPN 10/09/2017 11:08 AM Signed Pt. had recent heart surgery with stents. He states his Cpap pressures are to high. 22/18. He would like an order to have the 22 lowered to 18 or whatever you recommend. Please advise. Pt. has Appt scheduled on 10/25/17. Please fax new order to 1- [phone] Toshia Campbell MD 10/09/2017 1:55 PM Signed Pt reporting that the settings are too high, wanting to come down to a max of 18. Better this than no treatment. Will change to 14. Shannan Yousif LPN 10/09/2017 3:59 PM Signed order faxed to number listed. Jatin Purdy RN 10/09/2017 4:33 PM Signed Signed order from Dr. Campbell on Rx paper faxed to Medical Services at [phone]. Fax confirmed as received. Allergies As of Date: 10/09/2017 Noted Allergy Reaction MORPHINE 12/03/2012 16 - Unknown Date Reviewed: 09/30/2015 Reviewed by: Shara Yousif LPN - Fully Assessed Reason for Visit: Orders [681] Primary Visit Diagnosis:DEBORAH (obstructive sleep apnea) [G47.33] Order(s):CPAPBipap to 18/14 Cm H2O suitable mask, opt chin strap filters, tubing / heated tubing, heated humidity and lifetime supplies. Dx. DEBORAH G47.33 327.23Disp: 1 DeviceRfl: 0 Prescriptions as of 10/09/2017 Sig: CPAP Bipap to 18/14 Cm H2O suitabl* GABAPENTIN 400 MG CAPSULE Take 7 capsules by mouth as d* PRAMIPEXOLE 0.5 MG TABLET Take 3 tablets by mouth daily* OMEPRAZOLE 40 MG CAPSULE,SEEMA* Take 40 mg by mouth once bryce* LISINOPRIL 20 MG TABLET Take 20 mg by mouth once bryce* GLIMEPIRIDE 4 MG TABLET Take 4 mg by mouth daily with* METFORMIN 1,000 MG TABLET Take 1,000 mg by mouth twice * TRIPLE FLEX MOOD AND JOINT DAVIDE-* Take by mouth. Problem List As Of Date 10/09/2017 Noted Resolved RLS (restless legs syndrome) [G25.81] INVALID FOR* Hypersomnia [G47.10] INVALID FOR* DEBORAH (obstructive sleep apnea) [G47.33] INVALID FOR* More... Obesity [E66.9] INVALID FOR* Diabetes (HCC) [E11.9] INVALID FOR* Neuropathy [G62.9] INVALID FOR* Prescriptions ordered this encounter Disp Refills Start End CPAP 1 De* 0 10/09/2017 Class: Print RX Sig: Bipap to 18/14 Cm H2O suitable mask, opt chin strap filters, tubing / heated tubing, heated humidity and lifetime supplies. Dx. DEBORAH G47.33 327.23 Medications Discontinued During This Encounter CPAP 1 Un* 0 03/11/2013 10/09/2017 Class: Print RX Sig: [facility]-Please provide 30 day compliance data to fax [phone] Disc: Course of therapy completed CPAP 1 De* 0 08/03/2016 10/09/2017 Class: Print RX Sig: Mask (per patient preference) optional chin strap (if indicated), filters, tubing / heated tubing, heated humidity and lifetime supplies. Dx. DEBORAH G47.33 327.23 Disc: Course of therapy completed CPAP 1 De* 0 01/25/2017 10/09/2017 Class: Print RX Sig: Bipap to 22/18 Cm H2O Mask (per ptpreference) opt chin strap (if indicated), filters, tubing / heated tubing, heated humidity and lifetime supplies. Dx. DEBORAH G47.33 327.23 Disc: Reason for discontinue is not on file. Encounter Status:Closed by MD MAYLIN CAMPBELL on 10/09/17 GLUCOSE, POC Collected: 10/06/2017 Status: F Source: [facility] 11:21 AM [facility] REPOSITORY TYPE CODE TESTS RESULT OUT OF RANGE REFERENCE UNITS LAB GLUX 80-115 mg/dL High Glucose, 301 POC Performed By: #### GLUX #### Unless otherwise noted, all testing performed by [address] [place] [address] CLIA: [id number] Web Content Writer: Robb Dominguez M.D. GLUCOSE, POC Collected: 10/06/2017 Status: F Source: [facility] 8:23 AM [facility] REPOSITORY TYPE CODE TESTS RESULT OUT OF RANGE REFERENCE UNITS LAB GLUX 80-115 mg/dL High Glucose, 149 POC Performed By: #### GLUX #### Unless otherwise noted, all testing performed by [place] [address] CLIA: [id number] Web Content Writer: Robb Dominguez M.D. CBC WITH DIFF Collected: 10/06/2017 Status: F Source: [facility] 5:19 AM [facility] REPOSITORY TYPE CODE TESTS RESULT OUT OF RANGE REFERENCE UNITS LAB WBC 3.6-10.4 K/mcL WBC Normal 5.5 LAB RBC 4.0-5.5 M/mcL RBC Normal 4.30 LAB HGB 12.9-16.9 g/dL Low Hemoglobin 12.7 LAB HCT 37.9-49.2 % Low Hematocrit 37.5 LAB MCV 82.8-99.3 FL MCV Normal 87.2 LAB MCH 27.7-34.6 pg MCH Normal 29.6 LAB MCHC 32.9-35.5 g/dL MCHC Normal 34.0 LAB RDW 10-14.3 % High RDW 15.0 LAB PLT 139-354 K/mcL Platelet Normal Count 196 LAB MPV 6.6-10.8 FL MPV Normal 8.7 LAB NEUT# 1.4-6.8 K/mcL Normal Neutrophil # 3.3 LAB LYMPH# 0.9-3.6 K/mcL Normal Lymphocyte # 1.0 LAB MONO# 0.2-0.6 K/mcL Monocyte Normal # 0.4 LAB EOS# 0-0.5 K/mcL High Eosinophil # 0.7 LAB BASO# 0-0.2 K/mcL Basophil Normal # 0.0 LAB SEGNEU% % Normal Segmented Neut % 59.8 Result Comment: Smear reviewed to verify automated differential> LAB LYMP% % Normal Lymphocyte% 18.6 LAB MO% % Normal Monocyte % 7.6 LAB EO% % Normal Eosinophil % 13.5 LAB BA% % Normal Basophil % 0.5 LAB MORPH Normal Normal RBC Morphology Normal Performed By: #### CHEM8, CBCDIF, BSREV #### Unless otherwise noted, all testing performed by [address] [place], [place] [address] CLIA: [id number] Web Content Writer: Robb Dominguez M.D. BASIC METABOLIC PANEL Collected: 10/06/2017 Status: F Source: [facility] 5:19 AM [facility] REPOSITORY TYPE CODE TESTS RESULT OUT OF REFERENCE UNITS RANGE LAB GLU 70-99 mg/dL High Glucose 110 Result Comment: This test result might be falsely depressed or falsely elevated on samples drawn from patients taking Sulfasalazine and Sulfapyridine. Venipuncture should occur prior to taking either of these drugs. LAB BUN 8-25 mg/dL BUN 14 LAB CREA 0.80-1.30 mg/dL Creatinine 1.21 LAB eGFR ml/min/1.73sq .m eGFR,NonAfrican-Am erican >=60 Result Comment: Non- GFR Calc eGFR is an estimated Glomerular Filtration Rate based on the value of the patient's serum creatinine. In outpatients, eGFR should be used as a helpful tool in screening for CKD. In inpatients or patients with acute renal failure, eGFR represents the GFR at the moment of the draw and should be used with caution. LAB eGFRB ml/min/1.73sq.m eGFR, -[place]ese >=60 Result Comment: GFR Calc LAB CALCM 8.4-10.2 mg/dL Calcium 9.2 LAB NA 135-145 mmol/L Sodium 140 LAB K 3.5-5.1 mmol/L Potassium 3.6 LAB CL 98-108 mmol/L Chloride 108 LAB CO2 21-32 mmol/L CO2 24 Performed By: #### CHEM8, CBCDIF, BSREV #### Unless otherwise noted, all testing performed by [place] [address] CLIA: [id number] Web Content Writer: Robb Dominguez M.D. BLOOD SMEAR REVIEW Collected: 10/06/2017 Status: F Source: [facility] 5:19 AM [facility] REPOSITORY TYPE CODE TESTS RESULT OUT OF RANGE REFERENCE UNITS LAB BSREV See Normal Blood Pathology Smear Review Report. Performed By: #### CHEM8, CBCDIF, BSREV #### Unless otherwise noted, all testing performed by [place] [address] CLIA: [id number] Web Content Writer: Robb Dominguez M.D. BLDPATH Observed: 10/06/2017 Status: F Source: [facility] 12:00 AM [facility] REPOSITORY Patient Name: DEEPA TONG Source Peripheral Blood Diagnosis Absolute eosinophilia. Possible causes include allergic or drug reaction, cutaneous disorders, collagen vascular disease, parasite infection, pulmonary diseases including sarcoidosis, or underlying neoplasm. Suggest clinical correlation. Electronically Signed By Hematology Department , Testing performed at [facility] (Case signed 10/06/2017) GLUCOSE, POC Collected: 10/05/2017 Status: F Source: [facility] 8:20 PM [facility] REPOSITORY TYPE CODE TESTS RESULT OUT OF RANGE REFERENCE UNITS LAB GLUX 80-115 mg/dL High Glucose, 207 POC Performed By: #### GLUX #### Unless otherwise noted, all testing performed by [place] [address] CLIA: [id number] Web Content Writer: Robb Dominguez M.D. GLUCOSE, POC Collected: 10/05/2017 Status: F Source: [facility] 4:52 PM [facility] REPOSITORY TYPE CODE TESTS RESULT OUT OF RANGE REFERENCE UNITS LAB GLUX 80-115 mg/dL High Glucose, 128 POC Performed By: #### GLUX #### Unless otherwise noted, all testing performed by [place] [id number] CLIA: [id number] Web Content Writer: Robb Dominguez M.D. GLUCOSE, POC Collected: 10/05/2017 Status: F Source: [facility] 2:48 PM [facility] TYPE CODE TESTS RESULT OUT OF RANGE REFERENCE UNITS LAB GLUX 80-115 mg/dL High Glucose, 126 POC Performed By: #### GLUX #### Unless otherwise noted, all testing performed by [place] [id number] CLIA: [id number] Web Content Writer: Robb Dominguez M.D. OPERATION-PROCEDURE Observed: 10/05/2017 Status: F Source: [facility] 2:[address] [address] NAME DEEPA TONG [employer] [id number] 1950 DATE OPERATIVE REPORT / PROCEDURE NOTE SURGEON PATY QUIÑONES MD PROCEDURES 1. Intravascular ultrasound guided catheter based intervention with drug- eluting stent placement to the distal right conduit via right transradial approach, residual stenosis 0% with ADY-3 flow. 2. Intravascular ultrasound imaging with [place] Eye catheter post procedure. CLINICAL INDICATION The patient is a 67-year-old gentleman who underwent 3 vessel bypass grafting by Dr. Parks in August of 2017. 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 He has noticed exercise intolerance with more vigorous type activity on a background of guideline-directed optimal medical therapy. He has been referred for catheter-based intervention targeting the right coronary artery to complete myocardial revascularization. TECHNIQUE The patient was prepped and draped in usual manner and premedicated with Versed and Nubain. After infiltration of 2% Xylocaine and using a micropuncture technique a Slender sheath was introduced in the right radial artery. Following sheath insertion the patient received intra-arterial verapamil, nitroglycerin, and unfractionated heparin. Next over a long J exchange wire a 6-[place] JR5 guiding catheter was positioned in the right coronary ostium and setup views were obtained in the RWANDAN cranial projection. The patient received 70U/kg of unfractionated heparin. Following pretreatment with intracoronary nitroglycerin the lesion was crossed in the distal conduit with a 300cm ATW marker wire. We pre-dilated with a 2.5 x 20mm compliant balloon to nominal pressures. We had good balloon expansion at nominal pressures. The balloon was then removed and repeat angiographic views were obtained following administration of IC nitroglycerin. We then proceeded with drug- eluting stent placement placing a 2.75 x 26mm Resolute [place] in the distal conduit and deployed at 16 atmospheres. The stent balloon was then removed and repeat angiographic views were obtained. I was concerned about proximal edge narrowing and elected to cover this with a 3.0 x 12mm Resolute [place] stent that was placed in the distal conduit with 2 to 3 mm of overlap. The stent balloon was deployed at 16 atmospheres. The balloon was advanced to the overlap segment and inflated to 17 atmospheres. The balloon was then removed and repeat angiographic views were obtained following administration of IC nitroglycerin. We then elected to proceed with intravascular ultrasound imaging using a [employer] B[place] Eye catheter. The catheter was placed beyond the stented segment in the distal right conduit and using manual pullback images were recorded for offline analysis. The proximal 3rd of the stent appeared to be under deployed and we elected to post dilate further with a 3.25 x 8mm noncompliant balloon in the proximal 3rd of the stented segment to 18 atmospheres. The balloon was then removed and repeat angiographic views were obtained in various RWANDAN and NIXON projections following administration of intracoronary nitroglycerin. The residual stenosis was 0% with ADY 3 flow. The guiding catheter and sheath were removed and a TR band was used for hemostasis. Patient tolerated procedure well and returned to his room in satisfactory condition. MD José Luis SUBRAMANIAN 10/05/2017 14:19 [id number] T 10/05/2017 14:58 GME/MODL cc: Mehrdad Cheek DO Electronically Signed By Paty Quiñones M.D. on 05 Oct 2017 20:11:11 GMT GLUCOSE, POC Collected: 10/05/2017 Status: F Source: [facility] 8:47 AM [facility] TYPE CODE TESTS RESULT OUT OF RANGE REFERENCE UNITS LAB GLUX 80-115 mg/dL High Glucose, 247 POC Performed By: #### GLUX #### Unless otherwise noted, all testing performed by [place] [address] CLIA: [id number] Web Content Writer: Robb Dominguez M.D. CHEST (ONE VIEW Observed: 09/27/2017 Status: F Source: [facility] ONLY) 9:18 PM [facility] REPOSITORY Final Report Accession No: [id number] Performed: Sep 27 2017 9:18PM Examination: CHEST (ONE VIEW ONLY) EXAMINATION: X-ray chest HISTORY: Midsternal chest pain. COMPARISON: 12/16/2017. TECHNIQUE: Single view FINDINGS: The cardiac silhouette is magnified by technique. The mediastinum does not appear widened. Sternal wires are present. Areas of atelectasis are noted bilaterally. There is no lung consolidation or large effusion. No pneumothorax is seen. There is a left shoulder prosthesis. IMPRESSION: No active lung disease. Interpreting Physician: DONTRELL MARIN M.D. Trans: n/a : cc: PARTIAL THROMBOPLASTIN Collected: 09/27/2017 Status: F Source: [facility] TIME 8:45 PM [facility] TYPE CODE TESTS RESULT OUT OF REFERENCE UNITS RANGE LAB PTT 23.0-34.0 Seconds Partial Normal Thromboplastin Time 31 Result Comment: Suggested therapeutic range for PTT is 68-104 sec. Performed By: #### PT, CHEM8, EDCTNI, PTT, NTPROBNP, CBCWOD #### Unless otherwise noted, all testing performed by [place] [address] CLIA: [id number] Web Content Writer: Robb Dominguez M.D. PROTIME Collected: 09/27/2017 Status: F Source: [facility] 8:45 PM [facility] REPOSITORY TYPE CODE TESTS RESULT OUT OF RANGE REFERENCE UNITS LAB PT. 11.8-14.3 Seconds Normal Protime 12.6 LAB INR Normal INR 0.97 Result Comment: The [place] [employer] recommended therapeutic range for Warfarin (Coumadin) therapy goals: PROPHYLAXIS/TREATMENT of: INR Venous Thrombosis, Pulmonary Embolism 2.0-3.0 Prevention of VTE (Orthopedic Surgery) 2.0-3.0 Atrial Fibrillation 2.0-3.0 Myocardial Infarction 2.0-3.0 Mechanical Prosthetic Heart Valves (Aortic position) 2.0-3.0 Mechanical Prosthetic Heart Valves (Mitral Position) 2.5-3.5 [place] [employer] evidence-based clinical practice guidelines. CHEST. 2012 (9th ed) Performed By: #### PT, CHEM8, EDCTNI, PTT, NTPROBNP, CBCWOD #### Unless otherwise noted, all testing performed by [address] [address] CLIA: [id number] Web Content Writer: Robb Dominguez M.D. CBC W/O DIFF Collected: 09/27/2017 Status: F Source: [facility] 8:45 PM [facility] REPOSITORY TYPE CODE TESTS RESULT OUT OF RANGE REFERENCE UNITS LAB WBC 3.6-10.4 K/mcL WBC Normal 6.2 LAB RBC 4.0-5.5 M/mcL RBC Normal 4.62 LAB HGB 12.9-16.9 g/dL Normal Hemoglobin 13.5 LAB HCT 37.9-49.2 % Normal Hematocrit 40.3 LAB MCV 82.8-99.3 FL MCV Normal 87.1 LAB MCH 27.7-34.6 pg MCH Normal 29.2 LAB MCHC 32.9-35.5 g/dL MCHC Normal 33.5 LAB RDW 10-14.3 % High RDW 15.1 LAB PLT 139-354 K/mcL Platelet Normal Count 227 LAB MPV 6.6-10.8 FL MPV Normal 8.4 Performed By: #### PT, CHEM8, EDCTNI, PTT, NTPROBNP, CBCWOD #### Unless otherwise noted, all testing performed by [place] [id number] CLIA: [id number] Web Content Writer: Robb Dominguez M.D. ED CARDIAC TROPONIN-I Collected: 09/27/2017 Status: F Source: [facility] 8:45 PM [facility] TYPE CODE TESTS RESULT OUT OF RANGE REFERENCE UNITS LAB EDCTNI < 45 ng/L Normal ED Cardiac < 15 Troponin-I Result Comment: Elevation of troponin indicates some degree of myocardial necrosis but unless there is a significant rise and/or fall (if elevated) identified, it unlikely that an acute event has taken place Samples from patients routinely receiving high dose biotin therapy (100-300 mg/day) may show falsely decreased results. Please correlate clinically. Performed By: #### PT, CHEM8, EDCTNI, PTT, NTPROBNP, CBCWOD #### Unless otherwise noted, all testing performed by [place] [address] CLIA: [id number] Web Content Writer: Robb Dominguez M.D. BASIC METABOLIC PANEL Collected: 09/27/2017 Status: F Source: [facility] 8:45 PM [facility] TYPE CODE TESTS RESULT OUT OF REFERENCE UNITS RANGE LAB GLU 70-99 mg/dL High Glucose 163 Result Comment: This test result might be falsely depressed or falsely elevated on samples drawn from patients taking Sulfasalazine and Sulfapyridine. Venipuncture should occur prior to taking either of these drugs. LAB BUN 8-25 mg/dL BUN 17 LAB CREA 0.80-1.30 mg/dL Creatinine High 1.51 LAB eGFR >60 ml/min/1.73s Low q.m eGFR,NonAfrican-Am erican 46 Result Comment: Non- GFR Calc eGFR is an estimated Glomerular Filtration Rate based on the value of the patient's serum creatinine. In outpatients, eGFR should be used as a helpful tool in screening for CKD. In inpatients or patients with acute renal failure, eGFR represents the GFR at the moment of the draw and should be used with caution. LAB eGFRB >60 ml/min/1.73sq.m eGFR, -[place]ese Low 56 Result Comment: GFR Calc LAB CALCM 8.4-10.2 mg/dL Calcium 9.2 LAB NA 135-145 mmol/L Sodium 139 LAB K 3.5-5.1 mmol/L Potassium 4.1 LAB CL 98-108 mmol/L Chloride 105 LAB CO2 21-32 mmol/L CO2 26 Performed By: #### PT, CHEM8, EDCTNI, PTT, NTPROBNP, CBCWOD #### Unless otherwise noted, all testing performed by [address] [address] CLIA: [id number] Web Content Writer: Robb Dominguez M.D. NT-PRO BNP, SERUM Collected: 09/27/2017 Status: F Source: [facility] 8:45 PM [facility] REPOSITORY TYPE CODE TESTS RESULT OUT OF REFERENCE UNITS RANGE LAB NTPROBNP 0-125 pg/mL High 584 NT-Pro BNP, Serum Performed By: #### PT, CHEM8, EDCTNI, PTT, NTPROBNP, CBCWOD #### Unless otherwise noted, all testing performed by [address] [address] CLIA: [id number] Web Content Writer: Robb Dominguez M.D. PROTIME Collected: 09/19/2017 Status: F Source: [facility] 8:20 AM [facility] REPOSITORY TYPE CODE TESTS RESULT OUT OF REFERENCE UNITS RANGE LAB PT. 11.8-14.3 Seconds High Protime 25.2 LAB INR INR 2.32 Result Comment: The [place] [employer] recommended therapeutic range for Warfarin (Coumadin) therapy goals: PROPHYLAXIS/TREATMENT of: INR Venous Thrombosis, Pulmonary Embolism 2.0-3.0 Prevention of VTE (Orthopedic Surgery) 2.0-3.0 Atrial Fibrillation 2.0-3.0 Myocardial Infarction 2.0-3.0 Mechanical Prosthetic Heart Valves (Aortic position) 2.0-3.0 Mechanical Prosthetic Heart Valves (Mitral Position) 2.5-3.5 [place] [employer] evidence-based clinical practice guidelines. CHEST. 2012 (9th ed) Performed By: #### PT #### Unless otherwise noted, all testing performed by [facility] [address] [place], [place] [address] CLIA: [id number] Web Content Writer: Robb Dominguez M.D. CHEST PA AND LATERAL Observed: 09/15/2017 Status: F Source: [facility] 9:50 AM [facility] REPOSITORY Final Report Accession No: [id number] Performed: Sep 15 2017 9:50AM Examination: CHEST PA AND LATERAL CHEST, 2 VIEWS DATE: 09/15/2017 INDICATION: Dyspnea. Status post coronary artery bypass grafting 2 weeks ago. FINDINGS: PA and lateral views are performed demonstrating cardiac silhouette to the mildly enlarged, stable. Sternal wires are grossly intact. Trace bilateral pleural effusions are noted. There is mild linear subsegmental bibasilar atelectasis. Pulmonary vascularity is within normal limits. There is no pneumothorax. Incompletely evaluated left shoulder arthroplasty changes are noted. IMPRESSION: Trace bilateral pleural effusions with mild linear foci of bibasilar subsegmental atelectasis. No pneumothorax. Interpreting Physician: TOSIN SAVAGE M.D. Trans: [email or web address] : cc: BASIC METABOLIC PANEL Collected: 09/15/2017 Status: F Source: [facility] 9:38 AM [facility] REPOSITORY TYPE CODE TESTS RESULT OUT OF REFERENCE UNITS RANGE LAB GLU 70-99 mg/dL High Glucose 309 Result Comment: This test result might be falsely depressed or falsely elevated on samples drawn from patients taking Sulfasalazine and Sulfapyridine. Venipuncture should occur prior to taking either of these drugs. LAB BUN 8-25 mg/dL BUN 20 LAB CREA 0.80-1.30 mg/dL Creatinine High 1.43 LAB eGFR >60 ml/min/1.73s Low q.m eGFR,NonAfrican-Am erican 49 Result Comment: Non- GFR Calc eGFR is an estimated Glomerular Filtration Rate based on the value of the patient's serum creatinine. In outpatients, eGFR should be used as a helpful tool in screening for CKD. In inpatients or patients with acute renal failure, eGFR represents the GFR at the moment of the draw and should be used with caution. LAB eGFRB ml/min/1.73sq.m eGFR, -[place]ese >=60 Result Comment: GFR Calc LAB CALCM 8.4-10.2 mg/dL Calcium 8.9 LAB NA 135-145 mmol/L Sodium 135 LAB K 3.5-5.1 mmol/L Potassium 4.3 LAB CL 98-108 mmol/L Chloride 102 LAB CO2 21-32 mmol/L CO2 24 Performed By: #### PT, CHEM8 #### Unless otherwise noted, all testing performed by [address] [address] CLIA: [id number] Web Content Writer: Robb Dominguez M.D. PROTIME Collected: 09/15/2017 Status: F Source: [facility] 9:38 AM [facility] REPOSITORY TYPE CODE TESTS RESULT OUT OF REFERENCE UNITS RANGE LAB PT. 11.8-14.3 Seconds High Protime 24.4 LAB INR INR 2.23 Result Comment: The [place] [employer] recommended therapeutic range for Warfarin (Coumadin) therapy goals: PROPHYLAXIS/TREATMENT of: INR Venous Thrombosis, Pulmonary Embolism 2.0-3.0 Prevention of VTE (Orthopedic Surgery) 2.0-3.0 Atrial Fibrillation 2.0-3.0 Myocardial Infarction 2.0-3.0 Mechanical Prosthetic Heart Valves (Aortic position) 2.0-3.0 Mechanical Prosthetic Heart Valves (Mitral Position) 2.5-3.5 [place] [employer] evidence-based clinical practice guidelines. CHEST. 2012 (9th ed) Performed By: #### PT, CHEM8 #### Unless otherwise noted, all testing performed by [address] [place], [place] [address] CLIA: [id number] Web Content Writer: Robb Dominguez M.D. CHEST PA AND LATERAL Observed: 09/11/2017 Status: F Source: [facility] 10:05 AM [facility] REPOSITORY Final Report Accession No: [id number] Performed: Sep 11 2017 10:05AM Examination: CHEST PA AND LATERAL EXAM: CHEST PA AND LATERAL. REASON FOR EXAM: 10 days post CABG. 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 TECHNIQUE: Frontal and lateral views of the chest. COMPARISON: 09/08/2017 chest. FINDINGS: Previous sternotomy with satisfactory heart size noted. Anterior skin dillon are still present in the midline. Lung muir reveal residual left posterior volume loss and atelectasis with probable small bilateral effusions. Lung muir otherwise remain expanded and clear. Previous left shoulder replacement is again noted. IMPRESSION: Stable appearance with residual left base atelectatic and small bilateral lung base effusion densities. Sternotomy changes with borderline satisfactory heart size is noted. Interpreting Physician: GABBIE MARTIN M.D. Trans: [email or web address] : cc: BASIC METABOLIC PANEL Collected: 09/11/2017 Status: F Source: [facility] 9:26 AM [facility] REPOSITORY TYPE CODE TESTS RESULT OUT OF REFERENCE UNITS RANGE LAB GLU 70-99 mg/dL High Glucose 295 Result Comment: This test result might be falsely depressed or falsely elevated on samples drawn from patients taking Sulfasalazine and Sulfapyridine. Venipuncture should occur prior to taking either of these drugs. LAB BUN 8-25 mg/dL BUN 18 LAB CREA 0.80-1.30 mg/dL Creatinine High 1.59 LAB eGFR >60 ml/min/1.73s Low q.m eGFR,NonAfrican-Am erican 44 Result Comment: Non- GFR Calc eGFR is an estimated Glomerular Filtration Rate based on the value of the patient's serum creatinine. In outpatients, eGFR should be used as a helpful tool in screening for CKD. In inpatients or patients with acute renal failure, eGFR represents the GFR at the moment of the draw and should be used with caution. LAB eGFRB >60 ml/min/1.73sq.m eGFR, -[place] Low 53 Result Comment: GFR Calc LAB CALCM 8.4-10.2 mg/dL Calcium 9.0 LAB NA 135-145 mmol/L Sodium 135 LAB K 3.5-5.1 mmol/L Potassium 4.1 LAB CL 98-108 mmol/L Chloride 102 LAB CO2 21-32 mmol/L CO2 24 Performed By: #### PT, CHEM8 #### Unless otherwise noted, all testing performed by [facility] [address] [place], [place] [address] CLIA: [id number] Web Content Writer: Robb Dominguez M.D. PROTIME Collected: 09/11/2017 Status: F Source: [facility] 9:26 AM [facility] REPOSITORY TYPE CODE TESTS RESULT OUT OF REFERENCE UNITS RANGE LAB PT. 11.8-14.3 Seconds High Protime 23.7 LAB INR INR 2.15 Result Comment: The [place] [employer] recommended therapeutic range for Warfarin (Coumadin) therapy goals: PROPHYLAXIS/TREATMENT of: INR Venous Thrombosis, Pulmonary Embolism 2.0-3.0 Prevention of VTE (Orthopedic Surgery) 2.0-3.0 Atrial Fibrillation 2.0-3.0 Myocardial Infarction 2.0-3.0 Mechanical Prosthetic Heart Valves (Aortic position) 2.0-3.0 Mechanical Prosthetic Heart Valves (Mitral Position) 2.5-3.5 [place] [employer] evidence-based clinical practice guidelines. CHEST. 2011 (9th ed) Performed By: #### PT, CHEM8 #### Unless otherwise noted, all testing performed by [place] [address] CLIA: [id number] Web Content Writer: Robb Dominguez M.D. PROTIME Collected: 09/09/2017 Status: F Source: [facility] 11:57 AM [facility] REPOSITORY TYPE CODE TESTS RESULT OUT OF REFERENCE UNITS RANGE LAB PT. 11.8-14.3 Seconds High Protime 21.6 LAB INR INR 1.92 Result Comment: The [place] [employer] recommended therapeutic range for Warfarin (Coumadin) therapy goals: PROPHYLAXIS/TREATMENT of: INR Venous Thrombosis, Pulmonary Embolism 2.0-3.0 Prevention of VTE (Orthopedic Surgery) 2.0-3.0 Atrial Fibrillation 2.0-3.0 Myocardial Infarction 2.0-3.0 Mechanical Prosthetic Heart Valves (Aortic position) 2.0-3.0 Mechanical Prosthetic Heart Valves (Mitral Position) 2.5-3.5 [place] [employer] evidence-based clinical practice guidelines. CHEST. 2011 (9th ed) Performed By: #### PT #### Unless otherwise noted, all testing performed by [place] [address] CLIA: [id number] Web Content Writer: Robb Dominguez M.D. CHEST PA AND LATERAL Observed: 09/08/2017 Status: F Source: [facility] 10:15 AM [facility] REPOSITORY Final Report Accession No: [id number] Performed: Sep 08 2017 10:15AM Examination: CHEST PA AND LATERAL EXAM: CHEST PA AND LATERAL CLINICAL HISTORY: 67-year-old male presenting with CABG. TECHNIQUE: 2 view chest x-ray. COMPARISON: 09/05/2017. FINDINGS: No pneumothorax. Small bilateral pleural effusions with bibasilar subsegmental atelectasis. Stable cardiomegaly. Postoperative changes of median sternotomy and CABG. Partial visualization of left shoulder arthroplasty. IMPRESSION: 1. No significant interval change compared to 09/05/2017. 2. Bibasilar atelectasis with small effusions. 3. Recent CABG with stable mediastinal contours. Interpreting Physician: DMITRY PATE D.O. Trans: apope : cc: BASIC METABOLIC PANEL Collected: 09/08/2017 Status: F Source: [facility] 9:26 AM [facility] REPOSITORY TYPE CODE TESTS RESULT OUT OF REFERENCE UNITS RANGE LAB GLU 70-99 mg/dL High Glucose 321 Result Comment: This test result might be falsely depressed or falsely elevated on samples drawn from patients taking Sulfasalazine and Sulfapyridine. Venipuncture should occur prior to taking either of these drugs. LAB BUN 8-25 mg/dL BUN 20 LAB CREA 0.80-1.30 mg/dL Creatinine High 1.56 LAB eGFR >60 ml/min/1.73s Low q.m eGFR,NonAfrican-Am erican 45 Result Comment: Non- GFR Calc eGFR is an estimated Glomerular Filtration Rate based on the value of the patient's serum creatinine. In outpatients, eGFR should be used as a helpful tool in screening for CKD. In inpatients or patients with acute renal failure, eGFR represents the GFR at the moment of the draw and should be used with caution. LAB eGFRB >60 ml/min/1.73sq.m eGFR, -[place] Low 54 Result Comment: GFR Calc LAB CALCM 8.4-10.2 mg/dL Calcium 8.6 LAB NA 135-145 mmol/L Sodium 135 LAB K 3.5-5.1 mmol/L Potassium 4.4 LAB CL 98-108 mmol/L Chloride 102 LAB CO2 21-32 mmol/L CO2 24 Performed By: #### CHEM8, PT #### Unless otherwise noted, all testing performed by [place] [address] CLIA: [id number] Web Content Writer: Robb Dominguez M.D. PROTIME Collected: 09/08/2017 Status: F Source: [facility] 9:26 AM [facility] REPOSITORY TYPE CODE TESTS RESULT OUT OF REFERENCE UNITS RANGE LAB PT. 11.8-14.3 Seconds High Protime 22.4 LAB INR INR 2.00 Result Comment: The [employer] [place] [employer] recommended therapeutic range for Warfarin (Coumadin) therapy goals: PROPHYLAXIS/TREATMENT of: INR Venous Thrombosis, Pulmonary Embolism 2.0-3.0 Prevention of VTE (Orthopedic Surgery) 2.0-3.0 Atrial Fibrillation 2.0-3.0 Myocardial Infarction 2.0-3.0 Mechanical Prosthetic Heart Valves (Aortic position) 2.0-3.0 Mechanical Prosthetic Heart Valves (Mitral Position) 2.5-3.5 [employer] [place] [employer] evidence-based clinical practice guidelines. CHEST. 2012 (9th ed) Performed By: #### CHEM8, PT #### Unless otherwise noted, all testing performed by [place] [id number] CLIA: [id number] Web Content Writer: Robb Dominguez M.D. PROTIME Collected: 09/07/2017 Status: F Source: [facility] 10:05 AM [facility] REPOSITORY TYPE CODE TESTS RESULT OUT OF REFERENCE UNITS RANGE LAB PT. 11.8-14.3 Seconds High Protime 19.9 LAB INR INR 1.73 Result Comment: The [place] [employer] recommended therapeutic range for Warfarin (Coumadin) therapy goals: PROPHYLAXIS/TREATMENT of: INR Venous Thrombosis, Pulmonary Embolism 2.0-3.0 Prevention of VTE (Orthopedic Surgery) 2.0-3.0 Atrial Fibrillation 2.0-3.0 Myocardial Infarction 2.0-3.0 Mechanical Prosthetic Heart Valves (Aortic position) 2.0-3.0 Mechanical Prosthetic Heart Valves (Mitral Position) 2.5-3.5 [employer] [place] evidence-based clinical practice guidelines. CHEST. 2012 (9th ed) Performed By: #### PT #### Unless otherwise noted, all testing performed by [place] [address] CLIA: [id number] Web Content Writer: Robb Dominguez M.D. PROTIME Collected: 09/06/2017 Status: F Source: [facility] 11:15 AM [facility] REPOSITORY TYPE CODE TESTS RESULT OUT OF REFERENCE UNITS RANGE LAB PT. 11.8-14.3 Seconds High Protime 15.7 LAB INR INR 1.29 Result Comment: The [place] [employer] recommended therapeutic range for Warfarin (Coumadin) therapy goals: PROPHYLAXIS/TREATMENT of: INR Venous Thrombosis, Pulmonary Embolism 2.0-3.0 Prevention of VTE (Orthopedic Surgery) 2.0-3.0 Atrial Fibrillation 2.0-3.0 Myocardial Infarction 2.0-3.0 Mechanical Prosthetic Heart Valves (Aortic position) 2.0-3.0 Mechanical Prosthetic Heart Valves (Mitral Position) 2.5-3.5 [employer] [place] evidence-based clinical practice guidelines. CHEST. 2011 (9th ed) Performed By: #### PT #### Unless otherwise noted, all testing performed by [place] [address] CLIA: [id number] Web Content Writer: Robb Dominguez M.D. GLUCOSE, POC Collected: 09/05/2017 Status: F Source: [facility] 12:00 PM [facility] REPOSITORY TYPE CODE TESTS RESULT OUT OF RANGE REFERENCE UNITS LAB GLUX 80-115 mg/dL High Glucose, 209 POC Performed By: #### GLUX #### Unless otherwise noted, all testing performed by [place] [address] CLIA: [id number] Web Content Writer: Robb Dominguez M.D. CHEST (ONE VIEW Observed: 09/05/2017 Status: F Source: [facility] ONLY) 5:37 AM [facility] REPOSITORY Final Report Accession No: [id number] Performed: Sep 05 2017 5:37AM Examination: CHEST (ONE VIEW ONLY) EXAMINATION: Chest radiograph. CLINICAL INFORMATION: Post CABG. COMPARISON: 09/04/2017. FINDINGS: The heart is enlarged. Sternotomy wires and mediastinal clips are in place. There is mild bibasilar atelectasis. No pleural effusion or pneumothorax is present. There is no acute bony abnormality. A left shoulder hemiarthroplasty is in place. Severe degenerative changes are present at the right shoulder. IMPRESSION: Cardiomegaly and mild bibasilar atelectasis. No additional acute process. Interpreting Physician: JOAQUIN MITCHELL M.D. Trans: sskees : cc: CBC W/O DIFF Collected: 09/05/2017 Status: F Source: [facility] 4:54 AM [facility] REPOSITORY TYPE CODE TESTS RESULT OUT OF RANGE REFERENCE UNITS LAB WBC 3.6-10.4 K/mcL WBC Normal 6.2 LAB RBC 4.0-5.5 M/mcL RBC Normal 4.20 LAB HGB 12.9-16.9 g/dL Low Hemoglobin 12.0 LAB HCT 37.9-49.2 % Low Hematocrit 37.3 LAB MCV 82.8-99.3 FL MCV Normal 88.9 LAB MCH 27.7-34.6 pg MCH Normal 28.6 LAB MCHC 32.9-35.5 g/dL Low MCHC 32.2 LAB RDW 10-14.3 % High RDW 14.6 LAB PLT 139-354 K/mcL Platelet Normal Count 204 LAB MPV 6.6-10.8 FL MPV Normal 9.1 Performed By: #### CHEM8, CBCWOD #### Unless otherwise noted, all testing performed by [facility] [address] [address] CLIA: [id number] Web Content Writer: Robb Dominguez M.D. BASIC METABOLIC PANEL Collected: 09/05/2017 Status: F Source: [facility] 4:54 AM [facility] REPOSITORY TYPE CODE TESTS RESULT OUT OF REFERENCE UNITS RANGE LAB GLU 70-99 mg/dL High Glucose 172 Result Comment: This test result might be falsely depressed or falsely elevated on samples drawn from patients taking Sulfasalazine and Sulfapyridine. Venipuncture should occur prior to taking either of these drugs. LAB BUN 8-25 mg/dL BUN High 29 LAB CREA 0.80-1.30 mg/dL Creatinine High 1.56 LAB eGFR >60 ml/min/1.73s Low q.m eGFR,NonAfrican-Am erican 45 Result Comment: Non- GFR Calc eGFR is an estimated Glomerular Filtration Rate based on the value of the patient's serum creatinine. In outpatients, eGFR should be used as a helpful tool in screening for CKD. In inpatients or patients with acute renal failure, eGFR represents the GFR at the moment of the draw and should be used with caution. LAB eGFRB >60 ml/min/1.73sq.m eGFR, -[place] Low 54 Result Comment: GFR Calc LAB CALCM 8.4-10.2 mg/dL Calcium 9.1 LAB NA 135-145 mmol/L Sodium 135 LAB K 3.5-5.1 mmol/L Potassium 4.1 Result Comment: moderate hemolysis, result may be falsely increased. LAB CL 98-108 mmol/L Chloride 102 LAB CO2 21-32 mmol/L CO2 24 Performed By: #### CHEM8, CBCWOD #### Unless otherwise noted, all testing performed by [place] [address] [address] [place], [place] [address] CLIA: [id number] Web Content Writer: Robb Dominguez M.D. PROTIME Collected: 09/05/2017 Status: F Source: [facility] 4:53 AM [facility] TYPE CODE TESTS RESULT OUT OF RANGE REFERENCE UNITS LAB PT. 11.8-14.3 Seconds Normal Protime 12.6 LAB INR Normal INR 0.97 Result Comment: The [employer] [place] [employer] recommended therapeutic range for Warfarin (Coumadin) therapy goals: PROPHYLAXIS/TREATMENT of: INR Venous Thrombosis, Pulmonary Embolism 2.0-3.0 Prevention of VTE (Orthopedic Surgery) 2.0-3.0 Atrial Fibrillation 2.0-3.0 Myocardial Infarction 2.0-3.0 Mechanical Prosthetic Heart Valves (Aortic position) 2.0-3.0 Mechanical Prosthetic Heart Valves (Mitral Position) 2.5-3.5 [place] [employer] evidence-based clinical practice guidelines. CHEST. 2012 (9th ed) Performed By: #### PT #### Unless otherwise noted, all testing performed by [place] [address] CLIA: [id number] Web Content Writer: Robb Dominguez M.D. GLUCOSE, POC Collected: 09/05/2017 Status: F Source: [facility] 2:09 AM [facility] REPOSITORY TYPE CODE TESTS RESULT OUT OF RANGE REFERENCE UNITS LAB GLUX 80-115 mg/dL High Glucose, 165 POC Performed By: #### GLUX #### Unless otherwise noted, all testing performed by [place] [address] CLIA: [id number] Web Content Writer: Robb Dominguez M.D. GLUCOSE, POC Collected: 09/04/2017 Status: F Source: [facility] 9:29 PM [facility] REPOSITORY TYPE CODE TESTS RESULT OUT OF RANGE REFERENCE UNITS LAB GLUX 80-115 mg/dL High Glucose, 221 POC Performed By: #### GLUX #### Unless otherwise noted, all testing performed by [address] [address] CLIA: [id number] Web Content Writer: Robb Dominguez M.D. GLUCOSE, POC Collected: 09/04/2017 Status: F Source: [facility] 4:10 PM [facility] REPOSITORY TYPE CODE TESTS RESULT OUT OF RANGE REFERENCE UNITS LAB GLUX 80-115 mg/dL High Glucose, 159 POC Performed By: #### GLUX #### Unless otherwise noted, all testing performed by [place] [address] CLIA: [id number] Web Content Writer: Robb Dominguez M.D. GLUCOSE, POC Collected: 09/04/2017 Status: F Source: [facility] 11:56 AM [facility] REPOSITORY TYPE CODE TESTS RESULT OUT OF RANGE REFERENCE UNITS LAB GLUX 80-115 mg/dL High Glucose, 185 POC Performed By: #### GLUX #### Unless otherwise noted, all testing performed by [place] [id number] CLIA: [id number] Web Content Writer: Robb Dominguez M.D. POTASSIUM Collected: 09/04/2017 Status: F Source: [facility] 10:42 AM [facility] REPOSITORY TYPE CODE TESTS RESULT OUT OF RANGE REFERENCE UNITS LAB K 3.5-4.9 mmol/L Normal Potassium 4.1 Performed By: #### K #### Unless otherwise noted, all testing performed by [address] [address] CLIA: [id number] Web Content Writer: Robb Dominguez M.D. PROTIME Collected: 09/04/2017 Status: F Source: [facility] 10:30 AM [facility] REPOSITORY TYPE CODE TESTS RESULT OUT OF RANGE REFERENCE UNITS LAB PT. 11.8-14.3 Seconds Normal Protime 13.6 LAB INR Normal INR 1.07 Result Comment: The [employer] [place] [employer] recommended therapeutic range for Warfarin (Coumadin) therapy goals: PROPHYLAXIS/TREATMENT of: INR Venous Thrombosis, Pulmonary Embolism 2.0-3.0 Prevention of VTE (Orthopedic Surgery) 2.0-3.0 Atrial Fibrillation 2.0-3.0 Myocardial Infarction 2.0-3.0 Mechanical Prosthetic Heart Valves (Aortic position) 2.0-3.0 Mechanical Prosthetic Heart Valves (Mitral Position) 2.5-3.5 [employer] [place] [employer] evidence-based clinical practice guidelines. CHEST. 2012 (9th ed) Performed By: #### PT #### Unless otherwise noted, all testing performed by [address] [address] CLIA: [id number] Web Content Writer: Robb Dominguez M.D. EXCEPTION NOTICE Collected: 09/04/2017 Status: F Source: [facility] 9:15 AM [facility] REPOSITORY TYPE CODE TESTS RESULT OUT OF RANGE REFERENCE UNITS LAB EXCEP Normal Exception Notice Result Comment: SPECIMEN VOLUME FOR PT INSUFFICIENT TO PERFORM TEST POTASSIUM Collected: 09/04/2017 Status: F Source: [facility] 7:53 AM [facility] REPOSITORY TYPE CODE TESTS RESULT OUT OF RANGE REFERENCE UNITS LAB K 3.5-4.9 mmol/L Normal Potassium 3.7 Performed By: #### K #### Unless otherwise noted, all testing performed by [place] [address] CLIA: [id number] Web Content Writer: Robb Dominguez M.D. GLUCOSE, POC Collected: 09/04/2017 Status: F Source: [facility] 7:36 AM [facility] REPOSITORY TYPE CODE TESTS RESULT OUT OF RANGE REFERENCE UNITS LAB GLUX 80-115 mg/dL High Glucose, 131 POC Performed By: #### GLUX #### Unless otherwise noted, all testing performed by [place] [address] CLIA: [id number] Web Content Writer: Robb Dominguez M.D. CHEST (ONE VIEW Observed: 09/04/2017 Status: F Source: [facility]) 5:24 AM [facility] REPOSITORY Final Report Accession No: [id number] Performed: Sep 04 2017 5:24AM Examination: CHEST (ONE VIEW ONLY) IMAGES REVIEWED: CHEST (ONE VIEW ONLY) COMPARISON: Chest radiograph dated 09/03/2017. CLINICAL INDICATION: On ventilator. FINDINGS: There are postsurgical changes of the chest with median sternotomy wires in place. Multiple midline surgical skin dillon are noted. The cardiac silhouette is stable in size. There are mild left basilar opacities. There are possible small bilateral pleural effusions. There is no significant pneumothorax. No acute osseous abnormality is seen. Partially imaged is a left shoulder arthroplasty. IMPRESSION: Stable enlarged cardiac silhouette with possible small bilateral pleural effusions and likely left basilar atelectasis. Interpreting Physician: DEE ENNIS M.D. Trans: sskees : cc: CBC W/O DIFF Collected: 09/04/2017 Status: F Source: [facility] 4:45 AM [facility] REPOSITORY TYPE CODE TESTS RESULT OUT OF RANGE REFERENCE UNITS LAB WBC 3.6-10.4 K/mcL WBC Normal 7.3 LAB RBC 4.0-5.5 M/mcL Low RBC 3.93 LAB HGB 12.9-16.9 g/dL Low Hemoglobin 11.4 LAB HCT 37.9-49.2 % Low Hematocrit 34.6 LAB MCV 82.8-99.3 FL MCV Normal 88.0 LAB MCH 27.7-34.6 pg MCH Normal 28.9 LAB MCHC 32.9-35.5 g/dL MCHC Normal 32.9 LAB RDW 10-14.3 % High RDW 14.6 LAB PLT 139-354 K/mcL Platelet Normal Count 166 LAB MPV 6.6-10.8 FL MPV Normal 8.9 Performed By: #### CHEM8, CBCWOD #### Unless otherwise noted, all testing performed by [facility] [address] [place], [place] [address] CLIA: [id number] Web Content Writer: Robb Dominguez M.D. BASIC METABOLIC PANEL Collected: 09/04/2017 Status: F Source: [facility] 4:45 [facility] REPOSITORY TYPE CODE TESTS RESULT OUT OF REFERENCE UNITS RANGE LAB GLU 70-99 mg/dL High Glucose 165 Result Comment: This test result might be falsely depressed or falsely elevated on samples drawn from patients taking Sulfasalazine and Sulfapyridine. Venipuncture should occur prior to taking either of these drugs. LAB BUN 8-25 mg/dL BUN High 27 LAB CREA 0.80-1.30 mg/dL Creatinine High 1.71 LAB eGFR >60 ml/min/1.73s Low q.m eGFR,NonAfrican-Am erican 40 Result Comment: Non- GFR Calc eGFR is an estimated Glomerular Filtration Rate based on the value of the patient's serum creatinine. In outpatients, eGFR should be used as a helpful tool in screening for CKD. In inpatients or patients with acute renal failure, eGFR represents the GFR at the moment of the draw and should be used with caution. LAB eGFRB >60 ml/min/1.73sq.m eGFR, -[place] Low 49 Result Comment: GFR Calc LAB CALCM 8.4-10.2 mg/dL Calcium 8.6 LAB NA 135-145 mmol/L Sodium 137 LAB K 3.5-5.1 mmol/L Potassium 3.8 LAB CL 98-108 mmol/L Chloride 104 LAB CO2 21-32 mmol/L CO2 24 Performed By: #### CHEM8, CBCWOD #### Unless otherwise noted, all testing performed by [place] [address] CLIA: [id number] Web Content Writer: Robb Dominguez M.D. GLUCOSE, POC Collected: 09/04/2017 Status: F Source: [facility] 2:28 AM [facility] REPOSITORY TYPE CODE TESTS RESULT OUT OF RANGE REFERENCE UNITS LAB GLUX 80-115 mg/dL High Glucose, 163 POC Performed By: #### GLUX #### Unless otherwise noted, all testing performed by [place] [address] CLIA: [id number] Web Content Writer: Robb Dominguez M.D. BLOOD GAS, ARTERIAL Collected: 09/03/2017 Status: F Source: [facility] 11:50 PM [facility] REPOSITORY TYPE CODE TESTS RESULT OUT OF RANGE REFERENCE UNITS LAB ipH 7.350-7.450 High pH 7.468 Result Comment: Value above reference range LAB iPCO2 35-45 mm Hg PCO2 35.7 LAB iPO2 75-85 mm Hg Low Alert PO2 50.8 Result Comment: Value below reference range LAB iHCO3 22-26 mmol/L HCO3 25.9 LAB Isaias -2-2 mmol/L Base Excess High 2.3 LAB O2HB 92-99 % Low O2 Hemoglobin 85.6 Result Comment: Value below reference range LAB AAGRAD mm Hg [id number] 126.8 LAB AARATIO % Aa Ratio 28.6 LAB O2CT mmol/L O2CT 6.4 LAB [id number] 92-99 % Hemoglobin O2 Sat. Low 87.9 Result Comment: Value below reference range LAB COHB % Carboxyhemoglobin 1.7 Result Comment: [place] Non-Smoker <1.5% of total Hgb Smoker 1.5 - 5.0 % of total Hgb Heavy Smoker 5.0 - 9.0 % of total Hgb LAB METHB < 2.0 % Methemoglobin 0.9 LAB HHB 0.0-5.0 % DeOxyhemoglobin High (HHB) 11.8 LAB pHt 7.350-7. 450 pH (temp conv.) High 7.468 LAB pCO2t 35.0-45. mm Hg 0 pCO2 (temp conv.) 35.7 LAB pO2t 75-85 mm Hg pO2 (temp conv.) Low Alert 50.8 LAB DRAWNBY Drawn By (Bld Gas) kefe LAB SITEABG Site (Bld Gas) ALEXA LAB THB 13.5-17. g/dL 5 Hemoglobin (Bld Gas) Low 12.0 LAB HCTABG 41-53 % Hematocrit (Bld Gas) Low 36.6 LAB [id number] O2 Device Nasal CPAP LAB SPONTRAT Spontaneous Rate 20 LAB FIO2 21-100 % FIO2 32.0 LAB BIPAPSET BIPAP/CPAP Set CPAP auto set [id number], observed 8cmh20 LAB LPM Liters per minute 3 LAB TEMPABG 36.0-38. Celsius 0 Temperature (Bld Gas) 37.0 LAB ALLENS Allens Test N/A LAB BGINST Blood Gas Instrument ;ED Performed By: #### ABG #### Unless otherwise noted, all testing performed by [address] [address] CLIA: [id number] Web Content Writer: Robb Dominguez M.D. GLUCOSE, POC Collected: 09/03/2017 Status: F Source: [facility] 8:34 PM [facility] REPOSITORY TYPE CODE TESTS RESULT OUT OF RANGE REFERENCE UNITS LAB GLUX 80-115 mg/dL High Glucose, 210 POC Performed By: #### GLUX #### Unless otherwise noted, all testing performed by [address], [place] [address] CLIA: [id number] Web Content Writer: Robb Dominguez M.D. POTASSIUM Collected: 09/03/2017 Status: F Source: [facility] 7:58 PM [facility] REPOSITORY TYPE CODE TESTS RESULT OUT OF RANGE REFERENCE UNITS LAB K 3.5-4.9 mmol/L Normal Potassium 4.0 Performed By: #### K #### Unless otherwise noted, all testing performed by [place] [address] CLIA: [id number] Web Content Writer: Robb Dominguez M.D. GLUCOSE, POC Collected: 09/03/2017 Status: F Source: [facility] 4:05 PM [facility] REPOSITORY TYPE CODE TESTS RESULT OUT OF RANGE REFERENCE UNITS LAB GLUX 80-115 mg/dL High Glucose, 176 POC Performed By: #### GLUX #### Unless otherwise noted, all testing performed by [place] [address] CLIA: [id number] Web Content Writer: Robb Dominguez M.D. POTASSIUM Collected: 09/03/2017 Status: F Source: [facility] 12:30 PM [facility] REPOSITORY TYPE CODE TESTS RESULT OUT OF RANGE REFERENCE UNITS LAB K 3.5-4.9 mmol/L Normal Potassium 4.3 Performed By: #### K #### Unless otherwise noted, all testing performed by [place] [address] CLIA: [id number] Web Content Writer: Robb Dominguez M.D. GLUCOSE, POC Collected: 09/03/2017 Status: F Source: [facility] 12:03 PM [facility] REPOSITORY TYPE CODE TESTS RESULT OUT OF RANGE REFERENCE UNITS LAB GLUX 80-115 mg/dL High Glucose, 206 POC Performed By: #### GLUX #### Unless otherwise noted, all testing performed by [address], [place] [address] CLIA: [id number] Web Content Writer: Robb Dominguez M.D. CHEST (ONE VIEW Observed: 09/03/2017 Status: F Source: [facility]) 8:05 AM [facility] REPOSITORY Final Report Accession No: [id number] Performed: Sep 03 2017 8:05AM Examination: CHEST (ONE VIEW ONLY) CHEST ONE VIEW ADDITIONAL CLINICAL INFORMATION: Status post chest tube removal. COMPARISON: 09/03/2017. FINDINGS: There is mild cardiac enlargement. There has been prior CABG. Pulmonary vascularity is within normal limits. Lung volumes are diminished. Bibasilar atelectasis is present. Advanced degenerative changes present involving the right glenohumeral joint. Left shoulder arthroplasty is present. IMPRESSION: 1. Diminished lung volumes. Bibasilar atelectasis. 2. Cardiomegaly. Status post CABG. Interpreting Physician: PRISCILLA LIMON M.D. Trans: mad : cc: CHEST (ONE VIEW Observed: 09/03/2017 Status: F Source: [facility]) 6:21 AM [facility] REPOSITORY Final Report Accession No: [id number] Performed: Sep 03 2017 6:21AM Examination: CHEST (ONE VIEW ONLY) CHEST RADIOGRAPH CLINICAL HISTORY: Respiratory failure. COMPARISON: TECHNIQUE: CHEST (ONE VIEW ONLY) FINDINGS: No visible pneumothorax. Small bilateral pleural effusion. Bibasilar patchy airspace opacities again noted. Unchanged cardiomediastinal silhouette. Interval removal of the right-sided [place]andro catheter. Unchanged osseous structures noted. Overlying wires obscure the underlying structures. IMPRESSION: Interval removal of the [place]-Alejandro catheter. Otherwise, no significant change is visualized from the prior exam. Bibasilar airspace opacities may represent atelectasis or edema. Small bilateral pleural effusions are again visualized. Interpreting Physician: YOVANA CONTRERAS M.D. Trans: cwion : cc: CBC W/O DIFF Collected: 09/03/2017 Status: F Source: [facility] 4:15 AM [facility] REPOSITORY TYPE CODE TESTS RESULT OUT OF RANGE REFERENCE UNITS LAB WBC 3.6-10.4 K/mcL WBC Normal 9.9 LAB RBC 4.0-5.5 M/mcL RBC Normal 4.23 LAB HGB 12.9-16.9 g/dL Low Hemoglobin 12.4 LAB HCT 37.9-49.2 % Low Hematocrit 37.2 LAB MCV 82.8-99.3 FL MCV Normal 87.8 LAB MCH 27.7-34.6 pg MCH Normal 29.4 LAB MCHC 32.9-35.5 g/dL MCHC Normal 33.5 LAB RDW 10-14.3 % High RDW 14.6 LAB PLT 139-354 K/mcL Platelet Normal Count 165 LAB MPV 6.6-10.8 FL MPV Normal 8.8 Performed By: #### CBCWOD, CHEM8 #### Unless otherwise noted, all testing performed [address] [facility] [place], [place] [address] CLIA: [id number] Web Content Writer: Robb Dominguez M.D. BASIC METABOLIC PANEL Collected: 09/03/2017 Status: F Source: [facility] 4:15 AM [facility] REPOSITORY TYPE CODE TESTS RESULT OUT OF REFERENCE UNITS RANGE LAB GLU 70-99 mg/dL High Glucose 177 Result Comment: This test result might be falsely depressed or falsely elevated on samples drawn from patients taking Sulfasalazine and Sulfapyridine. Venipuncture should occur prior to taking either of these drugs. LAB BUN 8-25 mg/dL BUN 17 LAB CREA 0.80-1.30 mg/dL Creatinine High 1.40 LAB eGFR >60 ml/min/1.73s Low q.m eGFR,NonAfrican-Am erican 51 Result Comment: Non- GFR Calc eGFR is an estimated Glomerular Filtration Rate based on the value of the patient's serum creatinine. In outpatients, eGFR should be used as a helpful tool in screening for CKD. In inpatients or patients with acute renal failure, eGFR represents the GFR at the moment of the draw and should be used with caution. LAB eGFRB ml/min/1.73sq.m eGFR, -[place]ese >=60 Result Comment: GFR Calc LAB CALCM 8.4-10.2 mg/dL Calcium 8.6 LAB NA 135-145 mmol/L Sodium 137 LAB K 3.5-5.1 mmol/L Potassium 4.4 LAB CL 98-108 mmol/L Chloride 106 LAB CO2 21-32 mmol/L CO2 23 Performed By: #### CBCWOD, CHEM8 #### Unless otherwise noted, all testing performed by [address] [address] CLIA: [id number] Web Content Writer: Robb Dominguez M.D. GLUCOSE, POC Collected: 09/03/2017 Status: F Source: [facility] 1:42 AM [facility] REPOSITORY TYPE CODE TESTS RESULT OUT OF RANGE REFERENCE UNITS LAB GLUX 80-115 mg/dL High Glucose, 167 POC Performed By: #### GLUX #### Unless otherwise noted, all testing performed by [address] [address] CLIA: [id number] Web Content Writer: Robb Dominguez M.D. BLOOD GAS, ARTERIAL Collected: 09/02/2017 Status: F Source: [facility] 8:03 PM [facility] REPOSITORY TYPE CODE TESTS RESULT OUT OF RANGE REFERENCE UNITS LAB ipH 7.350-7.450 Normal pH 7.412 LAB iPCO2 35-45 mm Hg Low PCO2 33.8 Result Comment: Value below reference range LAB iPO2 75-85 mm Hg Low PO2 56.6 LAB iHCO3 22-26 mmol/L Low HCO3 21.5 LAB Isaias -2-2 mmol/L Low Base Excess -2.4 LAB O2HB 92-99 % Low O2 Hemoglobin 88.0 Result Comment: Value below reference range LAB AAGRAD mm Hg Normal [id number] 95.4 LAB AARATIO % Normal Aa Ratio 37.3 LAB O2CT mmol/L Normal O2CT 7.2 LAB [id number] 92-99 % Low Hemoglobin O2 Sat. 90.6 Result Comment: Value below reference range LAB COHB % Normal Carboxyhemoglobin 2.0 Result Comment: [place] Non-Smoker <1.5% of total Hgb Smoker 1.5 - 5.0 % of total Hgb Heavy Smoker 5.0 - 9.0 % of total Hgb LAB METHB < 2.0 % Methemoglobin Normal 0.9 LAB HHB 0.0-5.0 % DeOxyhemoglobin High (HHB) 9.1 LAB pHt 7.350-7. 450 pH (temp conv.) Normal 7.412 LAB pCO2t 35.0-45. mm Hg Low 0 pCO2 (temp conv.) 33.8 LAB pO2t 75-85 mm Hg Low pO2 (temp conv.) 56.6 LAB DRAWNBY Drawn By (Bld Gas) Normal MS LAB SITEABG Site (Bld Gas) Normal ALEXA LAB THB 13.5-17. g/dL Low 5 Hemoglobin (Bld Gas) 13.0 LAB HCTABG 41-53 % Low Hematocrit (Bld Gas) 39.8 LAB [id number] O2 Device Normal Nasal Cannula LAB RESPRATE Respiratory Rate Normal (Total) 20 LAB FIO2 21-100 % FIO2 Normal 28.0 LAB LPM Liters per minute Normal 2 LAB TEMPABG 36.0-38. Celsius 0 Temperature (Bld Normal Gas) 37.0 LAB ALLENS Allens Test Normal N/A LAB BGINST Blood Gas Instrument Normal ;ICU Performed By: #### ABG #### Unless otherwise noted, all testing performed by [place] [address] CLIA: [id number] Web Content Writer: Robb Dominguez M.D. GLUCOSE, POC Collected: 09/02/2017 Status: F Source: [facility] 7:57 PM [facility] REPOSITORY TYPE CODE TESTS RESULT OUT OF RANGE REFERENCE UNITS LAB GLUX 80-115 mg/dL High Glucose, 133 POC Performed By: #### GLUX #### Unless otherwise noted, all testing performed by [place] [address] CLIA: [id number] Web Content Writer: Robb Dominguez M.D. GLUCOSE, POC Collected: 09/02/2017 Status: F Source: [facility] 6:59 PM [facility] REPOSITORY TYPE CODE TESTS RESULT OUT OF RANGE REFERENCE UNITS LAB GLUX 80-115 mg/dL High Glucose, 119 POC Performed By: #### GLUX #### Unless otherwise noted, all testing performed by [place] [address] CLIA: [id number] Web Content Writer: Robb Dominguez M.D. GLUCOSE, POC Collected: 09/02/2017 Status: F Source: [facility] 4:17 PM [facility] REPOSITORY TYPE CODE TESTS RESULT OUT OF RANGE REFERENCE UNITS LAB GLUX 80-115 mg/dL Normal Glucose, 99 POC Performed By: #### GLUX #### Unless otherwise noted, all testing performed by [place] [address] CLIA: [id number] Web Content Writer: Robb Dominguez M.D. GLUCOSE, POC Collected: 09/02/2017 Status: F Source: [facility] 3:42 PM [facility] REPOSITORY TYPE CODE TESTS RESULT OUT OF RANGE REFERENCE UNITS LAB GLUX 80-115 mg/dL Normal Glucose, 98 POC Performed By: #### GLUX #### Unless otherwise noted, all testing performed by [place] [address] CLIA: [id number] Web Content Writer: Robb Dominguez M.D. GLUCOSE, POC Collected: 09/02/2017 Status: F Source: [facility] 2:22 PM [facility] REPOSITORY TYPE CODE TESTS RESULT OUT OF RANGE REFERENCE UNITS LAB GLUX 80-115 mg/dL High Glucose, 142 POC Performed By: #### GLUX #### Unless otherwise noted, all testing performed by [place] [address] CLIA: [id number] Web Content Writer: Robb Dominguez M.D. GLUCOSE, POC Collected: 09/02/2017 Status: F Source: [facility] 1:14 PM [facility] REPOSITORY TYPE CODE TESTS RESULT OUT OF RANGE REFERENCE UNITS LAB GLUX 80-115 mg/dL High Glucose, 165 POC Performed By: #### GLUX #### Unless otherwise noted, all testing performed by [place] [address] CLIA: [id number] Web Content Writer: Robb Dominguez M.D. GLUCOSE, POC Collected: 09/02/2017 Status: F Source: [facility] 12:05 PM [facility] REPOSITORY TYPE CODE TESTS RESULT OUT OF RANGE REFERENCE UNITS LAB GLUX 80-115 mg/dL High Glucose, 133 POC Performed By: #### GLUX #### Unless otherwise noted, all testing performed by [place] [address] CLIA: [id number] Web Content Writer: Robb Dominguez M.D. GLUCOSE, POC Collected: 09/02/2017 Status: F Source: [facility] 10:58 AM [facility] REPOSITORY TYPE CODE TESTS RESULT OUT OF RANGE REFERENCE UNITS LAB GLUX 80-115 mg/dL High Glucose, 119 POC Performed By: #### GLUX #### Unless otherwise noted, all testing performed by [place] [address] CLIA: [id number] Web Content Writer: Robb Dominguez M.D. GLUCOSE, POC Collected: 09/02/2017 Status: F Source: [facility] 10:09 AM [facility] REPOSITORY TYPE CODE TESTS RESULT OUT OF RANGE REFERENCE UNITS LAB GLUX 80-115 mg/dL High Glucose, 131 POC Performed By: #### GLUX #### Unless otherwise noted, all testing performed by [place] [address] CLIA: [id number] Web Content Writer: Robb Dominguez M.D. GLUCOSE, POC Collected: 09/02/2017 Status: F Source: [facility] 9:25 AM [facility] REPOSITORY TYPE CODE TESTS RESULT OUT OF RANGE REFERENCE UNITS LAB GLUX 80-115 mg/dL High Glucose, 128 POC Performed By: #### GLUX #### Unless otherwise noted, all testing performed by [place] [address] CLIA: [id number] Web Content Writer: Robb Dominguez M.D. GLUCOSE, POC Collected: 09/02/2017 Status: F Source: [facility] 8:02 AM [facility] REPOSITORY TYPE CODE TESTS RESULT OUT OF RANGE REFERENCE UNITS LAB GLUX 80-115 mg/dL High Glucose, 122 POC Performed By: #### GLUX #### Unless otherwise noted, all testing performed by [place] [address] CLIA: [id number] Web Content Writer: Robb Dominguez M.D. POTASSIUM Collected: 09/02/2017 Status: F Source: [facility] 6:54 AM [facility] REPOSITORY TYPE CODE TESTS RESULT OUT OF RANGE REFERENCE UNITS LAB K 3.5-4.9 mmol/L Normal Potassium 4.1 Performed By: #### K #### Unless otherwise noted, all testing performed by [place] [address] CLIA: [id number] Web Content Writer: Robb Dominguez M.D. GLUCOSE, POC Collected: 09/02/2017 Status: F Source: [facility] 6:41 AM [facility] REPOSITORY TYPE CODE TESTS RESULT OUT OF RANGE REFERENCE UNITS LAB GLUX 80-115 mg/dL High Glucose, 120 POC Performed By: #### GLUX #### Unless otherwise noted, all testing performed by [place] [address] CLIA: [id number] Web Content Writer: Robb Dominguez M.D. GLUCOSE, POC Collected: 09/02/2017 Status: F Source: [facility] 5:57 AM [facility] REPOSITORY TYPE CODE TESTS RESULT OUT OF RANGE REFERENCE UNITS LAB GLUX 80-115 mg/dL High Glucose, 128 POC Performed By: #### GLUX #### Unless otherwise noted, all testing performed by [address] [place], [place] [address] CLIA: [id number] Web Content Writer: Robb Dominguez M.D. CHEST (ONE VIEW Observed: 09/02/2017 Status: F Source: [facility] ONLY) 5:25 AM [facility] REPOSITORY Final Report Accession No: [id number] Performed: Sep 02 2017 5:25AM Examination: CHEST (ONE VIEW ONLY) CHEST (ONE VIEW ONLY) HISTORY: Extubated. COMPARISON: Portable chest 2017, 11:59 AM is reviewed. FINDINGS: Portable AP view of the chest is provided. The patient has been extubated. Esophageal catheter has been removed. Right IJ PAC remains in place with tip in the right pulmonary artery. Postoperative changes are again noted. Cardiomediastinal silhouette is stable. Overall lung volumes are lower with some increasing atelectasis at the bases, particularly on the left. No pleural effusion or pneumothorax is identified. IMPRESSION: Patient has been extubated. Lung volumes are lower with some increasing atelectasis at the bases, particularly on the left. Remaining support apparatus is in satisfactory position. Interpreting Physician: MARY BACA M.D. Trans: cwion : cc: GLUCOSE, POC Collected: 09/02/2017 Status: F Source: [facility] 4:46 AM [facility] REPOSITORY TYPE CODE TESTS RESULT OUT OF RANGE REFERENCE UNITS LAB GLUX 80-115 mg/dL High Glucose, 128 POC Performed By: #### GLUX #### Unless otherwise noted, all testing performed by [address] [place], [place] [address] CLIA: [id number] Web Content Writer: Robb Dominguez M.D. ISTAT POST OPEN Collected: 09/02/2017 Status: F Source: [facility] HEART PANEL 4:31 AM [facility] REPOSITORY TYPE CODE TESTS RESULT OUT OF REFERENCE UNITS RANGE LAB GLU 70-99 mg/dL High Glucose 129 LAB NA 136-141 mmol/L Sodium 140 LAB K 3.5-4.9 mmol/L Potassium 3.9 LAB CAION 1.12-1.32 mmol/L Ionized Calcm 1.26 Performed By: #### IPSOH #### Unless otherwise noted, all testing performed by [address] [address] CLIA: [id number] Web Content Writer: Robb Dominguez M.D. OPEN HEART PANEL, Collected: 09/02/2017 Status: F Source: [facility] 4:14 [facility] REPOSITORY TYPE CODE TESTS RESULT OUT OF RANGE REFERENCE UNITS LAB WBC 3.6-10.4 K/mcL WBC Normal 9.9 LAB HGB 12.9-16.9 g/dL Low Hemoglobin 11.7 LAB HCT 37.9-49.2 % Low Hematocrit 33.9 LAB PLT 139-354 K/mcL Platelet Normal Count 158 Performed By: #### ALB, h OHP, c OHP #### Unless otherwise noted, all testing performed by [place] [address] CLIA: [id number] Web Content Writer: Robb Dominguez M.D. OPEN HEART PANEL,CHEM Collected: 09/02/2017 Status: F Source: [facility] 4:14 [facility] REPOSITORY TYPE CODE TESTS RESULT OUT OF RANGE REFERENCE UNITS LAB BUN 8-25 mg/dL BUN Normal 22 LAB CREA 0.80-1.30 mg/dL High Creatinine 1.69 LAB eGFR >60 ml/min/1.7 Low 3sq.m eGFR,NonAfrican- 41 [place] Result Comment: Non- GFR Calc eGFR is an estimated Glomerular Filtration Rate based on the value of the patient's serum creatinine. In outpatients, eGFR should be used as a helpful tool in screening for CKD. In inpatients or patients with acute renal failure, eGFR represents the GFR at the moment of the draw and should be used with caution. LAB eGFRB >60 ml/min/1.73sq.m eGFR, -[place] Low 49 Result Comment: GFR Calc LAB CL 98-108 mmol/L High Chloride 111 LAB CO2 21-32 mmol/L Normal CO2 25 LAB MG 1.6-2.4 mg/dL Normal Magnesium 1.8 Performed By: #### ALB, h OHP, c OHP #### Unless otherwise noted, all testing performed by [place] [address] CLIA: [id number] Web Content Writer: Robb Dominguez M.D. ALBUMIN Collected: 09/02/2017 Status: F Source: [facility] 4:14 AM [facility] REPOSITORY TYPE CODE TESTS RESULT OUT OF REFERENCE UNITS RANGE LAB ALB 3.2-5.2 g/dL Low Albumin 3.1 Performed By: #### ALB, h OHP, c OHP #### Unless otherwise noted, all testing performed by [place] [address] CLIA: [id number] Web Content Writer: Robb Dominguez M.D. GLUCOSE, POC Collected: 09/02/2017 Status: F Source: [facility] 4:13 [facility] REPOSITORY TYPE CODE TESTS RESULT OUT OF RANGE REFERENCE UNITS LAB GLUX 80-115 mg/dL High Glucose, 132 POC Performed By: #### GLUX #### Unless otherwise noted, all testing performed by [place] [address] CLIA: [id number] Web Content Writer: Robb Dominguez M.D. GLUCOSE, POC Collected: 09/02/2017 Status: F Source: [facility] 2:49 AM [facility] REPOSITORY TYPE CODE TESTS RESULT OUT OF RANGE REFERENCE UNITS LAB GLUX 80-115 mg/dL High Glucose, 147 POC Performed By: #### GLUX #### Unless otherwise noted, all testing performed by [place] [address] CLIA: [id number] Web Content Writer: Robb Dominguez M.D. GLUCOSE, POC Collected: 09/02/2017 Status: F Source: [facility] 2:05 AM [facility] REPOSITORY TYPE CODE TESTS RESULT OUT OF RANGE REFERENCE UNITS LAB GLUX 80-115 mg/dL Normal Glucose, 108 POC Performed By: #### GLUX #### Unless otherwise noted, all testing performed by [place] [address] CLIA: [id number] Web Content Writer: Robb Dominguez M.D. GLUCOSE, POC Collected: 09/02/2017 Status: F Source: [facility] 12:56 AM [facility] REPOSITORY TYPE CODE TESTS RESULT OUT OF RANGE REFERENCE UNITS LAB GLUX 80-115 mg/dL Normal Glucose, 95 POC Performed By: #### GLUX #### Unless otherwise noted, all testing performed by [place] [address] CLIA: [id number] Web Content Writer: Robb Dominguez M.D. GLUCOSE, POC Collected: 09/02/2017 Status: F Source: [facility] 12:06 AM [facility] REPOSITORY TYPE CODE TESTS RESULT OUT OF RANGE REFERENCE UNITS LAB GLUX 80-115 mg/dL High Glucose, 133 POC Performed By: #### GLUX #### Unless otherwise noted, all testing performed by [place] [address] CLIA: [id number] Web Content Writer: Robb Dominguez M.D. GLUCOSE, POC Collected: 2017 Status: F Source: [facility] 11:09 PM [facility] REPOSITORY TYPE CODE TESTS RESULT OUT OF RANGE REFERENCE UNITS LAB GLUX 80-115 mg/dL High Glucose, 119 POC Performed By: #### GLUX #### Unless otherwise noted, all testing performed by [place] [address] CLIA: [id number] Web Content Writer: Robb Dominguez M.D. POTASSIUM Collected: 2017 Status: F Source: [facility] 10:32 PM [facility] REPOSITORY TYPE CODE TESTS RESULT OUT OF RANGE REFERENCE UNITS LAB K 3.5-4.9 mmol/L Normal Potassium 4.1 Performed By: #### K #### Unless otherwise noted, all testing performed by [place] [address] CLIA: [id number] Web Content Writer: Robb Dominguez M.D. GLUCOSE, POC Collected: 2017 Status: F Source: [facility] 10:12 PM [facility] REPOSITORY TYPE CODE TESTS RESULT OUT OF RANGE REFERENCE UNITS LAB GLUX 80-115 mg/dL High Glucose, 126 POC Performed By: #### GLUX #### Unless otherwise noted, all testing performed by [place] [address] CLIA: [id number] Web Content Writer: Robb Dominguez M.D. GLUCOSE, POC Collected: 2017 Status: F Source: [facility] 9:05 PM [facility] REPOSITORY TYPE CODE TESTS RESULT OUT OF RANGE REFERENCE UNITS LAB GLUX 80-115 mg/dL High Glucose, 141 POC Performed By: #### GLUX #### Unless otherwise noted, all testing performed by [place] [address] CLIA: [id number] Web Content Writer: Robb Dominguez M.D. GLUCOSE, POC Collected: 2017 Status: F Source: [facility] 8:03 PM [facility] REPOSITORY TYPE CODE TESTS RESULT OUT OF RANGE REFERENCE UNITS LAB GLUX 80-115 mg/dL High Glucose, 178 POC Performed By: #### GLUX #### Unless otherwise noted, all testing performed by [place] [address] CLIA: [id number] Web Content Writer: Robb Dominguez M.D. GLUCOSE, POC Collected: 2017 Status: F Source: [facility] 7:10 PM [facility] REPOSITORY TYPE CODE TESTS RESULT OUT OF RANGE REFERENCE UNITS LAB GLUX 80-115 mg/dL High Glucose, 142 POC Performed By: #### GLUX #### Unless otherwise noted, all testing performed by [address] [address] CLIA: [id number] Web Content Writer: Robb Dominguez M.D. ISTAT POST OPEN Collected: 2017 Status: F Source: [facility] HEART PANEL 6:19 PM [facility] REPOSITORY TYPE CODE TESTS RESULT OUT OF REFERENCE UNITS RANGE LAB GLU 70-99 mg/dL High Glucose 194 LAB NA 136-141 mmol/L Sodium 141 LAB K 3.5-4.9 mmol/L Potassium 3.8 LAB CAION 1.12-1.32 mmol/L Ionized Calcm 1.29 Performed By: #### IPSOH #### Unless otherwise noted, all testing performed by [place] [address] CLIA: [id number] Web Content Writer: Robb Dominguez M.D. CBC W/O DIFF Collected: 2017 Status: F Source: [facility] 6:10 PM [facility] REPOSITORY TYPE CODE TESTS RESULT OUT OF RANGE REFERENCE UNITS LAB WBC 3.6-10.4 K/mcL High WBC 10.7 LAB RBC 4.0-5.5 M/mcL Low RBC 3.91 LAB HGB 12.9-16.9 g/dL Low Hemoglobin 11.8 LAB HCT 37.9-49.2 % Low Hematocrit 34.1 LAB MCV 82.8-99.3 FL MCV Normal 87.3 LAB MCH 27.7-34.6 pg MCH Normal 30.1 LAB MCHC 32.9-35.5 g/dL MCHC Normal 34.5 LAB RDW 10-14.3 % High RDW 14.4 LAB PLT 139-354 K/mcL Platelet Normal Count 173 LAB MPV 6.6-10.8 FL MPV Normal 8.7 Performed By: #### PTT, CBCWOD, FIB, PT, c OHP #### Unless otherwise noted, all testing performed by [address] [place] [address] CLIA: [id number] Web Content Writer: Robb Dominguez M.D. PARTIAL THROMBOPLASTIN Collected: 2017 Status: F Source: [facility] TIME 6:10 PM [facility] REPOSITORY TYPE CODE TESTS RESULT OUT OF REFERENCE UNITS RANGE LAB PTT 23.0-34.0 Seconds Partial Normal Thromboplastin Time 31 Result Comment: Suggested therapeutic range for PTT is 68-104 sec. Performed By: #### PTT, CBCWOD, FIB, PT, c OHP #### Unless otherwise noted, all testing performed by [place] [address] CLIA: [id number] Web Content Writer: Robb Dominguez M.D. OPEN HEART PANEL,CHEM Collected: 2017 Status: F Source: [facility] 6:10 PM [facility] REPOSITORY TYPE CODE TESTS RESULT OUT OF RANGE REFERENCE UNITS LAB BUN 8-25 mg/dL BUN Normal 22 LAB CO2 21-32 mmol/L CO2 Normal 23 LAB CREA 0.80-1.30 mg/dL High Creatinine 1.68 LAB eGFR >60 ml/min/1.7 Low 3sq.m eGFR,NonAfrican- 41 [place] Result Comment: Non- GFR Calc eGFR is an estimated Glomerular Filtration Rate based on the value of the patient's serum creatinine. In outpatients, eGFR should be used as a helpful tool in screening for CKD. In inpatients or patients with acute renal failure, eGFR represents the GFR at the moment of the draw and should be used with caution. LAB eGFRB >60 ml/min/1.73sq.m eGFR, -[place] Low 50 Result Comment: GFR Calc LAB CL 98-108 mmol/L High Chloride 110 LAB MG 1.6-2.4 mg/dL Normal Magnesium 1.9 Performed By: #### PTT, CBCWOD, FIB, PT, c OHP #### Unless otherwise noted, all testing performed by [place] [address] CLIA: [id number] Web Content Writer: Robb Dominguez M.D. PROTIME Collected: 2017 Status: F Source: [facility] 6:10 PM [facility] REPOSITORY TYPE CODE TESTS RESULT OUT OF RANGE REFERENCE UNITS LAB PT. 11.8-14.3 Seconds High Protime 15.3 LAB INR Normal INR 1.23 Result Comment: The [place] [employer] recommended therapeutic range for Warfarin (Coumadin) therapy goals: PROPHYLAXIS/TREATMENT of: INR Venous Thrombosis, Pulmonary Embolism 2.0-3.0 Prevention of VTE (Orthopedic Surgery) 2.0-3.0 Atrial Fibrillation 2.0-3.0 Myocardial Infarction 2.0-3.0 Mechanical Prosthetic Heart Valves (Aortic position) 2.0-3.0 Mechanical Prosthetic Heart Valves (Mitral Position) 2.5-3.5 [place] [employer] evidence-based clinical practice guidelines. CHEST. 2012 (9th ed) Performed By: #### PTT, CBCWOD, FIB, PT, c OHP #### Unless otherwise noted, all testing performed by [address] [address] CLIA: [id number] Web Content Writer: Robb Dominguez M.D. FIBRINOGEN Collected: 2017 Status: F Source: [facility] 6:10 [facility] REPOSITORY TYPE CODE TESTS RESULT OUT OF RANGE REFERENCE UNITS LAB FIB 224-483 mg/dL Normal Fibrinogen 354 Performed By: #### PTT, CBCWOD, FIB, PT, c OHP #### Unless otherwise noted, all testing performed by [address] [address] CLIA: [id number] Web Content Writer: Robb Dominguez M.D. GLUCOSE, POC Collected: 2017 Status: F Source: [facility] 6:06 PM [facility] REPOSITORY TYPE CODE TESTS RESULT OUT OF RANGE REFERENCE UNITS LAB GLUX 80-115 mg/dL High Glucose, 177 POC Performed By: #### GLUX #### Unless otherwise noted, all testing performed by [address] [address] CLIA: [id number] Web Content Writer: Robb Dominguez M.D. GLUCOSE, POC Collected: 2017 Status: F Source: [facility] 5:10 PM [facility] REPOSITORY TYPE CODE TESTS RESULT OUT OF RANGE REFERENCE UNITS LAB GLUX 80-115 mg/dL High Glucose, 200 POC Performed By: #### GLUX #### Unless otherwise noted, all testing performed by [address] [address] CLIA: [id number] Web Content Writer: Robb Dominguez M.D. GLUCOSE, POC Collected: 2017 Status: F Source: [facility] 4:05 PM [facility] REPOSITORY TYPE CODE TESTS RESULT OUT OF RANGE REFERENCE UNITS LAB GLUX 80-115 mg/dL High Glucose, 189 POC Performed By: #### GLUX #### Unless otherwise noted, all testing performed by [address] [address] CLIA: [id number] Web Content Writer: Robb Dominguez M.D. BLOOD GAS, ARTERIAL Collected: 2017 Status: F Source: [facility] 3:22 PM [facility] REPOSITORY TYPE CODE TESTS RESULT OUT OF REFERENCE UNITS RANGE LAB ipH 7.350-7.450 pH Normal 7.394 LAB iPCO2 35-45 mm Hg PCO2 Normal 36.0 LAB iPO2 75-85 mm Hg PO2 Normal 78.5 LAB iHCO3 22-26 mmol/L HCO3 Normal 22.0 LAB Isaias -2-2 mmol/L Base Excess Low -2.4 LAB O2HB 92-99 % O2 Hemoglobin Normal 93.9 LAB AAGRAD mm Hg [id number] Normal 154.3 LAB AARATIO % Aa Ratio Normal 33.7 LAB O2CT mmol/L O2CT Normal 7.1 LAB [id number] 92-99 % Hemoglobin O2 Sat. Normal 96.3 LAB COHB % Carboxyhemoglobin Normal 1.2 Result Comment: [place] Non-Smoker <1.5% of total Hgb Smoker 1.5 - 5.0 % of total Hgb Heavy Smoker 5.0 - 9.0 % of total Hgb LAB METHB < 2.0 % Methemoglobin 1.3 Normal LAB HHB 0.0-5.0 % DeOxyhemoglobin 3.6 Normal (HHB) LAB pHt 7.350-7 .450 pH (temp conv.) 7.394 Normal LAB pCO2t 35.0-45 mm Hg .0 pCO2 (temp conv.) 36.0 Normal LAB pO2t 75-85 mm Hg pO2 (temp conv.) 78.5 Normal LAB DRAWNBY Drawn By (Bld Gas) to Normal LAB SITEABG Site (Bld Gas) ALEXA Normal LAB THB 13.5-17 g/dL Low .5 Hemoglobin (Bld Gas) 12.1 LAB HCTABG 41-53 % Low Hematocrit (Bld Gas) 37.0 LAB [id number] O2 Device Normal Ventilator LAB PEEP PEEP 5 Normal LAB SPONTRAT Spontaneous Rate 21 Normal LAB RESPRATE Respiratory Rate 21 Normal (Total) LAB FIO2 21-100 % FIO2 40.0 Normal LAB PSV PSV 5 Normal LAB VENTMODE Vent Mode CPAP Normal LAB TEMPABG 36.0-38 Celsius .0 Temperature (Bld 37.0 Normal Gas) LAB ALLENS Allens Test N/A Normal LAB BGINST Blood Gas Instrument ;ICU Normal Performed By: #### ABG #### Unless otherwise noted, all testing performed by [place] [address] CLIA: [id number] Web Content Writer: Robb Dominguez M.D. GLUCOSE, POC Collected: 2017 Status: F Source: [facility] 2:04 PM [facility] REPOSITORY TYPE CODE TESTS RESULT OUT OF RANGE REFERENCE UNITS LAB GLUX 80-115 mg/dL High Glucose, 120 POC Performed By: #### GLUX #### Unless otherwise noted, all testing performed by [place] [address] CLIA: [id number] Web Content Writer: Robb Dominguez M.D. BLOOD GAS, ARTERIAL Collected: 2017 Status: F Source: [facility] 1:40 PM [facility] REPOSITORY TYPE CODE TESTS RESULT OUT OF REFERENCE UNITS RANGE LAB ipH 7.350-7.450 pH Normal 7.389 LAB iPCO2 35-45 mm Hg PCO2 Normal 40.0 LAB iPO2 75-85 mm Hg PO2 Low 70.4 LAB iHCO3 22-26 mmol/L HCO3 Normal 24.1 LAB Isaias -2-2 mmol/L Base Excess Normal -0.8 LAB O2HB 92-99 % O2 Hemoglobin Normal 92.2 LAB AAGRAD mm Hg [id number] Normal 158.3 LAB AARATIO % Aa Ratio Normal 30.8 LAB O2CT mmol/L O2CT Normal 7.3 LAB [id number] 92-99 % Hemoglobin O2 Sat. Normal 94.7 LAB COHB % Carboxyhemoglobin Normal 1.3 Result Comment: [place] Non-Smoker <1.5% of total Hgb Smoker 1.5 - 5.0 % of total Hgb Heavy Smoker 5.0 - 9.0 % of total Hgb LAB METHB < 2.0 % Methemoglobin 1.3 Normal LAB HHB 0.0-5.0 % DeOxyhemoglobin 5.2 High (HHB) LAB pHt 7.350-7 .450 pH (temp conv.) 7.389 Normal LAB pCO2t 35.0-45 mm Hg .0 pCO2 (temp conv.) 40.0 Normal LAB pO2t 75-85 mm Hg Low pO2 (temp conv.) 70.4 LAB DRAWNBY Drawn By (Bld Gas) to Normal LAB SITEABG Site (Bld Gas) ALEXA Normal LAB THB 13.5-17 g/dL Low .5 Hemoglobin (Bld Gas) 12.6 LAB HCTABG 41-53 % Low Hematocrit (Bld Gas) 38.5 LAB [id number] O2 Device Normal Ventilator LAB PEEP PEEP 10 Normal LAB VENTRATE Vent Rate 12 Normal LAB SPONTRAT Spontaneous Rate 10 Normal LAB RESPRATE Respiratory Rate 22 Normal (Total) LAB TIDALVOL Tidal Volume 750 Normal LAB FIO2 21-100 % FIO2 40.0 Normal LAB PSV PSV 5 Normal LAB VENTMODE Vent Mode SIMV Normal LAB TEMPABG 36.0-38 Celsius .0 Temperature (Bld 37.0 Normal Gas) LAB ALLENS Allens Test N/A Normal LAB BGINST Blood Gas Instrument ;ICU Normal Performed By: #### ABG #### Unless otherwise noted, all testing performed by [address] [address] CLIA: [id number] Web Content Writer: Robb Dominguez M.D. ISTAT POST OPEN Collected: 2017 Status: F Source: [facility] HEART PANEL 12:32 PM [facility] REPOSITORY TYPE CODE TESTS RESULT OUT OF REFERENCE UNITS RANGE LAB GLU 70-99 mg/dL High Glucose 128 LAB NA 136-141 mmol/L Sodium 140 LAB K 3.5-4.9 mmol/L Potassium 4.3 LAB CAION 1.12-1.32 mmol/L Ionized Calcm 1.32 Performed By: #### IPSOH #### Unless otherwise noted, all testing performed by [address] [address] CLIA: [id number] Web Content Writer: Robb Dominguez M.D. BLOOD GAS, ARTERIAL Collected: 2017 Status: F Source: [facility] 12:20 PM [facility] REPOSITORY TYPE CODE TESTS RESULT OUT OF RANGE REFERENCE UNITS LAB ipH 7.350-7.450 pH Normal 7.376 LAB iPCO2 35-45 mm Hg PCO2 Normal 41.7 LAB iPO2 75-85 mm Hg Low PO2 68.5 LAB iHCO3 22-26 mmol/L HCO3 Normal 24.4 LAB Isaias -2-2 mmol/L Base Normal Excess -0.8 LAB O2HB 92-99 % Low O2 Hemoglobin 91.7 Result Comment: Value below reference range LAB AAGRAD mm Hg [id number] Normal 364.9 LAB AARATIO % Aa Ratio Normal 15.8 LAB O2CT mmol/L O2CT Normal 7.0 LAB [id number] 92-99 % Hemoglobin O2 Sat. Normal 94.0 LAB COHB % Carboxyhemoglobin Normal 1.3 Result Comment: [place] Non-Smoker <1.5% of total Hgb Smoker 1.5 - 5.0 % of total Hgb Heavy Smoker 5.0 - 9.0 % of total Hgb LAB METHB < 2.0 % Methemoglobin 1.1 Normal LAB HHB 0.0-5.0 % DeOxyhemoglobin 5.9 High (HHB) LAB pHt 7.350-7 .450 pH (temp conv.) 7.376 Normal LAB pCO2t 35.0-45 mm Hg .0 pCO2 (temp conv.) 41.7 Normal LAB pO2t 75-85 mm Hg Low pO2 (temp conv.) 68.5 LAB DRAWNBY Drawn By (Bld Gas) to Normal LAB SITEABG Site (Bld Gas) ALEXA Normal LAB THB 13.5-17 g/dL Low .5 Hemoglobin (Bld Gas) 12.1 LAB HCTABG 41-53 % Low Hematocrit (Bld Gas) 37.2 LAB [id number] O2 Device Normal Ventilator LAB PEEP PEEP 10 Normal LAB VENTRATE Vent Rate 12 Normal LAB SPONTRAT Spontaneous Rate 13 Normal LAB RESPRATE Respiratory Rate 25 Normal (Total) LAB TIDALVOL Tidal Volume 750 Normal LAB FIO2 21-100 % FIO2 70.0 Normal LAB PSV PSV 5 Normal LAB VENTMODE Vent Mode SIMV Normal LAB TEMPABG 36.0-38 Celsius .0 Temperature (Bld 37.0 Normal Gas) LAB ALLENS Allens Test N/A Normal LAB BGINST Blood Gas Instrument ;ICU Normal Performed By: #### ABG #### Unless otherwise noted, all testing performed by [place] [address] [facility] [place], [place] [address] CLIA: [id number] Web Content Writer: Robb Dominguez M.D. CBC W/O DIFF Collected: 2017 Status: F Source: [facility] 12:18 PM [facility] REPOSITORY TYPE CODE TESTS RESULT OUT OF RANGE REFERENCE UNITS LAB WBC 3.6-10.4 K/mcL High WBC 13.8 LAB RBC 4.0-5.5 M/mcL RBC Normal 4.08 LAB HGB 12.9-16.9 g/dL Low Hemoglobin 12.1 LAB HCT 37.9-49.2 % Low Hematocrit 35.7 LAB MCV 82.8-99.3 FL MCV Normal 87.4 LAB MCH 27.7-34.6 pg MCH Normal 29.7 LAB MCHC 32.9-35.5 g/dL MCHC Normal 34.1 LAB RDW 10-14.3 % High RDW 14.4 LAB PLT 139-354 K/mcL Platelet Normal Count 168 LAB MPV 6.6-10.8 FL MPV Normal 8.4 Performed By: #### PTT, CBCWOD, FIB, c OHP, PT #### Unless otherwise noted, all testing performed by [address] [address] CLIA: [id number] Web Content Writer: Robb Dominguez M.D. OPEN HEART PANEL,CHEM Collected: 2017 Status: F Source: [facility] 12:18 PM [facility] REPOSITORY TYPE CODE TESTS RESULT OUT OF RANGE REFERENCE UNITS LAB BUN 8-25 mg/dL BUN Normal 20 LAB CREA 0.80-1.30 mg/dL High Creatinine 1.60 LAB eGFR >60 ml/min/1.7 Low 3sq.m eGFR,NonAfrican- 43 [place] Result Comment: Non- GFR Calc eGFR is an estimated Glomerular Filtration Rate based on the value of the patient's serum creatinine. In outpatients, eGFR should be used as a helpful tool in screening for CKD. In inpatients or patients with acute renal failure, eGFR represents the GFR at the moment of the draw and should be used with caution. LAB eGFRB >60 ml/min/1.73sq.m eGFR, -[place] Low 52 Result Comment: GFR Calc LAB CL 98-108 mmol/L High Chloride 109 LAB CO2 21-32 mmol/L Normal CO2 25 LAB MG 1.6-2.4 mg/dL Normal Magnesium 2.3 Performed By: #### PTT, CBCWOD, FIB, c OHP, PT #### Unless otherwise noted, all testing performed by [place] [address] CLIA: [id number] Web Content Writer: Robb Dominguez M.D. FIBRINOGEN Collected: 2017 Status: F Source: [facility] 12:18 PM [facility] REPOSITORY TYPE CODE TESTS RESULT OUT OF RANGE REFERENCE UNITS LAB FIB 224-483 mg/dL Normal Fibrinogen 313 Performed By: #### PTT, CBCWOD, FIB, c OHP, PT #### Unless otherwise noted, all testing performed by [place] [address] CLIA: [id number] Web Content Writer: Robb Dominguez M.D. PROTIME Collected: 2017 Status: F Source: [facility] 12:18 PM [facility] REPOSITORY TYPE CODE TESTS RESULT OUT OF RANGE REFERENCE UNITS LAB PT. 11.8-14.3 Seconds High Protime 16.7 LAB INR Normal INR 1.39 Result Comment: The [place] [employer] recommended therapeutic range for Warfarin (Coumadin) therapy goals: PROPHYLAXIS/TREATMENT of: INR Venous Thrombosis, Pulmonary Embolism 2.0-3.0 Prevention of VTE (Orthopedic Surgery) 2.0-3.0 Atrial Fibrillation 2.0-3.0 Myocardial Infarction 2.0-3.0 Mechanical Prosthetic Heart Valves (Aortic position) 2.0-3.0 Mechanical Prosthetic Heart Valves (Mitral Position) 2.5-3.5 [place] [employer] evidence-based clinical practice guidelines. CHEST. 2012 (9th ed) Performed By: #### PTT, CBCWOD, FIB, c OHP, PT #### Unless otherwise noted, all testing performed by [place] [address] CLIA: [id number] Web Content Writer: Robb Dominguez M.D. PARTIAL THROMBOPLASTIN Collected: 2017 Status: F Source: [facility] TIME 12:18 PM [facility] REPOSITORY TYPE CODE TESTS RESULT OUT OF REFERENCE UNITS RANGE LAB PTT 23.0-34.0 Seconds Partial Normal Thromboplastin Time 29 Result Comment: Suggested therapeutic range for PTT is 68-104 sec. Performed By: #### PTT, CBCWOD, FIB, c OHP, PT #### Unless otherwise noted, all testing performed by [place] [address] CLIA: [id number] Web Content Writer: Robb Dominguez M.D. 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 TECHNIQUE: Semiupright portable AP view of the chest. COMPARISON: Chest 2017. FINDINGS: There has been interval sternotomy. Heart size satisfactory. Lung muir are expanded without acute consolidation, edema, or major atelectasis. No effusion is suggested. An ET tube is present with its tip satisfactory above the td. An NG tube is present with its tip below the edge of the image in the left abdomen. A right [place]-Ale[place]andro catheter is present with its tip favoring the right outflow tract. Multiple monitor leads overlie the chest. IMPRESSION: Satisfactory postop sternotomy appearance with various tubes and catheters, as noted above. Lung muir are expanded and generally clear. Interpreting Physician: GABBIE MARTIN M.D. Trans: apope : cc: CONSULTATION Observed: 2017 Status: F Source: [facility] 11:39 AM [facility] REPOSITORY [facility] [address] [place] [address] NAME DEEPA TONG [facility] [id number] 1950 DATE 08/31/2017 CONSULTATION NEUROLOGY MANAGER MEHRDAD PARKS MD I have been asked to evaluate Mr. Deepa Tong by Dr. Irvin Quiñones for possible surgical revascularization of the heart. CHIEF COMPLAINT Chest pain and shortness of breath. HISTORY OF PRESENT ILLNESS Mr. Deepa Tong is a very pleasant, obese gentleman with a history significant for systemic hypertension, type 2 diabetes mellitus, obstructive sleep apnea on CPAP, and morbid obesity with a body mass index greater than 40. He was admitted with chest pain and shortness of breath and underwent cardiac catheterization, revealing a normal ejection fraction with 3-vessel coronary artery disease. Unfortunately, the disease in his right system is in an area that cannot be reached for revascularization, but he does have target vessels in his left anterior descending and obtuse marginal coronary artery. PAST MEDICAL HISTORY Notable for systemic hypertension. Hyperlipidemia. Type 2 diabetes mellitus, hemoglobin A1c pending. Obstructive sleep apnea with CPAP. Chronic kidney disease, stage 3. Morbid obesity with a body mass index greater than 40 on actual measurement. Gastroesophageal reflux disease. History of renal calculi. Restless legs syndrome. History of cellulitis of his left leg. History of crush injury to his right leg with bilateral lower extremity edema worse on the right. He has a steel victoria placed in his lower right leg from a crush injury in 2000. He is status post left shoulder replacement in 2014. He has osteoarthritis. FAMILY HISTORY Notable for his mother dying at age 81 after undergoing coronary artery bypass grafting here. His father had coronary artery bypass grafting and stenting and prostate cancer, and at age 87. SOCIAL HISTORY His 1 year ago. He has 2 daughters and a sister here during the interview. He shares a house with another couple. 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 He has never smoked. He does not use drugs. ALLERGIES He states that morphine has caused him stop breathing. MEDICATIONS Include Lasix, gabapentin, glimepiride, lisinopril, metformin, by mouth glitazone, and pramipexole. REVIEW OF SYSTEMS All systems are reviewed and are negative except as already noted above. PHYSICAL EXAM General: He is in no distress. Skin: He has no obvious skin lesions. Lymph Nodes: He has no obvious lymph nodes. Vital Signs: His body mass index is greater than 40, being 119 kg at 170 cm tall. His vital signs were stable. HEENT: Head is normocephalic and atraumatic. Sclerae nonicteric. Neck: Supple without masses nor bruits. Heart: Regular rate and rhythm without murmurs, gallops, or rubs. Lungs: Clear to auscultation. Abdomen: Hugely obese and benign. Extremities: He has no peripheral clubbing nor cyanosis. He has chronic lower extremity edema in his right leg. There is no edema in his left leg at this point after elevation overnight, but he has very obese legs. I cannot feel pulses in the lower extremities, but they are warm and dry bilaterally. LABORATORY On review of his laboratory values, his current creatinine is 1.4, and has been as high as 1.81 this admission. We do not have a hemoglobin A1c as of yet. His PTT is elevated on a heparin drip. His CBC is unremarkable. His urinalysis was unremarkable. His chest x-ray shows no acute disease. His carotid duplex shows no significant disease. His blood gas on room air shows pH 7.4, pCO2 of 37, and a PO2 of 66. ASSESSMENT Mr. Tong is certainly a candidate for coronary artery bypass grafting. I had a very thorough discussion with he and his family concerning the procedure, alternatives, and risks. The risks include , myocardial infarction, bleeding, transfusion, infection, stroke, cognitive deficit, renal failure, and other possible major morbidity. I answered all their questions. They desired to proceed as planned. We will proceed with surgery tomorrow morning. This consult took an excess of 45 minutes. MEHRDAD PARKS MD D 08/31/2017 07:42 [id number] T 08/31/2017 07:56 DAB/MODL Electronically Signed By Mehrdad Parks M.D. on 31 Aug 2017 18:21:45 GMT CONSULTATION Observed: 2017 Status: F Source: [facility] 11:39 AM [facility] REPOSITORY [facility] [address] [place] [address] NAME DEEPA TONG [facility] [id number] 1950 DATE 2017 OPERATIVE REPORT / PROCEDURE NOTE SURGEON MEHRDAD PARKS MD KEYPUNCHER SULAIMAN TIPTON PA-C KEYPUNCHER 2 MARCO A STALLWORTH PA-C PREOPERATIVE DIAGNOSES 1. Critical 2-vessel coronary artery disease. 2. Systemic hypertension. 3. Uncontrolled diabetes mellitus type 2 with hemoglobin A1c greater than 10. 4. Hyperlipidemia. 5. Obstructive sleep apnea with CPAP. 6. Chronic kidney disease stage 3. 7. Morbid obesity with body mass index greater than 40. 8. Gastroesophageal reflux disease. 9. History of renal calculi. 10.Restless legs syndrome. 11.Status post cellulitis of left leg. 12.Status post crush injury to the right leg with open reduction and victoria placement. 13.Bilateral chronic lower extremity edema. 14.Status post left shoulder replacement in 2013. 15.Osteoarthritis. 16. Acute preop anemia POSTOPERATIVE DIAGNOSES 1. Critical 2-vessel coronary artery disease. 2. Systemic hypertension. 3. Uncontrolled diabetes mellitus type 2 with hemoglobin A1c greater than 10. 4. Hyperlipidemia. 5. Obstructive sleep apnea with CPAP. 6. Chronic kidney disease stage 3. 7. Morbid obesity with body mass index greater than 40. 8. Gastroesophageal reflux disease. 9. History of renal calculi. 10.Restless legs syndrome. 11.Status post cellulitis of left leg. 12.Status post crush injury to the right leg with open reduction and victoria placement. 13.Bilateral chronic lower extremity edema. 14.Status post left shoulder replacement in 2014. 15.Osteoarthritis. 16. acute preop anemia of 33% PROCEDURES 1. Intraoperative epiaortic ultrasound guidance for safer aortic cannulation (this report is dictated separately). 2. Three-vessel coronary bypass grafting using left internal mammary artery to left anterior descending coronary artery with a reverse saphenous vein, aortocoronary graft [id number] to the ramus intermedius coronary artery and end-to-side to the 1st obtuse marginal coronary artery. ANESTHESIA General endotracheal. INDICATIONS This morbidly obese 67-year-old, gentleman has the above issues. He is referred for surgical revascularization. He and his family fully understand the procedure, alternatives, and risks. The risks include , myocardial infarction, bleeding, transfusion, infection, stroke, cognitive deficit, renal failure and other possible major morbidity. I answered all of their questions. They desired to proceed as planned. OPERATIVE FINDINGS The patient is hugely obese. It was a very bloody operation. The internal mammary artery was extremely difficult to mobilize. At approximately the 2nd interspace, it runs deeply within the cartilage. We were able to successfully mobilize this vessel though. It was 2 mm with excellent flow. The saphenous vein was an excellent conduit, harvested by open technique from the left lower extremity. This was used as an aortocoronary sequential graft [id number] to the ramus intermedius coronary artery and end-to-side to the 1st obtuse marginal coronary artery with an additional graft with a left internal mammary artery to left anterior descending coronary artery. The left anterior descending coronary artery is a 1.5 mm vessel with moderate disease. The ramus intermedius and obtuse marginal coronary arteries were 2 mm vessels with moderate disease. The right coronary artery has disease beyond the posterior descending coronary artery which was not accessible with surgery. The operation was performed using cardiopulmonary bypass with aortic crossclamp, antegrade cold blood cardioplegia with ice cold topical saline. Crossclamp time was 50 minutes. Bypass time was 77 minutes. He weaned easily from cardiopulmonary bypass in normal sinus rhythm with a cardiac index of 4.5 after closure of the chest. Four chest tubes were placed. Atrial and ventricular pacing wires were placed. Sponge and needle count were noted to be correct. Estimated blood loss not applicable. There were no complications. I was present and scrubbed throughout the case. I should note that his lungs have blackening and at least some degree of emphysema despite the fact that he has never smoked, but obviously is had some environmental exposure. OPERATIVE PROCEDURE The patient was brought to the operating room and identified. He was placed on the operating room table in usual supine position. Satisfactory general endotracheal anesthesia was induced. He was prepped and draped in usual sterile fashion. Working in 2 teams, saphenous vein was harvested by open technique from the left lower extremity while the internal mammary artery was mobilized in usual fashion. A Chaudhry retractor was placed. Pericardium was opened. The aorta was examined with ultrasounds and cannulated with metal- tipped cannula. Right atrium was cannulated with a single 2-stage venous cannula. He was placed on cardiopulmonary bypass. Coronary arteries were inspected and marked. Cardioplegic catheter was placed in the aortic root. The aorta was cross clamped. 1 L of cold blood cardioplegia was given. Ice cold topical saline was applied. Distal anastomoses were performed using running suture of 7-0 Prolene. Proximal anastomoses were performed with crossclamp in place using running suture of 6-0 Prolene. Crossclamp was removed. Sinus rhythm returned. Pacing wires were placed. Chest tubes were placed. He weaned easily from cardiopulmonary bypass. Right atrial cannula was removed. All blood was returned from the pump. The aorta was decannulated. Antibiotic irrigation was used. The sternum was closed with wires. Chest wall was closed in layers of Vicryl followed by dillon for skin. He was taken to the cardiovascular intensive care unit in stable condition with a cardiac index of 4.5. I was present and scrubbed throughout the case. MD José Luis ALEXANDRE 2017 11:39 [id number] T 2017 12:08 DAB/MODL Electronically Signed By Mehrdad Parks M.D. on 04 Sep 2017 11:58:43 GMT CBC W/O DIFF Collected: 2017 Status: F Source: [facility] 11:35 AM [facility] REPOSITORY TYPE CODE TESTS RESULT OUT OF REFERENCE UNITS RANGE LAB WBC 3.6-10.4 K/mcL WBC High 13.1 LAB RBC 4.0-5.5 M/mcL Low RBC 3.67 LAB HGB 12.9-16.9 g/dL Low Hemoglobin 10.8 LAB HCT 37.9-49.2 % Low Hematocrit 32.0 LAB MCV 82.8-99.3 FL MCV 87.4 LAB MCH 27.7-34.6 pg MCH 29.6 LAB MCHC 32.9-35.5 g/dL MCHC 33.8 LAB RDW 10-14.3 % RDW 14.1 LAB PLT 139-354 K/mcL Platelet Count 144 LAB MPV 6.6-10.8 FL MPV 8.5 Performed By: #### CBCWOD, PT, FIB, PTT #### Unless otherwise noted, all testing performed by [place] [address] CLIA: [id number] Web Content Writer: Robb Dominguez M.D. PROTIME Collected: 2017 Status: F Source: [facility] 11:35 AM [facility] REPOSITORY TYPE CODE TESTS RESULT OUT OF REFERENCE UNITS RANGE LAB PT. 11.8-14.3 Seconds High Protime 18.6 LAB INR INR 1.59 Result Comment: The [place] [employer] recommended therapeutic range for Warfarin (Coumadin) therapy goals: PROPHYLAXIS/TREATMENT of: INR Venous Thrombosis, Pulmonary Embolism 2.0-3.0 Prevention of VTE (Orthopedic Surgery) 2.0-3.0 Atrial Fibrillation 2.0-3.0 Myocardial Infarction 2.0-3.0 Mechanical Prosthetic Heart Valves (Aortic position) 2.0-3.0 Mechanical Prosthetic Heart Valves (Mitral Position) 2.5-3.5 [place] [employer] evidence-based clinical practice guidelines. CHEST. 2012 (9th ed) Performed By: #### CBCWOD, PT, FIB, PTT #### Unless otherwise noted, all testing performed by [place] [address] CLIA: [id number] Web Content Writer: Robb Dominguez M.D. PARTIAL THROMBOPLASTIN Collected: 2017 Status: F Source: [facility] 11:35 AM [facility] REPOSITORY TYPE CODE TESTS RESULT OUT OF REFERENCE UNITS RANGE LAB PTT 23.0-34.0 Seconds Partial Thromboplastin Time 34 Result Comment: Suggested therapeutic range for PTT is 68-104 sec. Performed By: #### CBCWOD, PT, FIB, PTT #### Unless otherwise noted, all testing performed by [place] [address] CLIA: [id number] Web Content Writer: Robb Dominguez M.D. FIBRINOGEN Collected: 2017 Status: F Source: [facility] 11:35 AM [facility] REPOSITORY TYPE CODE TESTS RESULT OUT OF REFERENCE UNITS RANGE LAB FIB 224-483 mg/dL Fibrinogen 294 Performed By: #### CBCWOD, PT, FIB, PTT #### Unless otherwise noted, all testing performed by [place] [address] CLIA: [id number] Web Content Writer: Robb Dominguez M.D. ACTIVATED CLOTTING Collected: 2017 Status: F Source: [facility] 11:31 AM [facility] REPOSITORY TYPE CODE TESTS RESULT OUT OF RANGE REFERENCE UNITS LAB ACT Seconds Normal Activated 127 Clotting Time Result Comment: Testing performed during open heart surgery by Refugio Jon Performed By: #### ACT #### Unless otherwise noted, all testing performed by [place] [address] CLIA: [id number] Web Content Writer: Robb Dominguez M.D. ISTAT CG8 PANEL Collected: 2017 Status: F Source: [facility] 11:11 AM [facility] REPOSITORY TYPE CODE TESTS RESULT OUT OF RANGE REFERENCE UNITS LAB GLU 70-99 mg/dL High Glucose 209 LAB NA 136-141 mmol/L Sodium 140 LAB K 3.5-4.9 mmol/L Potassium 4.1 LAB CAION 1.12-1.32 mmol/L High Ionized Calcm 1.38 LAB ipH 7.350-7.450 pH Unknown 7.33 LAB iPCO2 35.0-45.0 mm Hg PCO2 45 LAB iPO2 80-105 mm Hg High PO2 181 LAB iTCO2 23-27 mmol/L TCO2 25 LAB iHCO3 22-26 mmol/L HCO3 24 LAB Isaias -2-3 mmol/L Base Excess -2 LAB iSO2 95-98 % High O2 Saturation 100 LAB SOURCEBG Source, Blood Arterial Gas Blood LAB HGB 12.0-17.0 g/dL Low Hemoglobin 9.5 LAB HCT 43.0-51.0 % Low Hematocrit 28 Performed By: #### ICG8, ACT #### Unless otherwise noted, all testing performed by [place] [address] CLIA: [id number] Web Content Writer: Robb Dominguez M.D. ACTIVATED CLOTTING Collected: 2017 Status: F Source: [facility] TIME 11:11 AM [facility] REPOSITORY TYPE CODE TESTS RESULT OUT OF RANGE REFERENCE UNITS LAB ACT Seconds Normal Activated 104 Clotting Time Result Comment: Testing performed during open heart surgery by Refugio Jon Performed By: #### ICG8, ACT #### Unless otherwise noted, all testing performed by [place] [address] CLIA: [id number] Web Content Writer: Robb Dominguze M.D. ISTAT CG8 PANEL Collected: 2017 Status: F Source: [facility] 10:50 AM [facility] REPOSITORY TYPE CODE TESTS RESULT OUT OF RANGE REFERENCE UNITS LAB GLU 70-99 mg/dL High Glucose 251 LAB NA 136-141 mmol/L Low Sodium 135 LAB K 3.5-4.9 mmol/L High Potassium 5.3 LAB CAION 1.12-1.32 mmol/L Ionized Calcm 1.17 LAB ipH 7.350-7.450 pH Unknown 7.30 LAB iPCO2 35.0-45.0 mm Hg PCO2 45 LAB iPO2 80-105 mm Hg High PO2 173 LAB iTCO2 23-27 mmol/L TCO2 23 LAB iHCO3 22-26 mmol/L HCO3 22 LAB Isaias -2-3 mmol/L Low Base Excess -5 LAB iSO2 95-98 % High O2 Saturation 99 LAB SOURCEBG Source, Blood Arterial Gas Blood LAB HGB 12.0-17.0 g/dL Low Hemoglobin 9.9 LAB HCT 43.0-51.0 % Low Hematocrit 29 Performed By: #### ICG8, ACT #### Unless otherwise noted, all testing performed by [place] [address] CLIA: [id number] Web Content Writer: oRbb Dominguez M.D. ACTIVATED CLOTTING Collected: 2017 Status: F Source: [facility] TIME 10:50 AM [facility] REPOSITORY TYPE CODE TESTS RESULT OUT OF RANGE REFERENCE UNITS LAB ACT Seconds Normal Activated 456 Clotting Time Result Comment: Testing performed during open heart surgery by Refugio Jon Performed By: #### ICG8, ACT #### Unless otherwise noted, all testing performed by [place] [address] CLIA: [id number] Web Content Writer: Robb Dominguez M.D. ISTAT CG8 PANEL Collected: 2017 Status: F Source: [facility] 10:18 AM [facility] REPOSITORY TYPE CODE TESTS RESULT OUT OF RANGE REFERENCE UNITS LAB GLU 70-99 mg/dL High Glucose 246 LAB NA 136-141 mmol/L Sodium 137 LAB K 3.5-4.9 mmol/L High Potassium 5.3 LAB CAION 1.12-1.32 mmol/L Ionized Calcm 1.13 LAB ipH 7.350-7.450 pH Unknown 7.33 LAB iPCO2 35.0-45.0 mm Hg High PCO2 47 LAB iPO2 80-105 mm Hg High PO2 336 LAB iTCO2 23-27 mmol/L TCO2 27 LAB iHCO3 22-26 mmol/L HCO3 25 LAB Isaias -2-3 mmol/L Base Excess -1 LAB iSO2 95-98 % High O2 Saturation 100 LAB SOURCEBG Source, Blood Arterial Gas Blood LAB HGB 12.0-17.0 g/dL Low Hemoglobin 9.5 LAB HCT 43.0-51.0 % Low Hematocrit 28 Performed By: #### ACT, ICG8 #### Unless otherwise noted, all testing performed by [place] [address] CLIA: [id number] Web Content Writer: Robb Dominguez M.D. ACTIVATED CLOTTING Collected: 2017 Status: F Source: [facility] TIME 10:18 AM [facility] REPOSITORY TYPE CODE TESTS RESULT OUT OF RANGE REFERENCE UNITS LAB ACT Seconds Normal Activated 439 Clotting Time Result Comment: Testing performed during open heart surgery by Refugio Jon Performed By: #### ACT, ICG8 #### Unless otherwise noted, all testing performed by [place] [address] CLIA: [id number] Web Content Writer: Robb Dominguez M.D. ISTAT CG8 PANEL Collected: 2017 Status: F Source: [facility] 9:52 AM [facility] REPOSITORY TYPE CODE TESTS RESULT OUT OF REFERENCE UNITS RANGE LAB GLU 70-99 mg/dL High Glucose 156 LAB NA 136-141 mmol/L Sodium 139 LAB K 3.5-4.9 mmol/L Potassium 3.8 LAB CAION 1.12-1.32 mmol/L Ionized Calcm 1.15 LAB ipH 7.350-7.450 pH 7.37 LAB iPCO2 35.0-45.0 mm Hg PCO2 45 LAB iPO2 80-105 mm Hg PO2 High 322 LAB iTCO2 23-27 mmol/L TCO2 27 LAB iHCO3 22-26 mmol/L HCO3 26 LAB Isaias -2-3 mmol/L Base Excess 0 LAB iSO2 95-98 % O2 High Saturation 100 LAB SOURCEBG Source, Blood Arterial Gas Blood LAB HGB 12.0-17.0 g/dL Low Hemoglobin 8.5 LAB HCT 43.0-51.0 % Low Hematocrit 25 Performed By: #### ACT, ICG8 #### Unless otherwise noted, all testing performed by [place] [address] CLIA: [id number] Web Content Writer: Robb Dominguez M.D. ACTIVATED CLOTTING Collected: 2017 Status: F Source: [facility] 9:52 AM [facility] REPOSITORY TYPE CODE TESTS RESULT OUT OF RANGE REFERENCE UNITS LAB ACT Seconds Normal Activated 592 Clotting Time Result Comment: Testing performed during open heart surgery by Refugio Jon Performed By: #### ACT, ICG8 #### Unless otherwise noted, all testing performed by [place] [address] CLIA: [id number] Web Content Writer: Robb Dominguez M.D. ISTAT CG8 PANEL Collected: 2017 Status: F Source: [facility] 9:31 AM [facility] REPOSITORY TYPE CODE TESTS RESULT OUT OF RANGE REFERENCE UNITS LAB GLU 70-99 mg/dL High Glucose 145 LAB NA 136-141 mmol/L Sodium 141 LAB K 3.5-4.9 mmol/L Potassium 3.7 LAB CAION 1.12-1.32 mmol/L Ionized Calcm 1.23 LAB ipH 7.350-7.450 pH Unknown 7.33 LAB iPCO2 35.0-45.0 mm Hg PCO2 40 LAB iPO2 80-105 mm Hg PO2 95 LAB iTCO2 23-27 mmol/L Low TCO2 22 LAB iHCO3 22-26 mmol/L Low HCO3 21 LAB Isaias -2-3 mmol/L Low Base Excess -5 LAB iSO2 95-98 % O2 Saturation 97 LAB SOURCEBG Source, Blood Arterial Gas Blood LAB HCT 43.0-51.0 % Low Hematocrit 32 LAB HGB 12.0-17.0 g/dL Low Hemoglobin 10.9 Performed By: #### ICG8, ACT #### Unless otherwise noted, all testing performed by [place] [address] CLIA: [id number] Web Content Writer: Robb Dominguez M.D. ACTIVATED CLOTTING Collected: 2017 Status: F Source: [facility] 9:31 AM [facility] REPOSITORY TYPE CODE TESTS RESULT OUT OF RANGE REFERENCE UNITS LAB ACT Seconds Normal Activated 555 Clotting Time Result Comment: Testing performed during open heart surgery by AlejandrinaJose Enrique Mayersrini Performed By: #### ICG8, ACT #### Unless otherwise noted, all testing performed by [place] [address] CLIA: [id number] Web Content Writer: Robb Dominguez M.D. ACTIVATED CLOTTING Collected: 2017 Status: F Source: [facility] 8:43 AM [facility] REPOSITORY TYPE CODE TESTS RESULT OUT OF RANGE REFERENCE UNITS LAB ACT Seconds Normal Activated 284 Clotting Time Result Comment: Testing performed during open heart surgery by AlejandrinaJose Enrique Mayersrini Performed By: #### ACT #### Unless otherwise noted, all testing performed by [place] [address] CLIA: [id number] Web Content Writer: Robb Dominguez M.D. ACTIVATED CLOTTING Collected: 2017 Status: F Source: [facility] 8:32 AM [facility] REPOSITORY TYPE CODE TESTS RESULT OUT OF RANGE REFERENCE UNITS LAB ACT Seconds Normal Activated 208 Clotting Time Result Comment: Testing performed during open heart surgery by AlejandrinaJose Enrique Dontrell Performed By: #### ACT #### Unless otherwise noted, all testing performed by [place] [address] CLIA: [id number] Web Content Writer: Robb Dominguez M.D. ISTAT CG8 PANEL Collected: 2017 Status: F Source: [facility] 7:49 AM [facility] REPOSITORY TYPE CODE TESTS RESULT OUT OF REFERENCE UNITS RANGE LAB GLU 70-99 mg/dL High Glucose 200 LAB NA 136-141 mmol/L Sodium 139 LAB K 3.5-4.9 mmol/L Potassium 3.7 LAB CAION 1.12-1.32 mmol/L Ionized Calcm 1.25 LAB ipH 7.350-7.450 pH 7.39 LAB iPCO2 35.0-45.0 mm Hg PCO2 41 LAB iPO2 80-105 mm Hg PO2 High 256 LAB iTCO2 23-27 mmol/L TCO2 26 LAB iHCO3 22-26 mmol/L HCO3 25 LAB Isaias -2-3 mmol/L Base Excess 0 LAB iSO2 95-98 % O2 High Saturation 100 LAB SOURCEBG Source, Blood Arterial Gas Blood LAB HCT 43.0-51.0 % Low Hematocrit 33 LAB HGB 12.0-17.0 g/dL Low Hemoglobin 11.2 Performed By: #### ICG8, ACT #### Unless otherwise noted, all testing performed by [place] [address] CLIA: [id number] Web Content Writer: Robb Dominguez M.D. ACTIVATED CLOTTING Collected: 2017 Status: F Source: [facility] TIME 7:49 AM [facility] REPOSITORY TYPE CODE TESTS RESULT OUT OF RANGE REFERENCE UNITS LAB ACT Seconds Normal Activated 139 Clotting Time Result Comment: Testing performed during open heart surgery by Refugio Jon Performed By: #### ICG8, ACT #### Unless otherwise noted, all testing performed by [place] [address] CLIA: [id number] Web Content Writer: Robb Dominguez M.D. CHEST (ONE VIEW Observed: 2017 Status: F Source: [facility] ONLY) 6:09 AM [facility] REPOSITORY Final Report Accession No: [id number] Performed: 2017 6:09AM Examination: CHEST (ONE VIEW ONLY) EXAM: CHEST (ONE VIEW ONLY) REASON FOR EXAM: SOB. TECHNIQUE: Portable AP upright view of the chest. COMPARISON: 08/30/2017 chest. FINDINGS: Heart size is satisfactory. No mediastinal widening is seen. Lung muir are expanded without acute infiltration, consolidation, edema, or effusion. Mild left base linear atelectatic streak is seen. Monitor leads overlie the chest. Osseous structures appear intact. Previous left shoulder replacement is again noted. IMPRESSION: Mild general pulmonary hyperinflation without acute infiltration, consolidation, or edema. Linear atelectatic streak is seen in the left lung base. Interpreting Physician: GABBIE MARTIN M.D. Trans: mh : cc: CBC W/O DIFF Collected: 2017 Status: F Source: [facility] 4:14 AM [facility] REPOSITORY TYPE CODE TESTS RESULT OUT OF RANGE REFERENCE UNITS LAB WBC 3.6-10.4 K/mcL WBC Normal 5.5 LAB RBC 4.0-5.5 M/mcL RBC Normal 4.77 LAB HGB 12.9-16.9 g/dL Normal Hemoglobin 14.2 LAB HCT 37.9-49.2 % Normal Hematocrit 42.4 LAB MCV 82.8-99.3 FL MCV Normal 88.8 LAB MCH 27.7-34.6 pg MCH Normal 29.8 LAB MCHC 32.9-35.5 g/dL MCHC Normal 33.5 LAB RDW 10-14.3 % High RDW 14.6 LAB PLT 139-354 K/mcL Platelet Normal Count 171 LAB MPV 6.6-10.8 FL MPV Normal 9.0 Performed By: #### CHEM8, CTNI, CBCWOD #### Unless otherwise noted, all testing performed by [place] [address] CLIA: [id number] Web Content Writer: Robb Dominguez M.D. Observed: 2017 Status: F Source: [facility] TYPE AND CROSS 4:13 AM [facility] REPOSITORY ABO: A Rh: Positive Antibody Screen: Negative Performed By: #### XMATCH #### Unless otherwise noted, all testing performed by [place] [address] CLIA: [id number] Web Content Writer: Robb Dominguez M.D. CARDIAC TROPONIN-I Collected: 2017 Status: F Source: [facility] 4:09 [facility] REPOSITORY TYPE CODE TESTS RESULT OUT OF RANGE REFERENCE UNITS LAB CTNI < 45.0 ng/L Normal Cardiac < 15 Troponin-I Result Comment: Elevation of troponin indicates some degree of myocardial necrosis but unless there is a significant rise and/or fall (if elevated) identified, it unlikely that an acute event has taken place Samples from patients routinely receiving high dose biotin therapy (100-300 mg/day) may show falsely decreased results. Please correlate clinically. LAB CTNINT Normal Cardiac No Troponin Comment Biomarker evidence of myocardial injury within the past 14 hours. Performed By: #### CHEM8, CTNI, CBCWOD #### Unless otherwise noted, all testing performed by [place] [id number] CLIA: [id number] Web Content Writer: Robb Dominguez M.D. BASIC METABOLIC PANEL Collected: 2017 Status: F Source: [facility] 4:09 AM [facility] REPOSITORY TYPE CODE TESTS RESULT OUT OF REFERENCE UNITS RANGE LAB GLU 70-99 mg/dL High Glucose 164 Result Comment: This test result might be falsely depressed or falsely elevated on samples drawn from patients taking Sulfasalazine and Sulfapyridine. Venipuncture should occur prior to taking either of these drugs. LAB BUN 8-25 mg/dL BUN 21 LAB CREA 0.80-1.30 mg/dL Creatinine High 1.61 LAB eGFR >60 ml/min/1.73s Low q.m eGFR,NonAfrican-Am erican 43 Result Comment: Non- GFR Calc eGFR is an estimated Glomerular Filtration Rate based on the value of the patient's serum creatinine. In outpatients, eGFR should be used as a helpful tool in screening for CKD. In inpatients or patients with acute renal failure, eGFR represents the GFR at the moment of the draw and should be used with caution. LAB eGFRB >60 ml/min/1.73sq.m eGFR, -[place]ese Low 52 Result Comment: GFR Calc LAB CALCM 8.4-10.2 mg/dL Calcium 9.4 LAB NA 135-145 mmol/L Sodium 139 LAB K 3.5-5.1 mmol/L Potassium 4.1 LAB CL 98-108 mmol/L Chloride 105 LAB CO2 21-32 mmol/L CO2 26 Performed By: #### CHEM8, CTNI, CBCWOD #### Unless otherwise noted, all testing performed by [address] [place] [address] CLIA: [id number] Web Content Writer: Robb Dominguez M.D. CONSULTATION Observed: 08/31/2017 Status: F Source: [facility] 8:22 PM [facility] REPOSITORY [facility] [place] [address] NAME DEEPA TONG [id number] 1950 DATE 08/31/2017 CONSULTATION NEUROLOGY MANAGER EVY ROJO MD REFERRING PHYSICIAN: Dr. Parks REASON FOR CONSULTATION Type 2 diabetes mellitus out of control. HISTORY OF PRESENT ILLNESS The patient is a 66-year-old male with a past history of hypertension, type 2 diabetes mellitus, obstructive sleep apnea, who had an episode of chest pain with radiation to the back associated with shortness of breath and diaphoresis. He has had chest and back pains before but never as severe as this episode. He presented to the emergency department at [facility] for evaluation. He was admitted for further evaluation and treatment to rule out acute coronary syndrome. He was evaluated by Dr. Quiñones of Cardiology and cardiac catheterization was recommended. On August 30, he underwent cardiac catheterization, which revealed ejection fraction of 55% with triple-vessel coronary artery disease. He was referred for evaluation for surgical revascularization, and the patient is scheduled for coronary artery bypass graft surgery on September 01. The patient has a history of type 2 diabetes mellitus for 15-20 years. He has no known diabetic retinopathy. He does have some diabetic nephropathy and peripheral neuropathy. He has no known family history of diabetes mellitus. He states that he checks his blood sugars a few times per week. His metformin dose was recently reduced from 1000 mg twice a day to 500 mg twice a day. He also takes Actos 30 mg daily and glimepiride 4 mg twice a day. He states that since his metformin dose was reduced, his blood sugars have been running higher in the morning, generally over 200 mg/dL when he does check them. He has a hemoglobin A1c of 10.4%. ALLERGIES Morphine. MEDICATIONS At the time of admission, metformin 500 mg twice a day, Actos 30 mg daily; glimepiride 4 mg twice a day, lisinopril 40 mg daily, gabapentin with dose listed as 1200 mg every morning and 1600 mg every evening, Lasix 20 mg daily, Requip 0.5 mg 3 tablets q.h.s. PAST MEDICAL HISTORY 1. Hypertension. 2. Hyperlipidemia. 3. Type 2 diabetes mellitus. 4. Obstructive sleep apnea with compliance with CPAP at night. 5. Chronic kidney disease with baseline creatinine 1.6-1.8. 6. GERD. 7. History of renal calculi which he passed, 2 years ago. 8. Restless legs syndrome. 9. Cellulitis of the left leg, treated with antibiotics 1 year ago. 10. Osteoarthritis, both knees. 11. Chronic lower extremity swelling, right greater than left. 12. Triple-vessel coronary artery disease this admission. PAST SURGICAL HISTORY 1. Status post right shoulder surgery for shoulder dislocation in the . 2. Status post right foot and ankle crush injury in 2000 requiring reconstruction surgery and a steel victoira to be placed in his lower leg. 3. Status post left shoulder replacement in 2013. FAMILY HISTORY The patient's mother at age 81 from ALS and she had a coronary artery bypass graft surgery done by Dr. Quiroz. The patient's father at age 87 from heart disease and also had a history of coronary artery bypass graft surgery and stenting. He also had prostate cancer. There is no known family history of diabetes mellitus. SOCIAL HISTORY The patient states that he has never smoked. He does not drink alcohol or use any other drugs. 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 His 2nd 1 year ago. He lives at home with a young couple and a 2- year-old living with him and renting part of the home from him. REVIEW OF SYSTEMS Since admission, the patient denies having had any further chest pain or shortness of breath. He has no chronic nausea, vomiting, diarrhea, constipation, or abdominal pain. He does have chronic swelling of both lower extremities. He does have some numbness of his feet. PHYSICAL EXAM Vital Signs: Temperature 98, pulse 54, respiratory rate 20, blood pressure 130/70. HEENT: PERRL, EOMI. Sclerae anicteric. Oropharynx within normal limits. Neck: Supple. No lymphadenopathy or thyromegaly appreciated. Cardiac: Regular rate and rhythm. Normal S1, S2. Pulmonary: Clear without crackles or wheezes. Abdomen: Positive bowel sounds. Soft, nontender. No masses appreciated. Extremities: Bilateral lower extremity edema with a healing eschar on his right anterior tibial surface. No evidence of infection. Feet with positive dorsalis pedis pulses bilaterally. No active lesions of feet noted. Neurologic: Alert and oriented x3. Cranial nerves 2-12 intact. Motor and sensory grossly nonfocal. LABS August 31: Glucose 122, BUN 16, creatinine 1.40, estimated GFR 51, calcium 9.2, sodium 142, potassium 4.5, chloride 107, CO2 27. August 30: AST 17, ALT 27, alkaline phosphatase 70, bilirubin 0.4, total protein 6.9, albumin 3.5, pre- albumin 24.3, hemoglobin A1c 10.4%. August 31: WBC 5.0, hemoglobin 13.7, hematocrit 40.3, platelet count 175,000. Urinalysis negative. Specific gravity 1.032, pH 7.0, negative dipstick. ASSESSMENT AND PLAN The patient is a 66-year-old male with a history of multiple medical problems including hypertension, type 2 diabetes mellitus, sleep apnea, and newly diagnosed coronary artery disease, who is scheduled for open heart surgery on September 01. Since his admission, his blood sugars have ranged from 73 to 328. His metformin has been on hold following his cardiac catheterization. His hemoglobin is 10.4%, reflecting diabetes out of control. I have advised the patient that we will need to treat him with IV insulin postoperatively and that he will be needing to start insulin for postoperative diabetes management in order to adequately control his glucose in the postoperative time period. He may need to have his metformin held permanently due to his renal insufficiency, or we may be able to start him back up on his outpatient dose of 500 mg twice a day. I also advised him that we may not restart his Actos due to the concern of lower extremity edema following vein harvest from the lower leg, in view of his preexisting edema, his glimepiride will be continued. PLAN At this time will be to continue to cover his blood glucoses with sliding scale insulin coverage. Postoperatively, he will need IV insulin and will need a 4 times a day regimen to control his diabetes in the recovery. Later, he may be able to be switched to a twice a day regimen of 70/30. Thank you for your consultation. We will continue to follow the patient with you. MD José Luis GOODWIN 08/31/2017 20:22 [id number] T 08/31/2017 21:13 CAD/MODL Electronically Signed By Evy Rojo M.D. on 02 Sep 2017 11:41:02 GMT GLUCOSE, POC Collected: 08/31/2017 Status: F Source: [facility] 8:10 PM [facility] REPOSITORY TYPE CODE TESTS RESULT OUT OF RANGE REFERENCE UNITS LAB GLUX 80-115 mg/dL High Glucose, 208 POC Performed By: #### GLUX #### Unless otherwise noted, all testing performed by [address] [address] CLIA: [id number] Web Content Writer: Robb Dominguez M.D. GLUCOSE, POC Collected: 08/31/2017 Status: F Source: [facility] 4:19 PM [facility] REPOSITORY TYPE CODE TESTS RESULT OUT OF RANGE REFERENCE UNITS LAB GLUX 80-115 mg/dL High Glucose, 147 POC Performed By: #### GLUX #### Unless otherwise noted, all testing performed by [address] [address] CLIA: [id number] Web Content Writer: Robb Dominguez M.D. GLUCOSE, POC Collected: 08/31/2017 Status: F Source: [facility] 11:54 AM [facility] REPOSITORY TYPE CODE TESTS RESULT OUT OF RANGE REFERENCE UNITS LAB GLUX 80-115 mg/dL High Glucose, 223 POC Performed By: #### GLUX #### Unless otherwise noted, all testing performed by [address] [address] CLIA: [id number] Web Content Writer: Robb Dominguez M.D. Observed: 08/31/2017 Status: F Source: [facility] LEUKO-REDUCED RBCS 8:06 AM [facility] REPOSITORY Leuko-reduced RBCs: PRBC, Leuk[place]oor [id number] APOS [id number] Crossmatch data- XM 2017 06:36 BRITTNI IS 2017 06:59 BRITTNI XM 2017 12:30 BRITTNI RE 09/04/2017 05:59 CROHRS Leuko-reduced RBCs: PRBC, [place]oor [id number] APOS [id number] Crossmatch data- 2017 06:36 [facility] 06:59 BRITTNI PT 09/02/2017 09:44 BREIGLE Leuko-reduced RBCs: PRBC, [place] [id number] APOS [id number] Crossmatch data- 2017 06:37 [facility] 2017 06:59 BRITTNI PT 09/02/2017 09:44 BREIGLE Leuko-reduced RBCs: PRBC, [place] [id number] APOS [id number] Crossmatch data- 2017 06:37 [facility] 2017 06:[facility] 12:30 [facility] 09/04/2017 05:59 CROHRS Leuko-reduced RBCs: PRBC, [place] [id number] APOS [id number] Crossmatch data- 2017 06:37 [facility] 09/05/2017 06:30 SMCGRAW Leuko- reduced RBCs: PRBC, [place]oor [id number] APOS [id number] Crossmatch data- 2017 06:37 [facility]3] 2017 06:59 [facility] 2017 12:30 [facility] 09/05/2017 06:30 SMCGRAW Leuko- reduced RBCs: PRBC, [place] [id number] APOS [id number] Crossmatch data- 2017 06:37 [facility] 09/05/2017 06:30 SMCGRAW Leuko- reduced RBCs: PRBC, [place] [id number] APOS [id number] Crossmatch data- 2017 06:37 [facility]3] 2017 06:59 [facility] 2017 12:30 [facility] 09/05/2017 06:30 SMCGRJOAQUIM Performed By: #### RLC #### Unless otherwise noted, all testing performed by [facility] [address] [place], [place] [address] CLIA: [id number] Web Content Writer: Robb Dominguez M.D. Observed: 08/31/2017 Status: F Source: [facility] LEUKO-REDUCED RBCS 8:06 AM [facility] Cryoprecipitate Pooled, Random: Random Cryopooled - ARC [id number] APOS [id number] Crossmatch data- XM 2017 09:39 [facility] Cryoprecipitate Pooled, Random: Random Cryopooled - ARC [id number] APOS [id number] Crossmatch data- XM 2017 09:39 [facility] Cryoprecipitate Pooled, Random: Random Cryopooled - ARC [id number] APOS [id number] Crossmatch data- IS 2017 10:37 [facility] PT 09/02/2017 09:44 BREIGLE Cryoprecipitate Pooled, Random: Random Cryopooled - ARC [id number] APOS [id number] Crossmatch data- IS 2017 10:37 [facility] PT 09/02/2017 09:44 BREIGLE Pooled Plt,Leukoreduced-5units: Pooled Platelets, Leukoreduced - 5 units [id number] APOS [id number] Pooled Plt,Leukoreduced-5units: Crossmatch data- XM 2017 09:16 [facility] IS 2017 10:37 [facility] PT 09/02/2017 09:44 BREIGLE Pooled Plt,Leukoreduced-5units: Pooled Platelets, Leukoreduced - 5 units [id number] APOS [id number] Pooled Plt,Leukoreduced-5units: Crossmatch data- XM 2017 09:16 [facility] IS 2017 10:37 [facility] PT 09/02/2017 09:44 BREIGLE Performed By: #### RLC #### Unless otherwise noted, all testing performed by [place] [id number] CLIA: [id number] Web Content Writer: oRbb Dominguez M.D. CBC W/O DIFF Collected: 08/31/2017 Status: F Source: [facility] 5:14 AM [facility] REPOSITORY TYPE CODE TESTS RESULT OUT OF RANGE REFERENCE UNITS LAB WBC 3.6-10.4 K/mcL WBC Normal 5.0 LAB RBC 4.0-5.5 M/mcL RBC Normal 4.58 LAB HGB 12.9-16.9 g/dL Normal Hemoglobin 13.7 LAB HCT 37.9-49.2 % Normal Hematocrit 40.3 LAB MCV 82.8-99.3 FL MCV Normal 87.9 LAB MCH 27.7-34.6 pg MCH Normal 29.9 LAB MCHC 32.9-35.5 g/dL MCHC Normal 34.0 LAB RDW 10-14.3 % RDW Normal 14.0 LAB PLT 139-354 K/mcL Platelet Normal Count 175 LAB MPV 6.6-10.8 FL MPV Normal 9.0 Performed By: #### CTNI, CHEM8, CBCWOD #### Unless otherwise noted, all testing performed by [place] [address] CLIA: [id number] Web Content Writer: Robb Dominguez M.D. CARDIAC TROPONIN-I Collected: 08/31/2017 Status: F Source: [facility] 5:14 [facility] REPOSITORY TYPE CODE TESTS RESULT OUT OF RANGE REFERENCE UNITS LAB CTNI < 45.0 ng/L Normal Cardiac < 15 Troponin-I Result Comment: Elevation of troponin indicates some degree of myocardial necrosis but unless there is a significant rise and/or fall (if elevated) identified, it unlikely that an acute event has taken place Samples from patients routinely receiving high dose biotin therapy (100-300 mg/day) may show falsely decreased results. Please correlate clinically. LAB CTNINT Normal Cardiac No Troponin Comment Biomarker evidence of myocardial injury within the past 14 hours. Performed By: #### CTNI, CHEM8, CBCWOD #### Unless otherwise noted, all testing performed by [place] [address] CLIA: [id number] Web Content Writer: Robb Dominguez M.D. BASIC METABOLIC PANEL Collected: 08/31/2017 Status: F Source: [facility] 5:14 AM [facility] REPOSITORY TYPE CODE TESTS RESULT OUT OF REFERENCE UNITS RANGE LAB GLU 70-99 mg/dL High Glucose 122 Result Comment: This test result might be falsely depressed or falsely elevated on samples drawn from patients taking Sulfasalazine and Sulfapyridine. Venipuncture should occur prior to taking either of these drugs. LAB BUN 8-25 mg/dL BUN 16 LAB CREA 0.80-1.30 mg/dL Creatinine High 1.40 LAB eGFR >60 ml/min/1.73s Low q.m eGFR,NonAfrican-Am erican 51 Result Comment: Non- GFR Calc eGFR is an estimated Glomerular Filtration Rate based on the value of the patient's serum creatinine. In outpatients, eGFR should be used as a helpful tool in screening for CKD. In inpatients or patients with acute renal failure, eGFR represents the GFR at the moment of the draw and should be used with caution. LAB eGFRB ml/min/1.73sq.m eGFR, -[place]ese >=60 Result Comment: GFR Calc LAB CALCM 8.4-10.2 mg/dL Calcium 9.2 LAB NA 135-145 mmol/L Sodium 142 LAB K 3.5-5.1 mmol/L Potassium 4.5 LAB CL 98-108 mmol/L Chloride 107 LAB CO2 21-32 mmol/L CO2 27 Performed By: #### CTNI, CHEM8, CBCWOD #### Unless otherwise noted, all testing performed by [place] [address] CLIA: [id number] Web Content Writer: Robb Dominguez M.D. GLUCOSE, POC Collected: 08/30/2017 Status: F Source: [facility] 8:45 PM [facility] REPOSITORY TYPE CODE TESTS RESULT OUT OF RANGE REFERENCE UNITS LAB GLUX 80-115 mg/dL High Glucose, 190 POC Performed By: #### GLUX #### Unless otherwise noted, all testing performed by [facility] [address] [place], [place] [address] CLIA: [id number] Web Content Writer: Robb Dominguez M.D. GLUCOSE, POC Collected: 08/30/2017 Status: F Source: [facility] 5:20 PM [facility] REPOSITORY TYPE CODE TESTS RESULT OUT OF RANGE REFERENCE UNITS LAB GLUX 80-115 mg/dL High Glucose, 162 POC Performed By: #### GLUX #### Unless otherwise noted, all testing performed by [facility] [address] [place], [place] [address] CLIA: [id number] Web Content Writer: Robb Dominguez M.D. CHEST PA AND LATERAL Observed: 08/30/2017 Status: F Source: [facility] 3:06 PM [facility] REPOSITORY Final Report Accession No: [id number] Performed: Aug 30 2017 3:06PM Examination: CHEST PA AND LATERAL EXAM: CHEST PA AND LATERAL CLINICAL HISTORY: 66 -year-old male presenting with chest pain. TECHNIQUE: 2 view chest x-ray. COMPARISON: 08/28/2017 FINDINGS: No pneumothorax, pleural effusion or focal airspace consolidation. Left basilar subsegmental atelectasis. Heart is normal in size. There are atherosclerotic changes of the thoracic aorta. There are multilevel degenerative changes of the thoracic spine. There are advanced osteoarthritic changes of the right shoulder. There is partial visualization of left shoulder arthroplasty. IMPRESSION: No acute cardiopulmonary process. Interpreting Physician: DMITRY PATE D.O. Trans: [email or web address] : cc: PROTIME Collected: 08/30/2017 Status: F Source: [facility] 12:58 PM [facility] TYPE CODE TESTS RESULT OUT OF RANGE REFERENCE UNITS LAB PT. 11.8-14.3 Seconds Normal Protime 13.5 LAB INR Normal INR 1.06 Result Comment: The [place] [employer] recommended therapeutic range for Warfarin (Coumadin) therapy goals: PROPHYLAXIS/TREATMENT of: INR Venous Thrombosis, Pulmonary Embolism 2.0-3.0 Prevention of VTE (Orthopedic Surgery) 2.0-3.0 Atrial Fibrillation 2.0-3.0 Myocardial Infarction 2.0-3.0 Mechanical Prosthetic Heart Valves (Aortic position) 2.0-3.0 Mechanical Prosthetic Heart Valves (Mitral Position) 2.5-3.5 [place] [employer] evidence-based clinical practice guidelines. CHEST. 2012 (9th ed) Performed By: #### PREALB, CTNI, HEPF, HBA1C, SHELLEY, PT, LIPASE, PTT #### Unless otherwise noted, all testing performed by [place] [address] CLIA: [id number] Web Content Writer: Robb Dominguez M.D. CARDIAC TROPONIN-I Collected: 08/30/2017 Status: F Source: [facility] 12:58 PM [facility] REPOSITORY TYPE CODE TESTS RESULT OUT OF RANGE REFERENCE UNITS LAB CTNI < 45.0 ng/L Normal Cardiac < 15 Troponin-I Result Comment: Elevation of troponin indicates some degree of myocardial necrosis but unless there is a significant rise and/or fall (if elevated) identified, it unlikely that an acute event has taken place Samples from patients routinely receiving high dose biotin therapy (100-300 mg/day) may show falsely decreased results. Please correlate clinically. Performed By: #### PREALB, CTNI, HEPF, HBA1C, SHELLEY, PT, LIPASE, PTT #### Unless otherwise noted, all testing performed by [address] [address] CLIA: [id number] Web Content Writer: Robb Dominguez M.D. PARTIAL THROMBOPLASTIN Collected: 08/30/2017 Status: F Source: [facility] TIME 12:58 PM [facility] REPOSITORY TYPE CODE TESTS RESULT OUT OF REFERENCE UNITS RANGE LAB PTT 23.0-34.0 Seconds Partial High Thromboplastin Time 72 Result Comment: Suggested therapeutic range for PTT is 68-104 sec. Performed By: #### PREALB, CTNI, HEPF, HBA1C, SHELLEY, PT, LIPASE, PTT #### Unless otherwise noted, all testing performed by [address] [place], [place] [address] CLIA: [id number] Web Content Writer: Robb Dominguez M.D. AMYLASE Collected: 08/30/2017 Status: F Source: [facility] 12:58 PM [facility] REPOSITORY TYPE CODE TESTS RESULT OUT OF RANGE REFERENCE UNITS LAB SHELLEY 25-115 U/L Normal Amylase 34 Performed By: #### PREALB, CTNI, HEPF, HBA1C, SHELLEY, PT, LIPASE, PTT #### Unless otherwise noted, all testing performed by [place] [address] CLIA: [id number] Web Content Writer: Robb Dominguez M.D. LIPASE Collected: 08/30/2017 Status: F Source: [facility] 12:58 PM [facility] REPOSITORY TYPE CODE TESTS RESULT OUT OF RANGE REFERENCE UNITS LAB LIPASE 73-393 U/L Normal Lipase 116 Performed By: #### PREALB, CTNI, HEPF, HBA1C, SHELLEY, PT, LIPASE, PTT #### Unless otherwise noted, all testing performed by [place] [address] CLIA: [id number] Web Content Writer: Robb Dominguez M.D. PREALBUMIN Collected: 08/30/2017 Status: F Source: [facility] 12:58 PM [facility] REPOSITORY TYPE CODE TESTS RESULT OUT OF REFERENCE UNITS RANGE LAB PREALB 20.0-40.0 mg/dL Normal Prealbumin 24.3 Performed By: #### PREALB, CTNI, HEPF, HBA1C, SHELLEY, PT, LIPASE, PTT #### Unless otherwise noted, all testing performed by [place] [address] CLIA: [id number] Web Content Writer: Robb Dominguez M.D. HEPATIC FUNCTION Collected: 08/30/2017 Status: F Source: [facility] 12:58 PM [facility] REPOSITORY TYPE CODE TESTS RESULT OUT OF RANGE REFERENCE UNITS LAB AST 0-45 U/L Normal AST 17 (SGOT) Result Comment: This test result might be falsely depressed or falsely elevated on samples drawn from patients taking Sulfasalazine and Sulfapyridine. Venipuncture should occur prior to taking either of these drugs. LAB ALT 14-65 U/L Normal ALT (SGPT) 27 Result Comment: This test result might be falsely depressed or falsely elevated on samples drawn from patients taking Sulfasalazine and Sulfapyridine. Venipuncture should occur prior to taking either of these drugs. LAB ALKP 40-150 U/L Normal Alkaline Phosphatase 70 LAB BILIT 0.3-1.2 mg/dL Normal Bilirubin,Total 0.4 LAB BILID 0.0-0.4 mg/dL Normal Bilirubin, Direct 0.1 LAB PROT 6.0-8.0 g/dL Normal Protein, Total 6.9 LAB ALB 3.2-5.2 g/dL Normal Albumin 3.5 Performed By: #### PREALB, CTNI, HEPF, HBA1C, SHELLEY, PT, LIPASE, PTT #### Unless otherwise noted, all testing performed by [place] [address] CLIA: [id number] Web Content Writer: Robb Dominguez M.D. Observed: 08/30/2017 Status: F Source: [facility] PAT TYPE AND SCREEN 12:58 PM [facility] REPOSITORY ABO: A Rh: Positive Antibody Screen: Negative Performed By: #### PATTS #### Unless otherwise noted, all testing performed by [place] [address] CLIA: [id number] Web Content Writer: Robb Dominguez M.D. HEMOGLOBIN A1C Collected: 08/30/2017 Status: F Source: [facility] 12:57 PM [facility] REPOSITORY TYPE CODE TESTS RESULT OUT OF REFERENCE UNITS RANGE LAB HBA1C 4.1-6.5 % High Hemoglobin A1C 10.4 Performed By: #### PREALB, CTNI, HEPF, HBA1C, SHELLEY, PT, LIPASE, PTT #### Unless otherwise noted, all testing performed by [address] [place], [place] [address] CLIA: [id number] Web Content Writer: Robb Dominguez M.D. BLOOD GAS, ARTERIAL Collected: 08/30/2017 Status: F Source: [facility] 12:06 PM [facility] REPOSITORY TYPE CODE TESTS RESULT OUT OF REFERENCE UNITS RANGE LAB ipH 7.350-7.450 pH Normal 7.440 LAB iPCO2 35-45 mm Hg PCO2 Normal 36.9 LAB iPO2 75-85 mm Hg PO2 Low 66.4 LAB iHCO3 22-26 mmol/L HCO3 Normal 25.1 LAB Isaias -2-2 mmol/L Base Excess Normal 1.1 LAB O2HB 92-99 % O2 Hemoglobin Normal 92.3 LAB AAGRAD mm Hg [id number] Normal 34.8 LAB AARATIO % Aa Ratio Normal 65.7 LAB O2CT mmol/L O2CT Normal 7.4 LAB RpcH4Ihd 92-99 % Hemoglobin O2 Sat. Normal 94.4 LAB COHB % Carboxyhemoglobin Normal 1.5 Result Comment: Suburban Non-Smoker <1.5% of total Hgb Smoker 1.5 - 5.0 % of total Hgb Heavy Smoker 5.0 - 9.0 % of total Hgb LAB METHB < 2.0 % Methemoglobin Normal 0.7 LAB HHB 0.0-5.0 % DeOxyhemoglobin High (HHB) 5.5 LAB pHt 7.350-7. 450 pH (temp conv.) Normal 7.440 LAB pCO2t 35.0-45. mm Hg 0 pCO2 (temp conv.) Normal 36.9 LAB pO2t 75-85 mm Hg Low pO2 (temp conv.) 66.4 LAB DRAWNBY Drawn By (Bld Gas) Normal wlj LAB SITEABG Site (Bld Gas) Normal LTBRACH LAB THB 13.5-17. g/dL Low 5 Hemoglobin (Bld Gas) 12.7 LAB HCTABG 41-53 % Low Hematocrit (Bld Gas) 39.1 LAB [id number] O2 Device Normal Room Air LAB FIO2 21-100 % FIO2 Normal 21.0 LAB TEMPABG 36.0-38. Celsius 0 Temperature (Bld Normal Gas) 37.0 LAB ALLENS Allens Test Normal N/A LAB BGINST Blood Gas Instrument Normal ;ICU Performed By: #### ABG #### Unless otherwise noted, all testing performed by [place] [address] CLIA: [id number] Web Content Writer: Robb Dominguez M.D. GLUCOSE, POC Collected: 08/30/2017 Status: F Source: [facility] 11:57 AM [facility] REPOSITORY TYPE CODE TESTS RESULT OUT OF RANGE REFERENCE UNITS LAB GLUX 80-115 mg/dL High Glucose, 192 POC Performed By: #### GLUX #### Unless otherwise noted, all testing performed by [place] [address] CLIA: [id number] Web Content Writer: Robb Dominguez M.D. URINALYSIS, ROUTINE Collected: 08/30/2017 Status: F Source: [facility] 11:35 AM [facility] REPOSITORY TYPE CODE TESTS RESULT OUT OF REFERENCE UNITS RANGE LAB COLOR Normal Color, Urine Straw LAB CHAUR Normal Character Clear LAB SPGRUR 1.003-1.029 High Specific 1.032 Oral,Urine LAB PHUR 4.5-8.0 Normal pH,Urine 7.0 LAB GLUCUR NEG;NEGATIVE mg/dL Normal Glucose,Urine Negative LAB KETUR NEG;NEGATIVE mg/dL Normal Ketone,Urine Negative LAB PROTUR NEG;NEGATIVE mg/dL Normal Protein,Urine Negative LAB BLDUR NEG;NEGATIVE Normal Blood,Urine Negative LAB NITUR NEG;NEGATIVE Normal Nitrite,Urine Negative LAB BILIUR NEG;NEGATIVE Normal Bilirubin,Urin Negative e LAB UROUR <2 mg/dL Normal Urobilinogen,U < 2.0 rine LAB LEUESTUR Negative Normal Leuk.Esterase, Negative Urine LAB WBCUR 0-5 /HPF Normal WBC,Urine < 1 LAB RBCUR 0-5 /HPF Normal RBC,Urine < 1 Performed By: #### UA #### Unless otherwise noted, all testing performed by [place] [address] CLIA: [id number] Web Content Writer: Robb Dominguez M.D. Observed: 08/30/2017 Status: F Source: [facility] CULTURE, URINE 11:35 AM [facility] REPOSITORY Test Name: Culture, Urine Culture Status: Final Culture Report: No significant growth. Micro Source: Urine - clean catch Performed By: #### URCUL #### Unless otherwise noted, all testing performed by [address] [place], [place] [address] CLIA: [id number] Web Content Writer: Robb Dominguez M.D. OPERATION-PROCEDURE Observed: 08/30/2017 Status: F Source: [facility] 11:03 AM [facility] REPOSITORY [address] [place] [address] NAME DEEPA TONG [id number] 1950 DATE 08/30/2017 OPERATIVE REPORT / PROCEDURE NOTE SURGEON PATY QUIÑONES MD PROCEDURES 1. Left heart catheterization with selective coronary angiography and left ventriculography via right transradial approach. 2. Fractional flow reserve assessment across the ostium of the anterior circulation, fractional flow reserve [ 0.79 ] following induction of hyperemia with adenosine at 140 mcg/kg/min suggests physiologic significance to angiographic disease identified. CLINICAL INDICATION The patient is an obese 66-year-old gentleman with high risk clinical features for ischemic heart disease. He has presented with progressive exercise intolerance in association with somewhat atypical chest symptoms. Cardiac markers are not detectable. Electrocardiogram is nonacute. TECHNIQUE The patient was prepped and draped in the usual manner and premedicated with Versed and Nubain. The patient received IV hydration prior to the procedure for underlying chronic kidney disease. After infiltration of 2% Xylocaine and using a micropuncture technique a Slender sheath was introduced into the right radial artery. Following sheath insertion the patient received intra-arterial verapamil, nitroglycerin, and unfractionated heparin. Next over a long J exchange wire 5-[place] JR5 and 5-[place] JL3.5 diagnostic coronary catheters were used for selective coronary angiography in various RWANDAN and NIXON projections. The 5-[place] JR5 was used for left ventriculography in the NIXON projection with nonionic contrast. Pullback pressure was obtained across the aortic valve. We then proceeded with invasive physiologic assessment across the anterior circulation to help define coronary revascularization strategies. The patient received an additional 3000 units of unfractionated heparin. We used the diagnostic 5- [place] JL3.5 catheter. A RADI wire was normalized in the ascending aorta and then placed in the mid left anterior descending under fluoroscopic guidance. Resting FFR was 0.88. Following brief infusion of adenosine at 140 mcg/kg/min FFR was 0.79. The RADI wire was then removed. The guiding catheter and sheath were removed and a TR band was used for hemostasis. Patient tolerated the procedure well and returned to his room in satisfactory condition. HEMODYNAMICS Aortic pressure was 100/64. LV pressure was 100/12. DESCRIPTION Left ventricle: Overall left ventricular function was estimated at 55%. No clear regional wall motion abnormalities were noted. There was no gradient across the aortic valve. There was no angiographic evidence of mitral valve insufficiency. Right coronary artery: Right coronary artery was a heavily calcified vessel that bifurcated into a posterior descending branch and distal right conduit. This vessel supplied the posterior interventricular groove making it a right dominant circulation. The distal right in the AV segment has a long tubular 95% luminal irregularity. The proximal segment has a 50% to 60% very eccentric calcified luminal irregularity. The posterior descending branch was a medium caliber vessel with diffuse luminal irregularities. Left main: Left main was a calcified vessel with distal narrowing of approximately 40%. Left circumflex: Left circumflex coursed in the AV groove. This vessel was calcified in its proximal course. The mid conduit in the AV groove had a 40% to 50% luminal irregularity. This vessel then continued on as a posterolateral branch that had a 40% to 50% luminal irregularity. The remainder of the posterior circulation had minimal luminal irregularities. Ramus intermedius: Ramus intermedius was a srfjgu-ld-jjipn caliber vessel that bifurcated more distally. The proximal portion of this vessel had a 70% to 75% luminal irregularity. Left anterior descending: Left anterior descending courses to supply the apex. This vessel was calcified throughout its course. The ostium of the anterior circulation had a 70% to 75% angiographically hazy and calcified luminal irregularity. I suspect we may be underestimating angiographic definable disease within that segment. The proximal segment after a septal inter com installer branch had a 60% very eccentric luminal irregularity. This vessel gave rise to several somewhat small caliber diagonal wall branches that had diffuse luminal irregularities. DIAGNOSES 1. Normal left ventricular systolic function with an estimated LV ejection fraction of 55%. 2. Normal left ventricular end-diastolic pressure. 3. Triple-vessel coronary artery disease. 4. Fractional flow reserve assessment across the ostium of the anterior circulation suggests physiologic significance to angiographic disease identified. DISCUSSION Consideration for bypass grafting appears warranted. He will need guideline- directed intensification of his medical regimen with aggressive risk factor modification. MD José Luis SUBRAMANIAN 08/30/2017 11:03 [id number] T 08/30/2017 11:32 GME/MODL Electronically Signed By Paty Quiñones M.D. on 30 Aug 2017 16:10:36 GMT ACTIVATED CLOTTING Collected: 08/30/2017 Status: F Source: [facility] TIME 10:38 AM [facility] REPOSITORY TYPE CODE TESTS RESULT OUT OF RANGE REFERENCE UNITS LAB ACT Seconds Normal Activated 180 Clotting Time Performed By: #### ACT #### Unless otherwise noted, all testing performed by [facility] [address] [place] [address] CLIA: [id number] Web Content Writer: Robb Dominguez M.D. GLUCOSE, POC Collected: 08/30/2017 Status: F Source: [facility] 7:37 AM [facility] REPOSITORY TYPE CODE TESTS RESULT OUT OF RANGE REFERENCE UNITS LAB GLUX 80-115 mg/dL High Glucose, 213 POC Performed By: #### GLUX #### Unless otherwise noted, all testing performed by [facility] [address] [place] [address] CLIA: [id number] Web Content Writer: Robb Dominguez M.D. CBC W/O DIFF Collected: 08/30/2017 Status: F Source: [facility] 3:56 AM [facility] REPOSITORY TYPE CODE TESTS RESULT OUT OF RANGE REFERENCE UNITS LAB WBC 3.6-10.4 K/mcL WBC Normal 5.0 LAB RBC 4.0-5.5 M/mcL RBC Normal 4.51 LAB HGB 12.9-16.9 g/dL Normal Hemoglobin 13.6 LAB HCT 37.9-49.2 % Normal Hematocrit 39.6 LAB MCV 82.8-99.3 FL MCV Normal 87.7 LAB MCH 27.7-34.6 pg MCH Normal 30.2 LAB MCHC 32.9-35.5 g/dL MCHC Normal 34.5 LAB RDW 10-14.3 % High RDW 14.5 LAB PLT 139-354 K/mcL Platelet Normal Count 174 LAB MPV 6.6-10.8 FL MPV Normal 9.4 Performed By: #### CHEM8, CBCWOD #### Unless otherwise noted, all testing performed by [facility] [address] [place], [place] [address] CLIA: [id number] Web Content Writer: Robb Dominguez M.D. BASIC METABOLIC PANEL Collected: 08/30/2017 Status: F Source: [facility] 3:56 AM [facility] REPOSITORY TYPE CODE TESTS RESULT OUT OF REFERENCE UNITS RANGE LAB GLU 70-99 mg/dL High Glucose 212 Result Comment: This test result might be falsely depressed or falsely elevated on samples drawn from patients taking Sulfasalazine and Sulfapyridine. Venipuncture should occur prior to taking either of these drugs. LAB BUN 8-25 mg/dL BUN 22 LAB CREA 0.80-1.30 mg/dL Creatinine High 1.60 LAB eGFR >60 ml/min/1.73s Low q.m eGFR,NonAfrican-Am erican 43 Result Comment: Non- GFR Calc eGFR is an estimated Glomerular Filtration Rate based on the value of the patient's serum creatinine. In outpatients, eGFR should be used as a helpful tool in screening for CKD. In inpatients or patients with acute renal failure, eGFR represents the GFR at the moment of the draw and should be used with caution. LAB eGFRB >60 ml/min/1.73sq.m eGFR, -[place] Low 52 Result Comment: GFR Calc LAB CALCM 8.4-10.2 mg/dL Calcium 9.4 LAB NA 135-145 mmol/L Sodium 139 LAB K 3.5-5.1 mmol/L Potassium 4.4 LAB CL 98-108 mmol/L Chloride 104 LAB CO2 21-32 mmol/L CO2 28 Performed By: #### CHEM8, CBCWOD #### Unless otherwise noted, all testing performed by [place] [address] CLIA: [id number] Web Content Writer: Robb Dominguez M.D. GLUCOSE, POC Collected: 08/29/2017 Status: F Source: [facility] 8:30 PM [facility] REPOSITORY TYPE CODE TESTS RESULT OUT OF RANGE REFERENCE UNITS LAB GLUX 80-115 mg/dL High Glucose, 172 POC Performed By: #### GLUX #### Unless otherwise noted, all testing performed by [place] [address] CLIA: [id number] Web Content Writer: Robb Dominguez M.D. GLUCOSE, POC Collected: 08/29/2017 Status: F Source: [facility] 5:07 PM [facility] REPOSITORY TYPE CODE TESTS RESULT OUT OF RANGE REFERENCE UNITS LAB GLUX 80-115 mg/dL Low Glucose, 73 POC Performed By: #### GLUX #### Unless otherwise noted, all testing performed by [place] [address] CLIA: [id number] Web Content Writer: Robb Dominguez M.D. GLUCOSE, POC Collected: 08/29/2017 Status: F Source: [facility] 11:33 AM [facility] REPOSITORY TYPE CODE TESTS RESULT OUT OF RANGE REFERENCE UNITS LAB GLUX 80-115 mg/dL High Glucose, 328 POC Performed By: #### GLUX #### Unless otherwise noted, all testing performed by [place] [address] CLIA: [id number] Web Content Writer: Robb Dominguez M.D. GLUCOSE, POC Collected: 08/29/2017 Status: F Source: [facility] 7:25 AM [facility] REPOSITORY TYPE CODE TESTS RESULT OUT OF RANGE REFERENCE UNITS LAB GLUX 80-115 mg/dL High Glucose, 153 POC Performed By: #### GLUX #### Unless otherwise noted, all testing performed by [place] [address] CLIA: [id number] Web Content Writer: Robb Dominguez M.D. GLUCOSE, POC Collected: 08/28/2017 Status: F Source: [facility] 9:19 PM [facility] REPOSITORY TYPE CODE TESTS RESULT OUT OF RANGE REFERENCE UNITS LAB GLUX 80-115 mg/dL High Glucose, 204 POC Performed By: #### GLUX #### Unless otherwise noted, all testing performed by [place] [address] CLIA: [id number] Web Content Writer: Robb Dominguez M.D. CARDIAC TROPONIN-I Collected: 08/28/2017 Status: F Source: [facility] 7:30 PM [facility] REPOSITORY TYPE CODE TESTS RESULT OUT OF RANGE REFERENCE UNITS LAB CTNI < 45.0 ng/L Normal Cardiac < 15 Troponin-I Result Comment: Elevation of troponin indicates some degree of myocardial necrosis but unless there is a significant rise and/or fall (if elevated) identified, it unlikely that an acute event has taken place Samples from patients routinely receiving high dose biotin therapy (100-300 mg/day) may show falsely decreased results. Please correlate clinically. LAB CTNINT Normal Cardiac No Troponin Comment Biomarker evidence of myocardial injury within the past 14 hours. Performed By: #### CTNI #### Unless otherwise noted, all testing performed by [place] [address] CLIA: [id number] Web Content Writer: Robb Dominguez M.D. GLUCOSE, POC Collected: 08/28/2017 Status: F Source: [facility] 4:20 PM [facility] REPOSITORY TYPE CODE TESTS RESULT OUT OF RANGE REFERENCE UNITS LAB GLUX 80-115 mg/dL High Glucose, 244 POC Performed By: #### GLUX #### Unless otherwise noted, all testing performed by [place] [address] CLIA: [id number] Web Content Writer: Robb Dominguez M.D. CARDIAC TROPONIN-I Collected: 08/28/2017 Status: F Source: [facility] 3:51 PM [facility] REPOSITORY TYPE CODE TESTS RESULT OUT OF RANGE REFERENCE UNITS LAB CTNI < 45.0 ng/L Normal Cardiac < 15 Troponin-I Result Comment: Elevation of troponin indicates some degree of myocardial necrosis but unless there is a significant rise and/or fall (if elevated) identified, it unlikely that an acute event has taken place Samples from patients routinely receiving high dose biotin therapy (100-300 mg/day) may show falsely decreased results. Please correlate clinically. LAB CTNINT Normal Cardiac No Troponin Comment Biomarker evidence of myocardial injury within the past 14 hours. Performed By: #### CTNI #### Unless otherwise noted, all testing performed by [address] [place] [address] CLIA: [id number] Web Content Writer: Robb Dominguez M.D. CT CHEST PE PROTOCOL Observed: 08/28/2017 Status: F Source: [facility] 1:39 PM [facility] REPOSITORY Final Report Accession No: [id number] Performed: Aug 28 2017 1:39PM Examination: CT CHEST PE PROTOCOL EXAM: CT CHEST PE PROTOCOL CLINICAL STATEMENT: Left-sided mid chest pain and shortness of breath, worsening today. COMPARISON: 05/29/2016. TECHNIQUE: CT angiography of the pulmonary arteries following the administration of 75 mL IV Isovue-370 intravenous contrast. MIP (maximum intensity projection) images or 3D post processing was performed. Dose reduction techniques were achieved by using automated exposure control and/or adjustment of mA and/or kV according to patient size and/or use of iterative reconstruction technique. FINDINGS: No abnormal dilatation or filling defect in the pulmonary artery tree. There is no intracardiac thrombus in the right cardiac chambers. Evaluation of the thoracic aorta for dissection is limited by bolus timing. There is extensive atherosclerotic calcification of the left and right coronary artery systems. There is some matted lymphadenopathy in the hilar regions bilaterally which is stable since 05/29/2016. Small hiatal hernia. No developing mass in the mediastinum. No pericardial or pleural effusion. There is no pneumothorax. Some central airway cuffing suggests bronchitis and there is some mosaic attenuation suggesting small airway disease in the lung bases. Bands of atelectasis or scar seen in the lingula and left lower lobe. There is a pulmonary nodule left apex measuring 5 mm. It measures approximately 4 mm on the prior examination. There is streak artifact from the left shoulder arthroplasty. Scanning into the upper abdomen shows partial visualization of the right upper pole renal cyst. IMPRESSION: 1. No evidence for pulmonary embolus. 2. Bronchitis and bronchiolitis with mosaic attenuation at lung bases. This appears acute on chronic. 3. Pulmonary nodule left upper lobe appears slightly increased as compared to the study of 05/29/2016. Recommend CT followup in 6 months Interpreting Physician: TANVIR CHARLES M.D. Trans: mad : cc: CHEST (ONE VIEW Observed: 08/28/2017 Status: F Source: [facility] ONLY) 12:49 PM [facility] REPOSITORY Final Report Accession No: [id number] Performed: Aug 28 2017 12:49PM Examination: CHEST (ONE VIEW ONLY) EXAM: CHEST (ONE VIEW ONLY) CLINICAL HISTORY: 66 years old Male presenting with shortness of breath and back pain. TECHNIQUE: 1 view chest x-ray. COMPARISON: 05/29/2016 FINDINGS: No pneumothorax, pleural effusion or focal airspace consolidation. Left basilar subsegmental atelectasis. Heart is normal in size. There are atherosclerotic changes of the thoracic aorta. Partial visualization of left shoulder arthroplasty. IMPRESSION: No acute cardiopulmonary process. Interpreting Physician: DMITRY PATE D.O. Trans: gvanho : cc: CBC W/O DIFF Collected: 08/28/2017 Status: F Source: [facility] 12:22 PM [facility] REPOSITORY TYPE CODE TESTS RESULT OUT OF RANGE REFERENCE UNITS LAB WBC 3.6-10.4 K/mcL WBC Normal 4.9 LAB RBC 4.0-5.5 M/mcL RBC Normal 4.43 LAB HGB 12.9-16.9 g/dL Normal Hemoglobin 13.3 LAB HCT 37.9-49.2 % Normal Hematocrit 38.9 LAB MCV 82.8-99.3 FL MCV Normal 87.9 LAB MCH 27.7-34.6 pg MCH Normal 30.0 LAB MCHC 32.9-35.5 g/dL MCHC Normal 34.1 LAB RDW 10-14.3 % High RDW 14.4 LAB PLT 139-354 K/mcL Platelet Normal Count 179 LAB MPV 6.6-10.8 FL MPV Normal 9.3 Performed By: #### CHEM8, CBCWOD, PT, EDCTNI, PTT #### Unless otherwise noted, all testing performed by [address] [address] CLIA: [id number] Web Content Writer: Robb Dominguez M.D. PROTIME Collected: 08/28/2017 Status: F Source: [facility] 12:22 PM [facility] REPOSITORY TYPE CODE TESTS RESULT OUT OF RANGE REFERENCE UNITS LAB PT. 11.8-14.3 Seconds Normal Protime 12.4 LAB INR Normal INR 0.95 Result Comment: The [place] [employer] recommended therapeutic range for Warfarin (Coumadin) therapy goals: PROPHYLAXIS/TREATMENT of: INR Venous Thrombosis, Pulmonary Embolism 2.0-3.0 Prevention of VTE (Orthopedic Surgery) 2.0-3.0 Atrial Fibrillation 2.0-3.0 Myocardial Infarction 2.0-3.0 Mechanical Prosthetic Heart Valves (Aortic position) 2.0-3.0 Mechanical Prosthetic Heart Valves (Mitral Position) 2.5-3.5 [place] [employer] evidence-based clinical practice guidelines. CHEST. 2012 (9th ed) Performed By: #### CHEM8, CBCWOD, PT, EDCTNI, PTT #### Unless otherwise noted, all testing performed by [address] [address] CLIA: [id number] Web Content Writer: Robb Dominguez M.D. PARTIAL THROMBOPLASTIN Collected: 08/28/2017 Status: F Source: [facility] TIME 12:22 PM [facility] REPOSITORY TYPE CODE TESTS RESULT OUT OF REFERENCE UNITS RANGE LAB PTT 23.0-34.0 Seconds Partial Normal Thromboplastin Time 29 Result Comment: Suggested therapeutic range for PTT is 68-104 sec. Performed By: #### CHEM8, CBCWOD, PT, EDCTNI, PTT #### Unless otherwise noted, all testing performed by [place] [address] CLIA: [id number] Web Content Writer: Robb Dominguez M.D. ED CARDIAC TROPONIN-I Collected: 08/28/2017 Status: F Source: [facility] 12:22 PM [facility] REPOSITORY TYPE CODE TESTS RESULT OUT OF RANGE REFERENCE UNITS LAB EDCTNI < 45 ng/L Normal ED Cardiac < 15 Troponin-I Result Comment: Elevation of troponin indicates some degree of myocardial necrosis but unless there is a significant rise and/or fall (if elevated) identified, it unlikely that an acute event has taken place Samples from patients routinely receiving high dose biotin therapy (100-300 mg/day) may show falsely decreased results. Please correlate clinically. Performed By: #### CHEM8, CBCWOD, PT, EDCTNI, PTT #### Unless otherwise noted, all testing performed by [place] [address] CLIA: [id number] Web Content Writer: Robb Dominguez M.D. BASIC METABOLIC PANEL Collected: 08/28/2017 Status: F Source: [facility] 12:22 PM [facility] TYPE CODE TESTS RESULT OUT OF REFERENCE UNITS RANGE LAB GLU 70-99 mg/dL High Glucose 316 Result Comment: This test result might be falsely depressed or falsely elevated on samples drawn from patients taking Sulfasalazine and Sulfapyridine. Venipuncture should occur prior to taking either of these drugs. LAB BUN 8-25 mg/dL BUN 23 LAB CREA 0.80-1.30 mg/dL Creatinine High 1.77 LAB eGFR >60 ml/min/1.73s Low q.m eGFR,NonAfrican-Am erican 39 Result Comment: Non- GFR Calc eGFR is an estimated Glomerular Filtration Rate based on the value of the patient's serum creatinine. In outpatients, eGFR should be used as a helpful tool in screening for CKD. In inpatients or patients with acute renal failure, eGFR represents the GFR at the moment of the draw and should be used with caution. LAB eGFRB >60 ml/min/1.73sq.m eGFR, -[place] Low 47 Result Comment: GFR Calc LAB CALCM 8.4-10.2 mg/dL Calcium 9.2 LAB NA 135-145 mmol/L Sodium 136 LAB K 3.5-5.1 mmol/L Potassium 4.4 LAB CL 98-108 mmol/L Chloride 104 LAB CO2 21-32 mmol/L CO2 25 Performed By: #### CHEM8, CBCWOD, PT, EDCTNI, PTT #### Unless otherwise noted, all testing performed by [facility] [address] [place], [place] [address] CLIA: [id number] Web Content Writer: Marisabel AlexandraO Observed: 07/13/2017 Status: COMPLETED Source: [place] 12:00 AM [facility] REPOSITORY Letter Text [address] [place] [address] [phone] 07/13/2017 Deepa Tong 5199 [facility] [address] Dear Mr. Tong: Due to a change in the provider's schedule, it has been necessary to reschedule your appointment. Enclosed please find a new appointment reminder that will replace the one previously sent to you. If this appointment is not convenient for you, please contact our office at [phone]. Thank you for choosing the [facility] as your Healthcare Provider. Sincerely, Appointment Office Department of Family Medicine Enclosure ALLERGIES ALLERGIES DATE TYPE / CODE NAME / CODE REACTION SEVERITY SOURCE 06/08/2016 DRUG MORPHINE Other High [facility] INGRED/[facility] Repository [id number]([facility] ED CT) 06/08/2016 DRUG MORPHINE Unknown [place] [address] Repository [id number]([facility] ED CT) 12/03/2012 DRUG MORPHINE UNKNOWN High [facility] INGRED/[address] [place] [address] [id number]([facility] Repository ED CT) ENCOUNTERS ENCOUNTERS ADMIT/DISCHARGE ACCOUNT NUMBER ADMITTING ENCOUNTER LOCATION SOURCE CLASS 02/22/2018/02/23/19 [id number] Ambulatory [address] Repository 02/01/2018 [id number] Ambulatory Building:[facility] [address] Repository 01/29/2018 [id number] Ambulatory [facility] ding:SL Repository 01/24/2018/01/25/[id number] Nuria Ambulatory [place] [address] Paty [facility] Repository 01/06/2018/01/07/[id number] Alma Emergency [place] [address] Brionna Velez lding:A1E [place] DeptRoom: [facility] A1E J4SDGfg: Repository A1E A1ED15 01/03/2018/01/05/20 [id number] Ambulatory [address] Repository 12/29/2017 [id number] Ambulatory Building:[facility] [address] Repository 12/05/2017/12/06/19 [id number] Ambulatory Building[facility] [address] [facility] 12/04/2017 [id number] Xiomy, Ambulatory [facility] Repository 12/04/2017/12/05/19 [id number] Ambulatory Building:[address] Repository 11/30/[id number] Mitch Ambulatory [facility] Donavon [facility] Repository 11/27/[id number] Darrel Ambulatory [facility] 11/23/2017 [id number] Ambulatory Building:[facility] [address] Repository 11/23/2017 [id number] Ambulatory [facility] 11/21/2017 [id number] Ambulatory Building:[facility] [address] Repository 10/25/2017/10/27/19 [id number] Ambulatory [address] Repository 10/17/2017 [id number] Ambulatory Building[facility] Three Repository 10/13/2017/10/18/19 [id number] [address] [address] [facility] Repository 10/13/[id number] Ashish [facility] 10/06/2017 [id number] Ambulatory Building:[facility] Three Repository 10/05/2017/10/07/[id number] Nuria Ambulatory [place] [address] Paty Cheung lding:A37 [place] and StepdownRoom [place] : A37 [facility] 3705Bed: A37 Repository 397152 10/05/2017/10/12/19 [id number] Ambulatory Building:[place] [address] [facility] Three LOCATION Repository 10/04/2017/10/05/19 [id number] Ambulatory Building:[place] [address] [facility] Three Repository 09/27/2017/09/28/[id number] Jose Emergency [place] [address] Guy Roque lding:A1E [place] and Emergency [place] DeptRoom: [facility] A1E U8KJTel: Repository A1E A1ED02 09/20/2017/09/21/19 [id number] Ambulatory Building:[address] Repository 09/19/[id number] Ashish Ambulatory [facility] Repository 09/19/2017 [id number] Ambulatory Building:[facility] Three Repository 09/19/2017 [id number] Ambulatory Building:[facility] Three Repository 09/15/2017/09/16/19 [id number] Ambulatory Building:[address] Repository 09/15/[id number] Ashish Ambulatory [facility] Repository 09/15/2017 [id number] Ambulatory Building:[facility] Three Repository 09/11/2017/09/12/19 [id number] Ambulatory Building:[address] Repository 09/11/[id number] Ashish Ambulatory [facility] Repository 09/11/2017 [id number] Ambulatory Building:[facility] Three Repository 09/09/[id number] Ashish Ambulatory [facility] Repository 09/08/2017/09/09/19 [id number] Ambulatory Building:[address] Repository 09/08/[id number] Ashish Ambulatory [facility] Repository 09/08/2017 [id number] Ambulatory Building:[facility] Three Repository 09/08/2017 [id number] Ambulatory Building[facility] Three Repository 09/07/[id number] Ashish Ambulatory [facility] Repository 09/07/2017 [id number] Ambulatory Building:[facility] Three Repository 09/06/[id number] Ashish Ambulatory [facility] Repository 09/06/2017 [id number] Ambulatory Building:[facility] Three Repository 09/06/2017 [id number] [facility] [address] Repository 09/05/2017/10/18/19 [id number] Ambulatory Building:[address] Three Repository 09/01/2017/09/02/19 [id number] Ambulatory Building:[place] [address] [facility] Three LOCATION Repository 08/28/2017/09/06/[id number] Ahsan Inpatient [place] [address] Ahmed Encounter lding:A32 [place] and CVICURoom: Rayna A32 3201Bed: [facility] A32 392548 Repository 03/29/2017/03/29/19 [id number] Ambulatory Building:[place] [address] [facility] Three Repository PAYERS PAYERS ENCOUNTER GUARANTOR PAYER SUBSCRIBER SOURCE 02/01/2018 DEEPA A Primary DEEPA A [facility] NAKIA: Insurance:SIXTO YEE: Three Repository [id number] MANAGED [id number] MANN MEDICAREPolicy 9 [facility], Number: [place], [place] [address]Yhd: [id number] [place] [address]Vqp: Date:3081-91-57BR BOX (HP) [address], [place] () [address]UC: 01/29/2018 DEEPA Primary DEEPAEV [id number] Insurance:SIXTO VANGB: [facility] Number: [id number] [place] [id number] Repository [address]Rvp: (419) Date:6438-67-30WB [phone] () [place] [address]XF: 01/29/2018 Secondary NOT GIVENUNK Javi Insurance:SELF PAY [facility] Number: Effective Repository Date:2018-01-04 01/24/2018 Primary DEEPA A [facility] Insurance:AeAdi VANGB: [place] and Number: [id number] [facility] [address] Repository Date:[place], [place] [facility] [address]Wrb: (419) [place], [place] [phone] () [phone]: 01/24/2018 Secondary DEEPA A [facility] Insurance:Sariah VANGB: Rodrigobarrera Number: [id number] [facility] [id number] 9 [address] Repository ective Date: - [place], [place] 9387-79-83Urni [address]Jio: (419) Name:[place] [address] [phone] () [facility] Medical CenterjenniferLowell, [place] [address]GB: 01/06/2018 Primary DEEPA A [facility] Insurance:Ashley YEE: [place] and Number: [id number] [facility]03JJEffective 9 DAVSI Repository Date:[place], [place] [facility] [address]Fnn: (419) [place], [place] [phone] () [phone]: 01/06/2018 Secondary DEEPA A [facility] Insurance:Sariah YEE: Becca Number: [id number] [facility] [id number] 9 [address] Repository ective Date: - [place], [place] 2825-42-88Qewp [address]Vvb: (419) Name:[place] [address] [phone] (HP) [place], [place] [address]OI: 12/29/2017 DEEPA A Primary DEEPA A [facility] WILLIAMSDOB: Insurance:AETNA CIERAB: Three Repository MANAGED [id number] MANN MEDICAREPolicy [address], Number: [place], [place] [address]Pwz: [id number] [place] [address]Czu: Date:0985-47-07RH BOX (HP) [id number] [place] [address] () [phone]: 12/05/2017 DEEPA A Primary DEEPA A [facility] WILLIAMSDOB: Insurance:AETBENNIE VANGB: Three Repository MANAGED [id number] MANN MEDICAREPolicy [address], Number: [place], [place] [address]Yrs: [id number] [place] [address]Nob: Date:2245-10-50ZT BOX (HP) [id number] [place] [address] (HP) [phone]: 12/04/[address] [facility] Insurance:Ashley YEE: [place] and Number: [id number] [facility] [id number] [facility] Repository Date:[place], [place] Name:[facility] [address]Jdc: (419) [place], [place] [phone] (HP) [id number]: 12/04/2017 DEEPA A Primary DEEPA A [facility] WILLIAMSDOB: Insurance:AETNA CIERAB: Three Repository MANAGED [id number] MANN MEDICAREPolicy [address], Number: [place], [place] [address]Aqa: [id number] [place] [address]Ctb: Date:6456-87-53TS BOX (HP) [place]287[place]QS[place], [place] (HP) [address]RB: 11/30/2017 Primary DEEPA A [facility] Insurance:AetnaRhonda VANGB: [place] and Number: [id number] [facility]BL03JJEffective 9 [address] Repository Date:[place], [place] Name[facility] [address]Exq: (419) [place], [place] [phone] (HP) [id number]: 11/30/2017 Secondary DEEPA A [facility] Insurance:Sariah YEE: Becca Number: [id number] [facility] [id number] 9 [address] Repository ective Date: - [place], [place] 0355-89-12Rptq [address]Qfo: (419) Name:[place] [address] () [place], [place] [address]QG: 11/27/2017 Primary DEEPA A [facility] Insurance:AeAdi YEE: [place] and Number: [id number] [facility]BL03JJEffective 9 [address] Repository Date:[place], [place] [facility] [address]Zwp: (419) [place], [place] [phone] () [id number]: 11/27/2017 Secondary DEEPA A [facility] Insurance:Sariah YEE: Becca Number: [id number] [facility] [id number] 9 [address] Repository ective Date: - [place], [place] 5751-89-83Snlb [address]Kfn: (419) Name:[place] [address] [phone] () [place], [place] [address]II: 11/23/2017 DEEPA A Primary DEEPA A [facility] WILLIAMSDOB: Insurance:AETBENNIE CIERAB: Three Repository MANAGED [id number] MANN MEDICAREPolicy [address], Number: [place], [place] [address]Rio: [id number] [place] [address]Aar: Date:7030-97-94BA BOX (HP) [id number] [place] [address] () [phone]: 11/23/2017 DEEPA A Primary DEEPA A [facility] WILLIAMSDOB: Insurance:AETBENNIE CIERAB: Three Repository MANAGED [id number] MANN MEDICAREPolicy [address], Number: [place], [place] [address]Snl: [id number] [place] [address]Fbb: Date:3397-22-28LM BOX (HP) [id number] [place] [address] () [phone]: 11/21/2017 DEEPA A Primary DEEPA A [facility] WILLIAMSDOB: Insurance:AETEBNNIE CIERAB: Three Repository MANAGED [id number] MANN MEDICAREPolicy [address], Number: [place], [place] [address]Spf: [id number] [place] [address]Yzj: Date:2331-84-55WR BOX (HP) [id number] [place] [address] () [phone]: 10/17/2017 DEEPA A Primary DEEPA A [facility] WILLIAMSDOB: Insurance:AETBENNIE CIERAB: Three Repository MANAGED [id number] MANN MEDICAREPolicy [address], Number: [place], [place] [address]Bjx: [id number] [place] [address]Tvv: Date:1963-28-16JP BOX (HP) 850568[place]JS[place], [place] (HP) [address]ZL: 10/13/2017 DEEPA A Primary DEEPA A [facility] WILLIAMSDOB: Insurance:GREYSONTBENNIE CIERAB: Three Repository MANAGED [id number] MANN MEDICAREPolicy [address], Number: [place], [place] [address]Zoq: [id number] [place] [address]Wng: Date:6399-98-30JO BOX (HP) 496029[place]WS[place], [place] (HP) [address]TH: 10/13/[address] [facility] Insurance:Ashley VANGB: [place] and Number: [id number] [facility] HospitalBL03JJEffective [facility] Repository Date:[place], [place] Name:[facility] [address]Nme: (419) [place], [place] [phone] () [id number]: 10/13/[address] [facility] Insurance:Sariah VANGB: Becca Number: [id number] [facility] [id number] 9 [facility] Repository ective Date: [place], [place] 0653-27-45Iwcs [address]Qab: (419) Name:[place] [address] [phone] () [place], [place] [address]WJ: 10/06/2017 DEEPA A Primary DEEPA A [facility] WILLIAMSDOB: Insurance:AEROGERS VANGB: Three Repository MANAGED [id number] MANN MEDICAREPolicy [address], Number: [place], [place] [address]Lor: [id number] [place] [address]Guo: Date:3740-25-84IB BOX (HP) 696[address], [place] (HP) [address]OV: 10/05/2017 Primary DEEPA A [facility] Insurance:AetnaRhonda TONGDOB: [place] and Number: [id number] [facility] [id number] 9 [address] Repository Date:[place], [place] Name:[facility] [address]Gdc: (419) [place], [place] [phone] (HP) [id number]: 10/05/[address] [facility] Insurance:Sariahrod VANGB: Be[place] Number: [id number] [facility] [id number] 9 [facility] Repository ective Date: [place], [place] 1413-63-67Tlaq [address]Ayn: (419) Name:[place] [address] [phone] () [place]i [place], [place] [address]HY: 10/05/2017 DEEPA A Primary DEEPA A [facility] WILLIAMSDOB: Insurance:AETBENNIE VANGB: Three Repository MANAGED [id number] MANN MEDICAREPolicy [address], Number: [place], [place] [address]Khi: [id number] [place] [address]Iky: Date:6996-79-49IH BOX (HP) 907[address]LL [place] (HP) [address]QA: 10/04/2017 DEEPA A Primary DEEPA A [facility] WILLIAMSDOB: Insurance:AETNA CIERAB: Three Repository MANAGED [id number] MANN MEDICAREPolicy [address], Number: [place], [place] [address]Ybb: [id number] [place] [address]Ykm: Date:6700-15-32IP BOX (HP) 081544EPS[place], [place] (HP) [phone]: 09/27/2017 Primary DEEPA A [facility] Insurance:AetFelix VANGB: [place] and Number: [id number] [facility]BL03JJEffective 9 [address] Repository Date:[place], [place] Name:[facility] [address]Nct: (419) [place], [place] [phone] (HP) [phone]: 09/27/2017 Secondary DEEPA A [facility] Insurance:Sariah YEE: Becca Number: [id number] [facility] [id number] 9 [address] Repository ective Date: - [place], [place] 9517-77-32Skiy [address]Uje: (959) Name:[place] [address] [phone] () [place], [place] [address]DV: 09/20/2017 DEEPA A Primary DEEPA A [facility] WILLIAMSDOB: Insurance:AESusyNA NAKIA: Three Repository MANAGED [id number] MANN MEDICAREPolicy [address], Number: [place], [place] [address]Smt: [id number] [place] [address]Zmr: Date:0056-62-11ZH BOX (HP) [address]169[address], [place] () [address]XA: 09/19/2017 Primary DEEPA A [facility] Insurance:AeAdi YEE: [place] and Number: [id number] [facility] [id number] 9 [address] Repository Date:[place], [place] Name:[facility] [address]Ste: (419) [place], [place] [phone] (HP) [phone]: 09/19/2017 Secondary DEEPA A [facility] Insurance:Sariah VANGB: [facility] Number: [id number] [facility] [id number] 9 [address] Repository ective Date: [place], [place] 5774-85-15Ilos [address]Crg: 419) Name:Vyxiev125 [phone] () Meri [place] [address]OK: 09/19/2017 DEEPA A Primary DEEPA A [facility] WILLIAMSDOB: Insurance:AETBENNIE CIERAB: Three Repository MANAGED [id number] MANN MEDICAREPolicy [address], Number: [place], [place] [address]Qak: [id number] [place] [address]Vru: Date:1609-60-77IG BOX () [id number] [place] [address] [place] () [address]NB: 09/19/2017 DEEPA A Primary DEEPA A [facility] WILLIAMSDOB: Insurance:AETBENNIE VANGB: Three Repository MANAGED [id number] MANN MEDICAREPolicy [address], Number: [place], [place] [address]Fsf: [id number] [place] [address]Jnc: Date:8161-32-34QF BOX () [id number] [place] [address] [place] () [phone]: 09/15/2017 DEEPA A Primary DEEPA A [facility] WILLIAMSDOB: Insurance:AETBENNIE VANGB: Three Repository MANAGED [id number] MANN MEDICAREPolicy [address], Number: [place], [place] [address]Wrp: [id number] [place] [address]Qdz: Date:8218-21-91KZ BOX () [id number] FAISAL MAHAN () [address]ZM: 09/15/[address] [facility] Insurance:AetnaRhonda TONGDOB: Oliver and Number: [id number] [facility] [id number] 9 DAVIS Repository Date: [place], [place] Name:[facility] [address]Alv: (419) [place], [place] [phone] (HP) [id number]: 09/15/[address] [facility] Insurance:Sariah CIERAB: Becca Number: [id number] [facility] [id number] 9 DAVIS Repository ective Date: [place], [place] 8156-60-30Umcn [address]Dbd: 419) Name:[place] [address] [phone] (HP) [facility] Centeranthony Mon[place], [place] [address]XK: 09/15/2017 DEEPA A Primary DEEPA A [facility] WILLIAMSDOB: Insurance:AETNA ALYCIAB: Three Repository MANAGED [id number] MANN MEDICAREPolicy [address], Number: [place], [place] [address]Rfw: [id number] [place] [address]Ark: Date:6243-52-89ZK BOX (HP) [place], [place] () [address]CH: 09/11/2017 DEEPA A Primary DEEPA A [facility] WILLIAMSDOB: Insurance:AETNA CIERAB: Three Repository MANAGED [id number] MANN MEDICAREPolicy [address], Number: [place], [place] [address]Uwv: [id number] [place] [address]Bhl: Date:3896-01-76OY BOX (HP) 188[address]PN [place] () [address]TI: 09/11/2017 Primary DEEPA A [facility] Insurance:AetnaRhonda VANGB: Oliver and Number: [id number] [facility]BL03JJEffective 9 DAVIS Repository Date:[place], [place] Name:[facility] [address]Wyq: (419) [place], [place] [phone] (HP) [id number]: 09/11/2017 Secondary DEEPA A [facility] Insurance:Sariahrod EYE: Becca Number: [id number] [facility] [id number] 9 DAVIS Repository ective Date: - [place], [place] 7826-79-19Tnpt 101[address]Lmf: (419) Name:[place] [address] [phone] (HP) [facility] [place], [place] [address]QD: 09/11/2017 DEEPA A Primary DEEPA A [facility] WILLIAMSDOB: Insurance:AETNA NAKIA: Three Repository MANAGED [id number] MANN MEDICAREPolicy 9 [facility], Number: [place], [place] [address]Xkt: [id number] [place] [address]Wky: Date:7001-88-08WM BOX (HP) [address]83[address]BTSAN [place], [place] () [address]MH: 09/09/2017 Primary DEEPA A [facility] Insurance:AeAdi YEE: Oliver and Number: [id number] [facility] [id number] 9 DAV[address] Repository Date:[place], [place] Name:[facility] [address]Hrp: (419) [facility] [place] [phone] (HP) [id number]: 09/08/2017 DEEPA A Primary DEEPA A [facility] WILLIAMSDOB: Insurance:AETNA CIERAB: Three Repository MANAGED [id number] MANN MEDICAREPolicy 9 [facility], Number: [place], [place] [address]Zng: [id number] [place] [address]Ewi: Date:7220-70-17OZ BOX (HP) 235794XK [place] (HP) [address]LE: 09/08/2017 Primary DEEPA A [facility] Insurance:AetFelix VANGB: Oliver and Number: [id number] [facility] [id number] 9 DAVIS Repository Date:[place], [place] Name:[facility] [address]Zbo: (419) [place], [place] [phone] (HP) [id number]: 09/08/2017 Secondary DEEPA A [facility] Insurance:Sariah VANGB: Becca Number: [id number] [facility] [id number] 9 DAV[address] Repository ective Date: - [place], [place] 9007-97-44Mjtz [address]Xbe: 419) Name:[place] [address] [phone] () Meri [place], [place] [address]ZK: 09/08/2017 DEEPA A Primary DEEPA A [facility] ALYCIADOB: Insurance:SIXTO YEE: Three Repository MANAGED [id number] MANN MEDICAREPolicy 9 [facility], Number: [place], [place] [address]Kil: [id number] [place] [address]Vfa: Date:2644-74-95TU BOX (HP) 946665VZ [place] (HP) [address]RS: 09/08/2017 DEEPA A Primary DEEPA A [facility] CIERAB: Insurance:AETBENNIE YEE: Three Repository MANAGED [id number] MANN MEDICAREPolicy [address], Number: [place], [place] [address]Pez: [id number] [place] [address]Mvw: Date:6561-14-05SG BOX (HP) 746952[place]RSAN [place], [place] (HP) [address]EE: 09/07/2017 Primary DEEPA A [facility] Insurance:AeAdi YEE: Oliver and Number: [id number] [facility]BL03JJEffective 9 DAVIS Repository Date:[place], [place] Name:[facility] [address]Ajh: (737) [place], [place] [phone] (HP) [id number]: 09/07/2017 DEEPA A Primary DEEPA A [facility] WILLIAMSDOB: Insurance:SIXTO YEE: Three Repository MANAGED [id number] MANN MEDICAREPolicy [address], Number: [place], [place] [address]Ttc: [id number] [place] [address]Mth: Date:7549-74-06XS BOX (HP) [address] [place] [address] (HP) [address]DX: 09/06/2017 Primary DEEPA A [facility] Insurance:Ashley YEE: Oliver and Number: [id number] [facility]BL03JJEffective 9 DAVIS Repository Date:[place], [place] Name:[facility] [address]Zzt: (419) [place], [place] [phone] (HP) [phone]: 09/06/2017 DEEPA A Primary DEEPA A [facility] WILLIAMSDOB: Insurance:AEROGERS YEE: Three Repository MANAGED [id number] MANN MEDICAREPolicy [address] [place], [place] Number: [place], [place] [address]Age: (419) [id number] [phone] (HP) Date:6830-90-87EQ [address] [place] [address]GK: 09/06/2017 DEEPA A Primary DEEPA A [facility] WILLIAMSDOB: Insurance:AETBENNIE CIERAB: Three Repository MANAGED [id number] MANN MEDICAREPolicy [address] [place], [place] Number: [place], [place] [address]Vvu: (419 [id number] [phone] (HP) Date:9135-32-88QD [address] [place] [address]UG: 09/05/2017 DEEPA A Primary DEEPA A [facility] WILLIAMSDOB: Insurance:AETBENNIE VANGB: Three Repository MANAGED [id number] MANN MEDICAREPolicy [address], Number: [place], [place] [address]Bsp: [id number] [place] [address]Imb: Date:0320-35-22OI BOX (HP) [address] [place] [address] () [address]EE: 2017 DEEPA A Primary DEEPA A [facility] WILLIAMSDOB: Insurance:[place] YEE: Three Repository MANAGED [id number] MANN MEDICAREPolicy [address], Number: [place], [place] [address]Haf: [id number] [place] [address]Ayn: Date:8812-50-16HK BOX (HP) [address] [place] [address] (HP) [phone]: 08/28/[address] [facility] Insurance:Ashley YEE: Oliver and Number: [id number] [facility] [id number] 9 [address] Repository Date:[place], [place] Name:[facility] [address]Rzm: (419) FAISAL Bhatt [phone] () [phone]: 08/28/[address] [facility]: [facility] Number: [id number] [facility] [id number] 9 [address] Repository ective Date: - [place], [place] 7959-25-38Lapp [address]Kgz: (419) Name:[place] [address] [phone] () [place]i [place], [place] [address]AO: 03/29/2017 DEEPA A Primary DEEPA A [facility] WILLIAMSDOB: Insurance:[facility] ALYCIAB: [facility] Repository [id number] MANAGED [id number] MANN MEDICAREPolicy 9 [place], [place] Number: [place], [place] [address]Qas: (419) [id number] [phone] (HP) Date:3377-75-24QV [address]QNFAISAL PAGE [address]ZS:
== END ==
PROVIDERS: Visit Provider Psychiatry & Neurology Psychiatry
DX: G47.33 Obstructive sleep apnea (adult) (pediatric) (principal)
CPT/HCPCS: 95811